=== PATIENT | male | born 1940 | race Caucasian/White ===

== ENCOUNTER 2017-11-18 11:00 | Inpatient (IN) | payer MEDICARE ==
[2017-11-18] MEDS ORDERED: SODIUM CHLORIDE 0.9% 500 ML IV STA (11:39)
[2017-11-18] MEDS ORDERED: SODIUM CHLORIDE 0.9% 1,000 ML IV STA (11:39)
--- NOTE | 2017-11-18 11:45 | ED ---
General Adult HPI - General Chief complaint: Weakness Stated complaint: Flu Symptoms Time Seen by Provider: 11/18/17 11:28 Source: patient, RN notes reviewed Mode of arrival: EMS Limitations: no limitations - History of Present Illness Initial comments: Patient 77-year-old male significant past medical history for renal disease, who presents emergency room today by EMS, the chief complaint of increased weakness with cough congestion over the last 5 days. Family members at bedside stating that they came down with the flu earlier in the week. States his symptoms started 5 days ago with cough congestion. States that they did call the family doctor who placed on azithromycin and has had 4 days of this. Patient admits to generalized weakness. Does admit to chronic low back pain states it is worse with movements as noted injury or trauma. Patient admits to cough with some sputum production. Patient does admit to feeling a little more short of breath. Denies any other complaints or symptoms. Patient denies any recent fever, chills, chest pain, abdominal pain, nausea or vomiting, numbness or tingling, dysuria or hematuria, constipation or diarrhea, headaches or visual changes, or any other complaints. - Related Data Home Medications Medication Instructions Recorded Confirmed Aspirin 81 mg PO HS@219911/18/17 11/18/17 Azithromycin [Zithromax Z-pack] See Taper PO DIRECTED 11/18/17 11/18/17 Ezetimibe [Zetia] 10 mg PO HS@219911/18/17 11/18/17 Labetalol HCl 50 mg PO TID@0600,1400,0 11/18/17 11/18/17 Levothyroxine Sodium [Synthroid] 137 mcg PO DAILY@59911/18/17 11/18/17 Simvastatin [Zocor] 40 mg PO HS@219911/18/17 11/18/17 Spironolactone [Aldactone] 25 mg PO DAILY@00 11/18/17 11/18/17 Valsartan [Diovan] 160 mg PO HS@219911/18/17 11/18/17 predniSONE 1 mg PO DAILY@199911/18/17 11/18/17 predniSONE 5 mg PO DAILY@199911/18/17 11/18/17 Allergies Allergy/AdvReac Type Severity Reaction Status Date / Time clidinium Allergy Unknown Verified 11/18/17 13:50 Review of Systems ROS Statement: Those systems with pertinent positive or pertinent negative responses have been documented in the HPI. ROS Other: All systems not noted in ROS Statement are negative. Past Medical History Past Medical History: Hyperlipidemia, Renal Disease, Thyroid Disorder History of Any Multi-Drug Resistant Organisms: None Reported Past Surgical History: No Surgical Hx Reported Past Psychological History: No Psychological Hx Reported Smoking Status: Never smoker Past Alcohol Use History: None Reported Past Drug Use History: None Reported General Exam - General Exam Comments Initial Comments: General: The patient is awake and alert, in no distress, and does not appear acutely ill. Eye: Pupils are equal, round and reactive to light, extra-ocular movements are intact. No nystagmus. There is normal conjunctiva bilaterally. No signs of icterus. Ears, nose, mouth and throat: There are moist mucous membranes and no oral lesions. Neck: The neck is supple, there is no tenderness or JVD. Cardiovascular: There is a regular rate and rhythm. No rub or gallop is appreciated. Respiratory: Lungs are clear to auscultation, respirations are non-labored, breath sounds are equal. No wheezes, stridor, rales, or rhonchi. Gastrointestinal: Soft, non-distended, non-tender abdomen without masses or organomegaly noted. There is no rebound or guarding present. No CVA tenderness. Musculoskeletal: Normal ROM, no tenderness. Strength 5/5. Sensation intact. Pulses equal bilaterally 2+. Neurological: A&O x 3. CN II-XII intact, There are no obvious motor or sensory deficits. Coordination appears grossly intact. Speech is normal. Skin: Skin is warm and dry and no rashes or lesions are noted. Psychiatric: Cooperative, appropriate mood & affect, normal judgment. Limitations: no limitations Course Vital Signs 11/18/17 11/18/17 11/18/17 11:03 12:21 13:49 Temperature 99.1 F Pulse Rate 85 79 89 Respiratory 18 18 16 Rate Blood Pressure 152/73 125/77 137/67 O2 Sat by Pulse 96 95 97 Oximetry EKG Findings - EKG Comments: EKG Findings:: EKG performed at 1211: Shows sinus rhythm at 79 beats per minute. WV interval 148. QRS 128. QT/QTc is 410/470. Does show evidence for a new left bundle branch when compared to previous EKG on 09/14/2011. Medical Decision Making - Medical Decision Making Patient labs been reviewed. Influenza B-positive. Patient was outside treatment range for Tamiflu. Patient's cardiac enzymes elevated at 1.030. Patient EKG reviewed and does show evidence for a new left bundle branch block compared to previous EKG back in 09/14/2011. Patient denies any chest pain. Does have generalized weakness. Does have cough congestion. His chest x-rays negative for any evidence of pneumonia. Patient will be admitted for serial enzymes and started on heparin here in emergency room. Case discussed with attending physician Dr. Vidal who did discuss the case with admitting physician Dr. Mcfadden movement the patient with consult cardiology. - Lab Data Result diagrams: 11/18/17 12:03 11/18/17 12:03 Lab Results 11/18/17 11/18/17 11/18/17 Range/Units 12:03 12:03 12:03 WBC 7.5 (3.8-10.6) k/uL RBC 3.83 L (4.30-5.90) m/uL Hgb 12.0 L (13.0-17.5) gm/dL Hct 36.7 L (39.0-53.0) % MCV 95.8 (80.0-100.0) fL MCH 31.4 (25.0-35.0) pg MCHC 32.8 (31.0-37.0) g/dL RDW 13.0 (11.5-15.5) % Plt Count 247 (150-450) k/uL Neutrophils % 82 % Lymphocytes % 7 % Monocytes % 9 % Eosinophils % 1 % Basophils % 0 % Neutrophils # 6.1 (1.3-7.7) k/uL Lymphocytes # 0.6 L (1.0-4.8) k/uL Monocytes # 0.7 (0-1.0) k/uL Eosinophils # 0.1 (0-0.7) k/uL Basophils # 0.0 (0-0.2) k/uL PT (9.0-12.0) sec INR (<1.2) APTT (22.0-30.0) sec Sodium 124 L (137-145) mmol/L Potassium 4.7 (3.5-5.1) mmol/L Chloride 91 L (98-107) mmol/L Carbon Dioxide 26 (22-30) mmol/L Anion Gap 7 mmol/L BUN 19 (9-20) mg/dL Creatinine 1.00 (0.66-1.25) mg/dL Est GFR (MDRD) Af Amer >60 (>60 ml/min/1.73 sqM) Est GFR (MDRD) Non-Af >60 (>60 ml/min/1.73 sqM) Glucose 81 (74-99) mg/dL Calcium 8.3 L (8.4-10.2) mg/dL Total Bilirubin 0.4 (0.2-1.3) mg/dL AST 45 (17-59) U/L ALT 29 (21-72) U/L Alkaline Phosphatase 70 (38-126) U/L Total Creatine Kinase 241 H (55-170) U/L CK-MB (CK-2) 5.7 H* (0.0-2.4) ng/mL CK-MB (CK-2) Rel Index 2.4 Troponin I 1.030 H* (0.000-0.034) ng/mL Total Protein 5.5 L (6.3-8.2) g/dL Albumin 2.9 L (3.5-5.0) g/dL Influenza Type A RNA (Not Detectd) Influenza Type B (PCR) (Not Detectd) 11/18/17 11/18/17 Range/Units 12:03 12:20 WBC (3.8-10.6) k/uL RBC (4.30-5.90) m/uL Hgb (13.0-17.5) gm/dL Hct (39.0-53.0) % MCV (80.0-100.0) fL MCH (25.0-35.0) pg MCHC (31.0-37.0) g/dL RDW (11.5-15.5) % Plt Count (150-450) k/uL Neutrophils % % Lymphocytes % % Monocytes % % Eosinophils % % Basophils % % Neutrophils # (1.3-7.7) k/uL Lymphocytes # (1.0-4.8) k/uL Monocytes # (0-1.0) k/uL Eosinophils # (0-0.7) k/uL Basophils # (0-0.2) k/uL PT 9.9 (9.0-12.0) sec INR 1.0 (<1.2) APTT 25.3 (22.0-30.0) sec Sodium (137-145) mmol/L Potassium (3.5-5.1) mmol/L Chloride (98-107) mmol/L Carbon Dioxide (22-30) mmol/L Anion Gap mmol/L BUN (9-20) mg/dL Creatinine (0.66-1.25) mg/dL Est GFR (MDRD) Af Amer (>60 ml/min/1.73 sqM) Est GFR (MDRD) Non-Af (>60 ml/min/1.73 sqM) Glucose (74-99) mg/dL Calcium (8.4-10.2) mg/dL Total Bilirubin (0.2-1.3) mg/dL AST (17-59) U/L ALT (21-72) U/L Alkaline Phosphatase (38-126) U/L Total Creatine Kinase (55-170) U/L CK-MB (CK-2) (0.0-2.4) ng/mL CK-MB (CK-2) Rel Index Troponin I (0.000-0.034) ng/mL Total Protein (6.3-8.2) g/dL Albumin (3.5-5.0) g/dL Influenza Type A RNA Not Detected (Not Detectd) Influenza Type B (PCR) Detected H (Not Detectd) Disposition Clinical Impression: NSTEMI (non-ST elevated myocardial infarction), Influenza B Disposition[facility] Time of Disposition: 13:15
[2017-11-18 12:25] LABS: Basophils % (A) 0 %; Eosinophils # (A) 0.1 k/uL (0-0.7); Eosinophils % (A) 1 %; HCT 36.7 % (39.0-53.0); Lymphocytes # (A) 0.6 k/uL (1.0-4.8); Lymphocytes % (A) 7 %; MCH 31.4 pg (25.0-35.0); MCHC 32.8 g/dL (31.0-37.0); MCV 95.8 fL (80.0-100.0); Mean Platelet Volume 6.7; Monocytes # (A) 0.7 k/uL (0-1.0); Monocytes % (A) 9 %; Neutrophils # (A) 6.1 k/uL (1.3-7.7); Neutrophils % (A) 82 %; Platelet Count 247 k/uL (150-450); RBC 3.83 m/uL (4.30-5.90); WBC 7.5 k/uL (3.8-10.6)
[2017-11-18 12:34] LABS: Partial Thromboplastin Time 25.3 sec (22.0-30.0); Prothrombin Time 9.9 sec (9.0-12.0)
[2017-11-18 12:35] LABS: ALT 29 U/L (21-72); AST 45 U/L (17-59); Albumin 2.9 g/dL (3.5-5.0); Alkaline Phosphatase 70 U/L (38-126); Anion Gap 7 mmol/L; Blood Urea Nitrogen 19 mg/dL (9-20); Calcium 8.3 mg/dL (8.4-10.2); Carbon Dioxide 26 mmol/L (22-30); Chloride 91 mmol/L (98-107); Glucose 81 mg/dL (74-99); Potassium 4.7 mmol/L (3.5-5.1); Sodium 124 mmol/L (137-145); Total Bilirubin 0.4 mg/dL (0.2-1.3); Total Protein 5.5 g/dL (6.3-8.2)
--- NOTE | 2017-11-18 13:08 | XR ---
EXAMINATION TYPE: XR chest 2V DATE OF EXAM: 11/18/2017 HISTORY: cough. REFERENCE: Previous study dated 09/08/2011. 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 The heart is enlarged. Pulmonary vasculature is normal. There is an infiltrate in the right upper lob e. There is airspace disease at the left lung base. I suspect a left effusion. IMPRESSION: 1. CARDIOMEGALY. 2. LEFT BASILAR AIRSPACE DISEASE. 3. RIGHT UPPER LUNG AIRSPACE DISEASE. 4. LEFT EFFUSION.
[2017-11-18 13:11] LABS: Creatine Kinase MB 5.7 ng/mL (0.0-2.4); Troponin I 1.03 ng/mL (0.000-0.034)
[2017-11-18] MEDS ORDERED: HEPARIN SODIUM,PORCINE 5,000 UNIT/ML 1 ML VIAL IV ONE (13:14)
[2017-11-18] MEDS: HEPARIN SOD,PORK IN 0.45% NACL 25,000 UNIT in 0.45% NACL 1 500ML.BAG IV SCH (13:31)
[2017-11-18] MEDS ORDERED: SODIUM CHLORIDE 0.9% 1,000 ML IV ONE (13:33)
[2017-11-18] MEDS ORDERED: NITROGLYCERIN SL TABS 0.4 MG TAB SUBLINGUAL PRN (13:33)
[2017-11-18] MEDS: LABETALOL 100 MG TAB PO SCH ×2 (14:25→22:05)
--- NOTE | 2017-11-18 17:26 | P.HPIM ---
History of Present Illness H&P Date: 11/18/17 Chief Complaint: Shortness of breath Patient is a 77-year-old female with a known history of FSGS currently being managed at [facility] with prednisone, Diovan, altered tone and labetalol, hypothyroidism and hyperlipidemia presents to ER we are EMS with complaints of increased weakness and cough with congestion worsening for the past 5 days. Patient does have clear to whitish sputum. Patient was seen by his PCP on last Sunday. Patient was started on Z-Elvis which the patient has has taken for 4 days. Otherwise patient has been having worsening cough and congestion and mild shortness of breath which made him come to the hospital. Patient does have generalized weakness. Denied any fever or chills. No complaints of chest pain. No nausea vomiting or abdominal pain. No dysuria or hematuria. No headache or dizziness or lightheadedness. No altered mental status. No visual changes. Patient was found have sodium level 124 Troponin 1.030 EKG showed sinus rhythm with PVCs and possible new onset left bundle branch block.. Patient was started on heparin drip. Influenza B positive PCR WBC 7.5 Review of Systems Constitutional: Patient denies any fever or chills . Does have generalized weakness Abdomen: Patient denied nausea vomiting and diarrhea and abdominal pain. Cardiovascular: Patient denies any chest pain or short of breath no palpitations. Respiratory: Cough with clear to whitish sputum and shortness of breath and congestion. Neurologic: Patient denied any numbness or tingling headache. Musculoskeletal: Patient denies any complaints of joint swelling or deformity. Skin: Negative Psychiatric: Negative Endocrine: No heat or cold intolerance. No recent weight gain. Genitourinary: No dysuria or hematuria. All other 14 point ROS negative except the above Past Medical History Past Medical History: Hyperlipidemia, Renal Disease, Thyroid Disorder History of Any Multi-Drug Resistant Organisms: None Reported Past Surgical History: No Surgical Hx Reported Past Psychological History: No Psychological Hx Reported Smoking Status: Never smoker Past Alcohol Use History: None Reported Past Drug Use History: None Reported Medications and Allergies Home Medications Medication Instructions Recorded Confirmed Type Aspirin 81 mg PO HS@0 11/18/17 11/18/17 History Azithromycin [Zithromax Z-pack] See Taper PO DIRECTED 11/18/17 11/18/17 History Ezetimibe [Zetia] 10 mg PO HS@2200 11/18/17 11/18/17 History Labetalol HCl 50 mg PO TID@0600,1400,0 11/18/17 11/18/17 History Levothyroxine Sodium [Synthroid] 137 mcg PO DAILY@59911/18/17 11/18/17 History Simvastatin [Zocor] 40 mg PO HS@219911/18/17 11/18/17 History Spironolactone [Aldactone] 25 mg PO DAILY@59911/18/17 11/18/17 History Valsartan [Diovan] 160 mg PO HS@219911/18/17 11/18/17 History predniSONE 1 mg PO DAILY@199911/18/17 11/18/17 History predniSONE 5 mg PO DAILY@199911/18/17 11/18/17 History Allergies Allergy/AdvReac Type Severity Reaction Status Date / Time clidinium Allergy Unknown Verified 11/18/17 13:50 Physical Exam Vitals: Vital Signs Temp Pulse Resp BP Pulse Ox 11/18/17 15:52 99 F 90 18 129/70 97 11/18/17 14:38 85 18 131/73 97 11/18/17 13:49 89 16 137/67 97 11/18/17 12:21 79 18 125/77 95 11/18/17 11:03 99.1 F 85 18 152/73 96 Intake and Output 11/18/17 11/18/17 11/18/17 06:59 14:59 22:59 Other: Weight 63.503 kg Patient Weight 11/19/17 06:59 Weight 63.503 kg PHYSICAL EXAMINATION: Patient is lying in the bed comfortably, no acute distress, awake alert and oriented.. HEENT: Normocephalic. Neck is supple. Pupils reactive. Nostrils clear. Oral cavity is moist. Ears reveal no drainage. Neck reveals no JVD, carotid bruits, or thyromegaly. CHEST EXAMINATION: Trachea is central. Symmetrical expansion. No wheezing noted in the lower lung demarco. No crackles or rhonchi Patient does have wheezing when he was coughing. CARDIAC: Normal S1, S2 with no gallops. No murmurs ABDOMEN: Soft. Bowel sounds normal. No organomegaly. No abdominal bruits. Extremities: reveal no edema. No clubbing or cyanosis Neurologically awake, alert, oriented x3 with well-coordinated movements. No focal deficits noted Skin: No rash or skin lesions. Psychiatric: Cooperative. Nonsuicidal Musculoskeletal: No joint swelling or deformity. Normal range of motion. Results CBC & Chem 7: 11/18/17 12:03 11/18/17 12:03 Labs: Abnormal Lab Results - Last 24 Hours (Table) 11/18/17 11/18/17 11/18/17 Range/Units 12:03 12:03 12:03 RBC 3.83 L (4.30-5.90) m/uL Hgb 12.0 L (13.0-17.5) gm/dL Hct 36.7 L (39.0-53.0) % Lymphocytes # 0.6 L (1.0-4.8) k/uL Sodium 124 L (137-145) mmol/L Chloride 91 L (98-107) mmol/L Calcium 8.3 L (8.4-10.2) mg/dL Total Creatine Kinase 241 H (55-170) U/L CK-MB (CK-2) 5.7 H* (0.0-2.4) ng/mL Troponin I 1.030 H* (0.000-0.034) ng/mL Total Protein 5.5 L (6.3-8.2) g/dL Albumin 2.9 L (3.5-5.0) g/dL Influenza Type B (PCR) (Not Detectd) 11/18/17 Range/Units 12:20 RBC (4.30-5.90) m/uL Hgb (13.0-17.5) gm/dL Hct (39.0-53.0) % Lymphocytes # (1.0-4.8) k/uL Sodium (137-145) mmol/L Chloride (98-107) mmol/L Calcium (8.4-10.2) mg/dL Total Creatine Kinase (55-170) U/L CK-MB (CK-2) (0.0-2.4) ng/mL Troponin I (0.000-0.034) ng/mL Total Protein (6.3-8.2) g/dL Albumin (3.5-5.0) g/dL Influenza Type B (PCR) Detected H (Not Detectd) Assessment and Plan Assessment: Acute influenza B infection. Symptoms started 4 days ago Elevated troponin possible non-ST elevated MT Hypovolemic hyponatremia sodium level 124 FSGS. Renal function is being closely monitored at [facility] hypothyroidism hyperlipidemia Left basilar and right upper air space disease. Unlikely bacterial pneumonia Plan: Patient was given IV fluid bolus in the ER. Patient has been having symptoms for the past 4 days and completed Z-Elvis. Tamiflu will not be started at this time and also patient having renal issues. Continue with the heparin drip and cardiology evaluation. Monitor serial EKG and troponins. Telemetry monitoring. Encourage oral intake. Will follow closely and further recommendations based on the clinical course. Currently patient denied any chest pain or shortness of breath. Time with Patient: Greater than 30
[2017-11-18 19:54] LABS: Creatine Kinase MB 4.9 ng/mL (0.0-2.4); Troponin I 0.629 ng/mL (0.000-0.034)
[2017-11-18] MEDS: ATORVASTATIN 20 MG TAB PO SCH (20:12)
[2017-11-18] MEDS: predniSONE 1 MG TAB PO SCH (20:13)
[2017-11-18] MEDS: predniSONE 5 MG TAB PO SCH (20:13)
[2017-11-18] MEDS ORDERED: guaiFENesin SYRUP 100MG/5ML 200 MG/10 ML CUP PO PRN (22:01)
[2017-11-18] MEDS: EZETIMIBE 10 MG TAB PO SCH (22:08)
[2017-11-18] MEDS: VALSARTAN 160 MG TAB PO SCH (22:09)
[2017-11-19 01:12] LABS: Creatine Kinase MB 3.9 ng/mL (0.0-2.4); Troponin I 0.44 ng/mL (0.000-0.034)
[2017-11-19] MEDS: LABETALOL 100 MG TAB PO SCH ×3 (05:01→20:16)
[2017-11-19] MEDS: SYNTHROID 137MCG TABLET PO SCH (05:02)
[2017-11-19] MEDS ORDERED: SPIRONOLACTONE 25 MG TAB PO SCH (06:00)
[2017-11-19 06:32] LABS: Basophils % (A) 1 %; Eosinophils % (A) 0 %; HCT 37.8 % (39.0-53.0); HGB 12.3 gm/dL (13.0-17.5); Lymphocytes # (A) 0.5 k/uL (1.0-4.8); Lymphocytes % (A) 7 %; MCH 31.7 pg (25.0-35.0); MCHC 32.5 g/dL (31.0-37.0); MCV 97.4 fL (80.0-100.0); Mean Platelet Volume 6.8; Monocytes # (A) 0.6 k/uL (0-1.0); Monocytes % (A) 8 %; Neutrophils # (A) 5.8 k/uL (1.3-7.7); Neutrophils % (A) 83 %; Platelet Count 248 k/uL (150-450); RBC 3.88 m/uL (4.30-5.90); RDW 13.1 % (11.5-15.5)
[2017-11-19 07:02] LABS: Anion Gap 9 mmol/L; Blood Urea Nitrogen 16 mg/dL (9-20); Calcium 8.4 mg/dL (8.4-10.2); Carbon Dioxide 22 mmol/L (22-30); Chloride 93 mmol/L (98-107); Cholesterol 140 mg/dL (<200); Glucose 85 mg/dL (74-99); HDL Cholesterol 52 mg/dL (40-60); LDL Cholesterol,Calculated 76 mg/dL (0-99); Potassium 4.9 mmol/L (3.5-5.1); Sodium 124 mmol/L (137-145); Triglycerides 59 mg/dL (<150)
[2017-11-19] MEDS ORDERED: ASPIRIN 325 MG TAB PO SCH (09:00)
[2017-11-19] MEDS ORDERED: METOPROLOL TARTRATE 50 MG TAB PO SCH (12:15)
[2017-11-19] MEDS ORDERED: SODIUM CHLORIDE 0.9% 1,000 ML IV SCH (12:15)
--- NOTE | 2017-11-19 16:05 | P.PN ---
Subjective 77-year-old gentleman with known history of focal segmental humerus sclerosis was admitted for severe influenzal illness, cough. Family requested patient that patient to be transferred to in [facility] to [place] where his focal segmental sclerosis is being managed. Patient incidentally is found to have hyponatremia believed secondary to diuretic therapy and sepsis and hypovolemia patient is receiving IV fluids all that phone was discontinued will recheck his sodium tomorrow. Unfortunately patient is getting D5 half-normal saline with heparin, aspirin pharmacy this cannot be changed to D5 normal saline are normal saline and cardiology is recommending to continue for 1 more day of heparin. Patient did have elevated troponins believed secondary to type II non-ST elevation myocardial infarction. Patient did have left bundle branch block which appears to be new. Discussed with family and cardiology. Patient does have moderate aortic stenosis. Patient is feeling much better than compared to yesterday. Constitutional: Denied any fatigue denied any fever. Cardio vascular: denied any chest pain, palpitations Gastrointestinal denied any nausea vomiting Pulmonary: Denied any shortness of breath cough Neurologic denied any new focal deficits Objective - Vital Signs Vital signs: Vital Signs Temp 97.1 F L 11/19/17 15:30 Pulse 92 11/19/17 15:30 Resp 28 H 11/19/17 15:30 BP 143/87 11/19/17 15:30 Pulse Ox 96 11/19/17 15:30 Intake & Output 11/18/17 11/19/17 11/19/17 18:59 06:59 18:59 Intake Total 643.886 Balance 643.886 Weight 63.503 kg 64.5 kg Intake: IV 540 Heparin Sod,Pork in 0.45% 220 NaCl 25,000 unit In 0.45 % NaCl 1 500ml.bag @ 12 UNITS/KG/HR 15.24 mls/hr IV .Q24H [facility] Rx#: [id number] Sodium Chloride 0.9% 1, 320 000 ml @ 20 mls/hr IV . Q24H ONE Rx#:[id number] Intake, IV Titration 103.886 Amount Heparin Sod,Pork in 0.45% 103.886 NaCl 25,000 unit In 0.45 % NaCl 1 500ml.bag @ 12 UNITS/KG/HR 15.24 mls/hr IV .Q24H [facility] Rx#: [id number] Other: Voiding Method Incontinent Incontinent # Voids 5 # Bowel Movements 1 - Exam PHYSICAL EXAMINATION: GENERAL: The patient is alert and oriented x3, is in mild respiratory distress appears to be lethargic HEENT: Pupils are round and equally reacting to light. EOMI. No scleral icterus. No conjunctival pallor. Normocephalic, atraumatic. No pharyngeal erythema. No thyromegaly. CARDIOVASCULAR: S1 and S2 present. No murmurs, rubs, or gallops. PULMONARY: Chest is clear to auscultation, no wheezing or crackles. ABDOMEN: Soft, nontender, nondistended, normoactive bowel sounds. No palpable organomegaly. MUSCULOSKELETAL: No joint swelling or deformity. EXTREMITIES: No cyanosis, clubbing, or pedal edema. NEUROLOGICAL: Gross neurological examination did not reveal any focal deficits. SKIN: No rashes. - Labs CBC & Chem 7: 11/19/17 05:55 11/19/17 05:55 Labs: Abnormal Lab Results - Last 24 Hours (Table) 11/18/17 11/18/17 11/19/17 Range/Units 18:50 18:50 00:15 RBC (4.30-5.90) m/uL Hgb (13.0-17.5) gm/dL Hct (39.0-53.0) % Lymphocytes # (1.0-4.8) k/uL APTT 59.8 H (22.0-30.0) sec Sodium (137-145) mmol/L Chloride (98-107) mmol/L Total Creatine Kinase 244 H 225 H (55-170) U/L CK-MB (CK-2) 4.9 H* 3.9 H* (0.0-2.4) ng/mL Troponin I 0.629 H* 0.440 H* (0.000-0.034) ng/mL 11/19/17 11/19/17 11/19/17 Range/Units 05:55 05:55 05:55 RBC 3.88 L (4.30-5.90) m/uL Hgb 12.3 L (13.0-17.5) gm/dL Hct 37.8 L (39.0-53.0) % Lymphocytes # 0.5 L (1.0-4.8) k/uL APTT 47.5 H (22.0-30.0) sec Sodium 124 L (137-145) mmol/L Chloride 93 L (98-107) mmol/L Total Creatine Kinase (55-170) U/L CK-MB (CK-2) (0.0-2.4) ng/mL Troponin I (0.000-0.034) ng/mL 11/19/17 Range/Units 10:58 RBC (4.30-5.90) m/uL Hgb (13.0-17.5) gm/dL Hct (39.0-53.0) % Lymphocytes # (1.0-4.8) k/uL APTT 48.8 H (22.0-30.0) sec Sodium (137-145) mmol/L Chloride (98-107) mmol/L Total Creatine Kinase (55-170) U/L CK-MB (CK-2) (0.0-2.4) ng/mL Troponin I (0.000-0.034) ng/mL Microbiology - Last 24 Hours (Table) 11/18/17 12:03 Blood Culture - Preliminary Blood No Growth after 24 hours Assessment and Plan Plan: Assessment and Plan Assessment: Systemic inflammatory response syndrome due to Acute influenza B infection. Symptoms started 4 days ago, feeling better compared to yesterday continue with IV fluids Elevated troponin possible non-ST elevated DC type II from influenza infection Hypovolemic hyponatremia sodium level 124, sodium remained at 124 unfortunately already received Spirinolactone today which was discontinued and patient is on IV fluids at this time in the form of normal saline at 75 mL FSGS. Renal function is being closely monitored at [facility] hypothyroidism hyperlipidemia Left basilar and right upper air space disease. Unlikely bacterial pneumonia Discussed with the physician at [facility] with accepted the patient but beds are unavailable at this time.
--- NOTE | 2017-11-19 18:38 | CONS ---
CONSULTATION This is a 77-year-old gentleman patient of Dr. Humberto Ferris came in through the emergency room yesterday with what seems to be influenza B. After he was admitted, troponin levels were performed and this revealed elevation raising the possibility of non STEMI and therefore I am seeing the patient. Apparently, he has a kidney disease and was seen at [facility] and has been advised to be on spironolactone and labetalol. However, his clinical picture suggests that of a influenza with hyponatremia and sodium level is 124. He is feeling weak, coughing up and the family members suggest that he had flu in the week and he was placed on Zithromax for 4 days. He is having generalized weakness, lack of energy and therefore has been admitted to the hospital. He is hyponatremic and also has elevated troponin. Possibility of a troponin rise in the setting of flu is not unlikely but underlying myocardial ischemia also cannot be totally excluded, although patient does not seem to be having any acute ischemic syndrome type picture clinically. PAST MEDICAL HISTORY: Renal disease of unclear etiology advised to be on Aldactone and Diovan and prednisone. He is also has a thyroid disorder and hyperlipidemia. He has a systolic murmur, but there is no clear diagnosis of what valvular disease he has. The patient is not a smoker. Does not use alcohol. MEDICATIONS: At home include Zocor 40 mg daily, Aldactone 25 mg daily, Diovan 160 mg daily, prednisone 6 mg daily. REVIEW OF SYSTEMS: Remarkable for generalized weakness, lack of energy, cough with some sputum production. No hematemesis, melena, genitourinary symptoms, fever, chills or cough with expectoration. EKG reveals sinus mechanism with a left bundle. LABORATORY DATA: Suggests that the troponin is elevated at 0.6 and 0.4. His sodium is 124, potassium is normal. White count is normal. EXAMINATION: Blood pressure is 140/70, pulse rate is about 90 per minute. HEENT unremarkable. Fundus was not examined by me. NECK: Supple. I cannot appreciate JVD. Heart exam reveals S1, S2 with ejection systolic murmur at the base of the heart. Second heart sound is somewhat muffled. There is also a systolic murmur at the apex. Lungs reveal diminished air entry with fine rales over both bases. ABDOMEN: Soft, nontender. Lower extremities reveal diminished pulses, trace edema. Central nervous system revealed generalized weakness. No focal deficits. EKG revealed a sinus mechanism with left bundle. IMPRESSION: 1. Troponin elevation probably related to underlying influenza and related issues. 2. Influenza B confirmed. 3. Hyponatremia. 4. History of renal disease, unclear etiology. 5. Moderate aortic stenosis on clinical evaluation. RECOMMENDATION: I am recommending an echocardiogram and suggesting that we switch him from labetalol to Lopressor in view of myocardial ischemia and also hydrate him cautiously. I will also seek a nephrology evaluation. Apparently hyponatremia issues being addressed by Dr. Araujo. Thank you very much for the consultation. MMLAURAL / IJN: [id number] /
[2017-11-19] MEDS: EZETIMIBE 10 MG TAB PO SCH (20:16)
[2017-11-19] MEDS: VALSARTAN 160 MG TAB PO SCH (20:17)
[2017-11-19] MEDS: predniSONE 1 MG TAB PO SCH (20:17)
[2017-11-19] MEDS: predniSONE 5 MG TAB PO SCH (20:17)
[2017-11-19] MEDS: ATORVASTATIN 20 MG TAB PO SCH ×2 (20:17→20:21)
[2017-11-19] MEDS: HEPARIN SOD,PORK IN 0.45% NACL 25,000 UNIT in 0.45% NACL 1 500ML.BAG IV SCH (23:02)
[2017-11-20] MEDS ORDERED: FUROSEMIDE 20 MG TAB PO STA (00:39)
[2017-11-20] MEDS ORDERED: FUROSEMIDE 10 MG/ML 2 ML VIAL IV ONE ×2 (00:42→11:30)
[2017-11-20] MEDS: SODIUM CHLORIDE 0.9% 1,000 ML IV SCH (01:04)
[2017-11-20 06:24] LABS: ALT 24 U/L (21-72); AST 43 U/L (17-59); Albumin 3.1 g/dL (3.5-5.0); Alkaline Phosphatase 81 U/L (38-126); Anion Gap 13 mmol/L; Blood Urea Nitrogen 20 mg/dL (9-20); Calcium 8.7 mg/dL (8.4-10.2); Carbon Dioxide 20 mmol/L (22-30); Chloride 92 mmol/L (98-107); Glucose 85 mg/dL (74-99); Potassium 4.9 mmol/L (3.5-5.1); Sodium 125 mmol/L (137-145); Total Bilirubin 0.7 mg/dL (0.2-1.3)
--- NOTE | 2017-11-20 08:39 | XR ---
EXAMINATION TYPE: XR chest 1V DATE OF EXAM: 11/20/2017 COMPARISON: Prior chest x-ray 11/18/2017 HISTORY: Congestive heart failure TECHNIQUE: Single frontal view of the chest is obtained. FINDINGS: Patient is rotated. Elevation of the right hemidiaphragm is again noted. No evident pneumo thorax or sizable effusion. Interstitium is increased. Heart size is stable. Patchy basilar density i s noted. IMPRESSION: Findings are similar to prior exam. Suspect underlying interstitial lung disease, basila r atelectasis, cardiomegaly. There may be some improvement in aeration.
[2017-11-20 11:02] LABS: Uric Acid 4.6 mg/dL (3.5-8.5)
--- NOTE | 2017-11-20 11:08 | ECHOF ---
Referral Reason:pain/shortness of breath/post procedure MEASUREMENTS -------- HEIGHT: 175.3 cm WEIGHT: 64.4 kg BP: 149/97 RVIDd: 2.9 cm (< 3.3) IVSd: 1.1 cm (0.6 - 1.1) LVIDd: 4.1 cm (3.9 - 5.3) LVPWd: 1.3 cm (0.6 - 1.1) IVSs: 1.4 cm LVIDs: 2.9 cm LVPWs: 1.5 cm LAESV Index (A-L): 13.88 ml/m Ao Diam: 3.3 cm (2.0 - 3.7) AV Cusp: 0.9 cm (1.5 - 2.6) LA Diam: 3.4 cm (2.7 - 3.8) MV E Brandan: 1.13 m/s MV DecT: 80 ms MV A Brandan: 1.30 m/s MV E/A Ratio: 0.87 AV maxP.63 mmHg AV meanP.49 mmHg RAP: 5.00 mmHg RVSP: 37.68 mmHg FINDINGS -------- Sinus rhythm. This was a technically adequate study. The left ventricular size is normal. There is mild concentric left ventricular hypertrophy. Overa ll left ventricular systolic function is normal with, an EF between 55 - 60 %. The right ventricle is normal in size and function. Normal LA size by volume 22+/-6 ml/m2. The right atrium is normal in size. Aortic valve is trileaflet and is moderately thickened. Trace to mild aortic regurgitation. There is moderate aortic stenosis present. Peak/mean gradient across the Aortic Valve is 45.63mmHg / 29. 49mmHg. The mitral valve leaflets are mildly thickened. Mild mitral annular calcification present. Mild m itral regurgitation is present. No regurgitation noted Right ventricular systolic pressure is normal at < 35 mmHg. There is mild pulmonary hypertension. Trace/mild (physiologic) pulmonic regurgitation. The aortic root size is normal. IVC Not well visulized. The pericardium is normal. There is no pericardial effusion. CONCLUSIONS -------- 1. Sinus rhythm. 2. This was a technically adequate study. 3. The left ventricular size is normal. 4. There is mild concentric left ventricular hypertrophy. 5. Overall left ventricular systolic function is normal with, an EF between 55 - 60 %. 6. Normal LA size by volume 22+/-6 ml/m2. 7. Aortic valve is trileaflet and is moderately thickened. 8. Trace to mild aortic regurgitation. 9. There is moderate aortic stenosis present. 10. Peak/mean gradient across the Aortic Valve is 45.63mmHg / 29.49mmHg. 11. The mitral valve leaflets are mildly thickened. 12. Mild mitral annular calcification present. 13. Mild mitral regurgitation is present. 14. No regurgitation noted 15. Right ventricular systolic pressure is normal at < 35 mmHg. 16. There is mild pulmonary hypertension. 17. Trace/mild (physiologic) pulmonic regurgitation. 18. The aortic root size is normal. 19. IVC Not well visulized. 20. There is no pericardial effusion. DOCUMENT CONTROL ASSISTANT: Adria Juan RDCS
--- NOTE | 2017-11-20 11:20 | P.NPCON ---
History of Present Illness - Reason for Consult hyponatremia - History of Present Illness Reason for consultation: Hyponatremia History of present illness: Patient is a 77-year-old male seen in renal consultation for hyponatremia. Patient's sodium level was 124 on admission and he was started on normal saline at 75 mL an hour. Subsequently his sodium level dropped down to 122 and IV fluids were discontinued. He did receive 1 dose of Lasix 20 IV last night and sodium level this morning is 125. Patient presented to the hospital with generalized weakness along with cough and congestion. He is noted to be positive for influenza B virus. 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 He is currently maintained on prednisone 6 mg daily. He also has a history of aortic aneurysm for which she underwent surgical repair in the past. Patient's currently nothing by mouth as he is having difficult time swallowing. He schedule for a barium swallow evaluation today. Denies any vomiting or diarrhea. Denies chest pain. He does have a nonproductive cough. His most recent temperature was 99 from night. Hemodynamically he's been stable. No edema. He is nonoliguric. Vital signs are stable. General: The patient appeared well nourished and normally developed. HEENT: Head exam is unremarkable. Neck is without jugular venous distension. LUNGS: Lungs are clear to auscultation and percussion. Breath sounds decreased. HEART: Rate and Rhythm are regular. First and second heart sounds normal. No murmurs, rubs or gallops. ABDOMEN: Abdominal exam reveals normal bowel sounds. Non-tender and non- distended. No evidence of peritonitis. EXTREMITITES: No clubbing, cyanosis, or edema. Past Medical History Past Medical History: Hyperlipidemia, Renal Disease, Thyroid Disorder History of Any Multi-Drug Resistant Organisms: None Reported Past Surgical History: No Surgical Hx Reported Additional Past Surgical History / Comment(s): AAA repair Past Anesthesia/Blood Transfusion Reactions: No Reported Reaction Past Psychological History: No Psychological Hx Reported Smoking Status: Never smoker Past Alcohol Use History: None Reported Past Drug Use History: None Reported - Past Family History Mother Family Medical History: Cancer Medications and Allergies Home Medications Medication Instructions Recorded Confirmed Type Aspirin 81 mg PO HS@2200 11/18/17 11/18/17 History Azithromycin [Zithromax Z-pack] See Taper PO DIRECTED 11/18/17 11/18/17 History Ezetimibe [Zetia] 10 mg PO HS@219911/18/17 11/18/17 History Labetalol HCl 50 mg PO TID@0600,1400,219911/18/17 11/18/17 History Levothyroxine Sodium [Synthroid] 137 mcg PO DAILY@59911/18/17 11/18/17 History Simvastatin [Zocor] 40 mg PO HS@219911/18/17 11/18/17 History Spironolactone [Aldactone] 25 mg PO DAILY@59911/18/17 11/18/17 History Valsartan [Diovan] 160 mg PO HS@219911/18/17 11/18/17 History predniSONE 1 mg PO DAILY@199911/18/17 11/18/17 History predniSONE 5 mg PO DAILY@199911/18/17 11/18/17 History Allergies Allergy/AdvReac Type Severity Reaction Status Date / Time clidinium Allergy Unknown Verified 11/18/17 13:50 Physical Exam Vitals: Vital Signs Temp Pulse Resp BP Pulse Ox 11/20/17 08:36 93 L 11/20/17 08:33 99.0 F 100 18 141/60 93 L 11/20/17 03:19 98.4 F 90 18 143/82 92 L 11/20/17 00:00 98.0 F 93 18 160/96 94 L 11/19/17 20:00 99.2 F 91 18 134/81 95 11/19/17 15:30 97.1 F L 92 28 H 143/87 96 11/19/17 12:00 97.1 F L 96 24 149/89 95 Intake and Output 11/19/17 11/20/17 11/20/17 22:59 06:59 14:59 Intake Total 396.114 118.11 0 Balance 396.114 118.11 0 Intake: Intake, IV Titration 396.114 118.11 Amount Heparin Sod,Pork in 0.45% 396.114 118.11 NaCl 25,000 unit In 0.45 % NaCl 1 500ml.bag @ 12 UNITS/KG/HR 15.24 mls/hr IV .Q24H [facility] Rx#: [id number] Oral 0 Other: Voiding Method Incontinent Incontinent # Voids 3 # Bowel Movements 1 Weight 65 kg 65 kg Patient Weight 11/21/17 06:59 Weight 65 kg Results - Lab Results Most recent lab results Calcium 8.7 mg/dL (8.4-10.2) 11/20/17 05:17 11/19/17 05:55 11/20/17 05:17 Assessment and Plan Plan: Assessment: #1. 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 Sodium level up to 125 this morning. #2. Biopsy-proven FSGS being followed at [facility]. Currently maintained on prednisone 6 minute grams daily. #3. Benign hypertension. Controlled. #4. Metabolic acidosis secondary to IV fluids. #5. Influenza. #6. Moderate aortic stenosis. Cardiology following. Plan: Lasix 20 mg IV once now. Repeat sodium level at 6 PM today. Diet to be advanced after swallow evaluation completed. Maintain 1200 mL fluid restriction for now. Okay to resume Diovan and Aldactone if able to take oral pills. Avoid nephrotoxic agents and hypotensive episodes. Repeat electrolytes in the morning. Check urinalysis. Continue prednisone 6 mg daily. Thank you for the consultation. I will continue to follow the patient with you during his hospital stay.
--- NOTE | 2017-11-20 14:34 | FL ---
EXAMINATION TYPE: FL barium swallow w video DATE OF EXAM: 11/20/2017 MODIFIED SWALLOW / DEGLUTITION STUDY CLINICAL HISTORY: Dysphagia. TECHNIQUE: Deglutition study is performed utilizing thin liquid barium, honey and nectar thick liqui d barium and barium thick applesauce. 1 minute and 36 seconds of fluoroscopy time was utilized with 1 95 images saved. COMPARISON: None. FINDINGS: The oral and pharyngeal phases show satisfactory initiation and propagation with all modali ties tested. Normal mastication is seen with solid modalities tested. Laryngeal penetration and aspi ration are seen with all modalities tested including liquid barium, honey, and nectar thick liquid ba rium and barium thick applesauce. Significant pharyngeal residue was appreciated with the nectar thic k liquid barium and barium thick applesauce. IMPRESSION: Laryngeal penetration and aspiration with all modalities tested. Please refer to speech therapist notes for further details if necessary.
[2017-11-20] MEDS: SYNTHROID 137MCG TABLET PO SCH (16:24)
[2017-11-20] MEDS: LABETALOL 100 MG TAB PO SCH ×2 (16:25→16:26)
[2017-11-20] MEDS: ASPIRIN 81 MG PO SCH (16:25)
[2017-11-20] MEDS: FLUCONAZOLE IN NACL,ISO-OSM 100 MG in SALINE 1 50ML.BAG IVPB SCH (16:28)
--- NOTE | 2017-11-20 16:52 | P.PN ---
Subjective 77-year-old gentleman with known history of focal segmental humerus sclerosis was admitted for severe influenzal illness, cough. Family requested patient that patient to be transferred to in [facility] to [place] where his focal segmental sclerosis is being managed. Patient incidentally is found to have hyponatremia believed secondary to diuretic therapy and sepsis and hypovolemia patient is receiving IV fluids all that phone was discontinued will recheck his sodium tomorrow. Unfortunately patient is getting D5 half-normal saline with heparin, aspirin pharmacy this cannot be changed to D5 normal saline are normal saline and cardiology is recommending to continue for 1 more day of heparin. Patient did have elevated troponins believed secondary to type II non-ST elevation myocardial infarction. Patient did have left bundle branch block which appears to be new. Discussed with family and cardiology. Patient does have moderate aortic stenosis. 11/20/2017 Patient's sodium did not improve in spite of IV fluids and patient's urinary sodium is 124 because of that reason nephrology believes patient has syndrome of inappropriate ADH secretion from influenza him up patient was started on fluid restriction actually patient is nothing by mouth except for ice chips and was given a dose of Lasix. aldactone can be resumed. Patient has odynophagia, possible fungal esophagitis and failed swallow. Because of which patient means and by mouth, patient was started on IV flucanazole for fungal esophagitis. Patient is feeling much better than compared to yesterday. Constitutional: Denied any fatigue denied any fever. Cardio vascular: denied any chest pain, palpitations Gastrointestinal denied any nausea vomiting Pulmonary: Denied any shortness of breath cough Neurologic denied any new focal deficits Objective - Vital Signs Vital signs: Vital Signs Temp 99.2 F 11/20/17 12:21 Pulse 80 11/20/17 16:40 Resp 16 11/20/17 16:40 BP 151/86 11/20/17 12:21 Pulse Ox 93 L 11/20/17 08:36 Intake & Output 11/19/17 11/20/17 11/20/17 18:59 06:59 18:59 Intake Total 514.224 0 Balance 514.224 0 Weight 65 kg 65 kg Intake: Intake, IV Titration 514.224 Amount Heparin Sod,Pork in 0.45% 514.224 NaCl 25,000 unit In 0.45 % NaCl 1 500ml.bag @ 12 UNITS/KG/HR 15.24 mls/hr IV .Q24H [facility] Rx#: [id number] Oral 0 Other: Voiding Method Incontinent Incontinent Incontinent # Voids 3 2 # Bowel Movements 1 - Exam PHYSICAL EXAMINATION: GENERAL: The patient is alert and oriented x3, is in mild respiratory distress appears to be lethargic HEENT: Pupils are round and equally reacting to light. EOMI. No scleral icterus. No conjunctival pallor. Normocephalic, atraumatic. No pharyngeal erythema. No thyromegaly. CARDIOVASCULAR: S1 and S2 present. No murmurs, rubs, or gallops. PULMONARY: Chest is clear to auscultation, no wheezing or crackles. ABDOMEN: Soft, nontender, nondistended, normoactive bowel sounds. No palpable organomegaly. MUSCULOSKELETAL: No joint swelling or deformity. EXTREMITIES: No cyanosis, clubbing, or pedal edema. NEUROLOGICAL: Gross neurological examination did not reveal any focal deficits. SKIN: No rashes. - Labs CBC & Chem 7: 11/19/17 05:55 11/20/17 05:17 Labs: Abnormal Lab Results - Last 24 Hours (Table) 11/19/17 11/19/17 11/19/17 Range/Units 17:50 17:50 23:47 APTT (22.0-30.0) sec Sodium 123 L 122 L (137-145) mmol/L Chloride (98-107) mmol/L Carbon Dioxide (22-30) mmol/L Osmolality 257 L (280-301) mosm/kg Total Protein (6.3-8.2) g/dL Albumin (3.5-5.0) g/dL Ur Random Sodium (30-90) mmol/L 11/20/17 11/20/17 11/20/17 Range/Units 02:00 05:17 05:17 APTT 41.4 H (22.0-30.0) sec Sodium 125 L (137-145) mmol/L Chloride 92 L (98-107) mmol/L Carbon Dioxide 20 L (22-30) mmol/L Osmolality (280-301) mosm/kg Total Protein 6.0 L (6.3-8.2) g/dL Albumin 3.1 L (3.5-5.0) g/dL Ur Random Sodium 135 H (30-90) mmol/L Microbiology - Last 24 Hours (Table) 11/18/17 12:03 Blood Culture - Preliminary Blood No Growth after 48 hours Assessment and Plan Plan: Assessment and Plan Assessment: Systemic inflammatory response syndrome due to Acute influenza B infection. Symptoms started 4 days ago, feeling better compared to yesterday continue with IV fluids Elevated troponin possible non-ST elevated [place] type II from influenza infection Euvolemic hyponatremia sodium level 124,, IV fluids was discontinued patient was given Lasix and patient was started on fluid restriction FSGS. Renal function is being closely monitored at [facility] patient is a low-dose steroid for this hypothyroidism hyperlipidemia Left basilar and right upper air space disease. Unlikely bacterial pneumonia Discussed with the physician at [facility] with accepted the patient but beds are unavailable at this time. Failed swallow evaluation: Patient will remain nothing by mouth probably due to fungal esophagitis along with influenza. -Odynophagia: Secondary to fungal esophagitis IV flucanazole as mentioned above.
[2017-11-20 19:36] LABS: Amorphous Sediment,Urine Rare /hpf; Appearance,Urine Clear (Clear); Bilirubin,Urine Negative (Negative); Blood,Urine Small (Negative); Color,Urine Yellow; Glucose,Urine (UA) Negative (Negative); Hyaline Casts,Urine 3 /lpf (0-2); Ketones,Urine 2+ (Negative); Leukocyte Esterase,Urine Negative (Negative); Mucus,Urine Rare /hpf; PH, Urine 5.5 (5.0-8.0); Protein,Urine 2+ (Negative); RBC,Urine 1 /hpf (0-5); Squamous Epithelial Cell,Urine 2 /hpf (0-4); Urobilinogen,Urine <2.0 mg/dL (<2.0); WBC,Urine 1 /hpf (0-5)
[2017-11-20] MEDS ORDERED: ALBUTEROL NEBULIZED 2.5 MG/3 ML INHALATION SCH (20:00)
[2017-11-20] MEDS: ATORVASTATIN 20 MG TAB PO SCH (20:49)
[2017-11-20] MEDS: EZETIMIBE 10 MG TAB PO SCH (20:49)
[2017-11-20] MEDS: methylPREDNISolone SOD SUCCI 40 MG/ML 1 ML VIAL IV SCH (21:09)
[2017-11-20] MEDS: METOPROLOL TARTRATE 5 MG/5 ML VIAL IVP SCH (21:09)
[2017-11-20] MEDS: VALSARTAN 160 MG TAB PO SCH (21:24)
[2017-11-21] MEDS: SODIUM CHLORIDE 0.9% 1,000 ML IV SCH (01:11)
[2017-11-21] MEDS: ACETAMINOPHEN IV (For NPO) 1,000 MG in EMPTY BAG 1 BAG IVPB PRN ×2 (01:31→21:46)
[2017-11-21] MEDS: METOPROLOL TARTRATE 5 MG/5 ML VIAL IVP SCH ×4 (04:13→22:33)
[2017-11-21] MEDS: SYNTHROID 137MCG TABLET PO SCH (04:22)
[2017-11-21 07:05] LABS: Basophils % (A) 0 %; Eosinophils % (A) 0 %; HCT 44.3 % (39.0-53.0); HGB 14.8 gm/dL (13.0-17.5); Lymphocytes # (A) 0.2 k/uL (1.0-4.8); Lymphocytes % (A) 3 %; MCH 31.8 pg (25.0-35.0); MCHC 33.4 g/dL (31.0-37.0); MCV 95.3 fL (80.0-100.0); Mean Platelet Volume 7.4; Monocytes # (A) 0.5 k/uL (0-1.0); Monocytes % (A) 7 %; Neutrophils # (A) 6.1 k/uL (1.3-7.7); Neutrophils % (A) 89 %; Platelet Count 295 k/uL (150-450); RBC 4.65 m/uL (4.30-5.90); RDW 13.1 % (11.5-15.5); WBC 6.9 k/uL (3.8-10.6)
[2017-11-21 07:22] LABS: Anion Gap 16 mmol/L; Blood Urea Nitrogen 32 mg/dL (9-20); Calcium 9.6 mg/dL (8.4-10.2); Carbon Dioxide 20 mmol/L (22-30); Chloride 92 mmol/L (98-107); Glucose 117 mg/dL (74-99); Potassium 5.6 mmol/L (3.5-5.1); Sodium 128 mmol/L (137-145)
[2017-11-21] MEDS: ASPIRIN 81 MG PO SCH (07:58)
[2017-11-21] MEDS: FLUCONAZOLE IN NACL,ISO-OSM 100 MG in SALINE 1 50ML.BAG IVPB SCH (08:03)
[2017-11-21] MEDS: IPRATROPIUM-ALBUTEROL 3 ML NEB INHALATION SCH ×4 (08:09→19:41)
[2017-11-21] MEDS ORDERED: INSULIN REGULAR 100 UNIT/ML VIAL IV ONE (09:24)
[2017-11-21] MEDS ORDERED: DEXTROSE 50%-WATER 50 ML SYRINGE IVP ONE (09:24)
--- NOTE | 2017-11-21 09:49 | P.PN ---
Subjective Progress Note Date: 11/21/17 Patient seen and examined at the bedside on rounds with Dr. Ferris. Patient is very sleepy this morning but easily arousable to verbal stimuli. Patient denies chest pain or pressure. Denies shortness of breath. He remains on 3L NC with oxygen saturations greater than 92%. Patient underwent modified barium swallow yesterday and did not pass. He remains NPO. Spoke with Gerri, speech therapist, and states she can re-evaluate patient in a couple days to see if swallowing has improved. Sodium this morning has improved to 128. He received a dose of IV lasix yesterday per nephrology. K 5.6. [facility]. Objective - Vital Signs Vital signs: Vital Signs Temp 98.2 F 11/21/17 07:56 Pulse 79 11/21/17 08:19 Resp 22 11/21/17 07:56 BP 106/67 11/21/17 07:56 Pulse Ox 94 L 11/21/17 06:14 Intake & Output 11/20/17 11/21/17 11/21/17 18:59 06:59 18:59 Intake Total 0 0 Output Total 200 Balance 0 -200 Weight 65 kg 62 kg Intake: Oral 0 0 Output: Urine 200 Other: Voiding Method Incontinent Incontinent Incontinent # Voids 2 3 # Bowel Movements 1 - Exam GENERAL: This is a 77-year-old male who is sleepy at the time of examination but easily arousable to verbal stimuli. HEENT: Head is atraumatic, normocephalic. Pupils are equal, round, and reactive to light. Sclerae anicteric. Conjunctivae are clear. Mucus membranes of the mouth are moist. Neck is supple. RESPIRATORY: Diminished throughout with scattered rhonchi. No use of accessory muscles. Patient maintaining oxygen saturation greater than 92%. No chest wall tenderness is noted on palpation or with deep breathing. CARDIOVASCULAR: Regular rate and rhythm. S1 and S2 noted. No JVD noted. No S3 or S4 noted. GASTROINTESTINAL: No distention noted. Abdomen soft and round. Normal active bowel sounds auscultated x 4 quadrants. No pain or tenderness noted upon palpation. INTEGUMENTARY: No cyanosis. No jaundice. No rashes noted. No cellulitis noted. EXTREMITIES: 2+ peripheral pulses. No evidence of peripheral edema. No calf tenderness noted. NEUROLOGIC: Cranial nerves II-XII intact. PSYCHIATRIC: Sleepy this morning, but easily arousable to verbal stimuli. - Labs CBC & Chem 7: 11/21/17 05:58 11/21/17 05:58 Labs: Abnormal Lab Results - Last 24 Hours (Table) 11/20/17 11/20/17 11/21/17 Range/Units 19:11 19:18 05:58 Lymphocytes # (1.0-4.8) k/uL Sodium 126 L 128 L (137-145) mmol/L Potassium 5.6 H (3.5-5.1) mmol/L Chloride 92 L (98-107) mmol/L Carbon Dioxide 20 L (22-30) mmol/L BUN 32 H (9-20) mg/dL Glucose 117 H (74-99) mg/dL Phosphorus 5.0 H (2.5-4.5) mg/dL Urine Protein 2+ H (Negative) Urine Ketones 2+ H (Negative) Urine Blood Small H (Negative) Amorphous Sediment Rare H (None) /hpf Hyaline Casts 3 H (0-2) /lpf Urine Mucus Rare H (None) /hpf 11/21/17 Range/Units 05:58 Lymphocytes # 0.2 L (1.0-4.8) k/uL Sodium (137-145) mmol/L Potassium (3.5-5.1) mmol/L Chloride (98-107) mmol/L Carbon Dioxide (22-30) mmol/L BUN (9-20) mg/dL Glucose (74-99) mg/dL Phosphorus (2.5-4.5) mg/dL Urine Protein (Negative) Urine Ketones (Negative) Urine Blood (Negative) Amorphous Sediment (None) /hpf Hyaline Casts (0-2) /lpf Urine Mucus (None) /hpf Microbiology - Last 24 Hours (Table) 11/18/17 12:03 Blood Culture - Preliminary Blood No Growth after 48 hours Assessment and Plan Plan: ASSESSMENT: Systemic inflammatory response syndrome due to Acute influenza B infection Elevated troponin, possible non-ST elevated RI type II from influenza infection Euvolemic hyponatremia, sodium level 124, improved to 128 this morning FSGS. Renal function is being closely monitored at [facility], maintained on daily low dose steroids Hyperkalemia Hypothyroidism Hyperlipidemia Left basilar and right upper air space disease, unlikely bacterial pneumonia Fungal esophagitis, on IV flucanazole Odynophagia, secondary to fungal esophagitis PLAN: Nephrology on consult. Appreciate recommendations and input Awaiting bed at [facility] per family request Begin D5.9 at 50cc/hr secondary to NPO status 10 units regular insulin and dextrose 50ml X 1 dose Repeat potassium this afternoon Monitor sodium levels Begin accuchecks AC/HS secondary to NPO status, IV steroids, and D5.9 infusion. If hyperglycemic, can eliminate dextrose in IV. Spoke with Gerri speech therapist, who states she can re-evaluate patients swallowing in a couple days to see if there is improvement Home meds as appropriate Monitor labs GI prophylaxis: Protonix 40 mg IV Daily DVT prophylaxis: venedynes to bilateral LE Monitor vital signs and address as appropriate Further recommendations pending patient's course Nurse practitioner note has been reviewed by physician. Signing provider agrees with the documented findings, assessment, and plan of care.
[2017-11-21] MEDS ORDERED: SODIUM BICARB 8.4% 50 ML SYR (1 MEQ/ML) IV ONE (10:00)
--- NOTE | 2017-11-21 10:29 | P.PN ---
Subjective Patient is seen in follow-up for hyponatremia. Sodium level is up to 128 this morning. Patient's currently resting in bed. He is currently sleeping and somewhat lethargic. According to the daughter he did not sleep at all yesterday. His potassium is little elevated at 5.6 and creatinine is 1.16. 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 He is noted to be positive for influenza B. He is nothing by mouth as he failed swallow eval yesterday. Vital signs are stable. General: The patient appeared well nourished and normally developed. HEENT: Head exam is unremarkable. Neck is without jugular venous distension. LUNGS: Rhonchi at bases. Breath sounds decreased. HEART: Rate and Rhythm are regular. First and second heart sounds normal. No murmurs, rubs or gallops. ABDOMEN: Abdominal exam reveals normal bowel sounds. Non-tender and non- distended. No evidence of peritonitis. EXTREMITITES: No clubbing, cyanosis, or edema. Objective - Vital Signs Vital signs: Vital Signs Temp 98.2 F 11/21/17 07:56 Pulse 79 11/21/17 08:19 Resp 22 11/21/17 07:56 BP 106/67 11/21/17 07:56 Pulse Ox 94 L 11/21/17 06:14 Intake & Output 11/20/17 11/21/17 11/21/17 18:59 06:59 18:59 Intake Total 0 0 Output Total 200 Balance 0 -200 Weight 65 kg 62 kg Intake: Oral 0 0 Output: Urine 200 Other: Voiding Method Incontinent Incontinent Incontinent # Voids 2 3 # Bowel Movements 1 - Labs CBC & Chem 7: 11/21/17 05:58 11/21/17 05:58 Labs: Abnormal Lab Results - Last 24 Hours (Table) 11/20/17 11/20/17 11/21/17 Range/Units 19:11 19: 05:58 Lymphocytes # (1.0-4.8) k/uL Sodium 126 L 128 L (137-145) mmol/L Potassium 5.6 H (3.5-5.1) mmol/L Chloride 92 L (98-107) mmol/L Carbon Dioxide 20 L (22-30) mmol/L BUN 32 H (9-20) mg/dL Glucose 117 H (74-99) mg/dL Phosphorus 5.0 H (2.5-4.5) mg/dL Urine Protein 2+ H (Negative) Urine Ketones 2+ H (Negative) Urine Blood Small H (Negative) Amorphous Sediment Rare H (None) /hpf Hyaline Casts 3 H (0-2) /lpf Urine Mucus Rare H (None) /hpf 11/21/17 Range/Units 05:58 Lymphocytes # 0.2 L (1.0-4.8) k/uL Sodium (137-145) mmol/L Potassium (3.5-5.1) mmol/L Chloride (98-107) mmol/L Carbon Dioxide (22-30) mmol/L BUN (9-20) mg/dL Glucose (74-99) mg/dL Phosphorus (2.5-4.5) mg/dL Urine Protein (Negative) Urine Ketones (Negative) Urine Blood (Negative) Amorphous Sediment (None) /hpf Hyaline Casts (0-2) /lpf Urine Mucus (None) /hpf Microbiology - Last 24 Hours (Table) 11/18/17 12:03 Blood Culture - Preliminary Blood No Growth after 48 hours Assessment and Plan Plan: Assessment: #1. 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 Sodium level up to 128 this morning. #2. Biopsy-proven FSGS being followed at [facility]. Currently maintained on prednisone 6 mg and diovan daily. #3. Benign hypertension. Controlled. #4. Metabolic acidosis secondary to IV fluids. #5. Influenza B. #6. Moderate aortic stenosis. Cardiology following. Plan: D5 normal saline at 50 cc/hr started this morning as he failed swallow eval. Recheck sodium level at 4 PM today. 10 units of IV regular insulin with amp of D50 now. I will also give him 2 A of sodium bicarbonate IV push now. Recheck potassium level at 4 PM today. Maintain 1200 mL fluid restriction for now. Continue to hold Diovan and Aldactone due to hyperkalemia. Avoid nephrotoxic agents and hypotensive episodes. Hold antihypertensives for systolic blood pressure less than 120. Resume prednisone once able to tolerate oral intake.
[2017-11-21] MEDS: PANTOPRAZOLE 40 MG/10 ML VIAL IVP SCH (10:37)
[2017-11-21] MEDS: DEXTROSE 5%-0.9% NACL 1,000 ML IV SCH (10:37)
[2017-11-21 11:47] LABS: Glucose,Whole Blood 158 mg/dL (75-99)
[2017-11-21 16:43] LABS: Potassium 4.3 mmol/L (3.5-5.1)
[2017-11-21 16:55] LABS: Glucose,Whole Blood 139 mg/dL (75-99)
[2017-11-21] MEDS: EZETIMIBE 10 MG TAB PO SCH (20:22)
[2017-11-21] MEDS: ATORVASTATIN 20 MG TAB PO SCH (20:22)
[2017-11-21] MEDS: methylPREDNISolone SOD SUCCI 40 MG/ML 1 ML VIAL IV SCH (20:24)
[2017-11-21 21:25] LABS: Glucose,Whole Blood 137 mg/dL (75-99)
[2017-11-21] MEDS: LORazepam 2 MG/ML INJ IV PRN (23:00)
[2017-11-22] MEDS: SYNTHROID 137MCG TABLET PO SCH (05:25)
[2017-11-22] MEDS: METOPROLOL TARTRATE 5 MG/5 ML VIAL IVP SCH ×4 (05:25→22:16)
[2017-11-22 06:06] LABS: Glucose,Whole Blood 191 mg/dL (75-99)
[2017-11-22] MEDS: SODIUM CHLORIDE 0.9% 1,000 ML IV SCH ×2 (06:37→22:55)
[2017-11-22] MEDS: DEXTROSE 5%-0.9% NACL 1,000 ML IV SCH (06:38)
[2017-11-22 06:46] LABS: Calcium 8.7 mg/dL (8.4-10.2); Potassium 4.5 mmol/L (3.5-5.1)
[2017-11-22] MEDS: ASPIRIN 81 MG PO SCH (08:10)
[2017-11-22] MEDS: FLUCONAZOLE IN NACL,ISO-OSM 100 MG in SALINE 1 50ML.BAG IVPB SCH (08:16)
[2017-11-22] MEDS: PANTOPRAZOLE 40 MG/10 ML VIAL IVP SCH (08:17)
[2017-11-22] MEDS: IPRATROPIUM-ALBUTEROL 3 ML NEB INHALATION SCH ×4 (08:34→21:04)
--- NOTE | 2017-11-22 09:57 | P.PN ---
Subjective Patient is seen in follow-up for hyponatremia. Sodium level is up to 135 this morning. Patient's currently resting in bed. He is currently sleeping and somewhat lethargic. His potassium is normal but his creatinine is up to 1.4 today. 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 He is noted to be positive for influenza B. He is nothing by mouth as he failed swallow eval. He is receiving Solu-Medrol 20 mg IV once daily for now. Blood pressure has been stable. Vital signs are stable. General: The patient appeared well nourished and normally developed. HEENT: Head exam is unremarkable. Neck is without jugular venous distension. LUNGS: Rhonchi at bases. Breath sounds decreased. HEART: Rate and Rhythm are regular. First and second heart sounds normal. No murmurs, rubs or gallops. ABDOMEN: Abdominal exam reveals normal bowel sounds. Non-tender and non- distended. No evidence of peritonitis. EXTREMITITES: No clubbing, cyanosis, or edema. Objective - Vital Signs Vital signs: Vital Signs Temp 97.2 F L 11/22/17 08:15 Pulse 100 11/22/17 08:47 Resp 18 11/22/17 08:15 BP 110/67 11/22/17 08:15 Pulse Ox 96 11/22/17 08:15 Intake & Output 11/21/17 11/22/17 11/22/17 18:59 06:59 18:59 Intake Total 870 Output Total 1 Balance -1 870 Weight 60.5 kg Intake: Intake, IV Titration 870 Amount ACETAMINOPHEN IV (For NPO 400 ) 1,000 mg In Empty Bag 1 bag @ 400 mls/hr IVPB Q6HR PRN Rx#:[id number] Dextrose 5%-0.9% NaCl 1, 350 000 ml @ 50 mls/hr IV . Q20H [facility] Rx#:[id number] Sodium Chloride 0.9% 1, 120 000 ml @ 20 mls/hr IV . Q24H [facility] Rx#:[id number] Output: Stool 1 Other: Voiding Method Incontinent Incontinent # Voids 1 # Bowel Movements 1 - Labs CBC & Chem 7: 11/21/17 05:58 11/22/17 05:20 Labs: Abnormal Lab Results - Last 24 Hours (Table) 11/21/17 11/21/17 11/21/17 Range/Units 11:38 16:00 16:44 Sodium 133 L (137-145) mmol/L Chloride (98-107) mmol/L BUN (9-20) mg/dL Creatinine (0.66-1.25) mg/dL Glucose (74-99) mg/dL POC Glucose (mg/dL) 158 H 139 H (75-99) mg/dL 11/21/17 11/22/17 11/22/17 Range/Units 21:21 05:20 05:59 Sodium 135 L (137-145) mmol/L Chloride 97 L (98-107) mmol/L BUN 46 H (9-20) mg/dL Creatinine 1.40 H (0.66-1.25) mg/dL Glucose 169 H (74-99) mg/dL POC Glucose (mg/dL) 137 H 191 H (75-99) mg/dL Microbiology - Last 24 Hours (Table) 11/18/17 12:03 Blood Culture - Preliminary Blood No Growth after 72 hours Assessment and Plan Plan: Assessment: #1. 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 Sodium level up to 135 this morning. #2. Biopsy-proven FSGS being followed at [facility]. Currently maintained on prednisone 6 mg and diovan daily. Since he is not able to take oral medications, he is receiving IV Solu-Medrol. #3. Benign hypertension. Controlled. #4. Metabolic acidosis secondary to IV fluids. Resolved. #5. Influenza B. #6. Moderate aortic stenosis. Cardiology following. #7. Acute kidney injury mostly prerenal from influenza and hemodynamic instability. Plan: Continue D5 normal saline at 50 mL an hour. Avoid nephrotoxic agents and hypotensive episodes. Hold antihypertensives for systolic blood pressure less than 120. Resume prednisone once able to tolerate oral intake. Maintain IV Solu-Medrol for now. Repeat electrolytes in the morning.
[2017-11-22 11:40] LABS: Glucose,Whole Blood 143 mg/dL (75-99)
--- NOTE | 2017-11-22 15:31 | XR ---
EXAMINATION TYPE: XR chest 1V portable DATE OF EXAM: 11/22/2017 COMPARISON: Prior chest x-ray 11/20/2017, CT 04/27/2015 HISTORY: NG tube placement TECHNIQUE: Single frontal view of the chest is obtained. FINDINGS: NG tube has been placed in the interval, tip is coursing to the right lower lobe. Contrast is present in the bowel compatible with patient's prior barium study. No significant interval change . Patient is rotated. There are overlying cardiac leads. IMPRESSION: Bronchial intubation, report relayed to Edilia telephonically at the time of exam.
[2017-11-22 16:59] LABS: Glucose,Whole Blood 139 mg/dL (75-99)
[2017-11-22] MEDS ORDERED: ACETAMINOPHEN IV (For NPO) 1,000 MG in EMPTY BAG 1 BAG IVPB ONE (19:50)
[2017-11-22] MEDS: ATORVASTATIN 20 MG TAB PO SCH (20:44)
[2017-11-22] MEDS: EZETIMIBE 10 MG TAB PO SCH (20:45)
[2017-11-22] MEDS: methylPREDNISolone SOD SUCCI 40 MG/ML 1 ML VIAL IV SCH (20:48)
[2017-11-22 21:08] LABS: Glucose,Whole Blood 122 mg/dL (75-99)
[2017-11-22] MEDS: LORazepam 2 MG/ML INJ IV PRN (21:26)
[2017-11-23] MEDS: LORazepam 2 MG/ML INJ IV PRN ×3 (02:42→21:07)
[2017-11-23] MEDS: SYNTHROID 137MCG TABLET PO SCH (03:57)
[2017-11-23] MEDS: DEXTROSE 5%-0.9% NACL 1,000 ML IV SCH (04:28)
[2017-11-23] MEDS: METOPROLOL TARTRATE 5 MG/5 ML VIAL IVP SCH ×4 (04:28→20:20)
[2017-11-23 05:57] LABS: Glucose,Whole Blood 130 mg/dL (75-99)
[2017-11-23 07:00] LABS: Anion Gap 9 mmol/L; Blood Urea Nitrogen 40 mg/dL (9-20); Calcium 8.8 mg/dL (8.4-10.2); Carbon Dioxide 31 mmol/L (22-30); Chloride 104 mmol/L (98-107); Glucose 139 mg/dL (74-99); Potassium 4.3 mmol/L (3.5-5.1); Sodium 144 mmol/L (137-145)
[2017-11-23] MEDS: IPRATROPIUM-ALBUTEROL 3 ML NEB INHALATION SCH ×4 (07:42→19:27)
--- NOTE | 2017-11-23 08:26 | P.PN ---
Subjective Patient is seen in follow-up for hyponatremia. Sodium level is up to 144 this morning. Patient's currently resting in bed. He is currently sleeping and somewhat lethargic. He does respond to verbal commands but it is difficult to understand him at this time. Creatinine is down to 1.17 today. 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 He is noted to be positive for influenza B. He is nothing by mouth as he failed swallow eval. He is receiving Solu-Medrol 20 mg IV once daily for now. Blood pressure has been stable. Vital signs are stable. General: The patient appeared well nourished and normally developed. HEENT: Head exam is unremarkable. Neck is without jugular venous distension. LUNGS: Rhonchi at bases. Breath sounds decreased. HEART: Rate and Rhythm are regular. First and second heart sounds normal. No murmurs, rubs or gallops. ABDOMEN: Abdominal exam reveals normal bowel sounds. Non-tender and non- distended. No evidence of peritonitis. EXTREMITITES: No clubbing, cyanosis, or edema. Objective - Vital Signs Vital signs: Vital Signs Temp 98.2 F 11/23/17 03:56 Pulse 100 11/23/17 07:49 Resp 24 11/23/17 04:00 BP 144/88 11/23/17 03:56 Pulse Ox 92 L 11/23/17 07:43 Intake & Output 11/22/17 11/23/17 11/23/17 18:59 06:59 18:59 Intake Total 450 Output Total 2 Balance 450 -2 Weight 60.5 kg 61 kg Intake: Intake, IV Titration 450 Amount Dextrose 5%-0.9% NaCl 1, 400 000 ml @ 50 mls/hr IV . Q20H [facility] Rx#:[id number] Fluconazole in NaCl,Iso- 50 Osm 100 mg In Saline 1 50ml.bag @ 50 mls/hr IVPB DAILY [facility] Rx#:[id number] Oral 0 Output: Stool 2 Other: Voiding Method Incontinent Incontinent # Voids 1 3 - Labs CBC & Chem 7: 11/21/17 05:58 11/23/17 05:21 Labs: Abnormal Lab Results - Last 24 Hours (Table) 11/22/17 11/22/17 11/22/17 Range/Units 11:38 16:56 21:06 Carbon Dioxide (22-30) mmol/L BUN (9-20) mg/dL Glucose (74-99) mg/dL POC Glucose (mg/dL) 143 H 139 H 122 H (75-99) mg/dL 11/23/17 11/23/17 Range/Units 05:21 05:56 Carbon Dioxide 31 H (22-30) mmol/L BUN 40 H (9-20) mg/dL Glucose 139 H (74-99) mg/dL POC Glucose (mg/dL) 130 H (75-99) mg/dL Microbiology - Last 24 Hours (Table) 11/18/17 12:03 Blood Culture - Preliminary Blood No Growth after 96 hours Assessment and Plan Plan: Assessment: #1. 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 Sodium level up to 144 this morning. #2. Biopsy-proven FSGS being followed at [facility]. Maintained on prednisone 6 mg and diovan daily as outpatient. Since he is not able to take oral medications, he is receiving IV Solu-Medrol. #3. Benign hypertension. Controlled. #4. Metabolic acidosis secondary to IV fluids. Resolved. #5. Influenza B. #6. Moderate aortic stenosis. Cardiology following. #7. Acute kidney injury mostly prerenal from influenza and hemodynamic instability. Improved. Plan: I will change IV fluids to D5 half-normal saline to be run at 60 mL an hour. Avoid nephrotoxic agents and hypotensive episodes. Hold antihypertensives for systolic blood pressure less than 120. Resume prednisone once able to tolerate oral intake. Maintain IV Solu-Medrol for now. Repeat electrolytes in the morning. Surgery consulted for Dobbhoff placement.
[2017-11-23] MEDS: DEXTROSE 5%-0.45% NACL 1,000 ML IV SCH (09:50)
[2017-11-23] MEDS: PANTOPRAZOLE 40 MG/10 ML VIAL IVP SCH (09:50)
[2017-11-23] MEDS: FLUCONAZOLE IN NACL,ISO-OSM 100 MG in SALINE 1 50ML.BAG IVPB SCH (09:54)
[2017-11-23] MEDS: ASPIRIN 300 MG SUPP RECTAL SCH (09:55)
[2017-11-23] MEDS: ASPIRIN 81 MG PO SCH (10:04)
[2017-11-23 12:33] LABS: Glucose,Whole Blood 114 mg/dL (75-99)
--- NOTE | 2017-11-23 13:00 | P.GSCN ---
History of Present Illness Consult date: 11/23/17 Reason for Consult: Placement of a duhoff tube for nutritional support History of present illness: 77-year-old male being seen at the request of the attending for a dobhoff placement to initiate tube feeds . Patient has a history of developing odynophagia secondary to fungal esophagitis. Patient did undergo a modified barium swallow on November 20 in which the patient did not pass remains NP0 Patient has a history of FSGS underwent a kidney biopsy in which the patient is being followed closely by nephrology service at [facility] additionally patient is being treated this admission for an influenza positive B family is requesting patient be transferred [facility] case supervisor is pursuing the transfer patients being followed closely by nephrology this admission. This morning the patient is arousable to verbal stimuli otherwise lethargic. Family at bedside. Aware of the plan of care. Review of Systems Difficult to obtain from the patient Past Medical History Past Medical History: Hyperlipidemia, Renal Disease, Thyroid Disorder History of Any Multi-Drug Resistant Organisms: None Reported Past Surgical History: No Surgical Hx Reported Additional Past Surgical History / Comment(s): AAA repair Past Anesthesia/Blood Transfusion Reactions: No Reported Reaction Past Psychological History: No Psychological Hx Reported Smoking Status: Never smoker Past Alcohol Use History: None Reported Past Drug Use History: None Reported - Past Family History Mother Family Medical History: Cancer Medications and Allergies Home Medications Medication Instructions Recorded Confirmed Type Aspirin 81 mg PO HS@219911/18/17 11/18/17 History Azithromycin [Zithromax Z-pack] See Taper PO DIRECTED 11/18/17 11/18/17 History Ezetimibe [Zetia] 10 mg PO HS@219911/18/17 11/18/17 History Labetalol HCl 50 mg PO TID@0600,1400,219911/18/17 11/18/17 History Levothyroxine Sodium [Synthroid] 137 mcg PO DAILY@59911/18/17 11/18/17 History Simvastatin [Zocor] 40 mg PO HS@219911/18/17 11/18/17 History Spironolactone [Aldactone] 25 mg PO DAILY@0600 11/18/17 11/18/17 History Valsartan [Diovan] 160 mg PO HS@219911/18/17 11/18/17 History predniSONE 1 mg PO DAILY@199911/18/17 11/18/17 History predniSONE 5 mg PO DAILY@199911/18/17 11/18/17 History Allergies Allergy/AdvReac Type Severity Reaction Status Date / Time clidinium Allergy Unknown Verified 11/18/17 13:50 Surgical - Exam Vital Signs Temp Pulse Resp BP Pulse Ox 99.1 F 85 18 152/73 96 11/18/17 11:03 11/18/17 11:03 11/18/17 11:03 11/18/17 11:03 11/18/17 11:03 GENERAL APPEARANCE: 77-year-old male looking older than stated age arousable to verbal stimuli lethargic in no acute distress. VITAL SIGNS: Reviewed HEENT: Head is normocephalic and atraumatic. Pupils are equal and reactive. The nares are patent. Oropharynx is clear without lesions. NECK: Supple without lymphadenopathy. Traches midline. HEART: S1, S2. Regular rate and rhythm. No murmur noted denying chest pain LUNGS: No crackles or wheezes are heard. ABDOMEN: Soft, nontender, nondistended with good bowel sounds. No peritoneal signs. No palpable organomegaly or masses. EXTREMITIES: Normal skin color and turgor. No cyanosis, rash, ulceration, clubbing or edema. Radial pedal pulses are 2/4 bilaterally. Results - Labs 11/21/17 05:58 11/23/17 05:21 Abnormal Lab Results - Last 24 Hours (Table) 11/22/17 11/22/17 11/23/17 Range/Units 16:56 21:06 05:21 Carbon Dioxide 31 H (22-30) mmol/L BUN 40 H (9-20) mg/dL Glucose 139 H (74-99) mg/dL POC Glucose (mg/dL) 139 H 122 H (75-99) mg/dL 11/23/17 11/23/17 Range/Units 05:56 11:57 Carbon Dioxide (22-30) mmol/L BUN (9-20) mg/dL Glucose (74-99) mg/dL POC Glucose (mg/dL) 130 H 114 H (75-99) mg/dL Microbiology - Last 24 Hours (Table) 11/18/17 12:03 Blood Culture - Preliminary Blood No Growth after 96 hours Diabetes panel 11/23/17 Range/Units 05:21 Sodium 144 (137-145) mmol/L Potassium 4.3 (3.5-5.1) mmol/L Chloride 104 (98-107) mmol/L Carbon Dioxide 31 H (22-30) mmol/L BUN 40 H (9-20) mg/dL Creatinine 1.17 (0.66-1.25) mg/dL Glucose 139 H (74-99) mg/dL Calcium 8.8 (8.4-10.2) mg/dL Calcium panel 11/23/17 Range/Units 05:21 Calcium 8.8 (8.4-10.2) mg/dL Pituitary panel 11/23/17 Range/Units 05:21 Sodium 144 (137-145) mmol/L Potassium 4.3 (3.5-5.1) mmol/L Chloride 104 (98-107) mmol/L Carbon Dioxide 31 H (22-30) mmol/L BUN 40 H (9-20) mg/dL Creatinine 1.17 (0.66-1.25) mg/dL Glucose 139 H (74-99) mg/dL Calcium 8.8 (8.4-10.2) mg/dL Adrenal panel 11/23/17 Range/Units 05:21 Sodium 144 (137-145) mmol/L Potassium 4.3 (3.5-5.1) mmol/L Chloride 104 (98-107) mmol/L Carbon Dioxide 31 H (22-30) mmol/L BUN 40 H (9-20) mg/dL Creatinine 1.17 (0.66-1.25) mg/dL Glucose 139 H (74-99) mg/dL Calcium 8.8 (8.4-10.2) mg/dL Assessment and Plan Assessment: Impression History of FSGS This admission positive influenza B Fungal esophagitis Odynophagia, secondary to fungal esophagitis Failed modified barium swallow Plan Dr. CRUZ WILL place dobhoff tube feed to initiate tube feeds for nutritional support Consult dietitian for recommendations nutritional supplements after dobhoff is placed Will follow with you Aspiration precautions Surgical consultation note dictated for dr cruz The above impression and plan of care have been discussed and directed by signing physician. Ioana Skinner nurse practitioner acting as scribe for signing physician.
--- NOTE | 2017-11-23 15:34 | P.PN ---
Progress Note - Text Progress Note Date: 11/23/17 The patient seen this afternoon. Multiple attempts were made to place the Dobbhoff feeding tube. The patient cannot swallow. The tube does not enter the esophagus and is entering his trachea. After 6 attempts. It was decided to stop the procedure. The patient will be given TPN over the weekend. He'll be scheduled for PEG tube on Sunday.
[2017-11-23 17:51] LABS: Glucose,Whole Blood 119 mg/dL (75-99)
[2017-11-23] MEDS: ATORVASTATIN 20 MG TAB PO SCH (20:10)
[2017-11-23] MEDS: EZETIMIBE 10 MG TAB PO SCH (20:16)
[2017-11-23] MEDS: methylPREDNISolone SOD SUCCI 40 MG/ML 1 ML VIAL IV SCH (20:20)
[2017-11-23 21:18] LABS: Glucose,Whole Blood 111 mg/dL (75-99)
[2017-11-24] MEDS: DEXTROSE 5%-0.45% NACL 1,000 ML IV SCH ×2 (04:07→10:31)
[2017-11-24] MEDS: METOPROLOL TARTRATE 5 MG/5 ML VIAL IVP SCH ×4 (04:07→20:27)
[2017-11-24] MEDS: SODIUM CHLORIDE 0.9% 1,000 ML IV SCH (04:07)
[2017-11-24] MEDS: LORazepam 2 MG/ML INJ IV PRN ×2 (04:07→20:27)
[2017-11-24 06:11] LABS: Glucose,Whole Blood 120 mg/dL (75-99)
[2017-11-24] MEDS: SYNTHROID 137MCG TABLET PO SCH (06:14)
[2017-11-24 06:30] LABS: Anion Gap 7 mmol/L; Blood Urea Nitrogen 37 mg/dL (9-20); Calcium 9.1 mg/dL (8.4-10.2); Carbon Dioxide 28 mmol/L (22-30); Chloride 104 mmol/L (98-107); Glucose 139 mg/dL (74-99); Potassium 4.6 mmol/L (3.5-5.1); Sodium 139 mmol/L (137-145)
[2017-11-24] MEDS: IPRATROPIUM-ALBUTEROL 3 ML NEB INHALATION SCH ×5 (08:40→20:16)
[2017-11-24] MEDS: PANTOPRAZOLE 40 MG/10 ML VIAL IVP SCH (08:56)
[2017-11-24] MEDS: FLUCONAZOLE IN NACL,ISO-OSM 100 MG in SALINE 1 50ML.BAG IVPB SCH (08:56)
[2017-11-24] MEDS: ASPIRIN 300 MG SUPP RECTAL SCH (08:56)
--- NOTE | 2017-11-24 10:02 | P.PN ---
Subjective Patient is seen in follow-up for hyponatremia. Sodium level is 139 this morning. Patient's currently resting in bed. He is currently sleeping and somewhat lethargic. He does respond to verbal commands but it is difficult to understand him at this time. Creatinine is down to 0.9 today. 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 He is noted to be positive for influenza B. He is nothing by mouth as he failed swallow eval. He is receiving Solu-Medrol 20 mg IV once daily for now. Blood pressure has been stable. He did have some grape juice yesterday which was fed to him by his daughter. Vital signs are stable. General: The patient appeared well nourished and normally developed. HEENT: Head exam is unremarkable. Neck is without jugular venous distension. LUNGS: Rhonchi at bases. Breath sounds decreased. HEART: Rate and Rhythm are regular. First and second heart sounds normal. No murmurs, rubs or gallops. ABDOMEN: Abdominal exam reveals normal bowel sounds. Non-tender and non- distended. No evidence of peritonitis. EXTREMITITES: No clubbing, cyanosis, or edema. Objective - Vital Signs Vital signs: Vital Signs Temp 97.4 F L 11/24/17 08:56 Pulse 104 H 11/24/17 08:56 Resp 20 11/24/17 08:56 BP 141/90 11/24/17 08:56 Pulse Ox 98 11/24/17 08:56 Intake & Output 11/23/17 11/24/17 11/24/17 18:59 06:59 18:59 Intake Total 240 Output Total 20 Balance 220 Weight 61 kg 63.5 kg Intake: Intake, IV Titration 240 Amount Dextrose 5%-0.45% NaCl 1, 240 000 ml @ 60 mls/hr IV . [id number] [facility] Rx#:[id number] Output: Urine 20 Other: Voiding Method Incontinent Incontinent Incontinent # Voids 1 1 - Labs CBC & Chem 7: 11/21/17 05:58 11/24/17 05:20 Labs: Abnormal Lab Results - Last 24 Hours (Table) 11/23/17 11/23/17 11/23/17 Range/Units 11:57 17:24 21:16 BUN (9-20) mg/dL Glucose (74-99) mg/dL POC Glucose (mg/dL) 114 H 119 H 111 H (75-99) mg/dL 11/24/17 11/24/17 Range/Units 05:20 06:09 BUN 37 H (9-20) mg/dL Glucose 139 H (74-99) mg/dL POC Glucose (mg/dL) 120 H (75-99) mg/dL Microbiology - Last 24 Hours (Table) 11/18/17 12:03 Blood Culture - Preliminary Blood No Growth after 120 hours Assessment and Plan Plan: Assessment: #1. 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 Improved. #2. Biopsy-proven FSGS being followed at [facility]. Maintained on prednisone 6 mg and diovan daily as outpatient. Since he is not able to take oral medications, he is receiving IV Solu-Medrol. #3. Benign hypertension. Controlled. #4. Metabolic acidosis secondary to IV fluids. Resolved. #5. Influenza B. #6. Moderate aortic stenosis. Cardiology following. #7. Acute kidney injury mostly prerenal from influenza and hemodynamic instability. Improved. Plan: Continue D5 half-normal saline to be run at 50 mL an hour. Avoid nephrotoxic agents and hypotensive episodes. Hold antihypertensives for systolic blood pressure less than 120. Resume prednisone once able to tolerate oral intake. Maintain IV Solu-Medrol for now. Repeat electrolytes in the morning.
--- NOTE | 2017-11-24 12:03 | P.PN ---
Subjective Progress Note Date: 11/24/17 Principal diagnosis: Malnutrition Patient apparently was able to tolerate some liquids yesterday. Seems more lethargic again today. Denies pain. Objective - Vital Signs Vital signs: Vital Signs Temp 97.5 F L 11/24/17 11:18 Pulse 115 H 11/24/17 11:18 Resp 22 11/24/17 11:18 BP 155/103 11/24/17 11:18 Pulse Ox 98 11/24/17 11:18 Intake & Output 11/23/17 11/24/17 11/24/17 18:59 06:59 18:59 Intake Total 240 230 Output Total 20 Balance 220 230 Weight 61 kg 63.5 kg Intake: Intake, IV Titration 240 230 Amount Dextrose 5%-0.45% NaCl 1, 50 000 ml @ 50 mls/hr IV . Q20H [facility] Rx#:[id number] Dextrose 5%-0.45% NaCl 1, 240 180 000 ml @ 60 mls/hr IV . [id number] [facility] Rx#:[id number] Oral 0 Output: Urine 20 Other: Voiding Method Incontinent Incontinent Incontinent # Voids 1 1 - Exam Abdomen: Soft, nontender, nondistended - Labs CBC & Chem 7: 11/21/17 05:58 11/24/17 05:20 Labs: Abnormal Lab Results - Last 24 Hours (Table) 11/23/17 11/23/17 11/23/17 Range/Units 11:57 17:24 21:16 BUN (9-20) mg/dL Glucose (74-99) mg/dL POC Glucose (mg/dL) 114 H 119 H 111 H (75-99) mg/dL 11/24/17 11/24/17 Range/Units 05:20 06:09 BUN 37 H (9-20) mg/dL Glucose 139 H (74-99) mg/dL POC Glucose (mg/dL) 120 H (75-99) mg/dL Microbiology - Last 24 Hours (Table) 11/18/17 12:03 Blood Culture - Preliminary Blood No Growth after 120 hours Assessment and Plan (1) Malnutrition Narrative/Plan: Continue with plans for PEG tube on Sunday. Was discussed with the patient's today. Current Visit: Yes Status: Acute Code(s): E46 - UNSPECIFIED PROTEIN-CALORIE MALNUTRITION SNOMED Code(s): 83282856
[2017-11-24] MEDS ORDERED: hydrALAZINE HCL 20 MG/ML 1 ML VIAL IVP STA (12:14)
[2017-11-24 12:28] LABS: Glucose,Whole Blood 106 mg/dL (75-99)
[2017-11-24] MEDS ORDERED: hydrALAZINE HCL 20 MG/ML 1 ML VIAL IVP PRN (15:58)
[2017-11-24] MEDS ORDERED: cloNIDine HCL 0.1 MG TAB PO PRN (15:59)
--- NOTE | 2017-11-24 16:24 | XR ---
EXAMINATION TYPE: XR chest 1V portable DATE OF EXAM: 11/24/2017 CLINICAL HISTORY: Difficulty breathing progress study. TECHNIQUE: Single AP portable upright view of the chest is obtained. COMPARISON: Chest x-ray from 2 days earlier and older studies FINDINGS: There is interval removal of nasogastric tube. There is contrast redemonstrated in bowel l oops below diaphragm. There is chronic parenchymal change with bibasilar opacities more prominent in the right lung base versus prior. Upper lungs are clear without pneumothorax. Cardiac silhouette size is stable and within normal limits. Osseous structures are intact. Impression: Chronic left basilar scarring or atelectasis, developing patchy right basilar atelectasis is suspected.
--- NOTE | 2017-11-24 16:47 | P.CNNES ---
History of Present Illness Consult date: 11/24/17 Requesting physician: Humberto Ferris Reason for Consult: Altered mental status History of Present Illness: Patient is a pleasant 77-year-old male who is being evaluated by the neurology service on 11/24/2017 per the request of Dr. Ferris for altered mental status. 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 Patient had increased weakness, cough and congestion over the past week. Patient became too weak to get out of bed and 911 was called. Patient was transferred to [facility] for further evaluation. Patient was diagnosed with influenza be and is currently being treated for such. Due to patient's increased weakness, he has developed severe dysphagia. He failed his swallow evaluation. Plan is for PEG on Sunday. Patient and deny any episodes of altered mental status. Patient is not confused at this time. No lateralizing weakness or obvious facial asymmetry is noted. No seizure like activity has been reported. Patient is receiving aspirin 300 mg rectally daily. Vital signs are stable at the time of my evaluation, patient is resting comfortably in bed and appears to be in no acute distress. is at the bedside. Review of Systems REVIEW OF SYSTEMS: Otherwise unremarkable and noncontributory. Past Medical History Past Medical History: Hyperlipidemia, Renal Disease, Thyroid Disorder History of Any Multi-Drug Resistant Organisms: None Reported Past Surgical History: No Surgical Hx Reported Additional Past Surgical History / Comment(s): AAA repair Past Anesthesia/Blood Transfusion Reactions: No Reported Reaction Past Psychological History: No Psychological Hx Reported Smoking Status: Never smoker Past Alcohol Use History: None Reported Past Drug Use History: None Reported - Past Family History Mother Family Medical History: Cancer Medications and Allergies Home Medications Medication Instructions Recorded Confirmed Type Aspirin 81 mg PO HS@0 11/18/17 11/18/17 History Azithromycin [Zithromax Z-pack] See Taper PO DIRECTED 11/18/17 11/18/17 History Ezetimibe [Zetia] 10 mg PO HS@219911/18/17 11/18/17 History Labetalol HCl 50 mg PO TID@0600,1400,2200 11/18/17 11/18/17 History Levothyroxine Sodium [Synthroid] 137 mcg PO DAILY@0600 11/18/17 11/18/17 History Simvastatin [Zocor] 40 mg PO HS@219911/18/17 11/18/17 History Spironolactone [Aldactone] 25 mg PO DAILY@0611/18/17 11/18/17 History Valsartan [Diovan] 160 mg PO HS@219911/18/17 11/18/17 History predniSONE 1 mg PO DAILY@199911/18/17 11/18/17 History predniSONE 5 mg PO DAILY@199911/18/17 11/18/17 History Allergies Allergy/AdvReac Type Severity Reaction Status Date / Time clidinium Allergy Unknown Verified 11/18/17 13:50 Physical Examination - Vital Signs Vital Signs: Vital Signs Temp Pulse Pulse Pulse Resp BP Pulse Ox 11/24/17 15:08 97.7 F 123 H 20 140/94 94 L 11/24/17 12:28 98 11/24/17 12:18 98 11/24/17 11:18 97.5 F L 115 H 22 155/103 98 11/24/17 08:56 97.4 F L 104 H 20 141/90 98 11/24/17 08:50 98 11/24/17 08:40 98 18 11/24/17 04:00 97.6 F 102 H 20 144/89 95 11/24/17 00:00 98.0 F 92 20 144/90 94 L 11/23/17 20:00 97.1 F L 92 18 128/74 93 L Intake and Output 11/24/17 11/24/17 11/24/17 06:59 14:59 22:59 Intake Total 240 230 Balance 240 230 Intake: Intake, IV Titration 240 230 Amount Dextrose 5%-0.45% NaCl 1, 50 000 ml @ 50 mls/hr IV . Q20H [facility] Rx#:[id number] Dextrose 5%-0.45% NaCl 1, 240 180 000 ml @ 60 mls/hr IV . [id number] [facility] Rx#:[id number] Oral 0 Other: Voiding Method Incontinent Incontinent Incontinent # Voids 1 Weight 63.5 kg PHYSICAL EXAM: GENERAL APPEARANCE: Patient is a well-developed, male who appears to be in no acute distress. HEENT: Normocephalic, atraumatic, no facial asymmetry is seen. Neck is supple with no masses felt. CARDIOVASCULAR: Regular rate and rhythm. ABDOMEN: Nontender, nondistended. EXTREMITIES: Show no edema or clubbing. NEUROLOGICAL EXAM: Patient is awake, alert, and oriented 3. Speech is dysarthric most likely due to dry mouth. Language is normal. Strength is 4+/5 in all 4 extremities. Sensory exam is normal to light touch in all 4 extremities. No obvious facial asymmetry is seen. No tremors or seizure-like activity noted. Results - Laboratory Findings CBC and BMP: 11/21/17 05:58 11/24/17 05:20 Abnormal Lab Findings: Abnormal Labs 11/18/17 11/18/17 11/18/17 12:03 12:03 12:03 RBC 3.83 L Hgb 12.0 L Hct 36.7 L Lymphocytes # 0.6 L APTT Sodium 124 L Potassium Chloride 91 L Carbon Dioxide BUN Creatinine Glucose POC Glucose (mg/dL) Osmolality Calcium 8.3 L Phosphorus Total Creatine Kinase 241 H CK-MB (CK-2) 5.7 H* Troponin I 1.030 H* Total Protein 5.5 L Albumin 2.9 L Urine Protein Urine Ketones Urine Blood Amorphous Sediment Hyaline Casts Urine Mucus Ur Random Sodium Influenza Type B (PCR) 11/18/17 11/18/17 11/18/17 12:20 18:50 18:50 RBC Hgb Hct Lymphocytes # APTT 59.8 H Sodium Potassium Chloride Carbon Dioxide BUN Creatinine Glucose POC Glucose (mg/dL) Osmolality Calcium Phosphorus Total Creatine Kinase 244 H CK-MB (CK-2) 4.9 H* Troponin I 0.629 H* Total Protein Albumin Urine Protein Urine Ketones Urine Blood Amorphous Sediment Hyaline Casts Urine Mucus Ur Random Sodium Influenza Type B (PCR) Detected H 11/19/17 11/19/17 11/19/17 00:15 05:55 05:55 RBC 3.88 L Hgb 12.3 L Hct 37.8 L Lymphocytes # 0.5 L APTT Sodium 124 L Potassium Chloride 93 L Carbon Dioxide BUN Creatinine Glucose POC Glucose (mg/dL) Osmolality Calcium Phosphorus Total Creatine Kinase 225 H CK-MB (CK-2) 3.9 H* Troponin I 0.440 H* Total Protein Albumin Urine Protein Urine Ketones Urine Blood Amorphous Sediment Hyaline Casts Urine Mucus Ur Random Sodium Influenza Type B (PCR) 11/19/17 11/19/17 11/19/17 05:55 10:58 17:50 RBC Hgb Hct Lymphocytes # APTT 47.5 H 48.8 H Sodium 123 L Potassium Chloride Carbon Dioxide BUN Creatinine Glucose POC Glucose (mg/dL) Osmolality Calcium Phosphorus Total Creatine Kinase CK-MB (CK-2) Troponin I Total Protein Albumin Urine Protein Urine Ketones Urine Blood Amorphous Sediment Hyaline Casts Urine Mucus Ur Random Sodium Influenza Type B (PCR) 11/19/17 11/19/17 11/20/17 17:50 23:47 02:00 RBC Hgb Hct Lymphocytes # APTT Sodium 122 L Potassium Chloride Carbon Dioxide BUN Creatinine Glucose POC Glucose (mg/dL) Osmolality 257 L Calcium Phosphorus Total Creatine Kinase CK-MB (CK-2) Troponin I Total Protein Albumin Urine Protein Urine Ketones Urine Blood Amorphous Sediment Hyaline Casts Urine Mucus Ur Random Sodium 135 H Influenza Type B (PCR) 11/20/17 11/20/17 11/20/17 05:17 05:17 19:11 RBC Hgb Hct Lymphocytes # APTT 41.4 H Sodium 125 L 126 L Potassium Chloride 92 L Carbon Dioxide 20 L BUN Creatinine Glucose POC Glucose (mg/dL) Osmolality Calcium Phosphorus Total Creatine Kinase CK-MB (CK-2) Troponin I Total Protein 6.0 L Albumin 3.1 L Urine Protein Urine Ketones Urine Blood Amorphous Sediment Hyaline Casts Urine Mucus Ur Random Sodium Influenza Type B (PCR) 11/20/17 11/21/17 11/21/17 19:18 05:58 05:58 RBC Hgb Hct Lymphocytes # 0.2 L APTT Sodium 128 L Potassium 5.6 H Chloride 92 L Carbon Dioxide 20 L BUN 32 H Creatinine Glucose 117 H POC Glucose (mg/dL) Osmolality Calcium Phosphorus 5.0 H Total Creatine Kinase CK-MB (CK-2) Troponin I Total Protein Albumin Urine Protein 2+ H Urine Ketones 2+ H Urine Blood Small H Amorphous Sediment Rare H Hyaline Casts 3 H Urine Mucus Rare H Ur Random Sodium Influenza Type B (PCR) 11/21/17 11/21/17 11/21/17 11:38 16:00 16:44 RBC Hgb Hct Lymphocytes # APTT Sodium 133 L Potassium Chloride Carbon Dioxide BUN Creatinine Glucose POC Glucose (mg/dL) 158 H 139 H Osmolality Calcium Phosphorus Total Creatine Kinase CK-MB (CK-2) Troponin I Total Protein Albumin Urine Protein Urine Ketones Urine Blood Amorphous Sediment Hyaline Casts Urine Mucus Ur Random Sodium Influenza Type B (PCR) 11/21/17 11/22/17 11/22/17 21:21 05:20 05:59 RBC Hgb Hct Lymphocytes # APTT Sodium 135 L Potassium Chloride 97 L Carbon Dioxide BUN 46 H Creatinine 1.40 H Glucose 169 H POC Glucose (mg/dL) 137 H 191 H Osmolality Calcium Phosphorus Total Creatine Kinase CK-MB (CK-2) Troponin I Total Protein Albumin Urine Protein Urine Ketones Urine Blood Amorphous Sediment Hyaline Casts Urine Mucus Ur Random Sodium Influenza Type B (PCR) 11/22/17 11/22/17 11/22/17 11:38 16:56 21:06 RBC Hgb Hct Lymphocytes # APTT Sodium Potassium Chloride Carbon Dioxide BUN Creatinine Glucose POC Glucose (mg/dL) 143 H 139 H 122 H Osmolality Calcium Phosphorus Total Creatine Kinase CK-MB (CK-2) Troponin I Total Protein Albumin Urine Protein Urine Ketones Urine Blood Amorphous Sediment Hyaline Casts Urine Mucus Ur Random Sodium Influenza Type B (PCR) 11/23/17 11/23/17 11/23/17 05:21 05:56 11:57 RBC Hgb Hct Lymphocytes # APTT Sodium Potassium Chloride Carbon Dioxide 31 H BUN 40 H Creatinine Glucose 139 H POC Glucose (mg/dL) 130 H 114 H Osmolality Calcium Phosphorus Total Creatine Kinase CK-MB (CK-2) Troponin I Total Protein Albumin Urine Protein Urine Ketones Urine Blood Amorphous Sediment Hyaline Casts Urine Mucus Ur Random Sodium Influenza Type B (PCR) 11/23/17 11/23/17 11/24/17 17:24 21:16 05:20 RBC Hgb Hct Lymphocytes # APTT Sodium Potassium Chloride Carbon Dioxide BUN 37 H Creatinine Glucose 139 H POC Glucose (mg/dL) 119 H 111 H Osmolality Calcium Phosphorus Total Creatine Kinase CK-MB (CK-2) Troponin I Total Protein Albumin Urine Protein Urine Ketones Urine Blood Amorphous Sediment Hyaline Casts Urine Mucus Ur Random Sodium Influenza Type B (PCR) 11/24/17 11/24/17 06:09 12:05 RBC Hgb Hct Lymphocytes # APTT Sodium Potassium Chloride Carbon Dioxide BUN Creatinine Glucose POC Glucose (mg/dL) 120 H 106 H Osmolality Calcium Phosphorus Total Creatine Kinase CK-MB (CK-2) Troponin I Total Protein Albumin Urine Protein Urine Ketones Urine Blood Amorphous Sediment Hyaline Casts Urine Mucus Ur Random Sodium Influenza Type B (PCR) Assessment and Plan Plan: Impression: 1. Altered mental status, resolved 2. Influenza B 3. Dysphagia 4. Non-ST elevated PA 5. History of FSGS Recommendation: Patient and deny episode of altered mental status. Patient is appropriate and conversant although somewhat slow due to increased lethargy. As mentioned above, no seizure-like activity is described, no lateralizing weakness or facial asymmetry. If patient should have recurring episode of altered mental status, I would likely get a stat CT of the head. Continue rectal aspirin. I would continue current medical management. Continue neurological checks. No further neurological workup is warranted at this time. I will continue to follow with you on an as-needed basis. Feel free to call with any questions or concerns. I performed an examination of the patient and discussed the management with the SACK FILLER. I have reviewed the SACK FILLER notes and agree with the findings and plan of care.
[2017-11-24 17:03] LABS: Basophils % (A) 0 %; Eosinophils # (A) 0.1 k/uL (0-0.7); Eosinophils % (A) 1 %; HCT 42.5 % (39.0-53.0); HGB 13.3 gm/dL (13.0-17.5); Lymphocytes # (A) 0.5 k/uL (1.0-4.8); Lymphocytes % (A) 4 %; MCH 31.7 pg (25.0-35.0); MCHC 31.4 g/dL (31.0-37.0); Macrocytosis Slight; Mean Platelet Volume 6.8; Monocytes # (A) 0.8 k/uL (0-1.0); Monocytes % (A) 6 %; Neutrophils # (A) 11.2 k/uL (1.3-7.7); Neutrophils % (A) 88 %; Platelet Count 315 k/uL (150-450); RDW 13.1 % (11.5-15.5); WBC 12.7 k/uL (3.8-10.6)
[2017-11-24 17:13] LABS: MCV 101.2 fL (80.0-100.0)
[2017-11-24 17:17] LABS: Glucose,Whole Blood 107 mg/dL (75-99)
--- NOTE | 2017-11-24 17:36 | CT ---
EXAMINATION TYPE: CT brain wo con DATE OF EXAM: 11/24/2017 HISTORY: Stroke like symptoms-cannot swallow CT DLP: 960.10 mGycm. Automated Exposure Control for Dose Reduction was Utilized. TECHNIQUE: CT scan of the head is performed without contrast. COMPARISON: CT brain September 08, 2011 FINDINGS: There is no acute intracranial hemorrhage or midline shift identified. There is diffuse v entricular and sulcal prominence consistent with diffuse age-related cerebral atrophy. There is low- attenuation in the periventricular white matter consistent with chronic small vessel ischemic change. There are persistent mucous retention cysts or polyps in bilateral ethmoid and posterior left spheno id sinus. IMPRESSION: No acute intracranial hemorrhage or midline shift. There is moderate diffuse age-relate d cerebral atrophy and moderate to severe chronic small vessel ischemic change identified. Progressi on in both findings from 2010 CT is noted.
[2017-11-24] MEDS: EZETIMIBE 10 MG TAB PO SCH (20:13)
[2017-11-24] MEDS: ATORVASTATIN 20 MG TAB PO SCH (20:13)
[2017-11-24] MEDS: methylPREDNISolone SOD SUCCI 40 MG/ML 1 ML VIAL IV SCH (20:27)
[2017-11-24 20:55] LABS: Glucose,Whole Blood 107 mg/dL (75-99)
--- NOTE | 2017-11-24 22:22 | PN ---
PROGRESS NOTE DATE OF SERVICE: 11/25/2017 I am covering for Dr. Ferris This 77-year-old gentleman who presented with multiple medical problems was admitted with shortness of breath. The patient has a history of is being followed by [facility]. The patient also had acute influenza B on presentation. SARS suspected. Patient also had elevated troponin with possible acute non ST- segment elevation type 2. The patient also had euvolemic hyponatremia and multiple other medical problems. Patient being closely monitored at this time. The patient also failed a swallow at this time and planned on Sunday by surgery. PAST MEDICAL HISTORY: Reviewed. REVIEW OF SYSTEMS: Could not be taken the patient is slightly confused. CURRENT MEDICATIONS: 1. DuoNeb q.i.d. and p.r.n. 2. Aspirin 300 mg daily. 3. Lipitor 10 mg q.h.s. 4. Catapres 0.1 q.4h p.r.n. 5. Zetia 10 mg q.h.s. 7. Apresoline. 8. Trandate. 9. Synthroid. 10.Ativan. 11.Solu-Medrol 20 IV b.i.d. 12.Lopressor. 13.Nitrostat. 14.Protonix. PHYSICAL EXAM: Pulse is 123, irregular. Blood pressure is 140/94, respiration 20, temperature 97.7, pulse ox 94% on 4 L. HEENT: Conjunctivae normal. Neck is no jugular venous distention. No carotid bruit. No lymph node enlargement. Cardiovascular system: S1, S2 muffled. Respiration: Breath sounds diminished in the bases. A few scattered rhonchi and crackles. Expiratory wheezing also present. ABDOMEN: Soft, nontender. No mass palpable. Legs no edema and no swelling. Central nervous system: Higher functions as mentioned earlier. Moves all four extremities. No focal deficits. Lymphatics: No lymph nodes palpable in the neck, axillae or groin. Skin no ulcer, rash or bleeding. LABS: WBC 12.2, hemoglobin 13.3. ASSESSMENT: 1. Acute influenza B on presentation with severe acute respiratory syndrome. 2. Elevated troponin, possible acute non ST elevation myocardial infarction type 2. 3. Euvolemic hyponatremia with sodium 124. 4. Change in mental status, metabolic encephalopathy, acute on chronic. 5. Dysphagia with evidence of aspiration. 7. Hypothyroidism. 8. Hyperlipidemia. 9. Left basilar and right upper lobe pneumonia possibly gram-negative. 10.Failed swallow evaluation. 11.Increased WBC. 12.Increased MCV. 13.NO CODE, NO CPR, NO VENT. RECOMMENDATIONS AND DISCUSSION: In this 77-year-old gentleman who presented with multiple complex medical issues , we will monitor the patient closely, continue the current management and symptomatic treatment. Currently patient is on IV steroids and as well as bronchodilators. I would recommend to continue the current medications, management and symptomatic treatment. Otherwise at this time I would closely follow with Nephrology as well. The [facility] has apparently a sanctioned the transfer but no beds are available. However, aspiration precautions and elevate the head of the bed 45 degrees all the time and possibly PEG tube placement on Sunday. The patient no code, no CPR, no VENT. Discussed with the family at length and understands and agrees. Further recommendations to follow. FAIZA / SAUNDRAN: [id number] / MTDD
[2017-11-25] MEDS: METOPROLOL TARTRATE 5 MG/5 ML VIAL IVP SCH ×4 (03:37→20:41)
[2017-11-25 06:02] LABS: Glucose,Whole Blood 141 mg/dL (75-99)
[2017-11-25] MEDS: SODIUM CHLORIDE 0.9% 1,000 ML IV SCH (06:07)
[2017-11-25] MEDS: SYNTHROID 137MCG TABLET PO SCH (06:08)
[2017-11-25 06:28] LABS: INR 1.1 (<1.2); Prothrombin Time 10.5 sec (9.0-12.0)
[2017-11-25 06:33] LABS: Anion Gap 8 mmol/L; Blood Urea Nitrogen 34 mg/dL (9-20); Carbon Dioxide 28 mmol/L (22-30); Chloride 103 mmol/L (98-107); Glucose 141 mg/dL (74-99); Potassium 4.7 mmol/L (3.5-5.1); Sodium 139 mmol/L (137-145)
[2017-11-25 06:35] LABS: Partial Thromboplastin Time 22.2 sec (22.0-30.0)
[2017-11-25] MEDS: IPRATROPIUM-ALBUTEROL 3 ML NEB INHALATION SCH ×4 (06:49→20:19)
[2017-11-25] MEDS: DEXTROSE 5%-0.45% NACL 1,000 ML IV SCH (07:42)
[2017-11-25] MEDS: PANTOPRAZOLE 40 MG/10 ML VIAL IVP SCH (08:02)
[2017-11-25] MEDS: LEVOTHYROXINE IVP 100 MCG/5 ML VIAL IV SCH (08:02)
[2017-11-25] MEDS: FLUCONAZOLE IN NACL,ISO-OSM 100 MG in SALINE 1 50ML.BAG IVPB SCH (08:06)
[2017-11-25] MEDS: ASPIRIN 300 MG SUPP RECTAL SCH (08:21)
--- NOTE | 2017-11-25 08:30 | P.PN ---
Progress Note - Text Progress Note Date: 11/25/17 Patient remains somewhat confused. Still not tolerating any diet at this point. No obvious discomfort. Labs from this morning were reviewed. Coags are normal. Abdomen: Soft, nondistended, nontender Reevaluate tomorrow morning but anticipate PEG placement by Dr. Underwood tomorrow.
--- NOTE | 2017-11-25 09:21 | P.PN ---
Subjective Patient is seen in follow-up for hyponatremia. Sodium level is 139 this morning. Patient's currently resting in bed. He is currently sleeping and somewhat lethargic. He does respond to verbal commands but it is difficult to understand him at this time. Creatinine is stable. 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 He is noted to be positive for influenza B. He is nothing by mouth as he failed swallow eval. He is receiving Solu-Medrol 20 mg IV once daily for now. Blood pressure has been stable. present at bedside. Vital signs are stable. General: The patient appeared well nourished and normally developed. HEENT: Head exam is unremarkable. Neck is without jugular venous distension. LUNGS: Rhonchi at bases. Breath sounds decreased. HEART: Rate and Rhythm are regular. First and second heart sounds normal. No murmurs, rubs or gallops. ABDOMEN: Abdominal exam reveals normal bowel sounds. Non-tender and non- distended. No evidence of peritonitis. EXTREMITITES: No clubbing, cyanosis, or edema. Objective - Vital Signs Vital signs: Vital Signs Temp 98.1 F 11/25/17 07:49 Pulse 120 H 11/25/17 07:49 Resp 20 11/25/17 07:49 BP 140/93 11/25/17 07:49 Pulse Ox 94 L 11/25/17 07:49 Intake & Output 11/24/17 11/25/17 11/25/17 18:59 06:59 18:59 Intake Total 580 Balance 580 Weight 64 kg Intake: Intake, IV Titration 580 Amount Dextrose 5%-0.45% NaCl 1, 400 000 ml @ 50 mls/hr IV . Q20H [facility] Rx#:[id number] Dextrose 5%-0.45% NaCl 1, 180 000 ml @ 60 mls/hr IV . [id number] [facility] Rx#:[id number] Oral 0 Other: Voiding Method Incontinent Incontinent Incontinent # Voids 3 1 - Labs CBC & Chem 7: 11/24/17 16:49 11/25/17 05:59 Labs: Abnormal Lab Results - Last 24 Hours (Table) 11/24/17 11/24/17 11/24/17 Range/Units 12:05 16:45 16:49 WBC 12.7 H (3.8-10.6) k/uL RBC 4.20 L (4.30-5.90) m/uL MCV 101.2 H D (80.0-100.0) fL Neutrophils # 11.2 H (1.3-7.7) k/uL Lymphocytes # 0.5 L (1.0-4.8) k/uL BUN (9-20) mg/dL Glucose (74-99) mg/dL POC Glucose (mg/dL) 106 H 107 H (75-99) mg/dL 11/24/17 11/25/17 11/25/17 Range/Units 20:51 05:59 06:01 WBC (3.8-10.6) k/uL RBC (4.30-5.90) m/uL MCV (80.0-100.0) fL Neutrophils # (1.3-7.7) k/uL Lymphocytes # (1.0-4.8) k/uL BUN 34 H (9-20) mg/dL Glucose 141 H (74-99) mg/dL POC Glucose (mg/dL) 107 H 141 H (75-99) mg/dL Microbiology - Last 24 Hours (Table) 11/18/17 12:03 Blood Culture - Final Blood No Growth after 144 hours Assessment and Plan Plan: Assessment: #1. 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 Improved. #2. Biopsy-proven FSGS being followed at [facility]. Maintained on prednisone 6 mg and diovan daily as outpatient. Since he is not able to take oral medications, he is receiving IV Solu-Medrol. #3. Benign hypertension. Controlled. #4. Metabolic acidosis secondary to IV fluids. Resolved. #5. Influenza B. #6. Moderate aortic stenosis. Cardiology following. #7. Acute kidney injury mostly prerenal from influenza and hemodynamic instability. Improved. Plan: Continue D5 half-normal saline to be run at 50 mL an hour. Avoid nephrotoxic agents and hypotensive episodes. Hold antihypertensives for systolic blood pressure less than 120. Resume prednisone once able to tolerate oral intake. Maintain IV Solu-Medrol for now. Repeat electrolytes in the morning. Scheduled for PEG tube placement tomorrow.
[2017-11-25 11:41] LABS: Glucose,Whole Blood 117 mg/dL (75-99)
[2017-11-25 16:28] LABS: Glucose,Whole Blood 111 mg/dL (75-99)
--- NOTE | 2017-11-25 19:24 | PN ---
PROGRESS NOTE DATE OF SERVICE: 11/25/2017 I am covering for Dr. Ferris. This 77-year-old gentleman who presented with multiple medical problems had acute influenza B on presentation. The patient also had a SARS. Patient also had elevated troponin. Patient also had dysphagia. PEG tube has been planned to be inserted tomorrow. No chest pain. No palpitations. PHYSICAL EXAM: Alert and oriented x2. Pulse 115, blood pressure 123/80, respiratory 20, temperature 97.2, pulse ox 94% on 4 L. HEENT: Conjunctivae normal. NECK: No jugular venous distention. CARDIOVASCULAR: S1, S2. RESPIRATORY: Breath sounds diminished in the bases. A few scattered rhonchi. No crackles. ABDOMEN: Soft, nontender. LEGS: No edema. NERVOUS SYSTEM: Diffusely weak. LABS: WBC 12.7. Otherwise, INR 1.1, glucose 111. ASSESSMENT: 1. Acute influenza B on presentation with SARS. 2. Elevated troponin, possible acute non ST-segment elevation myocardial infarction type 2. 3. Euvolemic hyponatremia with sodium 124. 4. Change in mental status, metabolic encephalopathy acute on chronic. 5. Dysphagia with evidence of aspiration for PEG tube placement. 6. Hypothyroidism. 7. Hyperlipidemia. 8. Left basilar right upper lobe pneumonia possibly gram-negative. 9. Failed swallow evaluation. 10.Increased WBC. 11.Recent cerebrovascular accident. 12.NO CODE, NO CPR, NO VENT. RECOMMENDATIONS AND DISCUSSION: This 77-year-old gentleman who presented with multiple complex medical issues, we will monitor the patient closely. Continue the current management and symptomatic treatment. Will continue with antifungals. Continue with steroids. Otherwise some PEG tube placement tomorrow. The patient apparently was accepted at [facility] Nephrology unit. We will continue to monitor. Dr. Ferris will follow. Discussed with the patient. Further recommendations to follow. MMODL / IJN: [id number] / MTDD
[2017-11-25] MEDS: methylPREDNISolone SOD SUCCI 40 MG/ML 1 ML VIAL IV SCH (20:37)
[2017-11-25 21:19] LABS: Glucose,Whole Blood 105 mg/dL (75-99)
[2017-11-25] MEDS: LORazepam 2 MG/ML INJ IV PRN (22:18)
[2017-11-26 06:01] LABS: Glucose,Whole Blood 124 mg/dL (75-99)
[2017-11-26] MEDS: DEXTROSE 5%-0.45% NACL 1,000 ML IV SCH (06:45)
[2017-11-26] MEDS: ATORVASTATIN 20 MG TAB PO SCH (06:45)
[2017-11-26] MEDS: EZETIMIBE 10 MG TAB PO SCH (06:45)
[2017-11-26] MEDS: SODIUM CHLORIDE 0.9% 1,000 ML IV SCH (06:45)
[2017-11-26] MEDS: SYNTHROID 137MCG TABLET PO SCH (06:46)
[2017-11-26] MEDS: METOPROLOL TARTRATE 5 MG/5 ML VIAL IVP SCH ×4 (06:46→20:57)
[2017-11-26 06:47] LABS: Anion Gap 7 mmol/L; Blood Urea Nitrogen 35 mg/dL (9-20); Carbon Dioxide 28 mmol/L (22-30); Chloride 103 mmol/L (98-107); Glucose 130 mg/dL (74-99); Potassium 4.8 mmol/L (3.5-5.1); Sodium 138 mmol/L (137-145)
[2017-11-26 06:50] LABS: Basophils % (A) 0 %; Eosinophils % (A) 0 %; HCT 44.7 % (39.0-53.0); HGB 13.7 gm/dL (13.0-17.5); Hypochromasia Slight; Lymphocytes # (A) 0.2 k/uL (1.0-4.8); Lymphocytes % (A) 2 %; MCH 31.7 pg (25.0-35.0); MCHC 30.7 g/dL (31.0-37.0); MCV 103.4 fL (80.0-100.0); Macrocytosis Slight; Mean Platelet Volume 6.6; Monocytes # (A) 0.4 k/uL (0-1.0); Monocytes % (A) 4 %; Neutrophils # (A) 9.2 k/uL (1.3-7.7); Neutrophils % (A) 93 %; Platelet Count 321 k/uL (150-450); RBC 4.33 m/uL (4.30-5.90); WBC 9.8 k/uL (3.8-10.6)
[2017-11-26] MEDS: LEVOTHYROXINE IVP 100 MCG/5 ML VIAL IV SCH (07:40)
[2017-11-26] MEDS: FLUCONAZOLE IN NACL,ISO-OSM 100 MG in SALINE 1 50ML.BAG IVPB SCH (07:40)
[2017-11-26] MEDS: PANTOPRAZOLE 40 MG/10 ML VIAL IVP SCH (07:40)
[2017-11-26] MEDS: IPRATROPIUM-ALBUTEROL 3 ML NEB INHALATION SCH ×4 (07:48→20:32)
[2017-11-26] MEDS: ASPIRIN 300 MG SUPP RECTAL SCH (07:53)
--- NOTE | 2017-11-26 10:11 | P.PN ---
Subjective Patient is seen in follow-up for hyponatremia. Sodium level is 138 this morning. Patient's currently resting in bed. He is currently sleeping and somewhat lethargic. He does respond to verbal commands but it is difficult to understand him at this time. Creatinine is stable. 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 He is noted to be positive for influenza B. He is nothing by mouth as he failed swallow eval. He is receiving Solu-Medrol 20 mg IV once daily for now. Blood pressure has been stable. Family present at bedside. Scheduled for PEG tube placement today. Vital signs are stable. General: The patient appeared well nourished and normally developed. HEENT: Head exam is unremarkable. Neck is without jugular venous distension. LUNGS: Rhonchi at bases. Breath sounds decreased. HEART: Rate and Rhythm are regular. First and second heart sounds normal. No murmurs, rubs or gallops. ABDOMEN: Abdominal exam reveals normal bowel sounds. Non-tender and non- distended. No evidence of peritonitis. EXTREMITITES: No clubbing, cyanosis, or edema. Objective - Vital Signs Vital signs: Vital Signs Temp 96.8 F L 11/26/17 07:40 Pulse 118 H 11/26/17 07:50 Resp 20 11/26/17 07:40 BP 151/87 11/26/17 07:40 Pulse Ox 94 L 11/26/17 07:40 Intake & Output 11/25/17 11/26/17 11/26/17 18:59 06:59 18:59 Intake Total 200 0 Output Total 1 Balance 200 -1 0 Weight 63.5 kg Intake: Intake, IV Titration 200 Amount Dextrose 5%-0.45% NaCl 1, 200 000 ml @ 50 mls/hr IV . Q20H [facility] Rx#:[id number] Oral 0 0 Output: Urine 1 Other: Voiding Method Incontinent Incontinent Incontinent # Voids 1 - Labs CBC & Chem 7: 11/26/17 06:15 11/26/17 06:15 Labs: Abnormal Lab Results - Last 24 Hours (Table) 11/25/17 11/25/17 11/25/17 Range/Units 11:37 16:24 21:18 MCV (80.0-100.0) fL MCHC (31.0-37.0) g/dL Neutrophils # (1.3-7.7) k/uL Lymphocytes # (1.0-4.8) k/uL BUN (9-20) mg/dL Glucose (74-99) mg/dL POC Glucose (mg/dL) 117 H 111 H 105 H (75-99) mg/dL 11/26/17 11/26/17 11/26/17 Range/Units 05:59 06:15 06:15 MCV 103.4 H (80.0-100.0) fL MCHC 30.7 L (31.0-37.0) g/dL Neutrophils # 9.2 H (1.3-7.7) k/uL Lymphocytes # 0.2 L (1.0-4.8) k/uL BUN 35 H (9-20) mg/dL Glucose 130 H (74-99) mg/dL POC Glucose (mg/dL) 124 H (75-99) mg/dL Assessment and Plan Plan: Assessment: #1. 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 Improved. #2. Biopsy-proven FSGS being followed at [facility]. Maintained on prednisone 6 mg and diovan daily as outpatient. Since he is not able to take oral medications, he is receiving IV Solu-Medrol. #3. Benign hypertension. Controlled. He does have as needed clonidine and hydralazine ordered. #4. Metabolic acidosis secondary to IV fluids. Resolved. #5. Influenza B. #6. Moderate aortic stenosis. Cardiology following. #7. Acute kidney injury mostly prerenal from influenza and hemodynamic instability. Improved. Plan: Continue D5 half-normal saline to be run at 50 mL an hour. Avoid nephrotoxic agents and hypotensive episodes. Hold antihypertensives for systolic blood pressure less than 120. Resume prednisone once able to tolerate oral intake. Maintain IV Solu-Medrol for now. Repeat electrolytes in the morning. Scheduled for PEG tube placement today.
[2017-11-26 12:01] LABS: Glucose,Whole Blood 90 mg/dL (75-99)
[2017-11-26] MEDS ORDERED: LIDOCAINE 1% INJ 10MG/ML (20 ML MDV) ONE (12:46)
[2017-11-26] MEDS ORDERED: PROPOFOL 10 MG/ML 20 ML VIAL IV ONE (12:46)
[2017-11-26] MEDS ORDERED: IV FLUID CONTINUATION 1,000 ML IV ONE ×2 (12:53)
--- NOTE | 2017-11-26 13:13 | P.OP ---
Date of Procedure: 11/26/17 Preoperative Diagnosis: Malnutrition Postoperative Diagnosis: Malnutrition Procedure(s) Performed: PEG tube placement Anesthesia: MAC Surgeon: Anthony Underwood Estimated Blood Loss (ml): 3 Pathology: none sent Condition: stable Disposition: PACU Description of Procedure: The patient's placed on the endoscopy table lateral position. He received IV sedation. The gastroscope placed oropharynx past esophagus and into the stomach. Scope then placed through the pylorus. A suitable light reflux was then seen in the anterior abdominal wall once the scope was brought back and stomach. The skin was anesthetized 1% local Xylocaine. A skin incision in the skin was made 11 blade and then using a needle the stomach was entered directly under visualization. The wire was then placed through the needle and the wire was snared brought the oropharynx. A PEG tube was placed over top the wire and brought down into the stomach. The PEG tube was secured at 3 cm celia. The one- piece bolster was placed. Patient top she will was sent back to recovery in stable condition.
[2017-11-26 16:58] LABS: Glucose,Whole Blood 89 mg/dL (75-99)
[2017-11-26] MEDS: methylPREDNISolone SOD SUCCI 40 MG/ML 1 ML VIAL IV SCH ×2 (20:54→20:58)
[2017-11-26] MEDS: LORazepam 2 MG/ML INJ IV PRN (20:58)
[2017-11-26 21:29] LABS: Glucose,Whole Blood 99 mg/dL (75-99)
--- NOTE | 2017-11-27 01:03 | PN ---
PROGRESS NOTE DATE OF SERVICE: 11/26/2017 The patient was seen with family at bedside. Case was discussed regarding the need for nutrition. The patient has a functional gut and it has been decided that a PEG tube insertion would be to his best benefit. The patient's family is agreeable to this procedure to be done today. He looks more alert today than previously seen. PHYSICAL EXAMINATION: He is more awake, more alert. VITAL SIGNS: Stable. HEENT: Head is normocephalic, atraumatic. HEART: Regular rate and rhythm. LUNGS: Diminished breath sounds with scattered rhonchi. ABDOMEN: Soft, nontender. LEGS: Without edema, but profound weakness. IMPRESSIONS: 1. Acute influenza B. 2. Severe acute respiratory syndrome (SARS). 3. Hyponatremia. 4. Metabolic encephalopathy. 5. Dysphagia with severe protein-calorie malnutrition. 6. Hypothyroidism. 7. Chronic kidney disease with chronic renal failure. PLAN: Patient is to go for PEG tube insertion today. We will continue to monitor patient. Overall guarded prognosis. Consider transfer once stabilized to the nephrology unit at the [facility]. MMODL / IJN: [id number] /
[2017-11-27 05:58] LABS: Glucose,Whole Blood 127 mg/dL (75-99)
[2017-11-27 06:29] LABS: Basophils % (A) 0 %; Eosinophils % (A) 0 %; HGB 13.6 gm/dL (13.0-17.5); Hypochromasia Slight; Lymphocytes # (A) 0.3 k/uL (1.0-4.8); Lymphocytes % (A) 2 %; MCH 30.9 pg (25.0-35.0); MCHC 30.8 g/dL (31.0-37.0); MCV 100.2 fL (80.0-100.0); Monocytes # (A) 0.4 k/uL (0-1.0); Monocytes % (A) 3 %; Neutrophils % (A) 94 %; Platelet Count 306 k/uL (150-450); RBC 4.39 m/uL (4.30-5.90); RDW 13.2 % (11.5-15.5); WBC 12.7 k/uL (3.8-10.6)
[2017-11-27 06:40] LABS: Anion Gap 6 mmol/L; Blood Urea Nitrogen 37 mg/dL (9-20); Calcium 8.7 mg/dL (8.4-10.2); Carbon Dioxide 26 mmol/L (22-30); Chloride 103 mmol/L (98-107); Glucose 142 mg/dL (74-99); Sodium 135 mmol/L (137-145)
[2017-11-27] MEDS: EZETIMIBE 10 MG TAB PO SCH ×2 (06:48→20:00)
[2017-11-27] MEDS: SODIUM CHLORIDE 0.9% 1,000 ML IV SCH (06:48)
[2017-11-27] MEDS: METOPROLOL TARTRATE 5 MG/5 ML VIAL IVP SCH ×4 (06:48→19:54)
[2017-11-27] MEDS: DEXTROSE 5%-0.45% NACL 1,000 ML IV SCH (06:48)
[2017-11-27] MEDS: ATORVASTATIN 20 MG TAB PO SCH ×2 (06:48→19:56)
[2017-11-27] MEDS: SYNTHROID 137MCG TABLET PO SCH (06:49)
[2017-11-27] MEDS: IPRATROPIUM-ALBUTEROL 3 ML NEB INHALATION SCH ×4 (07:39→20:31)
[2017-11-27] MEDS: LEVOTHYROXINE IVP 100 MCG/5 ML VIAL IV SCH (07:56)
[2017-11-27] MEDS: PANTOPRAZOLE 40 MG/10 ML VIAL IVP SCH (08:00)
[2017-11-27] MEDS: ASPIRIN 300 MG SUPP RECTAL SCH (08:00)
[2017-11-27] MEDS: FLUCONAZOLE IN NACL,ISO-OSM 100 MG in SALINE 1 50ML.BAG IVPB SCH (08:00)
--- NOTE | 2017-11-27 09:08 | P.PN ---
Subjective Patient is seen in follow-up for hyponatremia. Sodium level is 135 this morning. Patient's currently resting in bed. He is currently sleeping and somewhat lethargic. He does respond to verbal commands but it is difficult to understand him at this time. Creatinine is stable. 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 He is noted to be positive for influenza B. He is nothing by mouth as he failed swallow eval. He is receiving Solu-Medrol 20 mg IV once daily for now. Blood pressure has been stable. Family present at bedside. He had a PEG tube placed yesterday. Vital signs are stable. General: The patient appeared well nourished and normally developed. HEENT: Head exam is unremarkable. Neck is without jugular venous distension. LUNGS: Rhonchi at bases. Breath sounds decreased. HEART: Rate and Rhythm are regular. First and second heart sounds normal. No murmurs, rubs or gallops. ABDOMEN: Abdominal exam reveals normal bowel sounds. Non-tender and non- distended. No evidence of peritonitis. EXTREMITITES: No clubbing, cyanosis, or edema. Objective - Vital Signs Vital signs: Vital Signs Temp 97.2 F L 11/27/17 03:58 Pulse 112 H 11/27/17 07:47 Resp 20 11/27/17 03:58 BP 136/80 11/27/17 03:58 Pulse Ox 92 L 11/27/17 03:58 Intake & Output 11/26/17 11/27/17 11/27/17 18:59 06:59 18:59 Intake Total 700 0 Output Total 3 Balance 700 -3 0 Weight 63.5 kg 62 kg Intake: IV 300 Intake, IV Titration 400 Amount Dextrose 5%-0.45% NaCl 1, 400 000 ml @ 50 mls/hr IV . Q20H [facility] Rx#:[id number] Oral 0 0 Output: Stool 3 Other: Voiding Method Incontinent Incontinent # Voids 1 - Labs CBC & Chem 7: 11/27/17 06:03 11/27/17 06:03 Labs: Abnormal Lab Results - Last 24 Hours (Table) 11/27/17 11/27/17 11/27/17 Range/Units 05:56 06:03 06:03 WBC 12.7 H (3.8-10.6) k/uL MCV 100.2 H (80.0-100.0) fL MCHC 30.8 L (31.0-37.0) g/dL Neutrophils # 12.0 H (1.3-7.7) k/uL Lymphocytes # 0.3 L (1.0-4.8) k/uL Sodium 135 L (137-145) mmol/L BUN 37 H (9-20) mg/dL Glucose 142 H (74-99) mg/dL POC Glucose (mg/dL) 127 H (75-99) mg/dL Assessment and Plan Plan: Assessment: #1. 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 Improved. #2. Biopsy-proven FSGS being followed at [facility]. Maintained on prednisone 6 mg and diovan daily as outpatient. Since he is not able to take oral medications, he is receiving IV Solu-Medrol. #3. Benign hypertension. Controlled. He does have as needed clonidine and hydralazine ordered. #4. Metabolic acidosis secondary to IV fluids. Resolved. #5. Influenza B. #6. Moderate aortic stenosis. Cardiology following. #7. Acute kidney injury mostly prerenal from influenza and hemodynamic instability. Improved. Plan: Discontinue half normal saline. Start normal saline at 50 mL an hour. PEG tube feeding to be initiated this afternoon. Avoid nephrotoxic agents and hypotensive episodes. Hold antihypertensives for systolic blood pressure less than 120. Resume prednisone once able to tolerate oral intake. Maintain IV Solu-Medrol for now. Repeat electrolytes in the morning.
[2017-11-27] MEDS ORDERED: SODIUM CHLORIDE 0.9% 1,000 ML IV SCH (09:15)
--- NOTE | 2017-11-27 11:06 | P.PN ---
Subjective Progress Note Date: 11/27/17 77-year-old male seen and examined at bedside patient is postop day 1 PEG tube placement for nutritional support at bedside. Patient opens eyes to verbal stimuli remains lethargic Objective - Vital Signs Vital signs: Vital Signs Temp 96.0 F L 11/27/17 08:00 Pulse 107 H 11/27/17 08:00 Resp 18 11/27/17 08:00 BP 128/80 11/27/17 08:00 Pulse Ox 92 L 11/27/17 08:00 Intake & Output 11/26/17 11/27/17 11/27/17 18:59 06:59 18:59 Intake Total 700 0 Output Total 3 Balance 700 -3 0 Weight 63.5 kg 62 kg 62 kg Intake: IV 300 Intake, IV Titration 400 Amount Dextrose 5%-0.45% NaCl 1, 400 000 ml @ 50 mls/hr IV . Q20H [facility] Rx#:[id number] Oral 0 0 Output: Stool 3 Other: Voiding Method Incontinent Incontinent Incontinent # Voids 1 2 - Exam Exam Abdomen PEG tube in place no redness noted around the site . Flat nontender not distended bowel tones present - Labs CBC & Chem 7: 11/27/17 06:03 11/27/17 06:03 Labs: Abnormal Lab Results - Last 24 Hours (Table) 11/27/17 11/27/17 11/27/17 Range/Units 05:56 06:03 06:03 WBC 12.7 H (3.8-10.6) k/uL MCV 100.2 H (80.0-100.0) fL MCHC 30.8 L (31.0-37.0) g/dL Neutrophils # 12.0 H (1.3-7.7) k/uL Lymphocytes # 0.3 L (1.0-4.8) k/uL Sodium 135 L (137-145) mmol/L BUN 37 H (9-20) mg/dL Glucose 142 H (74-99) mg/dL POC Glucose (mg/dL) 127 H (75-99) mg/dL Assessment and Plan Assessment: Impression History of FSGS This admission positive influenza B Fungal esophagitis Odynophagia, secondary to fungal esophagitis Failed modified barium swallow Status post PEG tube insertion 26 of November Plan Initiate tube feeds through the PEG tube Consult dietitian for recommendations nutritional supplements Will follow with you Aspiration precautions Progress note dictated for dr cruz The above impression and plan of care have been discussed and directed by signing physician. Ioana Skinner nurse practitioner acting as scribe for signing physician.
[2017-11-27 11:30] LABS: Glucose,Whole Blood 106 mg/dL (75-99)
[2017-11-27] MEDS: DEXTROSE 5%-0.9% NACL 1,000 ML IV SCH (15:34)
[2017-11-27 16:46] LABS: Glucose,Whole Blood 98 mg/dL (75-99)
[2017-11-27] MEDS ORDERED: methylPREDNISolone SOD SUCCI 40 MG/ML 1 ML VIAL IV STA (20:18)
[2017-11-27 20:47] LABS: Glucose,Whole Blood 107 mg/dL (75-99)
[2017-11-28] MEDS: METOPROLOL TARTRATE 5 MG/5 ML VIAL IVP SCH ×2 (02:15→08:23)
[2017-11-28] MEDS: DEXTROSE 5%-0.9% NACL 1,000 ML IV SCH (05:30)
[2017-11-28] MEDS: SYNTHROID 137MCG TABLET PO SCH (05:32)
[2017-11-28 05:51] LABS: Glucose,Whole Blood 138 mg/dL (75-99)
[2017-11-28 06:02] LABS: Basophils % (A) 0 %; Eosinophils % (A) 0 %; HCT 41.4 % (39.0-53.0); Lymphocytes # (A) 0.2 k/uL (1.0-4.8); Lymphocytes % (A) 1 %; MCH 31.5 pg (25.0-35.0); MCHC 31.5 g/dL (31.0-37.0); MCV 100.2 fL (80.0-100.0); Mean Platelet Volume 7.1; Monocytes # (A) 0.3 k/uL (0-1.0); Monocytes % (A) 2 %; Neutrophils # (A) 11.9 k/uL (1.3-7.7); Neutrophils % (A) 96 %; Platelet Count 309 k/uL (150-450); RBC 4.13 m/uL (4.30-5.90); RDW 13.4 % (11.5-15.5); WBC 12.4 k/uL (3.8-10.6)
[2017-11-28 06:09] LABS: Anion Gap 8 mmol/L; Blood Urea Nitrogen 38 mg/dL (9-20); Calcium 8.5 mg/dL (8.4-10.2); Carbon Dioxide 26 mmol/L (22-30); Chloride 103 mmol/L (98-107); Glucose 147 mg/dL (74-99); Potassium 4.7 mmol/L (3.5-5.1); Sodium 137 mmol/L (137-145)
[2017-11-28] MEDS: FLUCONAZOLE IN NACL,ISO-OSM 100 MG in SALINE 1 50ML.BAG IVPB SCH (08:15)
[2017-11-28] MEDS: PANTOPRAZOLE 40 MG/10 ML VIAL IVP SCH (08:15)
--- NOTE | 2017-11-28 08:59 | P.PN ---
Subjective Patient is seen in follow-up for hyponatremia. Sodium level is 137 this morning. Patient's currently resting in bed. He is currently resting in bed but is more awake and alert today. He does respond to verbal commands but it is difficult to understand him at this time. Creatinine is stable. 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 He is noted to be positive for influenza B. PEG tube feedings have started. Vital signs are stable. General: The patient appeared well nourished and normally developed. HEENT: Head exam is unremarkable. Neck is without jugular venous distension. LUNGS: Rhonchi at bases. Breath sounds decreased. HEART: Rate and Rhythm are regular. First and second heart sounds normal. No murmurs, rubs or gallops. ABDOMEN: Abdominal exam reveals normal bowel sounds. Non-tender and non- distended. No evidence of peritonitis. EXTREMITITES: No clubbing, cyanosis, or edema. Objective - Vital Signs Vital signs: Vital Signs Temp 96.7 F L 11/28/17 08:00 Pulse 92 11/28/17 08:00 Resp 18 11/28/17 08:00 BP 144/79 11/28/17 08:00 Pulse Ox 96 11/28/17 08:00 Intake & Output 11/27/17 11/28/17 11/28/17 18:59 06:59 18:59 Intake Total 0 180 80 Balance 0 180 80 Weight 62 kg 64.5 kg Intake: Oral 0 Tube Feeding 180 80 Other: Voiding Method Incontinent Incontinent Incontinent # Voids 2 - Labs CBC & Chem 7: 11/28/17 05:39 11/28/17 05:39 Labs: Abnormal Lab Results - Last 24 Hours (Table) 11/27/17 11/27/17 11/28/17 Range/Units 11:28 20:46 05:39 WBC 12.4 H (3.8-10.6) k/uL RBC 4.13 L (4.30-5.90) m/uL MCV 100.2 H (80.0-100.0) fL Neutrophils # 11.9 H (1.3-7.7) k/uL Lymphocytes # 0.2 L (1.0-4.8) k/uL BUN (9-20) mg/dL Glucose (74-99) mg/dL POC Glucose (mg/dL) 106 H 107 H (75-99) mg/dL 11/28/17 11/28/17 Range/Units 05:39 05:49 WBC (3.8-10.6) k/uL RBC (4.30-5.90) m/uL MCV (80.0-100.0) fL Neutrophils # (1.3-7.7) k/uL Lymphocytes # (1.0-4.8) k/uL BUN 38 H (9-20) mg/dL Glucose 147 H (74-99) mg/dL POC Glucose (mg/dL) 138 H (75-99) mg/dL Assessment and Plan Plan: Assessment: #1. 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 Improved. #2. Biopsy-proven FSGS being followed at [facility]. Maintained on prednisone 6 mg and diovan daily as outpatient. Since he is not able to take oral medications, he is receiving IV Solu-Medrol. #3. Benign hypertension. Controlled. He does have as needed clonidine and hydralazine ordered. #4. Metabolic acidosis secondary to IV fluids. Resolved. #5. Influenza B. #6. Moderate aortic stenosis. Cardiology following. #7. Acute kidney injury mostly prerenal from influenza and hemodynamic instability. Improved. Plan: Continue with half-normal saline to be run at 50 mL an hour. Maintain tube feeds. Avoid nephrotoxic agents and hypotensive episodes. Hold antihypertensives for systolic blood pressure less than 120. Discontinue IV steroids and start prednisone 10 mg daily - will taper to 6 mg daily over the next few days. Resume Diovan. Repeat electrolytes in the morning.
[2017-11-28] MEDS: IPRATROPIUM-ALBUTEROL 3 ML NEB INHALATION SCH ×4 (09:15→19:42)
[2017-11-28] MEDS ORDERED: VALSARTAN 80 MG TAB PO SCH (09:15)
[2017-11-28] MEDS ORDERED: predniSONE 10 MG TAB PO SCH (09:15)
[2017-11-28] MEDS: ASPIRIN 300 MG SUPP RECTAL SCH (10:38)
[2017-11-28] MEDS: SODIUM CHLORIDE 0.45% 1,000 ML IV SCH (11:09)
[2017-11-28] MEDS: LEVOTHYROXINE IVP 100 MCG/5 ML VIAL IV SCH (11:22)
[2017-11-28 11:34] LABS: Glucose,Whole Blood 106 mg/dL (75-99)
--- NOTE | 2017-11-28 11:43 | P.PN ---
Subjective Progress Note Date: 11/28/17 11/21/2017 Patient seen and examined at the bedside on rounds with Dr. Ferris. Patient is very sleepy this morning but easily arousable to verbal stimuli. Patient denies chest pain or pressure. Denies shortness of breath. He remains on 3L NC with oxygen saturations greater than 92%. Patient underwent modified barium swallow yesterday and did not pass. He remains NPO. Spoke with Gerri, speech therapist, and states she can re-evaluate patient in a couple days to see if swallowing has improved. Sodium this morning has improved to 128. He received a dose of IV lasix yesterday per nephrology. K 5.6. Patient is awaiting bed at [facility] per family request. 11/22/2017-11/27/[address] Ferris and covering providers 11/28/2017 Patient evaluated at the bedside on rounds with Dr. Ferris. Patient is awake and alert. Patient underwent PEG tube insertion on 11/26/[address] Underwood. Tube feedings are infusing. Currently infusing at 30cc/hr. Goal is 45cc/hr. Instructions per dietitian to advance slowly secondary to high risk for refeeding syndrome. Patient is tolerating well. Patient remains on 3L NC with oxygen saturations greater than 92%. Remains in isolation for influenza. Family is refusing ECF placement and insists on taking the patient home at the time of discharge. Family states they will care for him at home. Objective - Vital Signs Vital signs: Vital Signs Temp 96.7 F L 11/28/17 08:00 Pulse 100 11/28/17 09:15 Resp 18 11/28/17 08:00 BP 144/79 11/28/17 08:00 Pulse Ox 96 11/28/17 08:00 Intake & Output 11/27/17 11/28/17 11/28/17 18:59 06:59 18:59 Intake Total 0 180 80 Balance 0 180 80 Weight 62 kg 64.5 kg Intake: Oral 0 Tube Feeding 180 80 Other: Voiding Method Incontinent Incontinent Incontinent # Voids 2 - Exam GENERAL: This is a 77-year-old male who awake at the time of examination. Appears in no acute distress. HEENT: Head is atraumatic, normocephalic. Pupils are equal, round, and reactive to light. Sclerae anicteric. Conjunctivae are clear. Mucus membranes of the mouth are dry. Poor oral care. Neck is supple. RESPIRATORY: Diminished throughout with scattered rhonchi. No use of accessory muscles. Patient maintaining oxygen saturation greater than 92%. No chest wall tenderness is noted on palpation or with deep breathing. CARDIOVASCULAR: Regular rate and rhythm. S1 and S2 noted. No JVD noted. No S3 or S4 noted. GASTROINTESTINAL: PEG tube noted to abdomen with enternal feeding infusing. No distention noted. Abdomen soft and round. Normal active bowel sounds auscultated x 4 quadrants. No pain or tenderness noted upon palpation. INTEGUMENTARY: No cyanosis. No jaundice. No rashes noted. No cellulitis noted. EXTREMITIES: 2+ peripheral pulses. No evidence of peripheral edema. No calf tenderness noted. NEUROLOGIC: Cranial nerves II-XII intact. PSYCHIATRIC: Awake at the time of examination. Flat affect. - Labs CBC & Chem 7: 11/28/17 05:39 11/28/17 05:39 Labs: Abnormal Lab Results - Last 24 Hours (Table) 11/27/17 11/27/17 11/28/17 Range/Units 11:28 20:46 05:39 WBC 12.4 H (3.8-10.6) k/uL RBC 4.13 L (4.30-5.90) m/uL MCV 100.2 H (80.0-100.0) fL Neutrophils # 11.9 H (1.3-7.7) k/uL Lymphocytes # 0.2 L (1.0-4.8) k/uL BUN (9-20) mg/dL Glucose (74-99) mg/dL POC Glucose (mg/dL) 106 H 107 H (75-99) mg/dL 11/28/17 11/28/17 Range/Units 05:39 05:49 WBC (3.8-10.6) k/uL RBC (4.30-5.90) m/uL MCV (80.0-100.0) fL Neutrophils # (1.3-7.7) k/uL Lymphocytes # (1.0-4.8) k/uL BUN 38 H (9-20) mg/dL Glucose 147 H (74-99) mg/dL POC Glucose (mg/dL) 138 H (75-99) mg/dL Assessment and Plan Plan: ASSESSMENT: Systemic inflammatory response syndrome due to Acute influenza B infection Elevated troponin, possible non-ST elevated HI type II from influenza infection Euvolemic hyponatremia, 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 Renal function is being closely monitored at [facility], maintained on daily low dose steroids Acute kidney injury, mostly prerenal from influenza and hemodynamic instability , improved Hyperkalemia, improved Hypothyroidism Hyperlipidemia Left basilar and right upper air space disease, unlikely bacterial pneumonia Fungal esophagitis Dysphagia with severe protein calorie malnutrition, s/p PEG insertion PLAN: Will change medications to oral now that PEG has been inserted Slowly advance tube feedings as tolerated Nephrology on consult. Appreciate recommendations and input Brycevan restarted per nephrology IV steroids changed to oral. taper to 6mg daily per nephrology Home meds as appropriate Monitor labs GI prophylaxis: Protonix 40 mg PO Daily DVT prophylaxis: venedynes to bilateral LE Monitor vital signs and address as appropriate Further recommendations pending patient's course Family refusing ECF placement. States they will care for him at home. Anticipate discharge within the next 48 hours if patient remains stable and is tolerating tube feedings Case management working on obtaining equipment for patient for home at the time of DC Nurse practitioner note has been reviewed by physician. Signing provider agrees with the documented findings, assessment, and plan of care.
--- NOTE | 2017-11-28 12:34 | P.PN ---
Subjective Progress Note Date: 11/28/17 77-year-old seen and evaluated at bedside postop 26 of November PEG tube placement for nutritional supplements to be initiated. Tube feeds Currently are in progress. Tolerating tube feeds patient is more awake and alert this morning resting in bed family member at bedside Objective - Vital Signs Vital signs: Vital Signs Temp 96.7 F L 11/28/17 08:00 Pulse 100 11/28/17 09:15 Resp 18 11/28/17 08:00 BP 144/79 11/28/17 08:00 Pulse Ox 96 11/28/17 08:00 Intake & Output 11/27/17 11/28/17 11/28/17 18:59 06:59 18:59 Intake Total 0 180 80 Balance 0 180 80 Weight 62 kg 64.5 kg 64.5 kg Intake: Oral 0 Tube Feeding 180 80 Other: Voiding Method Incontinent Incontinent Incontinent # Voids 2 - Exam Exam Abdomen nondistended nontender dressing around the PEG tube site dry receiving tube feeds through the PEG tube bowel tones present incontinent urine no reports of nausea vomiting no stooling - Labs CBC & Chem 7: 11/28/17 05:39 11/28/17 05:39 Labs: Abnormal Lab Results - Last 24 Hours (Table) 11/27/17 11/28/17 11/28/17 Range/Units 20:46 05:39 05:39 WBC 12.4 H (3.8-10.6) k/uL RBC 4.13 L (4.30-5.90) m/uL MCV 100.2 H (80.0-100.0) fL Neutrophils # 11.9 H (1.3-7.7) k/uL Lymphocytes # 0.2 L (1.0-4.8) k/uL BUN 38 H (9-20) mg/dL Glucose 147 H (74-99) mg/dL POC Glucose (mg/dL) 107 H (75-99) mg/dL 11/28/17 11/28/17 Range/Units 05:49 11:32 WBC (3.8-10.6) k/uL RBC (4.30-5.90) m/uL MCV (80.0-100.0) fL Neutrophils # (1.3-7.7) k/uL Lymphocytes # (1.0-4.8) k/uL BUN (9-20) mg/dL Glucose (74-99) mg/dL POC Glucose (mg/dL) 138 H 106 H (75-99) mg/dL Assessment and Plan Assessment: Impression History of FSGS This admission positive influenza B Fungal esophagitis Odynophagia, secondary to fungal esophagitis Failed modified barium swallow Status post PEG tube insertion 26 of November Plan Initiate tube feeds through the PEG tube Consult dietitian for recommendations nutritional supplements Aspiration precautions We'll sign off re-eval as needed Progress note dictated for dr cruz The above impression and plan of care have been discussed and directed by signing physician. Ioana Skinner nurse practitioner acting as scribe for signing physician.
--- NOTE | 2017-11-28 12:55 | CDI ---
Last Revision, August 2017 Documentation Clarification Form Date: 11/28/2017 12:32:00 PM From: Hansa Crowder RN Admit Date: 11/18/2017 1:36:00 PM Patient Name: Mason Weaver Visit Number: [id number] ATTENTION: The Clinical Documentation Specialists (CDI) and [facility] Coding Staff appreciate your assistance in clarifying documentation. Please respond to the clarification below the line at the bottom and electronically sign. The CDI & [facility] Coding staff will review the response and follow-up if needed. Please note: Queries are made part of the Legal Health Record. If you have any questions, please contact the author of this message via ITS. Dr. Humberto Ferris, "Chronic kidney disease with chronic renal failure "was documented in the progress note dated 11/27. History/Risk Factors: Hyperlipidemia, renal disease , thyroid disorder, FSGS Patients on admission BUN/CR/GFR: 19/1.00/>60 Clinical Indicators: Curent BUN/Cr/GFR : 38/0.97/>60 Treatment: Consults: Dr. Glover IVF : bolus x 1 Monitor Labs In order to capture the severity of condition, please clarify if the condition signifies: Acute renal failure, Please specify etiology (if known): Acute kidney injury Acute on chronic renal failure CKD Stage 1 GFR >90 CKD Stage 2 GFR 60-89 Chronic renal failure/Chronic Kidney disease (CKD) please stage if known CKD Stage 1 GFR >90 CKD Stage 2 GFR 60-89 Other, please specify Unable to determine Please continue to document in your progress notes and discharge summary in order to capture severity of illness and risk of mortality. Include clinical findings that support your diagnosis. MTDD
[2017-11-28] MEDS: NYSTATIN 100,000 UNIT/ML SUSP 500,000 UNIT/5 ML CUP PO SCH ×3 (13:33→22:16)
[2017-11-28 16:43] LABS: Glucose,Whole Blood 104 mg/dL (75-99)
[2017-11-28] MEDS: EZETIMIBE 10 MG TAB PO SCH (19:58)
[2017-11-28] MEDS: VALSARTAN 80 MG TAB PO SCH (19:58)
[2017-11-28] MEDS: predniSONE 10 MG TAB PO SCH (19:59)
[2017-11-28] MEDS: ASPIRIN 81 MG PEG/G-TUBE SCH (20:00)
[2017-11-28 21:08] LABS: Glucose,Whole Blood 105 mg/dL (75-99)
[2017-11-29] MEDS: SODIUM CHLORIDE 0.45% 1,000 ML IV SCH (06:07)
[2017-11-29] MEDS: LEVOTHYROXINE 137 MCG TAB PO SCH (06:08)
[2017-11-29 06:09] LABS: Basophils % (A) 0 %; Eosinophils % (A) 0 %; HGB 13.1 gm/dL (13.0-17.5); Lymphocytes # (A) 0.4 k/uL (1.0-4.8); Lymphocytes % (A) 3 %; MCH 31.4 pg (25.0-35.0); MCHC 31.3 g/dL (31.0-37.0); MCV 100.3 fL (80.0-100.0); Mean Platelet Volume 7.2; Monocytes # (A) 0.4 k/uL (0-1.0); Monocytes % (A) 3 %; Neutrophils # (A) 12.2 k/uL (1.3-7.7); Neutrophils % (A) 93 %; Platelet Count 328 k/uL (150-450); RBC 4.19 m/uL (4.30-5.90); RDW 13.4 % (11.5-15.5); WBC 13.1 k/uL (3.8-10.6)
[2017-11-29] MEDS: PANTOPRAZOLE 40 MG TABLET PO SCH (06:09)
[2017-11-29 06:22] LABS: Anion Gap 6 mmol/L; Blood Urea Nitrogen 33 mg/dL (9-20); Calcium 9.1 mg/dL (8.4-10.2); Carbon Dioxide 26 mmol/L (22-30); Chloride 100 mmol/L (98-107); Glucose 109 mg/dL (74-99); Potassium 4.4 mmol/L (3.5-5.1); Sodium 132 mmol/L (137-145)
[2017-11-29 06:29] LABS: Glucose,Whole Blood 103 mg/dL (75-99)
[2017-11-29] MEDS: IPRATROPIUM-ALBUTEROL 3 ML NEB INHALATION SCH ×4 (07:07→20:26)
[2017-11-29] MEDS: FLUCONAZOLE 150 MG TAB PO SCH (08:30)
[2017-11-29] MEDS: NYSTATIN 100,000 UNIT/ML SUSP 500,000 UNIT/5 ML CUP PO SCH ×4 (08:30→21:28)
--- NOTE | 2017-11-29 08:54 | P.PN ---
Subjective Patient is seen in follow-up for hyponatremia. Sodium level is 132 this morning. Patient's currently resting in bed and is more awake and alert today. He does respond to verbal commands but it is difficult to understand him at this time. Creatinine is stable. 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 He is noted to be positive for influenza B. He is maintained on PEG tube feeds. Family present at beside. Vital signs are stable. General: The patient appeared well nourished and normally developed. HEENT: Head exam is unremarkable. Neck is without jugular venous distension. LUNGS: Rhonchi at bases. Breath sounds decreased. HEART: Rate and Rhythm are regular. First and second heart sounds normal. No murmurs, rubs or gallops. ABDOMEN: Abdominal exam reveals normal bowel sounds. Non-tender and non- distended. No evidence of peritonitis. EXTREMITITES: No clubbing, cyanosis, or edema. Objective - Vital Signs Vital signs: Vital Signs Temp 98.7 F 11/29/17 07:59 Pulse 111 H 11/29/17 07:59 Resp 24 11/29/17 07:59 BP 141/78 11/29/17 07:59 Pulse Ox 96 11/29/17 03:35 Intake & Output 11/28/17 11/29/17 11/29/17 18:59 06:59 18:59 Intake Total 280 300 100 Output Total 200 Balance 280 100 100 Weight 64.5 kg 65 kg Intake: Tube Feeding 280 300 100 Output: Urine 200 Other: Voiding Method Incontinent Incontinent Incontinent # Voids 2 2 - Labs CBC & Chem 7: 11/29/17 05:31 11/29/17 05:31 Labs: Abnormal Lab Results - Last 24 Hours (Table) 11/28/17 11/28/17 11/28/17 Range/Units 11:32 16:36 21:06 WBC (3.8-10.6) k/uL RBC (4.30-5.90) m/uL MCV (80.0-100.0) fL Neutrophils # (1.3-7.7) k/uL Lymphocytes # (1.0-4.8) k/uL Sodium (137-145) mmol/L BUN (9-20) mg/dL Glucose (74-99) mg/dL POC Glucose (mg/dL) 106 H 104 H 105 H (75-99) mg/dL 11/29/17 11/29/17 11/29/17 Range/Units 05:31 05:31 06:00 WBC 13.1 H (3.8-10.6) k/uL RBC 4.19 L (4.30-5.90) m/uL MCV 100.3 H (80.0-100.0) fL Neutrophils # 12.2 H (1.3-7.7) k/uL Lymphocytes # 0.4 L (1.0-4.8) k/uL Sodium 132 L (137-145) mmol/L BUN 33 H (9-20) mg/dL Glucose 109 H (74-99) mg/dL POC Glucose (mg/dL) 103 H (75-99) mg/dL Assessment and Plan Plan: Assessment: #1. 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 Sodium 132 today. #2. Biopsy-proven FSGS being followed at [facility]. Maintained on prednisone 6 mg and diovan daily as outpatient. Since he is not able to take oral medications, he is receiving IV Solu-Medrol. #3. Benign hypertension. Controlled. He does have as needed clonidine and hydralazine ordered. #4. Metabolic acidosis secondary to IV fluids. Resolved. #5. Influenza B. #6. Moderate aortic stenosis. Cardiology following. #7. Acute kidney injury mostly prerenal from influenza and hemodynamic instability. Improved. Plan: Heplock IVFs. Maintain tube feeds. Avoid nephrotoxic agents and hypotensive episodes. Hold antihypertensives for systolic blood pressure less than 120. Off IV steroids; continue prednisone 10 mg daily - will taper to 6 mg daily tomorrow. Continue Diovan if BP can tolerate. Repeat electrolytes in the morning.
[2017-11-29] MEDS ORDERED: ASPIRIN 81 MG PEG/G-TUBE SCH (09:00)
--- NOTE | 2017-11-29 10:39 | P.PN ---
Subjective Progress Note Date: 11/29/17 11/21/2017 Patient seen and examined at the bedside on rounds with Dr. Ferris. Patient is very sleepy this morning but easily arousable to verbal stimuli. Patient denies chest pain or pressure. Denies shortness of breath. He remains on 3L NC with oxygen saturations greater than 92%. Patient underwent modified barium swallow yesterday and did not pass. He remains NPO. Spoke with Gerri, speech therapist, and states she can re-evaluate patient in a couple days to see if swallowing has improved. Sodium this morning has improved to 128. He received a dose of IV lasix yesterday per nephrology. K 5.6. [facility]. 11/22/2017-11/27/[address] Ferris and covering providers 11/28/2017 Patient evaluated at the bedside on rounds with Dr. Ferris. Patient is awake and alert. Patient underwent PEG tube insertion on 11/26/[address] Underwood. Tube feedings are infusing. Currently infusing at 30cc/hr. Goal is 45cc/hr. Instructions per dietitian to advance slowly secondary to high risk for refeeding syndrome. Patient is tolerating well. Patient remains on 3L NC with oxygen saturations greater than 92%. Remains in isolation for influenza. Family is refusing ECF placement and insists on taking the patient home at the time of discharge. Family states they will care for him at home. 11/29/2017 Patient evaluated at the bedside on rounds with Dr. Ferris. No family present. Patient is awake and alert. Following commands. Tube feeding is infusing at goal rate. Patient tolerating well. Remains hemodynamically stable. WBC 13.1. Na 132. Case management is working on discharge planning including hospital bed , home o2, and tube feeding supplies. Objective - Vital Signs Vital signs: Vital Signs Temp 98.7 F 11/29/17 07:59 Pulse 111 H 11/29/17 07:59 Resp 24 11/29/17 07:59 BP 141/78 11/29/17 07:59 Pulse Ox 96 11/29/17 03:35 Intake & Output 11/28/17 11/29/17 11/29/17 18:59 06:59 18:59 Intake Total 280 300 100 Output Total 200 Balance 280 100 100 Weight 64.5 kg 65 kg Intake: Tube Feeding 280 300 100 Output: Urine 200 Other: Voiding Method Incontinent Incontinent Incontinent # Voids 2 2 - Exam GENERAL: This is a 77-year-old male who awake at the time of examination. Appears in no acute distress. HEENT: Head is atraumatic, normocephalic. Pupils are equal, round, and reactive to light. Sclerae anicteric. Conjunctivae are clear. Mucus membranes of the mouth are dry. Poor oral care. Neck is supple. RESPIRATORY: Diminished throughout. No use of accessory muscles. Patient maintaining oxygen saturation greater than 92%. No chest wall tenderness is noted on palpation or with deep breathing. CARDIOVASCULAR: Regular rate and rhythm. S1 and S2 noted. No JVD noted. No S3 or S4 noted. GASTROINTESTINAL: PEG tube noted to abdomen with enternal feeding infusing. No distention noted. Abdomen soft and round. Normal active bowel sounds auscultated x 4 quadrants. No pain or tenderness noted upon palpation. INTEGUMENTARY: No cyanosis. No jaundice. No rashes noted. No cellulitis noted. EXTREMITIES: 2+ peripheral pulses. No evidence of peripheral edema. No calf tenderness noted. NEUROLOGIC: Cranial nerves II-XII intact. PSYCHIATRIC: Awake at the time of examination. Flat affect. - Labs CBC & Chem 7: 11/29/17 05:31 11/29/17 05:31 Labs: Abnormal Lab Results - Last 24 Hours (Table) 11/28/17 11/28/17 11/28/17 Range/Units 11:32 16:36 21:06 WBC (3.8-10.6) k/uL RBC (4.30-5.90) m/uL MCV (80.0-100.0) fL Neutrophils # (1.3-7.7) k/uL Lymphocytes # (1.0-4.8) k/uL Sodium (137-145) mmol/L BUN (9-20) mg/dL Glucose (74-99) mg/dL POC Glucose (mg/dL) 106 H 104 H 105 H (75-99) mg/dL 11/29/17 11/29/17 11/29/17 Range/Units 05:31 05:31 06:00 WBC 13.1 H (3.8-10.6) k/uL RBC 4.19 L (4.30-5.90) m/uL MCV 100.3 H (80.0-100.0) fL Neutrophils # 12.2 H (1.3-7.7) k/uL Lymphocytes # 0.4 L (1.0-4.8) k/uL Sodium 132 L (137-145) mmol/L BUN 33 H (9-20) mg/dL Glucose 109 H (74-99) mg/dL POC Glucose (mg/dL) 103 H (75-99) mg/dL Assessment and Plan Plan: ASSESSMENT: Systemic inflammatory response syndrome due to Acute influenza B infection Elevated troponin, possible non-ST elevated DE type II from influenza infection Euvolemic hyponatremia, 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 Renal function is being closely monitored at [facility], maintained on daily low dose steroids Acute kidney injury, mostly prerenal from influenza and hemodynamic instability , improved Hyperkalemia, improved Hypothyroidism Hyperlipidemia Left basilar and right upper air space disease, unlikely bacterial pneumonia Fungal esophagitis Dysphagia with severe protein calorie malnutrition, s/p PEG insertion PLAN: Continue tube feedings Continue diflucan through PEG and nystatin orally Nephrology on consult. Appreciate recommendations and input Diovan restarted per nephrology IV steroids changed to oral. taper to 6mg daily per nephrology Home meds as appropriate Monitor labs GI prophylaxis: Protonix 40 mg PO Daily DVT prophylaxis: venedynes to bilateral LE Monitor vital signs and address as appropriate Further recommendations pending patient's course Family refusing ECF placement. States they will care for him at home. Case management working on obtaining equipment for patient for home at the time of DC Anticipate discharge home tomorrow per Dr. Ferris Notified by case picker that family is upset regarding possible discharge home tomorrow. Will speak with Dr. Ferris regarding this. Nurse practitioner note has been reviewed by physician. Signing provider agrees with the documented findings, assessment, and plan of care.
[2017-11-29 11:25] LABS: Glucose,Whole Blood 90 mg/dL (75-99)
[2017-11-29 16:36] LABS: Glucose,Whole Blood 107 mg/dL (75-99)
--- NOTE | 2017-11-29 16:40 | P.CONS ---
History of Present Illness - Chief Complaint Medical debility - History of Present Illness I had the op to see patient for inpatient rehab consultation with regard to medical debility. He was admitted to [facility] November 18 with shortness of breath, influenza B and possible non-STEMI. In by Dr. Mcfadden for admission. Seen by Dr. Glover for hyponatremia who notes SIADH. Seen by Dr. Dr. Underwood who placed up off tube for nutritional support. Chest x-ray demonstrates chronic left basilar atelectasis and new right basilar atelectasis. Head CT with moderate age-related and chronic changes. PT reports two-person total assistance for bed mobility and standing. Attempted step over step. OT reports total assistance for upper and lower dressing and bathing, defect to person for lower dressing. Not able to toilet. Maximal assistance for transfers. Speech therapy prescribed. Previous functional history as elicited from patient and corroborated by daughter: 77-year-old right-handed white male who is lives in one floor home with . does cooking, laundry, driving. Patient may have done some sporadic driving up until about 3 or 4 weeks ago. Was doing standing shower and gait without device. Does not smoke or drink and never did. Family history mother with hypertension and cancer. Review of Systems Review of systems: ENT: Denies sneezes or discharge. Eyes: Denies discharge or photophobia. Cardiac: Denies chest pain or palpitation. Pulmonary: Mild to moderate shortness of breath. Gastrointestinal: Denies nausea, emesis, constipation, diarrhea. Genitourinary: Denies discharge or frequency. Musculoskeletal: Chronic low back pain. Neurologic: Generalized weakness. Endocrine: Denies shakes or sweats. Oncology: Denies cancers. Dermatologic: Denies rash, itching, pruritus. ALLERGY/immunology: Denies sneezes, rashes. Past Medical History Past Medical History: Hyperlipidemia, Renal Disease, Thyroid Disorder History of Any Multi-Drug Resistant Organisms: None Reported Past Surgical History: No Surgical Hx Reported Additional Past Surgical History / Comment(s): AAA repair Past Anesthesia/Blood Transfusion Reactions: No Reported Reaction Past Psychological History: No Psychological Hx Reported Smoking Status: Never smoker Past Alcohol Use History: None Reported Past Drug Use History: None Reported - Past Family History Mother Family Medical History: Cancer Medications and Allergies Home Medications Medication Instructions Recorded Confirmed Type Aspirin 81 mg PO HS@2200 18/18 02/18/18 History Azithromycin [Zithromax Z-pack] See Taper PO DIRECTED 11/18/17 11/18/17 History Ezetimibe [Zetia] 10 mg PO HS@219911/18/17 11/18/17 History Labetalol HCl 50 mg PO TID@0600,1400,0 11/18/17 11/18/17 History Levothyroxine Sodium [Synthroid] 137 mcg PO DAILY@59911/18/17 11/18/17 History Simvastatin [Zocor] 40 mg PO HS@219911/18/17 11/18/17 History Spironolactone [Aldactone] 25 mg PO DAILY@59911/18/17 11/18/17 History Valsartan [Diovan] 160 mg PO HS@219911/18/17 11/18/17 History predniSONE 1 mg PO DAILY@199911/18/17 11/18/17 History predniSONE 5 mg PO DAILY@199911/18/17 11/18/17 History Allergies Allergy/AdvReac Type Severity Reaction Status Date / Time clidinium Allergy Unknown Verified 11/18/17 13:50 atorvastatin [From Lipitor] AdvReac Itching Verified 11/27/17 22:25 Physical Exam Vitals: Vital Signs Temp Pulse Pulse Resp BP Pulse Ox 11/29/17 15:33 98.6 F 119 H 24 123/72 96 11/29/17 15:23 120 H 11/29/17 15:12 116 H 11/29/17 11:10 98.6 F 112 H 24 112/69 96 11/29/17 11:00 100 11/29/17 10:47 96 11/29/17 07:59 98.7 F 111 H 24 141/78 11/29/17 07:18 104 H 11/29/17 07:08 104 H 11/29/17 03:35 109 H 18 112/72 96 11/29/17 00:00 112 H 18 118/73 94 L 11/28/17 20:00 114 H 18 119/67 94 L 11/28/17 16:51 100 11/28/17 16:38 100 Intake and Output 11/29/17 11/29/17 11/29/17 06:59 14:59 22:59 Intake Total 200 100 Output Total 1 1 Balance 200 99 -1 Intake: Tube Feeding 200 100 Output: Stool 1 1 Other: Voiding Method Incontinent Incontinent Incontinent # Voids 2 Weight 65 kg Skin: Atrophic, intact. General: Medium build and fatigued appearance. Head: Normocephalic, atraumatic. Eyes: Symmetric. Pupils equal round. Ears: Symmetric. Hearing within normal limits. Mouth: Clear. Neck: Supple. Carotid without bruit. Cardiac: Regular rate and rhythm. Lungs: Clear anteriorly and posteriorly. Abdomen: Soft active nontender. Extremities: Normal tone. Back: Marked increase in thoracic kyphosis. Neurological: Mental status: Alert, cooperative, pleasant. Cranial nerves: Symmetric facial tone and trapezius. Motor: An elevate arms and legs off of bed. Sensation: Intact throughout. DTRs: Absent throughout. Mobility: Obviously requires physical assistance for bed and a bed mobility or sitting. Results CBC & Chem 7: 11/29/17 05:31 11/29/17 05:31 Labs: Abnormal Lab Results - Last 24 Hours (Table) 11/28/17 11/28/17 11/29/17 Range/Units 16:36 21:06 05:31 WBC 13.1 H (3.8-10.6) k/uL RBC 4.19 L (4.30-5.90) m/uL MCV 100.3 H (80.0-100.0) fL Neutrophils # 12.2 H (1.3-7.7) k/uL Lymphocytes # 0.4 L (1.0-4.8) k/uL Sodium (137-145) mmol/L BUN (9-20) mg/dL Glucose (74-99) mg/dL POC Glucose (mg/dL) 104 H 105 H (75-99) mg/dL 11/29/17 11/29/17 Range/Units 05:31 06:00 WBC (3.8-10.6) k/uL RBC (4.30-5.90) m/uL MCV (80.0-100.0) fL Neutrophils # (1.3-7.7) k/uL Lymphocytes # (1.0-4.8) k/uL Sodium 132 L (137-145) mmol/L BUN 33 H (9-20) mg/dL Glucose 109 H (74-99) mg/dL POC Glucose (mg/dL) 103 H (75-99) mg/dL Chest x-ray: report reviewed (Chronic left basal or attic cases and new right basilar atelectasis.) CT Scan - head: report reviewed (Moderate age-related and chronic changes.) Assessment and Plan (1) Influenza B Current Visit: Yes Status: Acute Code(s): J10.1 - FLU DUE TO OTH IDENT INFLUENZA VIRUS W OTH RESP MANIFEST SNOMED Code(s): 86297610 Plan: Impression: 1. Influenza B. 2. Malnutrition. 3. Non-STEMI. 4. Chronic kidney disease. 5. Dyslipidemia. Comments and plan: At this time PT and OT are ongoing. Definite safety concerns noted. Noted rehab unit currently full and do not anticipate available bed until next week. We will follow closely with yourself for possible need and benefit of inpatient rehab. Have discussed above with patient and daughter.
[2017-11-29 21:02] LABS: Glucose,Whole Blood 92 mg/dL (75-99)
[2017-11-29] MEDS: VALSARTAN 80 MG TAB PO SCH (21:25)
[2017-11-29] MEDS: predniSONE 10 MG TAB PO SCH (21:28)
[2017-11-29] MEDS: ASPIRIN 81 MG PEG/G-TUBE SCH (21:28)
[2017-11-29] MEDS: EZETIMIBE 10 MG TAB PO SCH (21:28)
[2017-11-30 05:59] LABS: Glucose,Whole Blood 107 mg/dL (75-99)
[2017-11-30] MEDS: LEVOTHYROXINE 137 MCG TAB PO SCH (06:09)
[2017-11-30] MEDS: PANTOPRAZOLE 40 MG TABLET PO SCH (06:09)
[2017-11-30 06:11] LABS: Basophils % (A) 0 %; Eosinophils % (A) 0 %; HGB 13.6 gm/dL (13.0-17.5); Lymphocytes # (A) 0.4 k/uL (1.0-4.8); Lymphocytes % (A) 3 %; MCH 31.4 pg (25.0-35.0); MCHC 31.6 g/dL (31.0-37.0); MCV 99.2 fL (80.0-100.0); Mean Platelet Volume 6.8; Monocytes # (A) 0.5 k/uL (0-1.0); Monocytes % (A) 4 %; Neutrophils # (A) 11.8 k/uL (1.3-7.7); Neutrophils % (A) 93 %; Platelet Count 350 k/uL (150-450); RBC 4.33 m/uL (4.30-5.90); RDW 13.6 % (11.5-15.5); WBC 12.7 k/uL (3.8-10.6)
[2017-11-30 06:57] LABS: Anion Gap 8 mmol/L; Blood Urea Nitrogen 34 mg/dL (9-20); Calcium 9.6 mg/dL (8.4-10.2); Carbon Dioxide 28 mmol/L (22-30); Chloride 100 mmol/L (98-107); Glucose 118 mg/dL (74-99); Potassium 4.9 mmol/L (3.5-5.1); Sodium 136 mmol/L (137-145)
--- NOTE | 2017-11-30 08:24 | P.PN ---
Subjective Patient is seen in follow-up for hyponatremia. Sodium level is 136 this morning. Patient's currently resting in bed and is more awake and alert today. He does respond to verbal commands. Creatinine is stable. Patient does have history of FSGS for which he is maintained on Diovan and prednisone. He is noted to be positive for influenza B. He is maintained on PEG tube feeds. Family present at beside. Vital signs are stable. General: The patient appeared well nourished and normally developed. HEENT: Head exam is unremarkable. Neck is without jugular venous distension. LUNGS: Rhonchi at bases. Breath sounds decreased. HEART: Rate and Rhythm are regular. First and second heart sounds normal. No murmurs, rubs or gallops. ABDOMEN: Abdominal exam reveals normal bowel sounds. Non-tender and non- distended. No evidence of peritonitis. EXTREMITITES: No clubbing, cyanosis, or edema. Objective - Vital Signs Vital signs: Vital Signs Temp 97.7 F 11/30/17 07:37 Pulse 106 H 11/30/17 07:37 Resp 24 11/30/17 07:37 BP 117/74 11/30/17 07:37 Pulse Ox 92 L 11/30/17 07:37 Intake & Output 11/29/17 11/30/17 11/30/17 18:59 06:59 18:59 Intake Total 100 300 Output Total 2 200 Balance 98 100 Weight 62 kg Intake: Oral 0 Tube Feeding 100 300 Output: Urine 200 Stool 2 Other: Voiding Method Incontinent Incontinent Incontinent # Voids 1 - Labs CBC & Chem 7: 11/30/17 05:53 11/30/17 05:53 Labs: Abnormal Lab Results - Last 24 Hours (Table) 11/29/17 11/30/17 11/30/17 Range/Units 16:34 05:53 05:53 WBC 12.7 H (3.8-10.6) k/uL Neutrophils # 11.8 H (1.3-7.7) k/uL Lymphocytes # 0.4 L (1.0-4.8) k/uL Sodium 136 L (137-145) mmol/L BUN 34 H (9-20) mg/dL Glucose 118 H (74-99) mg/dL POC Glucose (mg/dL) 107 H (75-99) mg/dL 03/02/18 Range/Units 05:55 WBC (3.8-10.6) k/uL Neutrophils # (1.3-7.7) k/uL Lymphocytes # (1.0-4.8) k/uL Sodium (137-145) mmol/L BUN (9-20) mg/dL Glucose (74-99) mg/dL POC Glucose (mg/dL) 107 H (75-99) mg/dL Assessment and Plan Plan: Assessment: #1. 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 Sodium 136 today. #2. Biopsy-proven FSGS being followed at [facility]. Maintained on prednisone 6 mg and diovan daily as outpatient. #3. Benign hypertension. Controlled. He does have as needed clonidine and hydralazine ordered. #4. Metabolic acidosis secondary to IV fluids. Resolved. #5. Influenza B. #6. Moderate aortic stenosis. Cardiology following. #7. Acute kidney injury mostly prerenal from influenza and hemodynamic instability. Improved. Plan: Maintain tube feeds. Avoid nephrotoxic agents and hypotensive episodes. Hold antihypertensives for systolic blood pressure less than 120. Off IV steroids; I will decrease the oral prednisone to 6 mg today which is his outpatient dose. Continue Diovan if BP can tolerate. Repeat electrolytes in the morning.
[2017-11-30] MEDS: FLUCONAZOLE 150 MG TAB PO SCH (08:55)
[2017-11-30] MEDS: NYSTATIN 100,000 UNIT/ML SUSP 500,000 UNIT/5 ML CUP PO SCH ×4 (08:55→20:46)
[2017-11-30] MEDS: METOPROLOL TARTRATE 12.5 MG TAB PO SCH ×2 (08:57→20:46)
--- NOTE | 2017-11-30 09:00 | P.PN ---
Subjective Progress Note Date: 11/30/17 11/21/2017 Patient seen and examined at the bedside on rounds with Dr. Ferris. Patient is very sleepy this morning but easily arousable to verbal stimuli. Patient denies chest pain or pressure. Denies shortness of breath. He remains on 3L NC with oxygen saturations greater than 92%. Patient underwent modified barium swallow yesterday and did not pass. He remains NPO. Spoke with Gerri, speech therapist, and states she can re-evaluate patient in a couple days to see if swallowing has improved. Sodium this morning has improved to 128. He received a dose of IV lasix yesterday per nephrology. K 5.6. [facility]. 11/22/2017-11/27/[address] Ferris and covering providers 11/28/2017 Patient evaluated at the bedside on rounds with Dr. Ferris. Patient is awake and alert. Patient underwent PEG tube insertion on 11/26/[address] Underwood. Tube feedings are infusing. Currently infusing at 30cc/hr. Goal is 45cc/hr. Instructions per dietitian to advance slowly secondary to high risk for refeeding syndrome. Patient is tolerating well. Patient remains on 3L NC with oxygen saturations greater than 92%. Remains in isolation for influenza. Family is refusing ECF placement and insists on taking the patient home at the time of discharge. Family states they will care for him at home. 11/29/2017 Patient evaluated at the bedside on rounds with Dr. Ferris. No family present. Patient is awake and alert. Following commands. Tube feeding is infusing at goal rate. Patient tolerating well. Remains hemodynamically stable. WBC 13.1. Na 132. Case management is working on discharge planning including hospital bed , home o2, and tube feeding supplies. 11/30/2017 Patient evaluated at the bedside on rounds with Dr. Ferris. Daughter is at the bedside. Patient is awake and alert. Tube feeding is infusing at goal. Patient remains hemodynamically stable. WBC 12.7. Na 136. Patient remains tachycardic in the 110s. Dr. Ferris spoke with daughter regarding discharge plans. Dr. Ferris emphasized the need for subacute rehab. Daughter is agreeable at this time. Dr. Terrazas was consulted yesterday per family request for possible inpatient rehab at [facility]. Per Dr. Terrazas, there will not be a bed available until sometime next week and Dr. Ferris is anticipating discharge on Sunday and patient may not be appropriate for inpatient rehab at this time. Daughter states that she will look into [facility] [place] and [facility] today for possible placement options. Daughter is agreeable to discharge on Sunday. Objective - Vital Signs Vital signs: Vital Signs Temp 97.7 F 11/30/17 07:37 Pulse 106 H 11/30/17 07:37 Resp 24 11/30/17 07:37 BP 117/74 11/30/17 07:37 Pulse Ox 92 L 11/30/17 07:37 Intake & Output 11/29/17 11/30/17 11/30/17 18:59 06:59 18:59 Intake Total 100 300 Output Total 2 200 Balance 98 100 Weight 62 kg Intake: Oral 0 Tube Feeding 100 300 Output: Urine 200 Stool 2 Other: Voiding Method Incontinent Incontinent Incontinent # Voids 1 - Exam GENERAL: This is a 77-year-old male who awake at the time of examination. Appears in no acute distress. HEENT: Head is atraumatic, normocephalic. Pupils are equal, round, and reactive to light. Sclerae anicteric. Conjunctivae are clear. Mucus membranes of the mouth are dry. Poor oral care. Neck is supple. RESPIRATORY: Diminished throughout. No use of accessory muscles. Patient maintaining oxygen saturation greater than 92%. No chest wall tenderness is noted on palpation or with deep breathing. CARDIOVASCULAR: Regular rate and rhythm. S1 and S2 noted. No JVD noted. No S3 or S4 noted. GASTROINTESTINAL: PEG tube noted to abdomen with enternal feeding infusing. No distention noted. Abdomen soft and round. Normal active bowel sounds auscultated x 4 quadrants. No pain or tenderness noted upon palpation. INTEGUMENTARY: No cyanosis. No jaundice. No rashes noted. No cellulitis noted. EXTREMITIES: 2+ peripheral pulses. No evidence of peripheral edema. No calf tenderness noted. NEUROLOGIC: Cranial nerves II-XII intact. PSYCHIATRIC: Awake at the time of examination. Flat affect. - Labs CBC & Chem 7: 11/30/17 05:53 11/30/17 05:53 Labs: Abnormal Lab Results - Last 24 Hours (Table) 11/29/17 11/30/17 11/30/17 Range/Units 16:34 05:53 05:53 WBC 12.7 H (3.8-10.6) k/uL Neutrophils # 11.8 H (1.3-7.7) k/uL Lymphocytes # 0.4 L (1.0-4.8) k/uL Sodium 136 L (137-145) mmol/L BUN 34 H (9-20) mg/dL Glucose 118 H (74-99) mg/dL POC Glucose (mg/dL) 107 H (75-99) mg/dL 11/30/17 Range/Units 05:55 WBC (3.8-10.6) k/uL Neutrophils # (1.3-7.7) k/uL Lymphocytes # (1.0-4.8) k/uL Sodium (137-145) mmol/L BUN (9-20) mg/dL Glucose (74-99) mg/dL POC Glucose (mg/dL) 107 H (75-99) mg/dL Assessment and Plan Plan: ASSESSMENT: Systemic inflammatory response syndrome due to Acute influenza B infection, resolved Elevated troponin, possible non-ST elevated CT type II from influenza infection Euvolemic hyponatremia, 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 Renal function is being closely monitored at [facility], maintained on daily low dose steroids Acute kidney injury, mostly prerenal from influenza and hemodynamic instability , resolved Hyperkalemia, improved Hypothyroidism Hyperlipidemia Left basilar and right upper air space disease, unlikely bacterial pneumonia Fungal esophagitis Dysphagia with severe protein calorie malnutrition, s/p PEG insertion PLAN: Awaiting been on general medical floor Continue tube feedings Continue diflucan through PEG and nystatin orally Nephrology on consult. Appreciate recommendations and input Oral steroids decreased to 6mg daily per nephrology Resume beta radha for tachycardia. Will initiate metoprolol rather than labetalol as recommended by cardiology Home meds as appropriate Monitor labs GI prophylaxis: Protonix 40 mg PO Daily DVT prophylaxis: venedynes to bilateral LE Monitor vital signs and address as appropriate Further recommendations pending patient's course Dr. Ferris spoke with daughter at the bedside this morning and discharge plan is for discharge to ECF on Sunday if patient remains stable Daughter states she is going to look at [facility] and [facility] the [place] today as inpatient rehab at [facility] is unlikely Nurse practitioner note has been reviewed by physician. Signing provider agrees with the documented findings, assessment, and plan of care.
[2017-11-30 11:58] LABS: Glucose,Whole Blood 92 mg/dL (75-99)
[2017-11-30] MEDS: IPRATROPIUM-ALBUTEROL 3 ML NEB INHALATION SCH (12:15)
[2017-11-30] MEDS: IPRATROPIUM-ALBUTEROL 3 ML NEB INHALATION PRN ×2 (12:15→20:36)
[2017-11-30 17:30] LABS: Glucose,Whole Blood 110 mg/dL (75-99)
[2017-11-30] MEDS: predniSONE 1 MG TAB PO SCH (20:43)
[2017-11-30] MEDS: EZETIMIBE 10 MG TAB PO SCH (20:45)
[2017-11-30] MEDS: VALSARTAN 80 MG TAB PO SCH (20:45)
[2017-11-30] MEDS: ASPIRIN 81 MG PEG/G-TUBE SCH (20:46)
[2017-11-30 21:18] LABS: Glucose,Whole Blood 127 mg/dL (75-99)
[2017-12-01] MEDS: LEVOTHYROXINE 137 MCG TAB PO SCH (06:31)
[2017-12-01 07:17] LABS: Glucose,Whole Blood 99 mg/dL (75-99)
[2017-12-01 07:36] LABS: Anion Gap 5 mmol/L; Blood Urea Nitrogen 41 mg/dL (9-20); Calcium 9.3 mg/dL (8.4-10.2); Carbon Dioxide 31 mmol/L (22-30); Chloride 100 mmol/L (98-107); Glucose 108 mg/dL (74-99); Potassium 4.5 mmol/L (3.5-5.1); Sodium 136 mmol/L (137-145)
[2017-12-01] MEDS: IPRATROPIUM-ALBUTEROL 3 ML NEB INHALATION PRN ×2 (07:39→15:31)
[2017-12-01] MEDS: METOPROLOL TARTRATE 12.5 MG TAB PO SCH ×2 (08:32→20:45)
[2017-12-01] MEDS: FLUCONAZOLE 150 MG TAB PO SCH (08:32)
[2017-12-01] MEDS: PANTOPRAZOLE 40 MG TABLET PO SCH (08:32)
[2017-12-01] MEDS: NYSTATIN 100,000 UNIT/ML SUSP 500,000 UNIT/5 ML CUP PO SCH ×4 (08:32→20:46)
[2017-12-01 12:41] LABS: Glucose,Whole Blood 129 mg/dL (75-99)
[2017-12-01 17:39] LABS: Glucose,Whole Blood 114 mg/dL (75-99)
[2017-12-01] MEDS: predniSONE 1 MG TAB PO SCH (20:42)
[2017-12-01 20:44] LABS: Glucose,Whole Blood 112 mg/dL (75-99)
[2017-12-01] MEDS: VALSARTAN 80 MG TAB PO SCH (20:44)
[2017-12-01] MEDS: ASPIRIN 81 MG PEG/G-TUBE SCH (20:45)
[2017-12-01] MEDS: EZETIMIBE 10 MG TAB PO SCH (20:45)
[2017-12-02] MEDS: LEVOTHYROXINE 137 MCG TAB PO SCH (06:57)
[2017-12-02 07:43] LABS: Glucose,Whole Blood 125 mg/dL (75-99)
[2017-12-02] MEDS: METOPROLOL TARTRATE 12.5 MG TAB PO SCH ×2 (09:05→22:33)
[2017-12-02] MEDS: FLUCONAZOLE 150 MG TAB PO SCH (09:05)
[2017-12-02] MEDS: NYSTATIN 100,000 UNIT/ML SUSP 500,000 UNIT/5 ML CUP PO SCH ×4 (09:05→22:33)
[2017-12-02] MEDS: PANTOPRAZOLE 40 MG TABLET PO SCH (09:08)
[2017-12-02] MEDS: IPRATROPIUM-ALBUTEROL 3 ML NEB INHALATION PRN ×2 (09:32→16:46)
[2017-12-02 12:01] LABS: Glucose,Whole Blood 110 mg/dL (75-99)
--- NOTE | 2017-12-02 17:46 | P.PN ---
Subjective Progress Note Date: 12/01/17 Principal diagnosis: Acute influenza infection Patient is a 77-year-old female with a known history of FSGS currently being managed at [facility] with prednisone, Diovan, altered tone and labetalol, hypothyroidism and hyperlipidemia presents to ER we are EMS with complaints of increased weakness and cough with congestion worsening for the past 5 days. Patient does have clear to whitish sputum. Patient was seen by his PCP on last Sunday. Patient was started on Z-Elvis which the patient has has taken for 4 days. Otherwise patient has been having worsening cough and congestion and mild shortness of breath which made him come to the hospital. Patient does have generalized weakness. Denied any fever or chills. No complaints of chest pain. No nausea vomiting or abdominal pain. No dysuria or hematuria. No headache or dizziness or lightheadedness. No altered mental status. No visual changes. Patient was found have sodium level 124 Troponin 1.030 EKG showed sinus rhythm with PVCs and possible new onset left bundle branch block.. Patient was started on heparin drip. Influenza B positive PCR WBC 7.5 Patient's hospital course has been complicated with generalized weakness and dysphagia and worsening renal function. Currently patient is status post PEG tube placement and is tolerating tube feeding. Renal function improved otherwise. Patient does have generalized weakness. PT OT has seen the patient and is planning for rehab transfer possibly on Sunday. 11/30/2017 Patient evaluated at the bedside on rounds with Dr. Ferris. Daughter is at the bedside. Patient is awake and alert. Tube feeding is infusing at goal. Patient remains hemodynamically stable. WBC 12.7. Na 136. Patient remains tachycardic in the 110s. Dr. Ferris spoke with daughter regarding discharge plans. Dr. Ferris emphasized the need for subacute rehab. Daughter is agreeable at this time. Dr. Terrazas was consulted yesterday per family request for possible inpatient rehab at [facility]. Per Dr. Terrazas, there will not be a bed available until sometime next week and Dr. Ferris is anticipating discharge on Sunday and patient may not be appropriate for inpatient rehab at this time. Daughter states that she will look into [facility] the [place] and [facility] today for possible placement options. Daughter is agreeable to discharge on Sunday. 12/01/2017 Patient is a more awake and alert. Tolerating tube feeding. Sodium level 136 today. Patient's daughter is at bedside. Otherwise patient feels generalized weakness. Able to take deep breath. No fever no chills. Anticipating discharge on Sunday to subacute rehab. Otherwise no acute overnight issues. Active Medications Albuterol/Ipratropium (Duoneb 0.5 Mg-3 Mg/3 Ml Soln) 3 ml INHALATION RT-QID PRN PRN Reason: Shortness Of Breath Last Admin: 12/02/17 16:46 Dose: 3 ml Aspirin (Aspirin) 81 mg PEG/G-TUBE 2100 [facility] Last Admin: 12/01/17 20:45 Dose: 81 mg Clonidine (Catapres) 0.1 mg PO Q4H PRN PRN Reason: Hypertension Ezetimibe (Zetia) 10 mg PO HS@2200 [facility] Last Admin: 12/01/17 20:45 Dose: 10 mg Fluconazole (Diflucan) 150 mg PO DAILY [facility] Last Admin: 12/02/17 09:05 Dose: 150 mg Guaifenesin (Robitussin) 200 mg PO Q6H PRN PRN Reason: Cough Last Admin: 11/18/17 22:19 Dose: 200 mg Hydralazine HCl (Apresoline) 10 mg IVP Q4HR PRN PRN Reason: Blood Pressure - High Levothyroxine Sodium (Synthroid) 137 mcg PO DAILY@0630 [facility] Last Admin: 12/02/17 06:57 Dose: 137 mcg Metoprolol Tartrate (Lopressor) 12.5 mg PO BID [facility] Last Admin: 12/02/17 09:05 Dose: 12.5 mg Nitroglycerin (Nitrostat) 0.4 mg SUBLINGUAL Q5M PRN PRN Reason: Chest Pain Nystatin (Mycostatin Oral Susp) 500,000 unit PO QID [facility] Last Admin: 12/02/17 16:20 Dose: 500,000 unit Pantoprazole Sodium (Protonix) 40 mg PO AC-BRKFST [facility] Last Admin: 12/02/17 09:08 Dose: 40 mg Prednisone () 6 mg PO HS [facility] Last Admin: 12/01/17 20:42 Dose: 6 mg Valsartan (Diovan) 80 mg PO HS [facility] Last Admin: 12/01/17 20:44 Dose: Not Given All other review of systems negative except the above. Current medications reviewed Objective - Vital Signs Vital signs: Vital Signs Temp 98.0 F 12/01/17 06:53 Pulse 101 H 12/01/17 07:53 Resp 20 12/01/17 06:53 BP 103/69 12/01/17 06:53 Pulse Ox 97 12/01/17 06:53 Intake & Output 11/30/17 12/01/17 12/01/17 18:59 06:59 18:59 Intake Total 200 200 100 Output Total 1 Balance 199 200 100 Weight 62 kg 62 kg Intake: Oral 0 Tube Feeding 200 200 100 Output: Stool 1 Other: Voiding Method Incontinent Incontinent Incontinent # Voids 2 # Bowel Movements 0 - Exam GENERAL: This is a 77-year-old male who awake at the time of examination. Appears in no acute distress. HEENT: Head is atraumatic, normocephalic. Pupils are equal, round, and reactive to light. Sclerae anicteric. Conjunctivae are clear. Mucus membranes of the mouth are dry. Poor oral care. Neck is supple. RESPIRATORY: Diminished throughout. No use of accessory muscles. Patient maintaining oxygen saturation greater than 92%. No chest wall tenderness is noted on palpation or with deep breathing. CARDIOVASCULAR: Regular rate and rhythm. S1 and S2 noted. No JVD noted. No S3 or S4 noted. GASTROINTESTINAL: PEG tube noted to abdomen with enternal feeding infusing. No distention noted. Abdomen soft and round. Normal active bowel sounds auscultated x 4 quadrants. No pain or tenderness noted upon palpation. INTEGUMENTARY: No cyanosis. No jaundice. No rashes noted. No cellulitis noted. EXTREMITIES: 2+ peripheral pulses. No evidence of peripheral edema. No calf tenderness noted. NEUROLOGIC: Cranial nerves II-XII intact. PSYCHIATRIC: Awake at the time of examination. Appropriate mood. - Labs CBC & Chem 7: 11/30/17 05:53 12/01/17 07:07 Labs: Abnormal Lab Results - Last 24 Hours (Table) 11/30/17 11/30/17 12/01/17 Range/Units 17:28 21:17 07:07 Sodium 136 L (137-145) mmol/L Carbon Dioxide 31 H (22-30) mmol/L BUN 41 H (9-20) mg/dL Glucose 108 H (74-99) mg/dL POC Glucose (mg/dL) 110 H 127 H (75-99) mg/dL 12/01/17 Range/Units 12:34 Sodium (137-145) mmol/L Carbon Dioxide (22-30) mmol/L BUN (9-20) mg/dL Glucose (74-99) mg/dL POC Glucose (mg/dL) 129 H (75-99) mg/dL Assessment and Plan Assessment: SIRS due to influenza B infection. Resolved now Acute influenza B infection. Symptoms started 4 days prior to admission Generalized weakness and dysphagia. Status post PEG tube placement. Severe protein calorie malnutrition Elevated troponin. Likely demand mismatch. 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 Renal function is being closely monitored at [facility] hypothyroidism hyperlipidemia Left basilar and right upper air space disease. Unlikely bacterial pneumonia Plan: Patient will be continued on tube feeding via PEG tube. Renal function is improving. Continue with Diflucan through PEG tube and nystatin orally area did nephrology is following. Continue with oral steroids, decreased to 6 mg daily per nephrology. Patient will be continued on beta blockers in the form of metoprolol. GI and DVT prophylaxis. Discussed with patient's daughter at bedside in detail. Anticipate discharged to rehab on Sunday. Time with Patient: Greater than 30
[2017-12-02 17:47] LABS: Glucose,Whole Blood 110 mg/dL (75-99)
--- NOTE | 2017-12-02 17:48 | P.PN ---
Subjective Progress Note Date: 12/02/17 Principal diagnosis: Acute influenza infection Patient is a 77-year-old female with a known history of FSGS currently being managed at [facility] with prednisone, Diovan, altered tone and labetalol, hypothyroidism and hyperlipidemia presents to ER we are EMS with complaints of increased weakness and cough with congestion worsening for the past 5 days. Patient does have clear to whitish sputum. Patient was seen by his PCP on last Sunday. Patient was started on Z-Elvis which the patient has has taken for 4 days. Otherwise patient has been having worsening cough and congestion and mild shortness of breath which made him come to the hospital. Patient does have generalized weakness. Denied any fever or chills. No complaints of chest pain. No nausea vomiting or abdominal pain. No dysuria or hematuria. No headache or dizziness or lightheadedness. No altered mental status. No visual changes. Patient was found have sodium level 124 Troponin 1.030 EKG showed sinus rhythm with PVCs and possible new onset left bundle branch block.. Patient was started on heparin drip. Influenza B positive PCR WBC 7.5 Patient's hospital course has been complicated with generalized weakness and dysphagia and worsening renal function. Currently patient is status post PEG tube placement and is tolerating tube feeding. Renal function improved otherwise. Patient does have generalized weakness. PT OT has seen the patient and is planning for rehab transfer possibly on Sunday. 11/30/2017 Patient evaluated at the bedside on rounds with Dr. Ferris. Daughter is at the bedside. Patient is awake and alert. Tube feeding is infusing at goal. Patient remains hemodynamically stable. WBC 12.7. Na 136. Patient remains tachycardic in the 110s. Dr. Ferris spoke with daughter regarding discharge plans. Dr. Ferris emphasized the need for subacute rehab. Daughter is agreeable at this time. Dr. Terrazas was consulted yesterday per family request for possible inpatient rehab at [facility]. Per Dr. Terrazas, there will not be a bed available until sometime next week and Dr. Ferris is anticipating discharge on Sunday and patient may not be appropriate for inpatient rehab at this time. Daughter states that she will look into [facility] on the [place] and [facility] today for possible placement options. Daughter is agreeable to discharge on Sunday. 12/01/2017 Patient is a more awake and alert. Tolerating tube feeding. Sodium level 136 today. Patient's daughter is at bedside. Otherwise patient feels generalized weakness. Able to take deep breath. No fever no chills. Anticipating discharge on Sunday to subacute rehab. Otherwise no acute overnight issues. 12/02/2017 Patient says that he feels better than yesterday. [place] like his strength is getting back. Otherwise no nausea no vomiting. No chest pain. No shortness of breath. Currently on oxygen via nausea cannula. No fever no chills. No acute overnight issues. To be followed by PTOT on Sunday and possible discharge to rehab. Patient's daughter and is at bedside. Discussed with family in detail. Active Medications Albuterol/Ipratropium (Duoneb 0.5 Mg-3 Mg/3 Ml Soln) 3 ml INHALATION RT-QID PRN PRN Reason: Shortness Of Breath Last Admin: 12/02/17 16:46 Dose: 3 ml Aspirin (Aspirin) 81 mg PEG/G-TUBE 2100 [facility] Last Admin: 12/01/17 20:45 Dose: 81 mg Clonidine (Catapres) 0.1 mg PO Q4H PRN PRN Reason: Hypertension Ezetimibe (Zetia) 10 mg PO HS@2200 [facility] Last Admin: 12/01/17 20:45 Dose: 10 mg Fluconazole (Diflucan) 150 mg PO DAILY [facility] Last Admin: 12/02/17 09:05 Dose: 150 mg Guaifenesin (Robitussin) 200 mg PO Q6H PRN PRN Reason: Cough Last Admin: 11/18/17 22:19 Dose: 200 mg Hydralazine HCl (Apresoline) 10 mg IVP Q4HR PRN PRN Reason: Blood Pressure - High Levothyroxine Sodium (Synthroid) 137 mcg PO DAILY@0630 [facility] Last Admin: 12/02/17 06:57 Dose: 137 mcg Metoprolol Tartrate (Lopressor) 12.5 mg PO BID [facility] Last Admin: 12/02/17 09:05 Dose: 12.5 mg Nitroglycerin (Nitrostat) 0.4 mg SUBLINGUAL Q5M PRN PRN Reason: Chest Pain Nystatin (Mycostatin Oral Susp) 500,000 unit PO QID [facility] Last Admin: 12/02/17 16:20 Dose: 500,000 unit Pantoprazole Sodium (Protonix) 40 mg PO AC-BRKFST [facility] Last Admin: 12/02/17 09:08 Dose: 40 mg Prednisone () 6 mg PO [facility] Last Admin: 12/01/17 20:42 Dose: 6 mg Valsartan (Diovan) 80 mg PO [facility] Last Admin: 12/01/17 20:44 Dose: Not Given All other review of systems negative except the above. Current medications reviewed Objective - Vital Signs Vital signs: Vital Signs Temp 97.4 F L 12/02/17 15:00 Pulse 103 H 12/02/17 16:58 Resp 20 12/02/17 15:26 BP 105/57 12/02/17 15:00 Pulse Ox 97 12/02/17 15:00 Intake & Output 12/01/17 12/02/17 12/02/17 18:59 06:59 18:59 Intake Total 200 300 Output Total 600 Balance 200 -300 Weight 59 kg Intake: Tube Feeding 200 300 Output: Urine 600 Other: Voiding Method Incontinent Incontinent Incontinent # Voids 1 1 3 - Exam GENERAL: This is a 77-year-old male who awake at the time of examination. Appears in no acute distress. HEENT: Head is atraumatic, normocephalic. Pupils are equal, round, and reactive to light. Sclerae anicteric. Conjunctivae are clear. Mucus membranes of the mouth are dry. Poor oral care. Neck is supple. RESPIRATORY: Diminished throughout. No use of accessory muscles. Patient maintaining oxygen saturation greater than 92%. No chest wall tenderness is noted on palpation or with deep breathing. CARDIOVASCULAR: Regular rate and rhythm. S1 and S2 noted. No JVD noted. No S3 or S4 noted. GASTROINTESTINAL: PEG tube noted to abdomen with enternal feeding infusing. No distention noted. Abdomen soft and round. Normal active bowel sounds auscultated x 4 quadrants. No pain or tenderness noted upon palpation. INTEGUMENTARY: No cyanosis. No jaundice. No rashes noted. No cellulitis noted. EXTREMITIES: 2+ peripheral pulses. No evidence of peripheral edema. No calf tenderness noted. NEUROLOGIC: Cranial nerves II-XII intact. PSYCHIATRIC: Awake at the time of examination. Appropriate mood. - Labs CBC & Chem 7: 11/30/17 05:53 12/01/17 07:07 Labs: Abnormal Lab Results - Last 24 Hours (Table) 12/01/17 12/02/17 12/02/17 Range/Units 20:42 07:36 11:58 POC Glucose (mg/dL) 112 H 125 H 110 H (75-99) mg/dL Assessment and Plan Assessment: SIRS due to influenza B infection. Resolved now Acute influenza B infection. Symptoms started 4 days prior to admission Generalized weakness and dysphagia. Status post PEG tube placement. Severe protein calorie malnutrition Elevated troponin. Likely demand mismatch. 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 Renal function is being closely monitored at [facility] hypothyroidism hyperlipidemia Left basilar and right upper air space disease. Unlikely bacterial pneumonia Plan: Patient will be continued on tube feeding via PEG tube. Renal function is improving. Continue with Diflucan through PEG tube and nystatin orally area did nephrology is following. Continue with oral steroids, decreased to 6 mg daily per nephrology. Patient will be continued on beta blockers in the form of metoprolol. GI and DVT prophylaxis. Discussed with patient's daughter at bedside in detail. Anticipate discharged to rehab on Sunday. Time with Patient: Greater than 30
[2017-12-02 21:19] LABS: Glucose,Whole Blood 115 mg/dL (75-99)
[2017-12-02] MEDS: VALSARTAN 80 MG TAB PO SCH (22:33)
[2017-12-02] MEDS: EZETIMIBE 10 MG TAB PO SCH (22:33)
[2017-12-02] MEDS: ASPIRIN 81 MG PEG/G-TUBE SCH (22:33)
[2017-12-02] MEDS: predniSONE 1 MG TAB PO SCH (22:33)
[2017-12-02] MEDS: ACETAMINOPHEN IV (For NPO) 1,000 MG in EMPTY BAG 1 BAG IVPB PRN (23:22)
[2017-12-03] MEDS ORDERED: ALPRAZolam 0.25 MG TAB PO PRN (03:00)
[2017-12-03] MEDS: LEVOTHYROXINE 137 MCG TAB PO SCH (06:06)
[2017-12-03] MEDS: ACETAMINOPHEN IV (For NPO) 1,000 MG in EMPTY BAG 1 BAG IVPB PRN (06:06)
[2017-12-03 06:31] VITALS: BP 154/57; PULSE 93; RESP 36; TEMP 97.8
[2017-12-03 07:55] LABS: Glucose,Whole Blood 113 mg/dL (75-99)
[2017-12-03 08:55] VITALS: BMI 19.0
[2017-12-03 08:57] LABS: Basophils % (A) 0 %; Eosinophils % (A) 0 %; HCT 40.8 % (39.0-53.0); HGB 12.1 gm/dL (13.0-17.5); Hypochromasia Slight; Lymphocytes # (A) 0.4 k/uL (1.0-4.8); Lymphocytes % (A) 3 %; MCH 30.8 pg (25.0-35.0); MCHC 29.8 g/dL (31.0-37.0); MCV 103.5 fL (80.0-100.0); Macrocytosis Slight; Mean Platelet Volume 7.4; Monocytes # (A) 0.7 k/uL (0-1.0); Monocytes % (A) 6 %; Neutrophils # (A) 10.2 k/uL (1.3-7.7); Neutrophils % (A) 90 %; Platelet Count 354 k/uL (150-450); RBC 3.94 m/uL (4.30-5.90); RDW 13.7 % (11.5-15.5); WBC 11.3 k/uL (3.8-10.6)
[2017-12-03 09:06] LABS: Anion Gap 6 mmol/L; Blood Urea Nitrogen 59 mg/dL (9-20); Carbon Dioxide 33 mmol/L (22-30); Chloride 103 mmol/L (98-107); Glucose 119 mg/dL (74-99); Potassium 4.5 mmol/L (3.5-5.1); Sodium 142 mmol/L (137-145)
[2017-12-03] MEDS: FLUCONAZOLE 150 MG TAB PO SCH (09:09)
[2017-12-03] MEDS: PANTOPRAZOLE 40 MG TABLET PO SCH (09:10)
[2017-12-03] MEDS: NYSTATIN 100,000 UNIT/ML SUSP 500,000 UNIT/5 ML CUP PO SCH ×2 (09:10→13:03)
[2017-12-03] MEDS: METOPROLOL TARTRATE 12.5 MG TAB PO SCH (09:10)
[2017-12-03 12:36] LABS: Glucose,Whole Blood 93 mg/dL (75-99)
--- NOTE | 2017-12-03 13:38 | P.DS ---
Providers Date of admission: 11/18/17 13:36 Expected date of discharge: 12/03/17 Attending physician: Humberto Ferris Consults: 11/18/17 13:33 Consult Physician Stat Consulting Provider: [facility] Consult Reason/Comments: NSTEMI Do you want consulting provider notified?: Yes 11/19/17 12:09 Consult Physician Urgent Consulting Provider: Ja Glover Consult Reason/Comments: low sodium Do you want consulting provider notified?: Yes 11/23/17 07:41 Consult Physician Stat Consulting Provider: Anthony Underwood Consult Reason/Comments: dobhoff placement Do you want consulting provider notified?: Yes 11/23/17 14:06 Consult Physician Routine Consulting Provider: Elías Corona Consult Reason/Comments: AMS Do you want consulting provider notified?: Yes 11/29/17 11:27 Consult Physician Routine Consulting Provider: Jacob Terrazas Consult Reason/Comments: possible inpatient rehab, family request Do you want consulting provider notified?: Yes Primary care physician: Humberto Ferris [facility] Course: 77-year-old male presented to the emergency room on 11/18/2017 via EMS with a chief complaint of increased weakness, congestion, and cough for the past 5 days. The patient was found to be positive for influenza B. The patient 's troponins were elevated on admission and he was found to be hypovolemic and hyponatremic with a sodium of 124. His hyponatremia was believed to be secondary to diuretics and was discontinued during hospitalization. The patient has a history of FSGS and follows up with nephrology at the [facility] every 6 months. The patient received IV hydration during hospitalization. He was not started on Tamiflu as his symptoms had started 5 days prior to coming to the hospital. He was started on a heparin drip and cardiology was consulted. His heparin drip has since been discontinued per cardiology. The patient was having difficulty swallowing. He underwent a modified barium swallow which he did not pass. He remained nothing by mouth. His dysphagia continued and patient underwent PEG tube placement by Dr. Underwood. The patient had a fungal esophagitis which contributed to his dysphagia. He was placed on Diflucan and nystatin swish and swallow. Patient has been tolerating tube feedings at goal. Physical therapy and occupational therapy were consulted to work with patient during hospitalization for severe weakness. The patient's and daughter were initially adamant about taking the patient home with home care. However, they have decided the patient would do best at rehab for a few weeks. Patients family requested consultation with Dr. Terrazas for possible inpatient rehabilitation. Patient's insurance did not approve inpatient rehabilitation but did approve subacute rehab. Patient's family is agreeable to [facility]. Patient was deemed stable for discharge to subacute rehab per Dr. Ferris. The patient remains hemodynamically stable. Patient's sodium is stable at 142 at the time of discharge. Potassium 4.5. BUN 59. Creatinine 1.19. DISCHARGE DIAGNOSIS: Systemic inflammatory response syndrome due to Acute influenza B infection, resolved Elevated troponin, possible non-ST elevated [place] type II from influenza infection Euvolemic hyponatremia, secondary to SIADH secondary to respiratory infection and diuretic therapy, improved FSGS. Renal function is being closely monitored at [facility], maintained on daily low dose steroids Acute kidney injury, mostly prerenal from influenza and hemodynamic instability , resolved Hyperkalemia, improved Hypothyroidism Hyperlipidemia Left basilar and right upper air space disease, unlikely bacterial pneumonia Fungal esophagitis, improving at the time of discharge Dysphagia with severe protein calorie malnutrition, s/p PEG insertion Nurse practitioner note has been reviewed by physician. Signing provider agrees with the documented findings, assessment, and plan of care. Patient Condition at Discharge: Stable Plan - Discharge Summary New Discharge Prescriptions: New ALPRAZolam [Xanax] 0.25 mg PO BID PRN tab PRN Reason: Anxiety Aspirin 81 mg PEG/G-TUBE 2100 chew Fluconazole [Diflucan] 150 mg PO DAILY #0 tab guaiFENesin SYRUP 100MG/5ML [Robitussin] 200 mg PO Q6H PRN cup PRN Reason: Cough Ipratropium-Albuterol Nebulize [Duoneb 0.5 mg-3 mg/3 ml Soln] 3 ml INHALATION RT-QID PRN ampul.neb PRN Reason: Shortness Of Breath Metoprolol Tartrate [Lopressor] 12.5 mg PO BID tab Nitroglycerin Sl Tabs [Nitrostat] 0.4 mg SUBLINGUAL Q5M PRN tab PRN Reason: Chest Pain Nystatin 100,000 Unit/ml Susp [Mycostatin Oral Susp] 500,000 unit PO QID cup Pantoprazole [Protonix] 40 mg PO AC-BRKFST tablet predniSONE 6 mg PO HS tab Valsartan [Diovan] 80 mg PO HS tab Continue Ezetimibe [Zetia] 10 mg PO HS@2200 Levothyroxine Sodium [Synthroid] 137 mcg PO DAILY@0600 Simvastatin [Zocor] 40 mg PO HS@2200 Discontinued Azithromycin [Zithromax Z-pack] See Taper PO DIRECTED Labetalol HCl 50 mg PO TID@0600,1400,2200 Spironolactone [Aldactone] 25 mg PO DAILY@0600 Valsartan [Diovan] 160 mg PO HS@2200 No Action Aspirin 81 mg PO HS@220 predniSONE 1 mg PO DAILY@1999 predniSONE 5 mg PO DAILY@1999 Discharge Medication List Aspirin 81 mg PO HS@219911/18/17 [History] Ezetimibe [Zetia] 10 mg PO HS@219911/18/17 [History] Levothyroxine Sodium [Synthroid] 137 mcg PO DAILY@0600 11/18/17 [History] Simvastatin [Zocor] 40 mg PO HS@219911/18/17 [History] predniSONE 1 mg PO DAILY@199911/18/17 [History] predniSONE 5 mg PO DAILY@199911/18/17 [History] ALPRAZolam [Xanax] 0.25 mg PO BID PRN tab 12/03/17 [Rx] Aspirin 81 mg PEG/G-TUBE 2100 chew 12/03/17 [Rx] Fluconazole [Diflucan] 150 mg PO DAILY #0 tab 12/03/17 [Rx] Ipratropium-Albuterol Nebulize [Duoneb 0.5 mg-3 mg/3 ml Soln] 3 ml INHALATION RT -QID PRN ampul.neb 12/03/17 [Rx] Metoprolol Tartrate [Lopressor] 12.5 mg PO BID tab 12/03/17 [Rx] Nitroglycerin Sl Tabs [Nitrostat] 0.4 mg SUBLINGUAL Q5M PRN tab 12/03/17 [Rx] Nystatin 100,000 Unit/ml Susp [Mycostatin Oral Susp] 500,000 unit PO QID cup [Rx] Pantoprazole [Protonix] 40 mg PO AC-BRKFST tablet. 12/03/17 [Rx] Valsartan [Diovan] 80 mg PO HS tab 12/03/17 [Rx] guaiFENesin SYRUP 100MG/5ML [Robitussin] 200 mg PO Q6H PRN cup 12/03/17 [Rx] predniSONE 6 mg PO HS tab 12/03/17 [Rx] Follow up Appointment(s)/Referral(s): [facility], [REFERRING] - [facility], [NON-STAFF] - Humberto Ferris DO [Primary Care Provider] - 1 Week (1 week after DC from ECF) Activity/Diet/Wound Care/Special Instructions: Tube feeding at 45cc/hr. 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 Patient may keep regularly scheduled appointment. Discharge Disposition: TRANSFER TO SNF/ECF
== END 2017-12-03 15:55 | DRG 193 ==
LOC: EC 11:00 → 6SEL 13:36 → 4MS4W 11-30 15:18 → 6SEL 11-30 15:57 → 4MS4W 11-30 16:16
PROVIDERS: ADMIT Family Medicine; ATTEND Family Medicine
PROC: 0DH63UZ Insertion of Feeding Device into Stomach, Percutaneous Approach (ICD-10-PCS; principal; 2017-11-26 07:30)
DX: J10.08 Influenza due to other identified influenza virus with other specified pneumonia (principal); E43 Unspecified severe protein-calorie malnutrition; I21.A1 Myocardial infarction type 2; G93.41 Metabolic encephalopathy; N17.9 Acute kidney failure, unspecified; E22.2 Syndrome of inappropriate secretion of antidiuretic hormone; E87.2 Acidosis; B37.81 Candidal esophagitis; J98.11 Atelectasis; R13.10 Dysphagia, unspecified; E86.1 Hypovolemia; J12.81 Pneumonia due to SARS-associated coronavirus; J10.1 Influenza due to other identified influenza virus with other respiratory manifestations; E87.5 Hyperkalemia; I44.7 Left bundle-branch block, unspecified; I35.0 Nonrheumatic aortic (valve) stenosis; E03.9 Hypothyroidism, unspecified; J10.81 Influenza due to other identified influenza virus with encephalopathy; E78.5 Hyperlipidemia, unspecified; G89.29 Other chronic pain; I12.9 Hypertensive chronic kidney disease with stage 1 through stage 4 chronic kidney disease, or unspecified chronic kidney disease; T50.995A Adverse effect of other drugs, medicaments and biological substances, initial encounter; T50.2X5A Adverse effect of carbonic-anhydrase inhibitors, benzothiadiazides and other diuretics, initial encounter; M54.5 Low back pain; R32 Unspecified urinary incontinence; Z68.1 Body mass index [BMI] 19.9 or less, adult; Z79.52 Long term (current) use of systemic steroids; Z79.82 Long term (current) use of aspirin; Z79.899 Other long term (current) drug therapy; Z86.79 Personal history of other diseases of the circulatory system; Z86.73 Personal history of transient ischemic attack (TIA), and cerebral infarction without residual deficits; Z88.8 Allergy status to other drugs, medicaments and biological substances; Z66 Do not resuscitate; Z82.49 Family history of ischemic heart disease and other diseases of the circulatory system; Y92.239 Unspecified place in hospital as the place of occurrence of the external cause
CPT/HCPCS: 36415; 43246; 70450; 71045; 71046; 74230; 80048; 80053; 80061; 81001; 82533; 82550; 82553; 83735; 83930; 83935; 84100; 84132; 84295; 84300; 84443; 84484; 84550; 85025; 85610; 85730; 87040; 87502; 93005; 93306; 94640; 94760; 96361; 96365; 96366; 96376; 99285

== ENCOUNTER 2017-12-10 16:42 | Inpatient (IN) | payer MEDICARE ==
[2017-12-10] MEDS ORDERED: SODIUM CHLORIDE 0.9% 1,000 ML IV STA ×2 (16:53)
--- NOTE | 2017-12-10 17:00 | ED ---
Altered Mental Status HPI - General Stated Complaint: LETHARGY Time Seen by Provider: 12/10/17 16:42 - History of Present Illness Initial Comments: This is a 77-year-old male was brought in from [facility] for evaluation for lethargy and altered mental status. Patient apparently is been there for a week rehabbing from a bout of the flu which debilitated him. He currently was someone that exercise a lot worked out with weights and ran after chris the flu became very debilitated. He is noted be lethargic this morning and then around noon they noted some decreased level of consciousness. Patient himself denies any complaints at this time he was noted have crackles at the bases bilaterally to his lung demarco also some lesions in his mouth no reported fever. Blood pressure was reported to be found to be 98/56 per EMS was 99/67 and repeat at 109/67. No complaints of any trauma no nausea vomiting or diarrhea. The concern was for aspiration versus dehydration. MD Complaint: altered mental status, decreased responsiveness - Related Data Home Medications Medication Instructions Recorded Confirmed Ezetimibe [Zetia] 10 mg PEG/G-TUBE HS@209911/18/17 12/10/17 Levothyroxine Sodium [Synthroid] 137 mcg PEG/G-TUBE DAILY@0600 11/18/17 12/10/17 Simvastatin [Zocor] 40 mg PEG/G-TUBE HS@209911/18/17 12/10/17 Aspirin 81 mg PEG/G-TUBE HS@209912/10/17 12/10/17 Bisacodyl [Dulcolax] 10 mg RECTAL DAILY PRN 12/10/17 12/10/17 Fluconazole [Diflucan] 150 mg PEG/G-TUBE DAILY@0800 12/10/17 12/10/17 Lactose-Reduced Food [Ensure Plus] 355.5 ml PEG/G-TUBE DAILY@1200 12/10/1712/10 Lactose-Reduced Food [Ensure Plus] 474 ml PEG/G-TUBE BID@0600,1800 12/10/1709/17 Magnesium Hydroxide [Milk of 7,200 mg PEG/G-TUBE DAILY PRN 12/10/17 12/10/17 Magnesia Concentrate] Metoprolol Tartrate [Lopressor] 12.5 mg PEG/G-TUBE BID@0800,1700 12/10/17 Na Phos,M-B/Na Phos,Di-Ba [Fleet 133 ml RECTAL ONCE PRN 12/10/17 12/10/17 Adult] Nitroglycerin Sl Tabs [Nitrostat] 0.4 mg PEG/G-TUBE Q5M PRN 12/10/17 12/10/17 Nystatin 100,000 Unit/ml Susp 500,000 unit PO QID@08,12,17,21 12/10/17 12/10/17 [Mycostatin Oral Susp] Pantoprazole [Protonix] 40 mg PEG/G-TUBE DAILY@0600 12/10/17 12/10/17 Saliva Stimulant Agents Comb.3 1 spray MUCOUS MEM BID@0800,1700 12/10/17 [Biotene Moisturizing Mouth] Valsartan [Diovan] 80 mg PEG/G-TUBE HS@2100 12/10/17 12/10/17 guaiFENesin SYRUP 100MG/5ML 200 mg PEG/G-TUBE Q6H PRN 12/10/17 12/10/17 [Robitussin] predniSONE 6 mg PEG/G-TUBE HS@2100 12/10/17 12/10/17 Previous Rx's Medication Instructions Recorded Ipratropium-Albuterol Nebulize 3 ml INHALATION RT-QID PRN 12/03/17 [Duoneb 0.5 mg-3 mg/3 ml Soln] ampul.neb Allergies Allergy/AdvReac Type Severity Reaction Status Date / Time clidinium Allergy Unknown Verified 12/10/17 17:16 clonidine Allergy Unknown Verified 12/03/17 10:39 atorvastatin [From Lipitor] AdvReac Itching Verified 11/27/17 22:25 Review of Systems ROS Statement: Those systems with pertinent positive or pertinent negative responses have been documented in the HPI. ROS Other: All systems not noted in ROS Statement are negative. Limitations: ROS unobtainable due to patients medical condition Past Medical History Past Medical History: Hyperlipidemia, Renal Disease, Thyroid Disorder History of Any Multi-Drug Resistant Organisms: None Reported Past Surgical History: No Surgical Hx Reported Additional Past Surgical History / Comment(s): AAA repair Past Anesthesia/Blood Transfusion Reactions: No Reported Reaction Past Psychological History: No Psychological Hx Reported Smoking Status: Never smoker Past Alcohol Use History: None Reported Past Drug Use History: None Reported - Past Family History Mother Family Medical History: Cancer General Exam - General Exam Comments Initial Comments: This is a well-developed well-nourished awake but lethargic male he is slow with speech Limitations: altered mental status, physical limitation General appearance: alert, lethargic Head exam: Present: atraumatic, normocephalic, normal inspection Eye exam: Present: normal appearance, PERRL, EOMI. Absent: scleral icterus, conjunctival injection, periorbital swelling ENT exam: Present: mucous membranes dry, other (Dry oral mucosa with lesions noted to the roof of his mouth) Neck exam: Present: normal inspection. Absent: tenderness, meningismus, lymphadenopathy Respiratory exam: Present: rales, decreased breath sounds Cardiovascular Exam: Present: regular rate GI/Abdominal exam: Present: soft, normal bowel sounds, other (PEG tube is in place). Absent: distended, tenderness, guarding, rebound, rigid, bruit, pulsatile mass Rectal exam: Present: deferred Extremities exam: Present: normal inspection, full ROM, normal capillary refill. Absent: tenderness, pedal edema, joint swelling, calf tenderness Back exam: Present: normal inspection Neurological exam: Present: alert, altered, CN II-XII intact, motor sensory deficit Psychiatric exam: Present: flat affect Skin exam: Present: warm, dry, intact, normal color. Absent: rash Course Vital Signs 12/10/17 12/10/17 12/10/17 16:58 17:38 18:31 Temperature 98.1 F Pulse Rate 99 95 89 Respiratory 16 16 16 Rate Blood Pressure 114/68 128/70 120/70 O2 Sat by Pulse 96 96 96 Oximetry 12/10/17 12/10/17 12/10/17 19:23 20:11 21:17 Temperature Pulse Rate 93 97 98 Respiratory 18 16 16 Rate Blood Pressure 126/75 117/72 126/69 O2 Sat by Pulse 99 98 98 Oximetry Medical Decision Making - Medical Decision Making I did discuss findings with the patient family as well as with Dr. Ferris patient will be admitted he does have evidence of pancreatitis hypothyroidism mildly elevated troponin which patient is had before. GI and nephrology will be consulted - Lab Data Result diagrams: 12/10/17 16:56 12/10/17 17:34 Lab Results 12/10/17 12/10/17 12/10/17 Range/Units 16:56 16:56 17:34 WBC 7.9 (3.8-10.6) k/uL RBC 3.46 L (4.30-5.90) m/uL Hgb 11.0 L (13.0-17.5) gm/dL Hct 33.5 L (39.0-53.0) % MCV 96.8 (80.0-100.0) fL MCH 31.8 (25.0-35.0) pg MCHC 32.9 (31.0-37.0) g/dL RDW 13.9 (11.5-15.5) % Plt Count 313 (150-450) k/uL Neutrophils % 73 % Lymphocytes % 15 % Monocytes % 7 % Eosinophils % 3 % Basophils % 1 % Neutrophils # 5.7 (1.3-7.7) k/uL Lymphocytes # 1.2 (1.0-4.8) k/uL Monocytes # 0.6 (0-1.0) k/uL Eosinophils # 0.2 (0-0.7) k/uL Basophils # 0.0 (0-0.2) k/uL Sodium 132 L (137-145) mmol/L Potassium 4.8 (3.5-5.1) mmol/L Chloride 97 L (98-107) mmol/L Carbon Dioxide 32 H (22-30) mmol/L Anion Gap 3 mmol/L BUN 31 H (9-20) mg/dL Creatinine 0.89 (0.66-1.25) mg/dL Est GFR (CKD-EPI)AfAm >90 (>60 ml/min/1.73 sqM) Est GFR (CKD-EPI)NonAf 83 (>60 ml/min/1.73 sqM) Glucose 83 (74-99) mg/dL Plasma Lactic Acid Gaston 1.0 (0.7-2.0) mmol/L Calcium 8.1 L (8.4-10.2) mg/dL Magnesium 2.0 (1.6-2.3) mg/dL Total Bilirubin 0.4 (0.2-1.3) mg/dL AST 57 (17-59) U/L ALT 73 H (21-72) U/L Alkaline Phosphatase 63 (38-126) U/L Ammonia <9 (<30) umol/L Total Creatine Kinase (55-170) U/L CK-MB (CK-2) (0.0-2.4) ng/mL CK-MB (CK-2) Rel Index Troponin I (0.000-0.034) ng/mL Total Protein 5.3 L (6.3-8.2) g/dL Albumin 2.5 L (3.5-5.0) g/dL Amylase 207 H (30-110) U/L Lipase 1008 H (23-300) U/L TSH 14.300 H (0.465-4.680) mIU/L Urine Color Urine Appearance (Clear) Urine pH (5.0-8.0) Ur Specific Ophiem (1.001-1.035) Urine Protein (Negative) Urine Glucose (UA) (Negative) Urine Ketones (Negative) Urine Blood (Negative) Urine Nitrite (Negative) Urine Bilirubin (Negative) Urine Urobilinogen (<2.0) mg/dL Ur Leukocyte Esterase (Negative) 12/10/17 12/10/17 Range/Units 17:34 17:58 WBC (3.8-10.6) k/uL RBC (4.30-5.90) m/uL Hgb (13.0-17.5) gm/dL Hct (39.0-53.0) % MCV (80.0-100.0) fL MCH (25.0-35.0) pg MCHC (31.0-37.0) g/dL RDW (11.5-15.5) % Plt Count (150-450) k/uL Neutrophils % % Lymphocytes % % Monocytes % % Eosinophils % % Basophils % % Neutrophils # (1.3-7.7) k/uL Lymphocytes # (1.0-4.8) k/uL Monocytes # (0-1.0) k/uL Eosinophils # (0-0.7) k/uL Basophils # (0-0.2) k/uL Sodium (137-145) mmol/L Potassium (3.5-5.1) mmol/L Chloride (98-107) mmol/L Carbon Dioxide (22-30) mmol/L Anion Gap mmol/L BUN (9-20) mg/dL Creatinine (0.66-1.25) mg/dL Est GFR (CKD-EPI)AfAm (>60 ml/min/1.73 sqM) Est GFR (CKD-EPI)NonAf (>60 ml/min/1.73 sqM) Glucose (74-99) mg/dL Plasma Lactic Acid Gaston (0.7-2.0) mmol/L Calcium (8.4-10.2) mg/dL Magnesium (1.6-2.3) mg/dL Total Bilirubin (0.2-1.3) mg/dL AST (17-59) U/L ALT (21-72) U/L Alkaline Phosphatase (38-126) U/L Ammonia (<30) umol/L Total Creatine Kinase 41 L (55-170) U/L CK-MB (CK-2) 3.0 H* (0.0-2.4) ng/mL CK-MB (CK-2) Rel Index 7.3 Troponin I 0.051 H* (0.000-0.034) ng/mL Total Protein (6.3-8.2) g/dL Albumin (3.5-5.0) g/dL Amylase (30-110) U/L Lipase (23-300) U/L TSH (0.465-4.680) mIU/L Urine Color Yellow Urine Appearance Clear (Clear) Urine pH 6.5 (5.0-8.0) Ur Specific Ophiem 1.011 (1.001-1.035) Urine Protein Trace H (Negative) Urine Glucose (UA) Negative (Negative) Urine Ketones Negative (Negative) Urine Blood Negative (Negative) Urine Nitrite Negative (Negative) Urine Bilirubin Negative (Negative) Urine Urobilinogen <2.0 (<2.0) mg/dL Ur Leukocyte Esterase Negative (Negative) - EKG Data -: EKG Interpreted by [facility] shows normal: sinus rhythm (Sinus rhythm with occasional PVCs rate was 99. Interval 136 QRS duration 120 QT/QTC 374/479 left exodeviation LVH old inferior changes) - Radiology Data Radiology results: report reviewed (Urine reveals no acute findings.), image reviewed Disposition Clinical Impression: Acute pancreatitis, Hypothyroidism, Chronic renal insufficiency, Elevated troponin, Failure to thrive Disposition: [facility] Condition: Stable Referrals: Humberto Ferris DO [Primary Care Provider] - 1-2 days
[2017-12-10 17:19] LABS: Basophils % (A) 1 %; Eosinophils # (A) 0.2 k/uL (0-0.7); Eosinophils % (A) 3 %; HCT 33.5 % (39.0-53.0); Lymphocytes # (A) 1.2 k/uL (1.0-4.8); Lymphocytes % (A) 15 %; MCH 31.8 pg (25.0-35.0); MCHC 32.9 g/dL (31.0-37.0); MCV 96.8 fL (80.0-100.0); Mean Platelet Volume 8.5; Monocytes # (A) 0.6 k/uL (0-1.0); Monocytes % (A) 7 %; Neutrophils # (A) 5.7 k/uL (1.3-7.7); Neutrophils % (A) 73 %; Platelet Count 313 k/uL (150-450); RBC 3.46 m/uL (4.30-5.90); RDW 13.9 % (11.5-15.5); WBC 7.9 k/uL (3.8-10.6)
[2017-12-10 17:29] LABS: Ammonia <9 umol/L (<30)
--- NOTE | 2017-12-10 17:34 | XR ---
EXAMINATION TYPE: XR chest 2V DATE OF EXAM: 12/10/2017 COMPARISON: 11/24/2017 HISTORY: Cough TECHNIQUE: Frontal and lateral views of the chest are obtained. FINDINGS: There is poor inspiration and some elevation of the right diaphragm. There is coarse densi ty in the left lower lobe. There is no gross heart failure. There are chest leads. There is interposi tion of the hepatic flexure of the colon. IMPRESSION: There is some chronic infiltrate in the left lower lobe without much change compared to last exam. Poor inspiration. Pulmonary fibrotic changes. No heart failure.
[2017-12-10 18:04] LABS: Appearance,Urine Clear (Clear); Bilirubin,Urine Negative (Negative); Blood,Urine Negative (Negative); Color,Urine Yellow; Glucose,Urine (UA) Negative (Negative); Ketones,Urine Negative (Negative); Leukocyte Esterase,Urine Negative (Negative); Nitrite,Urine Negative (Negative); PH, Urine 6.5 (5.0-8.0); Protein,Urine Trace (Negative); Specific Gravity,Urine 1.011 (1.001-1.035); Urobilinogen,Urine <2.0 mg/dL (<2.0)
[2017-12-10 18:04] LABS: Albumin 2.5 g/dL (3.5-5.0); Amylase 207 U/L (30-110); Anion Gap 3 mmol/L; Calcium 8.1 mg/dL (8.4-10.2); Carbon Dioxide 32 mmol/L (22-30); Chloride 97 mmol/L (98-107); Glucose 83 mg/dL (74-99); Lipase 1008 U/L (23-300); Sodium 132 mmol/L (137-145); Total Bilirubin 0.4 mg/dL (0.2-1.3); Total Protein 5.3 g/dL (6.3-8.2)
[2017-12-10 18:19] LABS: ALT 73 U/L (21-72); AST 57 U/L (17-59); Alkaline Phosphatase 63 U/L (38-126); Blood Urea Nitrogen 31 mg/dL (9-20); Potassium 4.8 mmol/L (3.5-5.1)
[2017-12-10 18:21] LABS: Troponin I 0.051 ng/mL (0.000-0.034)
[2017-12-10] MEDS ORDERED: NALOXONE 0.4 MG/ML 1 ML VIAL IV PRN (21:58)
[2017-12-10] MEDS ORDERED: IPRATROPIUM-ALBUTEROL 3 ML NEB INHALATION PRN (22:04)
[2017-12-10] MEDS ORDERED: NITROGLYCERIN SL TABS 0.4 MG TAB SUBLINGUAL PRN (22:04)
[2017-12-10] MEDS ORDERED: BISACODYL 10 MG SUPP RECTAL PRN (22:04)
[2017-12-10] MEDS ORDERED: NA PHOS,M-B/NA PHOS,DI-BA 133 ML ENEMA RECTAL PRN (22:04)
[2017-12-10] MEDS ORDERED: MAGNESIUM HYDROXIDE 2,400 MG/10 ML CUP PEG/G-TUBE PRN (22:04)
[2017-12-10] MEDS ORDERED: guaiFENesin SYRUP 100MG/5ML 200 MG/10 ML CUP PEG/G-TUBE PRN (22:04)
[2017-12-10] MEDS: SODIUM CHLORIDE 0.9% 1,000 ML IV SCH (22:27)
[2017-12-11 01:22] LABS: Glucose,Whole Blood 77 mg/dL (75-99)
[2017-12-11] MEDS: SODIUM CHLORIDE 0.9% 1,000 ML IV SCH ×5 (02:05→21:45)
[2017-12-11 04:19] LABS: Glucose,Whole Blood 91 mg/dL (75-99)
[2017-12-11] MEDS ORDERED: [UNRECOGNIZED DRUG - OTHER] PEG/G-TUBE SCH (06:00)
[2017-12-11] MEDS ORDERED: LEVOTHYROXINE 137 MCG TAB PEG/G-TUBE SCH (06:00)
[2017-12-11] MEDS ORDERED: NUTRITIONAL SUPPLEMENT PEG/G-TUBE SCH ×2 (06:00→12:00)
[2017-12-11] MEDS ORDERED: PANTOPRAZOLE 40 MG TABLET PO SCH (06:00)
[2017-12-11 06:57] LABS: Basophils % (A) 1 %; Eosinophils # (A) 0.2 k/uL (0-0.7); Eosinophils % (A) 4 %; HCT 33.7 % (39.0-53.0); HGB 10.4 gm/dL (13.0-17.5); Hypochromasia Slight; Lymphocytes # (A) 1.1 k/uL (1.0-4.8); Lymphocytes % (A) 17 %; MCH 30.9 pg (25.0-35.0); MCHC 30.8 g/dL (31.0-37.0); MCV 100.4 fL (80.0-100.0); Macrocytosis Slight; Mean Platelet Volume 7.9; Monocytes # (A) 0.4 k/uL (0-1.0); Monocytes % (A) 6 %; Neutrophils # (A) 4.8 k/uL (1.3-7.7); Neutrophils % (A) 71 %; Platelet Count 279 k/uL (150-450); RBC 3.35 m/uL (4.30-5.90); RDW 14.3 % (11.5-15.5); WBC 6.7 k/uL (3.8-10.6)
[2017-12-11 07:08] LABS: ALT 62 U/L (21-72); AST 42 U/L (17-59); Albumin 2.2 g/dL (3.5-5.0); Alkaline Phosphatase 75 U/L (38-126); Anion Gap 4 mmol/L; Blood Urea Nitrogen 24 mg/dL (9-20); Calcium 7.7 mg/dL (8.4-10.2); Carbon Dioxide 31 mmol/L (22-30); Chloride 102 mmol/L (98-107); Glucose 71 mg/dL (74-99); Potassium 5.1 mmol/L (3.5-5.1); Sodium 137 mmol/L (137-145); Total Bilirubin 0.3 mg/dL (0.2-1.3); Total Protein 4.8 g/dL (6.3-8.2)
[2017-12-11] MEDS: PANTOPRAZOLE 40 MG/10 ML VIAL IVP SCH (09:00)
[2017-12-11 09:21] LABS: Amylase 171 U/L (30-110); Lipase 731 U/L (23-300)
--- NOTE | 2017-12-11 09:58 | P.HPIM ---
History of Present Illness H&P Date: 12/11/17 Chief Complaint: altered mental status, lethargy 77-year-old male who was transferred to the emergency room from [facility] rehab secondary to altered mental status and lethargy. the patient denied any shortness of breath or coughing. Denies chest pain or pressure. Denies nausea or vomiting. Denies abdominal pain. Denies change in bowel habits. The patient was recently hospitalized from 11/18/2017 until 12/03/2017 for positive influenza B. The patient developed oral thrush in addition to poor oral care and was having difficulty swallowing. He underwent swallow evaluation which he did not pass. The patient had a PEG tube inserted during hospitalization and was started on tube feedings which he was tolerating at the time of discharge. the patient's troponins were elevated at that time. He was evaluated and it was thought to be a type II RI from influenza infection.The patient became very weak and debilitated and was transferred to [facility] for subacute rehab. 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 he is maintained on daily low-dose steroids. Chest x-ray: Chronic infiltrates in the left lower lobe without much change compared to last exam. Poor inspiration. Pulmonary fibrotic changes. No heart failure. EKG: Sinus mechanism with PVCs. Rate 99. Laboratory data: WBC 7.9. Hemoglobin 11.0. Platelet count 313. Sodium 132. Potassium 4.8. BUN 31. Creatinine 0.89. GFR 83. Glucose 83. Troponin: 0.051, which is trending down from previous admission. AST 57. ALT 73. Alkaline phosphatase 63. Amylase 207. Lipase 1008 TSH 14.3 Urinalysis reveals: Trace proteinuria but otherwise unremarkable The patient was admitted to the hospital under the care of Dr. Ferris. Consultations were placed to nephrology and general surgery. Review of Systems GENERAL: Positive for generalized weakness and fatigue. Patient denies fever. Denies chills. EYES: Denies blurred vision. Denies vision changes. Denies eye pain. EARS, NOSE, MOUTH, & THROAT: Denies headache. Denies sore throat. Denies ear pain. RESPIRATORY: Denies cough. Denies shortness of breath. Denies sputum production. Denies hemoptysis. CARDIOVASCULAR: Denies chest pain or pressure. Denies palpitations. Denies arrhythmias. GASTROINTESTINAL: Denies abdominal pain. Denies diarrhea. Denies constipation. Denies nausea. Denies vomiting. Denies heartburn. Denies blood in the stool. GENITOURINARY: Denies urinary frequency. Denies burning. Denies dysuria. Denies cloudy urine. Denies blood in the urine. MUSCULOSKELETAL: Denies myalgias. Denies joint swelling. Denies decreased range of motion beyond patients baseline. INTEGUMENTARY: Denies pruitis. Denies rash. PSYCHIATRIC: Denies suicidal or homicial ideations. ENDOCRINE: Denies weight change. Denies polydipsia. Denies polyuria. HEMATOLOGIC: Denies bleeding disorders. Past Medical History Past Medical History: Hyperlipidemia, Renal Disease, Thyroid Disorder History of Any Multi-Drug Resistant Organisms: None Reported Past Surgical History: No Surgical Hx Reported, Tonsillectomy Additional Past Surgical History / Comment(s): Abdominal Aortic Aneursym Repair - fall Dr. Vazquez Past Anesthesia/Blood Transfusion Reactions: No Reported Reaction Past Psychological History: No Psychological Hx Reported Smoking Status: Never smoker Past Alcohol Use History: None Reported Past Drug Use History: None Reported - Past Family History Mother Family Medical History: Cancer Medications and Allergies Home Medications Medication Instructions Recorded Confirmed Type Ezetimibe [Zetia] 10 mg PEG/G-TUBE HS@209911/18/17 12/10/17 History Levothyroxine Sodium [Synthroid] 137 mcg PEG/G-TUBE DAILY@0600 11/18/17 History Simvastatin [Zocor] 40 mg PEG/G-TUBE HS@209911/18/17 12/10/17 History Ipratropium-Albuterol Nebulize 3 ml INHALATION RT-QID PRN 12/03/17 12/10/17 Rx [Duoneb 0.5 mg-3 mg/3 ml Soln] ampul.neb Aspirin 81 mg PEG/G-TUBE HS@209912/10/17 12/10/17 History Bisacodyl [Dulcolax] 10 mg RECTAL DAILY PRN 12/10/17 12/10/17 History Fluconazole [Diflucan] 150 mg PEG/G-TUBE DAILY@0800 12/10/17 12/10/17 History Lactose-Reduced Food [Ensure Plus] 355.5 ml PEG/G-TUBE DAILY@1200 12/10/1712/10 History Lactose-Reduced Food [Ensure Plus] 474 ml PEG/G-TUBE BID@0600,1800 12/10/1709/17 History Magnesium Hydroxide [Milk of 7,200 mg PEG/G-TUBE DAILY PRN 12/10/17 12/10/17 History Magnesia Concentrate] Metoprolol Tartrate [Lopressor] 12.5 mg PEG/G-TUBE BID@0800,1700 12/10/17 History Na Phos,M-B/Na Phos,Di-Ba [Fleet 133 ml RECTAL ONCE PRN 12/10/17 12/10/17 History Adult] Nitroglycerin Sl Tabs [Nitrostat] 0.4 mg PEG/G-TUBE Q5M PRN 12/10/17 12/10/17 History Nystatin 100,000 Unit/ml Susp 500,000 unit PO QID@08,12,17,12/10/17 12/10/17 History [Mycostatin Oral Susp] Pantoprazole [Protonix] 40 mg PEG/G-TUBE DAILY@0600 12/10/17 12/10/17 History Saliva Stimulant Agents Comb.3 1 spray MUCOUS MEM BID@0800,1700 12/10/17 History [Biotene Moisturizing Mouth] Valsartan [Diovan] 80 mg PEG/G-TUBE HS@2100 12/10/17 12/10/17 History guaiFENesin SYRUP 100MG/5ML 200 mg PEG/G-TUBE Q6H PRN 12/10/17 12/10/17 History [Robitussin] predniSONE 6 mg PEG/G-TUBE HS@2100 12/10/17 12/10/17 History Allergies Allergy/AdvReac Type Severity Reaction Status Date / Time clidinium Allergy Unknown Verified 12/10/17 17:16 clonidine Allergy Unknown Verified 12/03/17 10:39 atorvastatin [From Lipitor] AdvReac Itching Verified 11/27/17 22:25 Physical Exam Vitals: Vital Signs Temp Pulse Pulse Resp BP BP Pulse Ox 12/11/17 04:00 96.2 F L 95 24 134/84 100 12/11/17 00:30 97.2 F L 89 16 123/79 98 12/10/17 22:19 98 18 109/73 100 12/10/17 21:17 98 16 126/69 98 12/10/17 20:11 97 16 117/72 98 12/10/17 19:23 93 18 126/75 99 12/10/17 18:31 89 16 120/70 96 12/10/17 17:38 95 16 128/70 96 12/10/17 16:58 98.1 F 99 16 114/68 96 Intake and Output 12/10/17 12/11/17 12/11/17 22:59 06:59 14:59 Other: Weight 57.606 kg 65 kg GENERAL: This is a 77-year-old male in no apparent distress at the time of examination. Pleasant and cooperative. HEENT: Poor oral care noted. Head is atraumatic, normocephalic. Pupils are equal , round, and reactive to light. Sclerae anicteric. Conjunctivae are clear. Mucus membranes of the mouth are moist. Neck is supple. RESPIRATORY: Clear to ausculation. No wheezes, rales, or rhonchi. No use of accessory muscles. Patient maintaining oxygen saturation greater than 92%. No chest wall tenderness is noted on palpation or with deep breathing. CARDIOVASCULAR: Regular rate and rhythm. S1 and S2 noted. No JVD noted. No S3 or S4 noted. GASTROINTESTINAL: PEG tube noted. No distention noted. Abdomen soft and round. Bowel sounds auscultated x 4 quadrants. No pain or tenderness noted upon palpation. INTEGUMENTARY: No cyanosis. No jaundice. No rashes noted. No cellulitis noted. EXTREMITIES: 1+ peripheral pulses. No evidence of peripheral edema. No calf tenderness noted. NEUROLOGIC: Speech slow and slightly garbled. Cranial nerves II-XII intact. PSYCHIATRIC: Awake, alert, and oriented X 3. Appropriate affect. Intact judgement and insight. Results CBC & Chem 7: 12/11/17 05:40 12/11/17 05:40 Labs: Abnormal Lab Results - Last 24 Hours (Table) 12/10/17 12/10/17 12/10/17 Range/Units 16:56 17:34 17:34 RBC 3.46 L (4.30-5.90) m/uL Hgb 11.0 L (13.0-17.5) gm/dL Hct 33.5 L (39.0-53.0) % MCV (80.0-100.0) fL MCHC (31.0-37.0) g/dL Sodium 132 L (137-145) mmol/L Chloride 97 L (98-107) mmol/L Carbon Dioxide 32 H (22-30) mmol/L BUN 31 H (9-20) mg/dL Glucose (74-99) mg/dL Calcium 8.1 L (8.4-10.2) mg/dL ALT 73 H (21-72) U/L Total Creatine Kinase 41 L (55-170) U/L CK-MB (CK-2) 3.0 H* (0.0-2.4) ng/mL Troponin I 0.051 H* (0.000-0.034) ng/mL Total Protein 5.3 L (6.3-8.2) g/dL Albumin 2.5 L (3.5-5.0) g/dL Amylase 207 H (30-110) U/L Lipase 1008 H (23-300) U/L TSH 14.300 H (0.465-4.680) mIU/L Urine Protein (Negative) 12/10/17 12/11/17 12/11/17 Range/Units 17:58 05:40 05:40 RBC 3.35 L (4.30-5.90) m/uL Hgb 10.4 L (13.0-17.5) gm/dL Hct 33.7 L (39.0-53.0) % MCV 100.4 H (80.0-100.0) fL MCHC 30.8 L (31.0-37.0) g/dL Sodium (137-145) mmol/L Chloride (98-107) mmol/L Carbon Dioxide 31 H (22-30) mmol/L BUN 24 H (9-20) mg/dL Glucose 71 L (74-99) mg/dL Calcium 7.7 L (8.4-10.2) mg/dL ALT (21-72) U/L Total Creatine Kinase (55-170) U/L CK-MB (CK-2) (0.0-2.4) ng/mL Troponin I (0.000-0.034) ng/mL Total Protein 4.8 L (6.3-8.2) g/dL Albumin 2.2 L (3.5-5.0) g/dL Amylase (30-110) U/L Lipase (23-300) U/L TSH (0.465-4.680) mIU/L Urine Protein Trace H (Negative) 12/11/17 Range/Units 05:40 RBC (4.30-5.90) m/uL Hgb (13.0-17.5) gm/dL Hct (39.0-53.0) % MCV (80.0-100.0) fL MCHC (31.0-37.0) g/dL Sodium (137-145) mmol/L Chloride (98-107) mmol/L Carbon Dioxide (22-30) mmol/L BUN (9-20) mg/dL Glucose (74-99) mg/dL Calcium (8.4-10.2) mg/dL ALT (21-72) U/L Total Creatine Kinase (55-170) U/L CK-MB (CK-2) (0.0-2.4) ng/mL Troponin I (0.000-0.034) ng/mL Total Protein (6.3-8.2) g/dL Albumin (3.5-5.0) g/dL Amylase 171 H (30-110) U/L Lipase 731 H (23-300) U/L TSH (0.465-4.680) mIU/L Urine Protein (Negative) Assessment and Plan Plan: ASSESSMENT: Acute pancreatitis, non-alcohol related, present on admission, amylase 207/ lipase 1008 Recent hospitalization secondary to acute influenza B Dysphasia with severe protein calorie malnutrition, status post PEG tube insertion Elevated troponins, trending downward from previous admission, secondary to oxygen supply and demand mismatch/type II RI from influenza B infection Elevated TSH with history of hypothyroidism FSGS, patient follows up every 6 months at [facility], and is maintained on daily low-dose steroids Hyperlipidemia Mild hyponatremia, resolved PLAN: Patient may transfer to general medical floor Nephrology on consult. Await further recommendations and input General surgery, Dr. Underwood, on consult. Await further recommendations and input Defer cardiology consult for elevated troponin as it is trending down from previous admission Increase synthroid to 150mcg daily NPO. Patient may have meds down PEG tube. Continue IVF at 125cc/hr Home meds as appropriate Monitor labs. Repeat in a.m. GI prophylaxis: Protonix 40 mg IV Daily DVT prophylaxis: Venodyne's to bilateral lower extremities Monitor vital signs and address as appropriate Discharge planning: Patient to return home when stable Further recommendations pending patient's course Nurse practitioner note has been reviewed by physician. Signing provider agrees with the documented findings, assessment, and plan of care.
--- NOTE | 2017-12-11 11:55 | P.GSCN ---
History of Present Illness Consult date: 12/11/17 Reason for Consult: Abdominal pain History of present illness: 77-year-old male being seen at the request of the attending for surgical eval for abdominal pain elevated lipase and amylase. Patient was transferred from the [facility] facility [facility] after patient was noted by care providers to have decrease in mental status increase lethargic. According to the at the bedside patient over the last several days had had poor oral intake generalized weakness. To her knowledge the patient had not had any nausea or vomiting. Patient is a poor historian health history obtained from interviewing patient nursing staff prior computerized records. Patient was recently hospitalized and discharged December 03 to the rehab center. At that time Dr. cruz did see patient on consultation for placement of a PEG tube placed November 26 due to poor caloric intake resulting in protein calorie malnutrition according to the patient had been receiving his tube feeds at the [facility] facility in the emergency room the lipase was 1008 amylase 207 AST and ALT mildly elevated. TSH elevated 14 .3 repeat lipase this morning 731 with an amylase of 171. Patient does report experiencing right upper quadrant pain with light palpitation to the abdominal wall. No redness noted around the PEG tube site no reports of nausea vomiting. Nursing reports patient has experienced urinary retention was straight cathed at 6 AM this morning with 300 obtained IV fluid for hydration. 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 Vazquez Past Anesthesia/Blood Transfusion Reactions: No Reported Reaction Past Psychological History: No Psychological Hx Reported Smoking Status: Never smoker Past Alcohol Use History: None Reported Past Drug Use History: None Reported - Past Family History Mother Family Medical History: Cancer Medications and Allergies Home Medications Medication Instructions Recorded Confirmed Type Ezetimibe [Zetia] 10 mg PEG/G-TUBE HS@2100 11/18/17 12/10/17 History Levothyroxine Sodium [Synthroid] 137 mcg PEG/G-TUBE DAILY@0600 11/18/17 History Simvastatin [Zocor] 40 mg PEG/G-TUBE HS@209911/18/17 12/10/17 History Ipratropium-Albuterol Nebulize 3 ml INHALATION RT-QID PRN 12/03/17 12/10/17 Rx [Duoneb 0.5 mg-3 mg/3 ml Soln] ampul.neb Aspirin 81 mg PEG/G-TUBE HS@209912/10/17 12/10/17 History Bisacodyl [Dulcolax] 10 mg RECTAL DAILY PRN 12/10/17 12/10/17 History Fluconazole [Diflucan] 150 mg PEG/G-TUBE DAILY@0800 12/10/17 12/10/17 History Lactose-Reduced Food [Ensure Plus] 355.5 ml PEG/G-TUBE DAILY@1200 12/10/1712/10 History Lactose-Reduced Food [Ensure Plus] 474 ml PEG/G-TUBE BID@0600,1800 12/10/1709/17 History Magnesium Hydroxide [Milk of 7,200 mg PEG/G-TUBE DAILY PRN 12/10/17 12/10/17 History Magnesia Concentrate] Metoprolol Tartrate [Lopressor] 12.5 mg PEG/G-TUBE BID@0800,1700 12/10/17 History Na Phos,M-B/Na Phos,Di-Ba [Fleet 133 ml RECTAL ONCE PRN 12/10/17 12/10/17 History Adult] Nitroglycerin Sl Tabs [Nitrostat] 0.4 mg PEG/G-TUBE Q5M PRN 12/10/17 12/10/17 History Nystatin 100,000 Unit/ml Susp 500,000 unit PO QID@08,12,17,21 12/10/17 12/10/17 History [Mycostatin Oral Susp] Pantoprazole [Protonix] 40 mg PEG/G-TUBE DAILY@0600 12/10/17 12/10/17 History Saliva Stimulant Agents Comb.3 1 spray MUCOUS MEM BID@0800,1700 12/10/17 History [Biotene Moisturizing Mouth] Valsartan [Diovan] 80 mg PEG/G-TUBE HS@209912/10/17 12/10/17 History guaiFENesin SYRUP 100MG/5ML 200 mg PEG/G-TUBE Q6H PRN 12/10/17 12/10/17 History [Robitussin] predniSONE 6 mg PEG/G-TUBE HS@2100 12/10/17 12/10/17 History Allergies Allergy/AdvReac Type Severity Reaction Status Date / Time clidinium Allergy Unknown Verified 12/10/17 17:16 clonidine Allergy Unknown Verified 12/03/17 10:39 atorvastatin [From Lipitor] AdvReac Itching Verified 11/27/17 22:25 Surgical - Exam Vital Signs Temp Pulse Resp BP Pulse Ox 98.1 F 99 16 114/68 96 12/10/17 16:58 12/10/17 16:58 12/10/17 16:58 12/10/17 16:58 12/10/17 16:58 GENERAL APPEARANCE: Frail 77-year-old male thin looking older than stated age resting in bed alert, oriented, to self and place in no acute distress. VITAL SIGNS: Reviewed HEENT: Head is normocephalic and atraumatic. Pupils are equal and reactive. The nares are patent. Oropharynx is clear without lesions. NECK: Supple without lymphadenopathy. Traches midline. HEART: S1, S2. Regular rate and rhythm.tele showing sinus rhythm denying chest pain no murmur LUNGS: No crackles or wheezes are heard. Adequate air movement bilaterally no wheezing noted no shortness of breath room air sats 97% ABDOMEN: Soft, slight tenderness with palpitation right upper quadrant nondistended with good bowel sounds. No peritoneal signs. No palpable organomegaly or masses. No stool no nausea no vomiting EXTREMITIES: No calf tenderness Venodyne's on bilateral lower extremities no edema noted. Radial pedal pulses are 2/4 bilaterally. . Results - Labs 12/11/17 05:40 12/11/17 05:40 Abnormal Lab Results - Last 24 Hours (Table) 12/10/17 12/10/17 12/10/17 Range/Units 16:56 17:34 17:34 RBC 3.46 L (4.30-5.90) m/uL Hgb 11.0 L (13.0-17.5) gm/dL Hct 33.5 L (39.0-53.0) % MCV (80.0-100.0) fL MCHC (31.0-37.0) g/dL Sodium 132 L (137-145) mmol/L Chloride 97 L (98-107) mmol/L Carbon Dioxide 32 H (22-30) mmol/L BUN 31 H (9-20) mg/dL Glucose (74-99) mg/dL Calcium 8.1 L (8.4-10.2) mg/dL ALT 73 H (21-72) U/L Total Creatine Kinase 41 L (55-170) U/L CK-MB (CK-2) 3.0 H* (0.0-2.4) ng/mL Troponin I 0.051 H* (0.000-0.034) ng/mL Total Protein 5.3 L (6.3-8.2) g/dL Albumin 2.5 L (3.5-5.0) g/dL Amylase 207 H (30-110) U/L Lipase 1008 H (23-300) U/L TSH 14.300 H (0.465-4.680) mIU/L Urine Protein (Negative) 12/10/17 12/11/17 12/11/17 Range/Units 17:58 05:40 05:40 RBC 3.35 L (4.30-5.90) m/uL Hgb 10.4 L (13.0-17.5) gm/dL Hct 33.7 L (39.0-53.0) % MCV 100.4 H (80.0-100.0) fL MCHC 30.8 L (31.0-37.0) g/dL Sodium (137-145) mmol/L Chloride (98-107) mmol/L Carbon Dioxide 31 H (22-30) mmol/L BUN 24 H (9-20) mg/dL Glucose 71 L (74-99) mg/dL Calcium 7.7 L (8.4-10.2) mg/dL ALT (21-72) U/L Total Creatine Kinase (55-170) U/L CK-MB (CK-2) (0.0-2.4) ng/mL Troponin I (0.000-0.034) ng/mL Total Protein 4.8 L (6.3-8.2) g/dL Albumin 2.2 L (3.5-5.0) g/dL Amylase (30-110) U/L Lipase (23-300) U/L TSH (0.465-4.680) mIU/L Urine Protein Trace H (Negative) 12/11/17 Range/Units 05:40 RBC (4.30-5.90) m/uL Hgb (13.0-17.5) gm/dL Hct (39.0-53.0) % MCV (80.0-100.0) fL MCHC (31.0-37.0) g/dL Sodium (137-145) mmol/L Chloride (98-107) mmol/L Carbon Dioxide (22-30) mmol/L BUN (9-20) mg/dL Glucose (74-99) mg/dL Calcium (8.4-10.2) mg/dL ALT (21-72) U/L Total Creatine Kinase (55-170) U/L CK-MB (CK-2) (0.0-2.4) ng/mL Troponin I (0.000-0.034) ng/mL Total Protein (6.3-8.2) g/dL Albumin (3.5-5.0) g/dL Amylase 171 H (30-110) U/L Lipase 731 H (23-300) U/L TSH (0.465-4.680) mIU/L Urine Protein (Negative) Diabetes panel 12/10/17 12/11/17 Range/Units 17:34 05:40 Sodium 132 L 137 (137-145) mmol/L Potassium 4.8 5.1 (3.5-5.1) mmol/L Chloride 97 L 102 (98-107) mmol/L Carbon Dioxide 32 H 31 H (22-30) mmol/L BUN 31 H 24 H (9-20) mg/dL Creatinine 0.89 0.90 (0.66-1.25) mg/dL Glucose 83 71 L (74-99) mg/dL Calcium 8.1 L 7.7 L (8.4-10.2) mg/dL AST 57 42 (17-59) U/L ALT 73 H 62 (21-72) U/L Alkaline Phosphatase 63 75 (38-126) U/L Total Protein 5.3 L 4.8 L (6.3-8.2) g/dL Albumin 2.5 L 2.2 L (3.5-5.0) g/dL Thyroid panel 12/10/17 Range/Units 17:34 TSH 14.300 H (0.465-4.680) mIU/L Calcium panel 12/10/17 12/11/17 Range/Units 17:34 05:40 Calcium 8.1 L 7.7 L (8.4-10.2) mg/dL Albumin 2.5 L 2.2 L (3.5-5.0) g/dL Pituitary panel 12/10/17 12/11/17 Range/Units 17:34 05:40 Sodium 132 L 137 (137-145) mmol/L Potassium 4.8 5.1 (3.5-5.1) mmol/L Chloride 97 L 102 (98-107) mmol/L Carbon Dioxide 32 H 31 H (22-30) mmol/L BUN 31 H 24 H (9-20) mg/dL Creatinine 0.89 0.90 (0.66-1.25) mg/dL Glucose 83 71 L (74-99) mg/dL Calcium 8.1 L 7.7 L (8.4-10.2) mg/dL TSH 14.300 H (0.465-4.680) mIU/L Adrenal panel 12/10/17 12/11/17 Range/Units 17:34 05:40 Sodium 132 L 137 (137-145) mmol/L Potassium 4.8 5.1 (3.5-5.1) mmol/L Chloride 97 L 102 (98-107) mmol/L Carbon Dioxide 32 H 31 H (22-30) mmol/L BUN 31 H 24 H (9-20) mg/dL Creatinine 0.89 0.90 (0.66-1.25) mg/dL Glucose 83 71 L (74-99) mg/dL Calcium 8.1 L 7.7 L (8.4-10.2) mg/dL Total Bilirubin 0.4 0.3 (0.2-1.3) mg/dL AST 57 42 (17-59) U/L ALT 73 H 62 (21-72) U/L Alkaline Phosphatase 63 75 (38-126) U/L Total Protein 5.3 L 4.8 L (6.3-8.2) g/dL Albumin 2.5 L 2.2 L (3.5-5.0) g/dL Assessment and Plan Assessment: Impression Dysphagia with severe protein calorie malnutrition status post PEG tube insertion in November 2017 Elevated TSH with a history of hypothyroidism A recent hospitalization November 2017 acute influenza B Present on admission acute pancreatitis elevated lipase and amylase History of nonalcohol Debilitated chronic Present on admission abdominal pain right upper quadrant Hyperlipidemia Plan Would hold on restarting tube feeds for now Continue IV fluid as ordered Ultrasound gallbladder follow up on results Hepatitis panel follow up on results DVT and GI prophylaxis Further surgical recommendations pending studies Will follow with you No evidence of an acute surgical abdomen at this time Repeat lipase and amylase in the more Surgical consultation note dictated for Dr. cruz The above impression and plan of care have been discussed and directed by signing physician. Ioana Skinner nurse practitioner acting as scribe for signing physician.
[2017-12-11] MEDS ORDERED: [UNRECOGNIZED DRUG - OTHER] PEG/G-TUBE SCH (12:00)
[2017-12-11 12:05] LABS: Cholesterol 148 mg/dL (<200); HDL Cholesterol 31 mg/dL (40-60); LDL Cholesterol,Calculated 86 mg/dL (0-99); Triglycerides 154 mg/dL (<150)
[2017-12-11] MEDS: NYSTATIN 100,000 UNIT/ML SUSP 500,000 UNIT/5 ML CUP PO SCH ×4 (12:33→21:44)
[2017-12-11] MEDS: METOPROLOL TARTRATE 12.5 MG TAB PEG/G-TUBE SCH ×2 (12:34→15:57)
[2017-12-11] MEDS: FLUCONAZOLE 150 MG TAB PEG/G-TUBE SCH (12:35)
[2017-12-11] MEDS: DRY MOUTH SPRAY 44.3 SPRAY/44.3 ML SPRAY MUCOUS MEM SCH ×2 (12:38→15:56)
--- NOTE | 2017-12-11 15:32 | US ---
EXAMINATION TYPE: US gallbladder DATE OF EXAM: 12/11/2017 COMPARISON: NONE CLINICAL HISTORY: Elevated lipase. Patient has PEG tube with midline epigastric dressing surround PEG tube; patient stated had constipation EXAM MEASUREMENTS: Right Kidney: 8.2 x 4.7 c 6.6 cm Pancreas: not visualized due to overlying bowel gas Liver: very limitedly seen due to overlying bowel gas Gallbladder: not visualized due to overlying bowel gas CBD: not visualized due to overlying bowel gas Right Kidney: No hydronephrosis or masses seen IMPRESSION: 1. Nondiagnostic assessment due to overlying bowel gas and PEG tube placement.
[2017-12-11 17:49] LABS: Hepatitis A Antibody IgM Non-Reactive (Non-Reactive); Hepatitis B Core IgM Non-Reactive (Non-Reactive)
--- NOTE | 2017-12-11 20:55 | CONS ---
CONSULTATION REASON FOR CONSULT: History of renal failure and chronic kidney disease, being followed at [facility]. The patient has biopsy-proven focal segmental glomerulosclerosis. He is a maintained on prednisone, however, it is a very low dose at 6 mg down the feeding tube. The patient's serum creatinine is at 0.8 and 0.9 mg/dL. His electrolytes are within normal range with sodium currently at 1:32 am to 137 mEq/L. The patient was admitted to the hospital on this admission secondary to altered mentation and lethargy. There is no significant change in his urine output. He is tolerating his tube feedings. PAST MEDICAL HISTORY: Biopsy-proven FSGS, maintained on very low dose of prednisone at 6 mg daily, hyperlipidemia, hypothyroidism, abdominal aortic aneurysm. SOCIAL HISTORY: Negative for smoking. PAST SURGICAL HISTORY: PEG tube placement, abdominal aortic aneurysm repair. MEDICATIONS: Prior to admission included Zetia, Synthroid, Zocor, aspirin, Dulcolax, Diflucan, Ensure, Lopressor, Protonix, Diovan and prednisone. ALLERGIES: INCLUDE CLONIDINE, ATORVASTATIN, . REVIEW OF SYSTEMS: As per HPI. Other systems negative. EXAMINATION: Patient is comfortable, awake. He is not in any acute distress. He is oriented x3. Blood pressure is 149/99, heart rate 102 per minute. Patient is afebrile. Examination of the heart S1, S2. Examination of the lungs, bilateral breath sounds are heard. Abdomen is soft, nontender. PEG tube is noted. Examination of the lower extremities shows no evidence of edema. INSURANCE VERIFICATION REPRESENTATIVE exam is grossly intact. LABS: Sodium 137, potassium 5.1, chloride 102, BUN 24, serum creatinine 0.9, hemoglobin 10.4 g/dL. Albumin is 2.2. TSH was significantly elevated at 14, lipase was 1008. ASSESSMENT: 1. 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 GFR is fairly well preserved at 82-83 mL/minute. Continue current dose of prednisone. 2. History of hyponatremia, which was mainly hypovolemic, now resolved. 3. Altered mentation, rule out underlying infection. 4. Acute pancreatitis. Maintained on IV fluids. Ultrasound did not reveal any evidence of gross obstruction in the biliary system. However, the common bile duct was not easily visualized secondary to bowel gas. PLAN: Continue IV fluids. Repeat labs in a.m. Continue with the Diovan as well. Blood pressure is not low. Thank you for this consultation. We will continue to follow the patient with you during his hospitalization. MMLAURAL / IJN: [id number] /
[2017-12-11] MEDS: predniSONE 1 MG TAB PEG/G-TUBE SCH (21:43)
[2017-12-11] MEDS: EZETIMIBE 10 MG TAB PEG/G-TUBE SCH (21:44)
[2017-12-11] MEDS: VALSARTAN 80 MG TAB PEG/G-TUBE SCH (21:44)
[2017-12-11] MEDS: ZOCOR 40 MG PEG/G-TUBE SCH (21:44)
[2017-12-11] MEDS: ASPIRIN 81 MG PEG/G-TUBE SCH (21:45)
[2017-12-12 01:51] LABS: Glucose,Whole Blood 73 mg/dL (75-99)
[2017-12-12] MEDS ORDERED: LEVOTHYROXINE 75 MCG TAB PEG/G-TUBE SCH (06:00)
[2017-12-12 06:26] LABS: Glucose,Whole Blood 65 mg/dL (75-99)
[2017-12-12] MEDS ORDERED: SYNTHROID 137 MCG PEG/G-TUBE SCH (06:30)
[2017-12-12] MEDS: SODIUM CHLORIDE 0.9% 1,000 ML IV SCH ×3 (06:31→21:47)
[2017-12-12] MEDS: SYNTHROID 137 MCG PO SCH (06:31)
[2017-12-12 06:49] LABS: Glucose,Whole Blood 79 mg/dL (75-99)
[2017-12-12] MEDS: DRY MOUTH SPRAY 44.3 SPRAY/44.3 ML SPRAY MUCOUS MEM SCH ×2 (08:05→17:11)
[2017-12-12] MEDS: METOPROLOL TARTRATE 12.5 MG TAB PEG/G-TUBE SCH ×2 (08:06→17:11)
[2017-12-12] MEDS: FLUCONAZOLE 150 MG TAB PEG/G-TUBE SCH (08:06)
[2017-12-12] MEDS: NYSTATIN 100,000 UNIT/ML SUSP 500,000 UNIT/5 ML CUP PO SCH ×4 (08:07→21:47)
[2017-12-12] MEDS: PANTOPRAZOLE 40 MG/10 ML VIAL IVP SCH (08:07)
[2017-12-12 09:44] LABS: Amylase 144 U/L (30-110); Lipase 577 U/L (23-300)
[2017-12-12 10:15] LABS: ALT 56 U/L (21-72); AST 40 U/L (17-59); Albumin 2.5 g/dL (3.5-5.0); Alkaline Phosphatase 85 U/L (38-126); Anion Gap 5 mmol/L; Blood Urea Nitrogen 16 mg/dL (9-20); Calcium 8.2 mg/dL (8.4-10.2); Carbon Dioxide 29 mmol/L (22-30); Chloride 101 mmol/L (98-107); Glucose 74 mg/dL (74-99); Potassium 4.5 mmol/L (3.5-5.1); Sodium 135 mmol/L (137-145); Total Bilirubin 0.5 mg/dL (0.2-1.3); Total Protein 5.3 g/dL (6.3-8.2)
--- NOTE | 2017-12-12 11:26 | P.PN ---
Subjective Progress Note Date: 12/12/17 77-year-old male seen and examined. Increasingly more awake and alert this morning when questioning patient patient is denying any abdominal pain. The lipase this morning is down to 577. Amylase 144. AST and ALT are not elevated. Total bili 0.[address] no redness at site no nausea no vomiting. The patient's states patient is ALLERGIC to contrast did discuss with the family the plan of care is to do a CAT scan abdomen and pelvis this morning with no contrast patient has a history of chronic kidney disease being followed at the [facility] Objective - Vital Signs Vital signs: Vital Signs Temp 97.7 F 12/12/17 07:00 Pulse 104 H 12/12/17 08:00 Resp 18 12/12/17 08:00 BP 134/78 12/12/17 07:00 Pulse Ox 97 12/12/17 07:00 Intake & Output 12/11/17 12/12/17 12/12/17 18:59 06:59 18:59 Intake Total 875 1300 Output Total 1 Balance 874 1300 Weight 65 kg Intake: Intake, IV Titration 875 1300 Amount Sodium Chloride 0.9% 1, 875 1300 000 ml @ 125 mls/hr IV . Q8H [facility] Rx#:[id number] Output: Urine 1 Other: # Voids 3 3 # Bowel Movements 2 - Exam Exam Abdomen PEG tube in place no redness at the site soft not distended no facial grimacing with palpitation to the abdominal wall incontinent of urine no stool nontender bowel tones present - Labs CBC & Chem 7: 12/11/17 05:40 12/12/17 08:23 Labs: Abnormal Lab Results - Last 24 Hours (Table) 12/11/17 12/12/17 12/12/17 Range/Units 05:40 01:45 06:25 Sodium (137-145) mmol/L POC Glucose (mg/dL) 73 L 65 L (75-99) mg/dL Calcium (8.4-10.2) mg/dL Total Protein (6.3-8.2) g/dL Albumin (3.5-5.0) g/dL Triglycerides 154 H (<150) mg/dL HDL Cholesterol 31 L (40-60) mg/dL Amylase (30-110) U/L Lipase (23-300) U/L 12/12/17 12/12/17 Range/Units 08:23 08:23 Sodium 135 L (137-145) mmol/L POC Glucose (mg/dL) (75-99) mg/dL Calcium 8.2 L (8.4-10.2) mg/dL Total Protein 5.3 L (6.3-8.2) g/dL Albumin 2.5 L (3.5-5.0) g/dL Triglycerides (<150) mg/dL HDL Cholesterol (40-60) mg/dL Amylase 144 H (30-110) U/L Lipase 577 H (23-300) U/L Microbiology - Last 24 Hours (Table) 12/10/17 16:56 Blood Culture - Preliminary Blood No Growth after 24 hours Assessment and Plan Assessment: Impression Dysphagia with severe protein calorie malnutrition status post PEG tube insertion in November 2017 Elevated TSH with a history of hypothyroidism A recent hospitalization November 2017 acute influenza B Present on admission acute pancreatitis elevated lipase and amylase History of nonalcohol Debilitated chronic Present on admission abdominal pain right upper quadrant Hyperlipidemia Hepatitis panel nonreactive Plan CAT scan abdomen pelvis with no contrast now follow up on results Would hold on restarting tube feeds for now Continue IV fluid as ordered DVT and GI prophylaxis Further surgical recommendations pending studies Will follow with you No evidence of an acute surgical abdomen at this time Repeat lipase and amylase in the am Surgical consultation note dictated for Dr. cruz The above impression and plan of care have been discussed and directed by signing physician. Ioana Skinner nurse practitioner acting as scribe for signing physician.
--- NOTE | 2017-12-12 12:55 | CT ---
EXAMINATION TYPE: CT abdomen pelvis wo con DATE OF EXAM: 12/12/2017 COMPARISON: 04/27/2015 INDICATION: RUQ pain DLP: 723 mGycm, Automated exposure control for dose reduction was used. CONTRAST: No oral or intravenous TECHNIQUE: Axial images were obtained from above the diaphragm to the pubic rami in the axial plane a t 5 mm thick sections. Reconstructed images are reviewed on the computer in the coronal plane. FINDINGS: Limited CT sections are obtained the lung bases. Pulmonary fibrosis present within the lung bases. S mall left pleural effusion is present. Coronary artery calcifications present.. CT ABDOMEN: PEG tube is present. The balloon is not directly adjacent to the wall of the abdomen. Liver: Normal Spleen: Normal Pancreas: Tail of the pancreas appears somewhat full. The density is isodense throughout the pancreas . Discrete mass is not identified. This appears stable from 04/19/2015. Adrenal glands: The adrenal glands are normal. Gallbladder: Normal Kidneys: No masses are evident. No hydronephrosis is present. There is a 4.1 cm AP dimension simple cyst measuring 0 Hounsfield units in the inferior pole left kidney. No renal stones are identified. Aorta: There is an infrarenal abdominal aortic aneurysm with a stent. The aneurysm measures 6.4 cm. T his has enlarged from the previous exam with an AP dimension of 4.4 cm. The distal left common iliac artery near the bifurcation is dilated at 1.5 cm. Bilateral common femoral artery aneurysms are prese nt measuring 2.1 cm on each side. Inferior vena cava: Normal. CT PELVIS: Loops of bowel within the abdomen and pelvis are normal. Studies without oral contrast limiting t he evaluation. There is a large fecal bolus at the rectum. Correlate for fecal impaction. Appendix: Normal as visualized. Urinary bladder: Distended. Genitourinary structures: Prostate is prominent. Osseous structures: No suspicious lytic or sclerotic lesions. Compression deformity of L1 is present. There is loss of disc height in0 suggestion of minimal retrolisthesis of L5-L3. IMPRESSIONS: 1. Enlarging abdominal aortic aneurysm with a stent. AP dimension is 6.4 cm, up from 4.4 cm in 2015. Consider endovascular leak. 2. Bibasilar pulmonary fibrosis. 3. PEG tube present. The balloon is not directly adjacent to the anterior abdominal wall. 4. There is some aneurysmal dilatation of the distal left common iliac artery and within the bilatera l common femoral arteries distally.
--- NOTE | 2017-12-12 18:32 | XR ---
EXAMINATION TYPE: XR chest 1V portable DATE OF EXAM: 12/12/2017 COMPARISON: 12/10/2017 HISTORY: Heart failure. Short of breath TECHNIQUE: Single frontal view of the chest is obtained. FINDINGS: There is elevated right diaphragm. There is coarsening of interstitial pulmonary markings. Pulmonary vascularity is difficult to evaluate because of the lung disease. Thoracic aorta is athero matous. IMPRESSION: Pulmonary fibrosis. 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 Interposition of the hepatic flexure of the colon is noted. Mild heart failure is possible. No significant change compared to last exam.
--- NOTE | 2017-12-12 18:35 | PN ---
PROGRESS NOTE I am covering for Dr. Ferris. HISTORY OF PRESENT ILLNESS: This 77-year-old gentleman admitted with confusion also had features of pancreatitis. The patient is being closely monitored at this time. The patient also had recent influenza B and the patient currently . After admission, the patient was found to have acute pancreatitis. Please also note that the patient had chronic renal disease secondary to FSGS followed by [facility]. The patient is being closely monitored. PAST MEDICAL HISTORY: Reviewed. REVIEW OF SYSTEMS: ENT: Diminished hearing, diminished vision. CARDIOVASCULAR: No angina. RESPIRATORY: As mentioned earlier. GI: As mentioned earlier. : As mentioned earlier. NERVOUS: No numbness. Mild diffuse weakness. CURRENT MEDICATIONS: Reviewed, include: 1. DuoNeb q.i.d. and p.r.n. 2. Aspirin 81 mg daily. 3. Dulcolax. 4. Zetia 10 mg per PEG. 5. Diflucan 150 mg per PEG. 6. Lopressor 12.5 mg per PEG b.i.d. 7. Narcan 0.2 q.2h p.r.n. 8. Zocor 40 mg q.h.s. 9. Nystatin. 10.Protonix. 11.Prednisone 6 mg per PEG daily. 12.Darvon and. PHYSICAL EXAMINATION: Alert and oriented x2. Pulse 101, blood pressure 133/85, respirations 18, temperature 97.8, pulse ox 97% on room air. HEENT: Conjunctivae normal. Oral mucosa moist. NECK: No jugular venous distention. No carotid bruits. No lymph node enlargement. CARDIOVASCULAR: S1, S2 muffled. RESPIRATORY: Breath sounds diminished in the bases. A few scattered rhonchi. No crackles. ABDOMEN: Soft, nontender. Mild diffuse discomfort present. PEG tube inserted. LEGS: No edema. No swelling. NERVOUS SYSTEM: Higher functions as mentioned earlier. Moves all 4 limbs. No focal motor or sensory deficits. LYMPHATIC: No lymphadenopathy in neck or axillae. SKIN: No ulcer, rash or bleeding. LABS: At this time show WBC 6.8, hemoglobin is 10.4. ASSESSMENT: 1. Acute pancreatitis. 2. Change in mental status, acute metabolic encephalopathy. 3. Recent influenza B. 4. Gait dysfunction. 5. Increased AST, ALT. 6. Anemia, normocytic anemia of chronic disease. 7. Hyperlipidemia. 8. Hypothyroidism. 9. Tonsillectomy. 10.History of abdominal aortic aneurysm repair. 11.FULL CODE. RECOMMENDATIONS AND DISCUSSION: In this 77-year-old gentleman who presented with multiple complex medical issues , we will monitor the patient closely. Continue the current medical management, continue symptomatic treatment, continue with pain medications. Otherwise, continue with the aspiration precautions. Otherwise continue the rest of the medications. Guarded prognosis because of multiple complex medical issues. Further recommendations to follow. follow. MMFABIEN / IJN: [id number] / INGRID
[2017-12-12] MEDS: ZOCOR 40 MG PEG/G-TUBE SCH (21:47)
[2017-12-12] MEDS: predniSONE 1 MG TAB PEG/G-TUBE SCH (21:47)
[2017-12-12] MEDS: VALSARTAN 80 MG TAB PEG/G-TUBE SCH (21:48)
[2017-12-12] MEDS: ASPIRIN 81 MG PEG/G-TUBE SCH (21:48)
[2017-12-12] MEDS: EZETIMIBE 10 MG TAB PEG/G-TUBE SCH (21:48)
[2017-12-13] MEDS: SYNTHROID 137 MCG PO SCH (06:13)
[2017-12-13 07:50] LABS: Basophils % (A) 0 %; Eosinophils # (A) 0.1 k/uL (0-0.7); Eosinophils % (A) 1 %; HCT 36.5 % (39.0-53.0); HGB 11.6 gm/dL (13.0-17.5); Hypochromasia Slight; Lymphocytes # (A) 0.7 k/uL (1.0-4.8); Lymphocytes % (A) 11 %; MCH 31.8 pg (25.0-35.0); MCHC 31.9 g/dL (31.0-37.0); MCV 99.5 fL (80.0-100.0); Macrocytosis Slight; Mean Platelet Volume 7.6; Monocytes # (A) 0.4 k/uL (0-1.0); Monocytes % (A) 6 %; Neutrophils % (A) 80 %; Platelet Count 372 k/uL (150-450); RBC 3.67 m/uL (4.30-5.90); RDW 14.5 % (11.5-15.5); WBC 6.3 k/uL (3.8-10.6)
[2017-12-13 08:23] LABS: ALT 47 U/L (21-72); AST 39 U/L (17-59); Albumin 2.6 g/dL (3.5-5.0); Alkaline Phosphatase 88 U/L (38-126); Amylase 137 U/L (30-110); Anion Gap 7 mmol/L; Blood Urea Nitrogen 15 mg/dL (9-20); Calcium 8.3 mg/dL (8.4-10.2); Carbon Dioxide 26 mmol/L (22-30); Chloride 103 mmol/L (98-107); Glucose 73 mg/dL (74-99); Lipase 481 U/L (23-300); Potassium 4.5 mmol/L (3.5-5.1); Sodium 136 mmol/L (137-145); Total Bilirubin 0.5 mg/dL (0.2-1.3); Total Protein 5.4 g/dL (6.3-8.2)
[2017-12-13] MEDS: SODIUM CHLORIDE 0.9% 1,000 ML IV SCH ×3 (09:43→10:54)
[2017-12-13] MEDS: NYSTATIN 100,000 UNIT/ML SUSP 500,000 UNIT/5 ML CUP PO SCH ×4 (09:44→21:19)
[2017-12-13] MEDS: PANTOPRAZOLE 40 MG/10 ML VIAL IVP SCH (09:44)
[2017-12-13] MEDS: METOPROLOL TARTRATE 12.5 MG TAB PEG/G-TUBE SCH ×2 (09:44→18:04)
[2017-12-13] MEDS: FLUCONAZOLE 150 MG TAB PEG/G-TUBE SCH (09:46)
[2017-12-13] MEDS: DRY MOUTH SPRAY 44.3 SPRAY/44.3 ML SPRAY MUCOUS MEM SCH ×2 (09:48→18:05)
--- NOTE | 2017-12-13 14:42 | P.PN ---
Subjective Progress Note Date: 12/13/17 77-year-old male seen and examined. Patient is arousable to verbal stimuli opens eyes. at bedside. No new events. The lipase is 41 this morning amylase 137. AST and ALT not elevated. Denying abdominal pain when questioning. No redness noted around the PEG tube site tube feeds are to be initiated as afternoon to the PEG tube at the bedside indicates the patient has been followed by vascular Dr. Vazquez for a known aortic aneurysm. The computed tomography scan the abdomen pelvis report enlarging abdominal aortic aneurysm with a stent. Objective - Vital Signs Vital signs: Vital Signs Temp 97.7 F 12/13/17 07:00 Pulse 112 H 12/13/17 07:00 Resp 20 12/13/17 07:00 BP 141/89 12/13/17 07:00 Pulse Ox 96 12/13/17 07:11 Intake & Output 12/12/17 12/13/17 12/13/17 18:59 06:59 18:59 Intake Total 875 675 Output Total 1 Balance 875 674 Weight 65 kg 65 kg Intake: Intake, IV Titration 875 650 Amount Sodium Chloride 0.9% 1, 875 650 000 ml @ 125 mls/hr IV . Q8H [facility] Rx#:[id number] Tube Feeding 25 Output: Urine 1 Other: # Voids 4 - Exam Physical exam Abdomen soft no facial grimacing with palpitation to the abdominal wall PEG tube in place no redness at the site bowel tones present no reports of nausea vomiting - Labs CBC & Chem 7: 12/13/17 07:14 12/13/17 07:14 Labs: Abnormal Lab Results - Last 24 Hours (Table) 12/13/17 12/13/17 Range/Units 07:14 07:14 RBC 3.67 L (4.30-5.90) m/uL Hgb 11.6 L (13.0-17.5) gm/dL Hct 36.5 L (39.0-53.0) % Lymphocytes # 0.7 L (1.0-4.8) k/uL Sodium 136 L (137-145) mmol/L Glucose 73 L (74-99) mg/dL Calcium 8.3 L (8.4-10.2) mg/dL Total Protein 5.4 L (6.3-8.2) g/dL Albumin 2.6 L (3.5-5.0) g/dL Amylase 137 H (30-110) U/L Lipase 481 H (23-300) U/L Microbiology - Last 24 Hours (Table) 12/10/17 16:56 Blood Culture - Preliminary Blood No Growth after 48 hours Assessment and Plan Assessment: Impression Dysphagia with severe protein calorie malnutrition status post PEG tube insertion in November 2017 Elevated TSH with a history of hypothyroidism A recent hospitalization November 2017 acute influenza B Present on admission acute pancreatitis elevated lipase and amylase History of nonalcohol Debilitated chronic Present on admission abdominal pain right upper quadrant Hyperlipidemia Hepatitis panel nonreactive Enlarging abdominal aortic aneurysm with stent per CAT scan abdomen pelvis A known abdominal aortic aneurysm followed by vascular every 6 months Plan Start tube feeds now Continue IV fluid as ordered DVT and GI prophylaxis Further surgical recommendations pending studies Will follow with you No evidence of an acute surgical abdomen at this time Repeat lipase and amylase in the am Surgical consultation note dictated for Dr. cruz The above impression and plan of care have been discussed and directed by signing physician. Ioana Skinner nurse practitioner acting as scribe for signing physician.
[2017-12-13 14:55] LABS: Appearance,Urine Clear (Clear); Bilirubin,Urine Negative (Negative); Blood,Urine Negative (Negative); Color,Urine Yellow; Glucose,Urine (UA) Negative (Negative); Hyaline Casts,Urine 1 /lpf (0-2); Ketones,Urine 1+ (Negative); Leukocyte Esterase,Urine Negative (Negative); Mucus,Urine Rare /hpf; Nitrite,Urine Negative (Negative); PH, Urine 5.5 (5.0-8.0); Protein,Urine 1+ (Negative); Specific Gravity,Urine 1.013 (1.001-1.035); Urobilinogen,Urine <2.0 mg/dL (<2.0); WBC,Urine <1 /hpf (0-5)
--- NOTE | 2017-12-13 16:45 | PN ---
PROGRESS NOTE Patient is seen for followup for chronic kidney disease. He has underlying FSGS and is maintained on small dose of prednisone. UA shows trace proteinuria. Patient's renal function is well preserved with GFR at 88 to 85 mL/minute and creatinine at 0.7 to 0.8 mg/dL. PHYSICAL EXAMINATION: Today blood pressure is 128/85, heart rate 94 per minute. Patient is afebrile. EXAMINATION OF THE HEART: S1, S2. EXAMINATION OF LUNGS: Bilateral breath sounds are heard. ABDOMEN: Soft, non-tender. Examination of lower extremities shows no evidence of edema. SAMPLER RADIOACTIVE WASTE exam is grossly intact. Patient is moving all 4 extremities. Labs show sodium 136, potassium 4.5, chloride 103, BUN 15. Hemoglobin 11.6 g/dL. ASSESSMENT: 1. 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 2. Acute pancreatitis, slowly improving. 3. Intravascular volume depletion, currently improved. Chest x-ray from yesterday did show evidence of possibly mild CHF. IV fluids will be decreased to 50 mL/hour and we will discuss with Surgery regarding restarting tube feedings. PLAN: Decrease IV fluids to 50 mL/hour and consider starting tube feedings if okay with Surgery. Check random urine protein:creatinine ratio, which is being followed to monitor the proteinuria. Continue with the prednisone. MMODL / IJN: [id number] /
--- NOTE | 2017-12-13 19:03 | PN ---
PROGRESS NOTE DATE OF SERVICE: 12/13/2017 I am covering for Dr. Ferris. This 77-year-old gentleman admitted with acute pancreatitis also had change in mental status. Patient also had recent influenza B. Complaining of tiredness and weakness. Patient also had abdomen and pelvis CT scan yesterday which showed features of enlarging abdominal aortic aneurysm with a stent placed. The dimension was 6.4 cm from 4.4 cm in 2015. Endovascular leak was considered at this time. However, the patient had a regular checkup with Dr. Vazquez about 6 months ago, according to the patient, with an ultrasound. The details are not available at this time. Past medical history reviewed. Review of systems could not be taken. The patient is slightly drowsy. CURRENT MEDICATIONS: Current medications are reviewed and include: 1. DuoNeb q.i.d. and p.r.n. 2. Aspirin 81 mg p.o. daily. 3. Dulcolax 10 mg daily p.r.n. 4. Zetia 10 mg at bedtime. 5. Diflucan 150 mg. 6. Lopressor 12.5 mg b.i.d. 7. Narcan. 8. Zocor 40 mg. 9. Synthroid 137 mcg p.o. daily. 10.Nystatin daily. 11.Protonix 40 mg daily. 12.Prednisone 6 mg. 13.Fleets Enema. 14.Diovan. PHYSICAL EXAMINATION: Patient is alert and oriented x1. Pulse 94, blood pressure 128/85, respiration 18, temperature 97.3, pulse ox 97% on 2 L. HEENT: Conjunctivae normal. Oral mucosa moist. NECK: No jugular venous distention. No lymph node enlargement. CARDIOVASCULAR SYSTEM: S1, S2 muffled. No S3, no S4. RESPIRATORY SYSTEM: Breath sounds diminished at the bases. A few scattered rhonchi, expiratory wheezing and crackles. ABDOMEN: Soft. non tender. no mass palpable. no guarding or rigidity. Bowel sounds present. PEG tube in situ. LEGS: Minimal edema. NERVOUS SYSTEM: Diffusely weak. LAB/INVESTIGATIONS AT THIS TIME: WBC 6.3, hemoglobin 11.6. On admission it was 11. The sodium was 136, creatinine 0.82. UA shows 1+ protein. The amylase and lipase are still elevated at 137 and 481 but showing improved trends. ASSESSMENT: 1. Acute pancreatitis. 2. Change in mental status and acute metabolic encephalopathy. 3. Abdominal aortic aneurysm with a stent from 4.4 cm in 2015 to 6.4 cm. 4. Recent influenza B. 5. Gait dysfunction. 6. Status post PEG tube placement. 7. Increased AST and ALT. 8. Anemia; normocytic anemia of chronic disease. 9. Hyperlipidemia. 10.Hypothyroidism. 11.Tonsillectomy. 12.History of abdominal aneurysm and stenting. 13.FULL CODE. RECOMMENDATIONS AND DISCUSSION: In this 77-year-old gentleman who presented with multiple complex medical issues , we will monitor the patient closely, continue the current medications, continue with symptomatic treatment. Otherwise I would recommend continuing with enteral feeds and repeat labs. Creatinine is stable at this time. Otherwise, also talked with the [facility] for further evaluation and possible transfer; however , they do not have beds. Will await Dr. Vazquez's evaluation. The prognosis is guarded because of the multiple complex medical issues and discussed with the family at length. Further recommendations to follow. MMLAURAL / IJN: [id number] / INGRID
[2017-12-13] MEDS: VALSARTAN 80 MG TAB PEG/G-TUBE SCH (21:19)
[2017-12-13] MEDS: EZETIMIBE 10 MG TAB PEG/G-TUBE SCH (21:19)
[2017-12-13] MEDS: ZOCOR 40 MG PEG/G-TUBE SCH (21:19)
[2017-12-13] MEDS: predniSONE 1 MG TAB PEG/G-TUBE SCH (21:19)
[2017-12-13] MEDS: ASPIRIN 81 MG PEG/G-TUBE SCH (21:19)
[2017-12-14] MEDS: SODIUM CHLORIDE 0.9% 1,000 ML IV SCH (06:08)
[2017-12-14] MEDS: SYNTHROID 137 MCG PO SCH (06:13)
[2017-12-14 08:14] LABS: Basophils % (A) 0 %; Eosinophils # (A) 0.1 k/uL (0-0.7); Eosinophils % (A) 1 %; HCT 33.4 % (39.0-53.0); HGB 10.6 gm/dL (13.0-17.5); Hypochromasia Slight; Lymphocytes # (A) 0.5 k/uL (1.0-4.8); Lymphocytes % (A) 7 %; MCH 31.6 pg (25.0-35.0); MCHC 31.8 g/dL (31.0-37.0); MCV 99.2 fL (80.0-100.0); Macrocytosis Slight; Mean Platelet Volume 7.6; Monocytes # (A) 0.5 k/uL (0-1.0); Monocytes % (A) 6 %; Neutrophils # (A) 6.1 k/uL (1.3-7.7); Neutrophils % (A) 85 %; Platelet Count 372 k/uL (150-450); RBC 3.37 m/uL (4.30-5.90); RDW 14.5 % (11.5-15.5); WBC 7.2 k/uL (3.8-10.6)
[2017-12-14 08:42] LABS: ALT 41 U/L (21-72); AST 35 U/L (17-59); Albumin 2.5 g/dL (3.5-5.0); Alkaline Phosphatase 84 U/L (38-126); Amylase 106 U/L (30-110); Anion Gap 6 mmol/L; Blood Urea Nitrogen 16 mg/dL (9-20); Calcium 8.1 mg/dL (8.4-10.2); Carbon Dioxide 29 mmol/L (22-30); Chloride 101 mmol/L (98-107); Glucose 104 mg/dL (74-99); Lipase 452 U/L (23-300); Potassium 4.2 mmol/L (3.5-5.1); Sodium 136 mmol/L (137-145); Total Bilirubin 0.4 mg/dL (0.2-1.3); Total Protein 5.1 g/dL (6.3-8.2)
[2017-12-14] MEDS: NYSTATIN 100,000 UNIT/ML SUSP 500,000 UNIT/5 ML CUP PO SCH ×4 (09:23→21:38)
[2017-12-14] MEDS: PANTOPRAZOLE 40 MG/10 ML VIAL IVP SCH (09:23)
[2017-12-14] MEDS: DRY MOUTH SPRAY 44.3 SPRAY/44.3 ML SPRAY MUCOUS MEM SCH ×2 (09:23→17:54)
[2017-12-14] MEDS: METOPROLOL TARTRATE 12.5 MG TAB PEG/G-TUBE SCH ×2 (09:23→17:48)
[2017-12-14] MEDS: FLUCONAZOLE 150 MG TAB PEG/G-TUBE SCH (09:24)
--- NOTE | 2017-12-14 09:35 | P.CONS ---
Past Medical History Past Medical History: Hyperlipidemia, Renal Disease, Thyroid Disorder History of Any Multi-Drug Resistant Organisms: None Reported Past Surgical History: No Surgical Hx Reported, Tonsillectomy Additional Past Surgical History / Comment(s): Abdominal Aortic Aneursym Repair - Fall Dr. Vazquez Past Anesthesia/Blood Transfusion Reactions: No Reported Reaction Past Psychological History: No Psychological Hx Reported Smoking Status: Never smoker Past Alcohol Use History: None Reported Past Drug Use History: None Reported - Past Family History Mother Family Medical History: Cancer Medications and Allergies Home Medications Medication Instructions Recorded Confirmed Type Ezetimibe [Zetia] 10 mg PEG/G-TUBE HS@209911/18/17 12/10/17 History Levothyroxine Sodium [Synthroid] 137 mcg PEG/G-TUBE DAILY@0600 11/18/17 History Simvastatin [Zocor] 40 mg PEG/G-TUBE HS@209911/18/17 12/10/17 History Ipratropium-Albuterol Nebulize 3 ml INHALATION RT-QID PRN 12/03/17 12/10/17 Rx [Duoneb 0.5 mg-3 mg/3 ml Soln] ampul.neb Aspirin 81 mg PEG/G-TUBE HS@209912/10/17 12/10/17 History Bisacodyl [Dulcolax] 10 mg RECTAL DAILY PRN 12/10/17 12/10/17 History Fluconazole [Diflucan] 150 mg PEG/G-TUBE DAILY@0800 12/10/17 12/10/17 History Lactose-Reduced Food [Ensure Plus] 355.5 ml PEG/G-TUBE DAILY@1200 12/10/1712/10 History Lactose-Reduced Food [Ensure Plus] 474 ml PEG/G-TUBE BID@0600,1800 12/10/1709/17 History Magnesium Hydroxide [Milk of 7,200 mg PEG/G-TUBE DAILY PRN 12/10/17 12/10/17 History Magnesia Concentrate] Metoprolol Tartrate [Lopressor] 12.5 mg PEG/G-TUBE BID@0800,1700 12/10/17 History Na Phos,M-B/Na Phos,Di-Ba [Fleet 133 ml RECTAL ONCE PRN 12/10/17 12/10/17 History Adult] Nitroglycerin Sl Tabs [Nitrostat] 0.4 mg PEG/G-TUBE Q5M PRN 12/10/17 12/10/17 History Nystatin 100,000 Unit/ml Susp 500,000 unit PO QID@08,12,17,21 12/10/17 12/10/17 History [Mycostatin Oral Susp] Pantoprazole [Protonix] 40 mg PEG/G-TUBE DAILY@0600 12/10/17 12/10/17 History Saliva Stimulant Agents Comb.3 1 spray MUCOUS MEM BID@0800,1700 12/10/17 History [Biotene Moisturizing Mouth] Valsartan [Diovan] 80 mg PEG/G-TUBE HS@2100 12/10/17 12/10/17 History guaiFENesin SYRUP 100MG/5ML 200 mg PEG/G-TUBE Q6H PRN 12/10/17 12/10/17 History [Robitussin] predniSONE 6 mg PEG/G-TUBE HS@2100 12/10/17 12/10/17 History Allergies Allergy/AdvReac Type Severity Reaction Status Date / Time clidinium Allergy Unknown Verified 12/10/17 17:16 clonidine Allergy Unknown Verified 12/03/17 10:39 atorvastatin [From Lipitor] AdvReac Itching Verified 11/27/17 22:25 Physical Exam Vitals: Vital Signs Temp Pulse Resp BP Pulse Ox 12/14/17 07:00 97.3 F L 101 H 18 131/87 100 12/14/17 00:10 105 H 16 12/13/17 23:00 97.3 F L 105 H 16 120/80 98 12/13/17 14:49 97.3 F L 94 18 128/85 97 Intake and Output 12/13/17 12/14/17 12/14/17 22:59 06:59 14:59 Intake Total 50 Balance 50 Intake: Tube Feeding 50 Other: Voiding Method Incontinent Results CBC & Chem 7: 12/14/17 06:54 12/14/17 06:54 Labs: Abnormal Lab Results - Last 24 Hours (Table) 12/13/17 12/14/17 12/14/17 Range/Units 14:21 06:54 06:54 RBC 3.37 L (4.30-5.90) m/uL Hgb 10.6 L (13.0-17.5) gm/dL Hct 33.4 L (39.0-53.0) % Lymphocytes # 0.5 L (1.0-4.8) k/uL Sodium 136 L (137-145) mmol/L Glucose 104 H (74-99) mg/dL Calcium 8.1 L (8.4-10.2) mg/dL Total Protein 5.1 L (6.3-8.2) g/dL Albumin 2.5 L (3.5-5.0) g/dL Lipase 452 H (23-300) U/L Urine Protein 1+ H (Negative) Urine Ketones 1+ H (Negative) Urine Mucus Rare H (None) /hpf Microbiology - Last 24 Hours (Table) 12/10/17 16:56 Blood Culture - Preliminary Blood No Growth after 72 hours
--- NOTE | 2017-12-14 10:33 | P.CONS ---
History of Present Illness - Reason for Consult Consult date: 12/14/17 Pancreatitis Requesting physician: Misty Mcfadden - History of Present Illness 77-year-old male admitted with mental status changes, chronic kidney disease FSGS biopsy proven, followed by division supervisor [facility] every 6 months, elevated amylase lipase, known AAA, recent influenza B status post recent PEG tube placement for dysphagia, multiple medical morbidities. Consultation requested for pancreatitis. History obtained from medical records nursing position staff as patient is not able to provide details. CT of the abdomen reported enlarging abdominal aortic aneurysm with stent placement. Vascular consultation is placed. Additionally CT reported normal spleen and liver. An critic tail appeared full discrete masses not identified. PEG tube appears functioning without evidence of erythema drainage or bleeding. On known if patient has a history of pancreatitis. No documentation of EtOH abuse. Admission lipase 1008 presently 452. Amylase 207 presently 106. LFTs within normal limits. Triglycerides 154. Calcium 7.7-8.3. BUN 16. Creatinine 0.8. Ultrasound of the abdomen non- diagnostic due to overlying bowel gas and PEG tube placement. Review of Systems Obtained from medical records Constitutional: Denies fever, chills, sweats, weight gain, or loss. HEENT: Negative for migraines, blurred vision or loss, earaches, drainage, tinnitus, oral mucosal lesions, dysphagia, or odynophagia. Cardiac: AAA. Hyperlipidemia. Negative for chest pain, arrhythmias, or palpitation. Respiratory: Negative for shortness of breath, hemoptysis, cough, or sputum production. Gastrointestinal: See HPI for pertinent findings. Genitourinary: Negative for hematuria, urgency, frequency, polyuria, dysuria, or penile discharge. Musculoskeletal: Negative for muscle aches, swelling, arthritis, and arthralgias. Neurologic: Negative for stroke or TIA. Endocrine: Negative for thyroid problems. Nephrology: Chronic disease FSGS biopsy-proven Skin: Negative for rash or itching. Psychiatric: Negative history for depression and anxiety ROS unobtainable: due to mental status Past Medical History Past Medical History: Hyperlipidemia, Renal Disease, Thyroid Disorder History of Any Multi-Drug Resistant Organisms: None Reported Past Surgical History: No Surgical Hx Reported, Tonsillectomy Additional Past Surgical History / Comment(s): Abdominal Aortic Aneursym Repair - fall Dr. Vazquez Past Anesthesia/Blood Transfusion Reactions: No Reported Reaction Past Psychological History: No Psychological Hx Reported Smoking Status: Never smoker Past Alcohol Use History: None Reported Past Drug Use History: None Reported - Past Family History Mother Family Medical History: Cancer Medications and Allergies Home Medications Medication Instructions Recorded Confirmed Type Ezetimibe [Zetia] 10 mg PEG/G-TUBE HS@209911/18/17 12/10/17 History Levothyroxine Sodium [Synthroid] 137 mcg PEG/G-TUBE DAILY@0600 11/18/17 History Simvastatin [Zocor] 40 mg PEG/G-TUBE HS@209911/18/17 12/10/17 History Ipratropium-Albuterol Nebulize 3 ml INHALATION RT-QID PRN 12/03/17 12/10/17 Rx [Duoneb 0.5 mg-3 mg/3 ml Soln] ampul.neb Aspirin 81 mg PEG/G-TUBE HS@209912/10/17 12/10/17 History Bisacodyl [Dulcolax] 10 mg RECTAL DAILY PRN 12/10/17 12/10/17 History Fluconazole [Diflucan] 150 mg PEG/G-TUBE DAILY@0800 12/10/17 12/10/17 History Lactose-Reduced Food [Ensure Plus] 355.5 ml PEG/G-TUBE DAILY@1200 12/10/1712/10 History Lactose-Reduced Food [Ensure Plus] 474 ml PEG/G-TUBE BID@0600,1800 12/10/1709/17 History Magnesium Hydroxide [Milk of 7,200 mg PEG/G-TUBE DAILY PRN 12/10/17 12/10/17 History Magnesia Concentrate] Metoprolol Tartrate [Lopressor] 12.5 mg PEG/G-TUBE BID@0800,1700 12/10/17 History Na Phos,M-B/Na Phos,Di-Ba [Fleet 133 ml RECTAL ONCE PRN 12/10/17 12/10/17 History Adult] Nitroglycerin Sl Tabs [Nitrostat] 0.4 mg PEG/G-TUBE Q5M PRN 12/10/17 12/10/17 History Nystatin 100,000 Unit/ml Susp 500,000 unit PO QID@08,12,17,21 12/10/17 12/10/17 History [Mycostatin Oral Susp] Pantoprazole [Protonix] 40 mg PEG/G-TUBE DAILY@0600 12/10/17 12/10/17 History Saliva Stimulant Agents Comb.3 1 spray MUCOUS MEM BID@0800,1700 12/10/17 History [Biotene Moisturizing Mouth] Valsartan [Diovan] 80 mg PEG/G-TUBE HS@2100 12/10/17 12/10/17 History guaiFENesin SYRUP 100MG/5ML 200 mg PEG/G-TUBE Q6H PRN 12/10/17 12/10/17 History [Robitussin] predniSONE 6 mg PEG/G-TUBE HS@2100 12/10/17 12/10/17 History Allergies Allergy/AdvReac Type Severity Reaction Status Date / Time clidinium Allergy Unknown Verified 12/10/17 17:16 clonidine Allergy Unknown Verified 12/03/17 10:39 atorvastatin [From Lipitor] AdvReac Itching Verified 11/27/17 22:25 Physical Exam Vitals: Vital Signs Temp Pulse Resp BP Pulse Ox 12/14/17 07:00 97.3 F L 101 H 18 131/87 100 12/14/17 00:10 105 H 16 12/13/17 23:00 97.3 F L 105 H 16 120/80 98 12/13/17 14:49 97.3 F L 94 18 128/85 97 Intake and Output 12/13/17 12/14/17 12/14/17 22:59 06:59 14:59 Intake Total 50 Balance 50 Intake: Tube Feeding 50 Other: Voiding Method Incontinent General appearance: The patient is awake, oriented to self, in no acute distress. HET: Head is normocephalic and atraumatic. Pupils are equal and reactive. Oropharynx is clear without lesions. Neck: Supple without lymphadenopathy. Trachea midline. Heart: S1 S2. Regular rate and rhythm. Lungs: No crackles or wheezes are heard. Abdomen: Soft, PEG tube with feeds infusing no erythema or drainage, mild abdominal pain with palpation across the midabdomen, nondistended with bowel sounds. No peritoneal signs. No palpable organomegaly or masses. Extremities: Normal skin color and turgor. No cyanosis, rash, ulceration, clubbing, or edema. Radial and pedal pulses are 2/4 bilaterally. Neurological: No focal deficits. Strength and sensation are grossly intact. Results CBC & Chem 7: 12/14/17 06:54 12/14/17 06:54 Labs: Abnormal Lab Results - Last 24 Hours (Table) 12/13/17 12/13/17 12/13/17 Range/Units 07:14 07:14 14:21 RBC 3.67 L (4.30-5.90) m/uL Hgb 11.6 L (13.0-17.5) gm/dL Hct 36.5 L (39.0-53.0) % Lymphocytes # 0.7 L (1.0-4.8) k/uL Sodium 136 L (137-145) mmol/L Glucose 73 L (74-99) mg/dL Calcium 8.3 L (8.4-10.2) mg/dL Total Protein 5.4 L (6.3-8.2) g/dL Albumin 2.6 L (3.5-5.0) g/dL Amylase 137 H (30-110) U/L Lipase 481 H (23-300) U/L Urine Protein 1+ H (Negative) Urine Ketones 1+ H (Negative) Urine Mucus Rare H (None) /hpf Microbiology - Last 24 Hours (Table) 12/10/17 16:56 Blood Culture - Preliminary Blood No Growth after [address] scan - abdomen: report reviewed (Dr. Herrera) US - abdomen: report reviewed (Dr. Herrera) Assessment and Plan Assessment: Impression: 1. Acute elevation of lipase amylase possible pancreatitis etiology unclear with improvement in pancreatic biochemical profile. Possibility of AAA progression causing elevation of these enzymes is not entirely excluded. No history of alcoholism. No radiographic confirmation of cholelithiasis. 2. Chronic any disease secondary to focal segmental glomerulosclerosis biopsy- proven maintained on low-dose steroids followed by [facility] every 6 months. 3. Enlarging AAA with stent vascular consultation requested. 4. Dysphagia status post PEG tube placement. Recommendations: 1. Considering pancreatic biochemical profile is improving LFTs are within normal limits continue to observe. Will obtain JOHN and IgG subclass 1-4 evaluation for autoimmune pancreatitis though felt to be less likely the cause. Await vascular consultation secondary to enlarging AAA. We'll follow with you. Thank you for this kind referral and the opportunity to participate in the care of your patient. This consultation was discussed with Dr. Herrera. The impression and plan of care have been directed as dictated.
[2017-12-14] MEDS ORDERED: RX INFO: IV CONTRAST WAS GIVEN 1 EACH MISC MISCELLANE PRN (10:45)
--- NOTE | 2017-12-14 10:45 | P.GSCN ---
History of Present Illness Consult date: 12/14/17 Reason for Consult: Aortic aneurysm History of present illness: This 77-year-old gentleman, about a month ago, developed influenza B. He had numerous complications and was extremely weakened. Due to and oral thrush, secondary to antibiotics, he ended up with a PEG tube. He was rehospitalized with dehydration. A noncontrasted CAT scan shows his previous aneurysm to have grown to 6 cm. Previous measurements were around 4. He had had a previous aneurysm resection with aortobiiliac bypass about 11 years ago. He denies abdominal pain. He is still extremely weak from his recent events. Review of Systems All systems: negative - Constitutional Constitutional Comment(s): Patient is extremely weak from his recent events. Reports fatigue, Reports weakness, Reports weight loss, Denies fever - EENT Eyes: denies blurred vision Ears, nose, mouth and throat: Reports dysphagia - Cardiovascular Reports decreased exercise tolerance, Reports leg edema, Denies chest pain, Denies claudication, Denies orthopnea, Denies paroxysmal nocturnal dyspnea, Denies shortness of breath - Respiratory Denies congestion, Denies cough, Denies hemoptysis - Gastrointestinal Reports as per HPI, Denies coffee ground emesis, Denies hematemesis, Denies melena - Genitourinary Denies dysuria, Denies hematuria - Integumentary Denies rash, Denies unusual bruising - Neurological Denies convulsions, Denies headaches, Denies paralysis, Denies syncope, Denies transient paralysis, Denies tremors - Hematologic/Lymphatic Denies easy bleeding, Denies easy bruising, Denies lymphedema - Allergic/Immunologic Denies allergic rhinitis, Denies angioedema, Denies urticaria Past Medical History Past Medical History: Hyperlipidemia, Renal Disease, Thyroid Disorder History of Any Multi-Drug Resistant Organisms: None Reported Past Surgical History: No Surgical Hx Reported, Tonsillectomy Additional Past Surgical History / Comment(s): Abdominal Aortic Aneursym Repair - fall Dr. Vazquez Past Anesthesia/Blood Transfusion Reactions: No Reported Reaction Past Psychological History: No Psychological Hx Reported Smoking Status: Never smoker Past Alcohol Use History: None Reported Past Drug Use History: None Reported - Past Family History Mother Family Medical History: Cancer Medications and Allergies Home Medications Medication Instructions Recorded Confirmed Type Ezetimibe [Zetia] 10 mg PEG/G-TUBE HS@2100 11/18/17 03/12/18 History Levothyroxine Sodium [Synthroid] 137 mcg PEG/G-TUBE DAILY@0611/18/17 History Simvastatin [Zocor] 40 mg PEG/G-TUBE HS@209911/18/17 12/10/17 History Ipratropium-Albuterol Nebulize 3 ml INHALATION RT-QID PRN 12/03/17 12/10/17 Rx [Duoneb 0.5 mg-3 mg/3 ml Soln] ampul.neb Aspirin 81 mg PEG/G-TUBE HS@209912/10/17 12/10/17 History Bisacodyl [Dulcolax] 10 mg RECTAL DAILY PRN 12/10/17 12/10/17 History Fluconazole [Diflucan] 150 mg PEG/G-TUBE DAILY@0800 12/10/17 12/10/17 History Lactose-Reduced Food [Ensure Plus] 355.5 ml PEG/G-TUBE DAILY@1200 12/10/1712/10 History Lactose-Reduced Food [Ensure Plus] 474 ml PEG/G-TUBE BID@0600,1800 12/10/1709/17 History Magnesium Hydroxide [Milk of 7,200 mg PEG/G-TUBE DAILY PRN 12/10/17 12/10/17 History Magnesia Concentrate] Metoprolol Tartrate [Lopressor] 12.5 mg PEG/G-TUBE BID@0800,1700 12/10/17 History Na Phos,M-B/Na Phos,Di-Ba [Fleet 133 ml RECTAL ONCE PRN 12/10/17 12/10/17 History Adult] Nitroglycerin Sl Tabs [Nitrostat] 0.4 mg PEG/G-TUBE Q5M PRN 12/10/17 12/10/17 History Nystatin 100,000 Unit/ml Susp 500,000 unit PO QID@08,12,17,12/10/17 12/10/17 History [Mycostatin Oral Susp] Pantoprazole [Protonix] 40 mg PEG/G-TUBE DAILY@0600 12/10/17 12/10/17 History Saliva Stimulant Agents Comb.3 1 spray MUCOUS MEM BID@0800,1700 12/10/17 History [Biotene Moisturizing Mouth] Valsartan [Diovan] 80 mg PEG/G-TUBE HS@2100 12/10/17 12/10/17 History guaiFENesin SYRUP 100MG/5ML 200 mg PEG/G-TUBE Q6H PRN 12/10/17 12/10/17 History [Robitussin] predniSONE 6 mg PEG/G-TUBE HS@2100 12/10/17 12/10/17 History Allergies Allergy/AdvReac Type Severity Reaction Status Date / Time clidinium Allergy Unknown Verified 12/10/17 17:16 clonidine Allergy Unknown Verified 12/03/17 10:39 atorvastatin [From Lipitor] AdvReac Itching Verified 11/27/17 22:25 Surgical - Exam Osteopathic Statement: *. No significant issues noted on an osteopathic structural exam other than those noted in the History and Physical/Consult. Vital Signs Temp Pulse Resp BP Pulse Ox 98.1 F 99 16 114/68 96 12/10/17 16:58 12/10/17 16:58 12/10/17 16:58 12/10/17 16:58 12/10/17 16:58 - General Very frail looking and very weak. well developed, well nourished, no distress - Eyes normal ocular movement, no icteric - ENT no hearing loss, no congestion - Neck no masses, trachea midline - Respiratory normal expansion, normal respiratory effort, clear to auscultation - Cardiovascular Rhythm: regular - Abdomen Abdomen: soft, non tender, no guarding, no rigid, no rebound - Integumentary no rash, no abnormal pigmentation - Neurologic no disoriented, no combative - Musculoskeletal Patient is very weak and ambulate only with assistance - Psychiatric oriented to time, oriented to person, oriented to place, speech is normal, memory intact Results - Labs 12/14/17 06:54 12/14/17 06:54 Abnormal Lab Results - Last 24 Hours (Table) 12/13/17 12/14/17 12/14/17 Range/Units 14:21 06:54 06:54 RBC 3.37 L (4.30-5.90) m/uL Hgb 10.6 L (13.0-17.5) gm/dL Hct 33.4 L (39.0-53.0) % Lymphocytes # 0.5 L (1.0-4.8) k/uL Sodium 136 L (137-145) mmol/L Glucose 104 H (74-99) mg/dL Calcium 8.1 L (8.4-10.2) mg/dL Total Protein 5.1 L (6.3-8.2) g/dL Albumin 2.5 L (3.5-5.0) g/dL Lipase 452 H (23-300) U/L Urine Protein 1+ H (Negative) Urine Ketones 1+ H (Negative) Urine Mucus Rare H (None) /hpf Microbiology - Last 24 Hours (Table) 12/10/17 16:56 Blood Culture - Preliminary Blood No Growth after 72 hours Diabetes panel 12/14/17 Range/Units 06:54 Sodium 136 L (137-145) mmol/L Potassium 4.2 (3.5-5.1) mmol/L Chloride 101 (98-107) mmol/L Carbon Dioxide 29 (22-30) mmol/L BUN 16 (9-20) mg/dL Creatinine 0.87 (0.66-1.25) mg/dL Glucose 104 H (74-99) mg/dL Calcium 8.1 L (8.4-10.2) mg/dL AST 35 (17-59) U/L ALT 41 (21-72) U/L Alkaline Phosphatase 84 (38-126) U/L Total Protein 5.1 L (6.3-8.2) g/dL Albumin 2.5 L (3.5-5.0) g/dL Calcium panel 12/14/17 Range/Units 06:54 Calcium 8.1 L (8.4-10.2) mg/dL Albumin 2.5 L (3.5-5.0) g/dL Pituitary panel 12/14/17 Range/Units 06:54 Sodium 136 L (137-145) mmol/L Potassium 4.2 (3.5-5.1) mmol/L Chloride 101 (98-107) mmol/L Carbon Dioxide 29 (22-30) mmol/L BUN 16 (9-20) mg/dL Creatinine 0.87 (0.66-1.25) mg/dL Glucose 104 H (74-99) mg/dL Calcium 8.1 L (8.4-10.2) mg/dL Adrenal panel 12/14/17 Range/Units 06:54 Sodium 136 L (137-145) mmol/L Potassium 4.2 (3.5-5.1) mmol/L Chloride 101 (98-107) mmol/L Carbon Dioxide 29 (22-30) mmol/L BUN 16 (9-20) mg/dL Creatinine 0.87 (0.66-1.25) mg/dL Glucose 104 H (74-99) mg/dL Calcium 8.1 L (8.4-10.2) mg/dL Total Bilirubin 0.4 (0.2-1.3) mg/dL AST 35 (17-59) U/L ALT 41 (21-72) U/L Alkaline Phosphatase 84 (38-126) U/L Total Protein 5.1 L (6.3-8.2) g/dL Albumin 2.5 L (3.5-5.0) g/dL Assessment and Plan (1) Pseudoaneurysm of aorta Current Visit: Yes Status: Acute Code(s): I71.9 - AORTIC ANEURYSM OF UNSPECIFIED SITE, WITHOUT RUPTURE SNOMED Code(s): 10492202 Plan: The patient appears to have a pseudoaneurysm involving the neck of the aortobiiliac bypass graft. Complicating factors include his malnutrition and his generalized weakness especially. I discussed the case with Dr. Aaron. We discussed options with the patient and his daughter. We cannot with certainty determine whether this is a very fresh or a chronic pseudoaneurysm. We discussed the relative options of early repair versus allowing him to recuperate bit and getting a repair sometime in the future. At this point we will get a CT angios of the aorta, since his renal function appears to have improved. We will probably try to obtain a repair with a sleeve endograft at the earliest opportunity. The patient and his family are considering options.
--- NOTE | 2017-12-14 14:32 | CDI ---
Last Revision, August 2017 Documentation Clarification Form Date: 12/14/2017 From: Josefina Noguera Admit Date: 12/10/2017 10:06:00 PM Patient Name: Mason Weaver Visit Number: [id number] Discharge Date: ATTENTION: The Clinical Documentation Specialists (CDI) and [facility] Coding Staff appreciate your assistance in clarifying documentation. Please respond to the clarification below the line at the bottom and electronically sign. The CDI & [facility] Coding staff will review the response and follow-up if needed. Please note: Queries are made part of the Legal Health Record. If you have any questions, please contact the author of this message via ITS. Dr. Deepa Rios: 77 yo male, admitted with acute pancreatitis. Per the nephrology consult: "History of renal failure and chronic kidney disease , being followed at [facility]. The patient has biopsy-proven focal segmental glomerulosclerosis. He is a maintained on prednisone, however, it is a very low dose at 6 mg down the feeding tube." History/Risk Factors: AAA status post bypass, Recent Influenza B, Hyperlipidemia. Has PEG tube. Clinical Indicators: Current BUN/CR/GFR: 16 / 0.87 / 83 Patients Baseline: Creatinine 1.34 Treatment: IV fl 75, IV fluid bolus x1, IV Narcan, IV fl 50, Albuterol INH, Nitro sl. In order to capture the severity of condition, please clarify if the condition signifies: CKD Stage 1 (GFR > 90) CKD Stage 2 (GFR 60-89) CKD Stage 3 (GFR 30-59) CKD Stage 4 (GFR 15-29) CKD Stage 5 (GFR <15) ESRD Other, please specify Unable to determine Please continue to document in your progress notes and discharge summary in order to capture severity of illness and risk of mortality. Include clinical findings that support your diagnosis. MTDD
--- NOTE | 2017-12-14 15:10 | CT ---
EXAMINATION TYPE: CT angio abdomen pelvis DATE OF EXAM: 12/14/2017 COMPARISON: NONE HISTORY: Pseudoaneurysm of the abdominal aorta CT DLP: 1048.6 mGycm Automated exposure control for dose reduction was used. CONTRAST: Performed with IV Contrast, patient injected with 100 mL of Omnipaque 350. Standard CTA of the abdome n and pelvis was performed. 3-D reformats the vasculature were performed at a separate workstation. FINDINGS: Lung bases: Subpleural reticulation and honeycombing relates underlying interstitial fibrosis. Right basilar opacity is wedge-shaped and enhances greater than the paraspinal musculature favored to repre sent atelectasis containing air bronchograms. Other areas of scattered bibasilar subsegmental atelect asis are seen with a trace left pleural effusion. The visualized portion of the thoracic aorta is of normal caliber. Heart is not enlarged. Vasculature: The abdominal aorta demonstrates an infrarenal abdominal aortic aneurysm containing an e ndograft. There is no evidence of endoleak. The stebbins lumen distal to the aortoiliac bifurcation nubia sures 6.4 cm in anterior posterior dimension, stable from the prior of 12/12/2017. this also measures up to 7.9 cm in transverse dimension on series 7 image 55. Annual caudal dimension is 7.0 cm on seri es 18 image 28. The left common iliac artery after it exits the aneurysm measures 1.8 cm and is ectat ic and the right common iliac artery is within normal limits measuring 9 mm. There is moderate calcif ic atheromatous plaquing of the abdominal aorta and its branches. Femoral aneurysm as are also seen w ith the left measuring 2.5 cm on the right measuring 2.0 cm. Liver: The liver is displaced posteriorly secondary to interposition of the colon. The hepatic flexur e contains multiple diverticula. No surrounding inflammatory fat stranding. Gallbladder is unremarkab le. Liver enhances homogeneously. Spleen: The spleen is small in size but unremarkable. Pancreas: Pancreas is unremarkable enhancement without ductal dilatation. Adrenal glands: No nodularity or thickening. Kidneys: There is redemonstration of a 4.1 cm left lower pole exophytic renal cyst and an upper pole 1 cm renal cyst. Otherwise the kidneys enhance symmetrically and excrete symmetrically without hydron ephrosis. Bowel: The distal colon is dilated up to 7.1 cm secondary to a large rectal fecal ball. No proximal o bstruction is seen. Urinary bladder: Unremarkable. Osseous structures: There is an unchanged wedge compression deformity of L1 and severe multilevel deg enerative disc disease of the visualized thoracic lumbar spine with mild retrolisthesis of L2 on L3 a nd superior endplate height loss of L4. There is a slight dextro scoliotic curvature of the lumbar sp ine. IMPRESSION: 1. INFRARENAL ABDOMINAL AORTIC ANEURYSM WITH INTRALUMINAL AORTOILIAC ENDOGRAFT AND NO CURRENT EVIDENC E OF ENDOLEAK. INFRARENAL ABDOMINAL AORTIC ANEURYSM MEASURES 8.4 X 7.9 X 7.0 CM. 2. 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 3. FINDINGS COMPATIBLE WITH PULMONARY FIBROSIS AND BIBASILAR ATELECTASIS WITH TRACE LEFT PLEURAL EFFU REESE. 4. DISTAL COLONIC DILATATION SECONDARY TO 7.1 CM RECTAL FECAL BALL IN RECTAL IMPACTION. NO PROXIMAL O BSTRUCTION.
--- NOTE | 2017-12-14 19:28 | PN ---
PROGRESS NOTE DATE OF SERVICE: 12/14/2017 I am covering for Dr. Ferris. This 77-year-old gentleman admitted with abdominal pain, acute pancreatitis, also had change in mental status. CT scan showed features of apparent enlarging abdominal aortic aneurysm and Dr. Vazquez has seen the patient and reviewed the case extensively. Repeat CAT scan with IV contrast has been ordered which showed no active endovascular leak. However, evaluation by Vascular Surgery and consideration for possible mesh placement was recommended Dr. Vazquez. The patient is closely monitored at this time. PAST MEDICAL HISTORY: Reviewed. REVIEW OF SYSTEMS: CARDIOVASCULAR: No angina. RESPIRATORY: As mentioned. GI: As mentioned earlier. : No dysuria. NERVOUS SYSTEM: No numbness or weakness. CURRENT MEDICATIONS: Reviewed and include: 1. DuoNeb q.i.d. and p.r.n. 2. Aspirin 81 mg per PEG. 3. Dulcolax 10 mg daily. 4. Zetia 10 mg. 5. Diflucan 150 mg daily. 6. Lopressor 12.5 mg b.i.d. 7. Narcan. 8. Zocor 40 mg. 9. Synthroid. 10.Mycostatin. 11.Protonix. 12.Prednisone. 13.Diovan. PHYSICAL EXAM: Patient is alert, oriented x3. Pulse 104, blood pressure 120/78, respirations 18 , temperature 97.2, pulse ox 98% on room air. HEENT: Conjunctivae normal. Oral mucosa moist. NECK: No jugular venous distention. No carotid bruit. No lymph node enlargement. CARDIOVASCULAR: S1, S2. RESPIRATORY: Breath sounds diminished in the bases. A few scattered rhonchi and crackles. ABDOMEN: Soft, PEG tube in situ. LEGS: No edema, no cyanosis. NERVOUS SYSTEM: Diffusely weak. LABS: WBC 7.2, hemoglobin 10.6. Other labs are noted. ASSESSMENT: 1. Acute pancreatitis, abdominal pain, present on admission. 2. Abdominal aortic aneurysm with stent from 4.4 cm in 2015 to 6.4 cm, endovascular leak unlikely. 3. Change in mental status with acute metabolic encephalopathy, multifactorial. 4. Recent influenza B. 5. Gait dysfunction. 6. Status post PEG tube placement. 7. Increased AST and ALT. 8. Anemia, normocytic anemia of chronic disease. 9. Hyperlipidemia. 10.Hypothyroidism. 11.History of tonsillectomy. 12.History of abdominal aortic aneurysm and stenting. 13.FULL CODE. RECOMMENDATIONS AND DISCUSSION: I recommend to continue current management and symptomatic treatment at this time. Closely follow with Dr. Vazquez. Continue the rest of medications. PEG tube feeds, repeat labs. Prognosis guarded because of multiple complex medical issues. Urine has only 1+ proteinuria. Further recommendations to follow. MMODL / IJN: [id number] / MTDD
--- NOTE | 2017-12-14 19:34 | PN ---
PROGRESS NOTE Patient is seen for followup for FSGS. Currently well controlled. Maintained on low- dose prednisone. Patient's creatinine has been 0.8 mg/dL. However, he was noted to have an enlarging aortic aneurysm which is now at 6 cm when previously it had been around 4 cm. The patient has had aneurysm resections and aortobiiliac bypass previously. A CT angiogram was performed this morning. EXAMINATION: Patient is currently comfortable, awake. He is not in any acute distress. Blood pressure is 123/78, heart rate 104 per minute. He is afebrile. Examination of the heart: S1, S2. Examination lungs: Bilateral breath sounds are heard. Abdomen is soft, nontender. Examination lower extremities shows no evidence of edema. SUBEDITOR exam is grossly intact. Patient moving all 4 extremities. LAB: Show sodium 136, potassium 4.2, serum creatinine 0.87, hemoglobin 10.6 g/dL. ASSESSMENT: 1. Chronic kidney disease, focal segmental glomerulosclerosis, NKF stage I currently maintained on low-dose prednisone, being followed at [facility]. 2. Intravascular volume depletion, maintained on IV fluids at 50 mL an hour. 3. Acute pancreatitis, currently improving. Patient has restarted the tube feedings. 4. Hypertension, maintained on Diovan which we can continue. PLAN: Repeat labs in a.m. Continue fluids at 50 mL an hour. Continue with the angiotensin receptor blockers for now. Monitor for volume overload. MMODL / IJN: [id number] /
[2017-12-14] MEDS: predniSONE 1 MG TAB PEG/G-TUBE SCH (21:38)
[2017-12-14] MEDS: ASPIRIN 81 MG PEG/G-TUBE SCH (21:38)
[2017-12-14] MEDS: EZETIMIBE 10 MG TAB PEG/G-TUBE SCH (21:38)
[2017-12-14] MEDS: VALSARTAN 80 MG TAB PEG/G-TUBE SCH (21:38)
[2017-12-14] MEDS: ZOCOR 40 MG PEG/G-TUBE SCH (21:38)
[2017-12-15] MEDS: SODIUM CHLORIDE 0.9% 1,000 ML IV SCH (04:19)
[2017-12-15] MEDS: SYNTHROID 137 MCG PO SCH (06:27)
[2017-12-15 07:40] LABS: Basophils % (A) 0 %; Eosinophils # (A) 0.1 k/uL (0-0.7); Eosinophils % (A) 1 %; HCT 31.8 % (39.0-53.0); HGB 10.3 gm/dL (13.0-17.5); Lymphocytes # (A) 0.6 k/uL (1.0-4.8); Lymphocytes % (A) 8 %; MCH 31.6 pg (25.0-35.0); MCHC 32.4 g/dL (31.0-37.0); MCV 97.5 fL (80.0-100.0); Mean Platelet Volume 7.2; Monocytes # (A) 0.6 k/uL (0-1.0); Monocytes % (A) 7 %; Neutrophils # (A) 6.6 k/uL (1.3-7.7); Neutrophils % (A) 82 %; Platelet Count 382 k/uL (150-450); RBC 3.26 m/uL (4.30-5.90); RDW 15.1 % (11.5-15.5); WBC 8.1 k/uL (3.8-10.6)
[2017-12-15 08:12] LABS: ALT 38 U/L (21-72); AST 33 U/L (17-59); Albumin 2.3 g/dL (3.5-5.0); Alkaline Phosphatase 76 U/L (38-126); Amylase 115 U/L (30-110); Anion Gap 6 mmol/L; Blood Urea Nitrogen 19 mg/dL (9-20); Carbon Dioxide 28 mmol/L (22-30); Chloride 102 mmol/L (98-107); Glucose 112 mg/dL (74-99); Lipase 595 U/L (23-300); Sodium 136 mmol/L (137-145); Total Bilirubin 0.2 mg/dL (0.2-1.3); Total Protein 4.9 g/dL (6.3-8.2)
[2017-12-15] MEDS: FLUCONAZOLE 150 MG TAB PEG/G-TUBE SCH (09:45)
[2017-12-15] MEDS: PANTOPRAZOLE 40 MG/10 ML VIAL IVP SCH (09:46)
[2017-12-15] MEDS: DRY MOUTH SPRAY 44.3 SPRAY/44.3 ML SPRAY MUCOUS MEM SCH ×2 (09:46→17:41)
[2017-12-15] MEDS: METOPROLOL TARTRATE 12.5 MG TAB PEG/G-TUBE SCH ×2 (09:46→17:41)
[2017-12-15] MEDS: NYSTATIN 100,000 UNIT/ML SUSP 500,000 UNIT/5 ML CUP PO SCH ×4 (09:46→22:55)
[2017-12-15 11:03] LABS: Prothrombin Time 10.2 sec (9.0-12.0)
[2017-12-15 11:04] LABS: Partial Thromboplastin Time 24.5 sec (22.0-30.0)
--- NOTE | 2017-12-15 12:46 | XR ---
EXAMINATION TYPE: XR chest 1V portable DATE OF EXAM: 12/15/2017 HISTORY: r/o aspiration. REFERENCE: Previous study dated 12/12/2017. FINDINGS: There is colonic interposition in place on the right. There is chronic apparent elevation r ight hemidiaphragm. There is vascular congestion and interstitial change. I suspect a left effusion. There is increased opacity behind the left heart. IMPRESSION: 1. FINDINGS CONSISTENT WITH CONGESTIVE HEART FAILURE. 2. LEFT BASILAR AIRSPACE DISEASE. 3. I SUSPECT A SMALL, LEFT EFFUSION.
--- NOTE | 2017-12-15 17:14 | PN ---
PROGRESS NOTE DATE OF SERVICE: 12/15/2017. This 77-year-old gentleman admitted with acute pancreatitis, also had abdominal aortic aneurysm. Vascular surgery evaluation is in progress at this time. The patient also had change in mental status. Patient also with influenza B, but currently sensorium is improving at this time. Patient is being closely monitored. The most recent chest x- ray done today showed some CHF, small left pleural effusion also suspected. The patient's creatinine is normal at this time. A 2D echo with Doppler which was done last month showed ejection fraction about 50%-60% and multiple valvular abnormalities. The patient is being closely monitored. PAST MEDICAL HISTORY: Reviewed. REVIEW OF SYSTEMS: CARDIOVASCULAR: As mentioned earlier. RESPIRATORY: As mentioned earlier. GI: As mentioned earlier. : No dysuria. NERVOUS: No numbness or weakness. CURRENT MEDICATIONS: Reviewed, include: 1. DuoNeb q.i.d. and p.r.n. 2. Aspirin 81 mg daily. 3. Dulcolax 10 mg daily. 4. Zetia 10 mg per PEG. 5. Diflucan. 6. Lopressor. 7. Narcan. 8. Zocor. 9. Mycostatin. 10.Protonix. 11.Multivitamin. 12.Diovan. PHYSICAL EXAM: Patient is alert, oriented x2. Pulse is 89, blood pressure 119/80, respirations 18, temperature 97.4, pulse ox 98% on room air. HEENT: Conjunctivae normal. Oral mucosa moist. NECK: No jugular venous distention. No carotid bruits. No lymph node enlargement. CARDIOVASCULAR: S1, S2 muffled. RESPIRATORY: Breath sounds diminished in the bases. A few scattered rhonchi and no crackles. ABDOMEN: Soft, status post PEG tube. No mass palpable. LEGS: No edema. No swelling. NERVOUS SYSTEM: Diffusely weak. LABS: WBC 8, hemoglobin 10.3. Sodium 136. Amylase is 715, lipase is 595. ASSESSMENT: 1. Acute pancreatitis, abdominal pain, present on admission. 2. Abdominal aortic aneurysm with a stent with 4.4 cm in 2014 to 6.4 cm, active endovascular leak unlikely per Vascular. 3. Congestive heart failure, possible acute on chronic diastolic dysfunction, ejection fraction 55%-60%. 4. Change in mental status, acute metabolic encephalopathy, multifactorial. 5. Recent influenza B. 6. Gait dysfunction. 7. Status post PEG tube placement. 8. Increased AST, ALT. 9. Anemia, normocytic anemia of chronic disease. 10.Hyperlipidemia. 11.Hypothyroidism. 12.History of tonsillectomy. 13.History of abdominal aortic aneurysm and stenting. 14.FULL CODE. RECOMMENDATIONS AND DISCUSSION: I recommend to continue current medical management and symptomatic treatment, continue to monitor . Chest x-ray reviewed. I would recommend a small dose of Lasix and continue the daily weights and strict intake, output charting, also. Otherwise, guarded prognosis with multiple complex medical issues. Further recommendations to follow. Discussed with the family at length. See orders for further details. MMODL / IJN: [id number] / INGRID
[2017-12-15] MEDS: FUROSEMIDE 10 MG/ML 2 ML VIAL IV SCH (17:42)
[2017-12-15] MEDS: VALSARTAN 80 MG TAB PEG/G-TUBE SCH (22:09)
[2017-12-15] MEDS: ZOCOR 40 MG PEG/G-TUBE SCH (22:09)
[2017-12-15] MEDS: EZETIMIBE 10 MG TAB PEG/G-TUBE SCH (22:09)
[2017-12-15] MEDS: ASPIRIN 81 MG PEG/G-TUBE SCH (22:09)
[2017-12-15] MEDS: predniSONE 1 MG TAB PEG/G-TUBE SCH (22:09)
[2017-12-16] MEDS ORDERED: QUEtiapine 25 MG TAB PO STA (01:13)
[2017-12-16] MEDS: SYNTHROID 137 MCG PO SCH (06:10)
[2017-12-16 08:11] LABS: Basophils % (A) 0 %; Eosinophils # (A) 0.2 k/uL (0-0.7); Eosinophils % (A) 2 %; HCT 31.7 % (39.0-53.0); HGB 9.9 gm/dL (13.0-17.5); Hypochromasia Slight; Lymphocytes # (A) 0.6 k/uL (1.0-4.8); Lymphocytes % (A) 9 %; MCH 30.7 pg (25.0-35.0); MCHC 31.1 g/dL (31.0-37.0); MCV 98.8 fL (80.0-100.0); Macrocytosis Slight; Mean Platelet Volume 7.4; Monocytes # (A) 0.4 k/uL (0-1.0); Monocytes % (A) 6 %; Neutrophils # (A) 5.6 k/uL (1.3-7.7); Neutrophils % (A) 82 %; Platelet Count 364 k/uL (150-450); RBC 3.21 m/uL (4.30-5.90); RDW 15.1 % (11.5-15.5); WBC 6.8 k/uL (3.8-10.6)
[2017-12-16 08:30] LABS: ALT 35 U/L (21-72); AST 30 U/L (17-59); Albumin 2.4 g/dL (3.5-5.0); Alkaline Phosphatase 75 U/L (38-126); Amylase 108 U/L (30-110); Anion Gap 3 mmol/L; Blood Urea Nitrogen 17 mg/dL (9-20); Calcium 8.3 mg/dL (8.4-10.2); Carbon Dioxide 31 mmol/L (22-30); Chloride 101 mmol/L (98-107); Glucose 122 mg/dL (74-99); Lipase 538 U/L (23-300); Potassium 3.7 mmol/L (3.5-5.1); Sodium 135 mmol/L (137-145); Total Bilirubin 0.2 mg/dL (0.2-1.3)
--- NOTE | 2017-12-16 09:38 | XR ---
EXAMINATION TYPE: XR chest 1V portable DATE OF EXAM: 12/16/2017 HISTORY: chf. REFERENCE: Previous study dated 12/15/2017. FINDINGS: There is colonic interposition in place on the right. There is left basilar airspace disease, unchanged from previous. I suspect a small left effusion. The heart does not appear enlarged. There is interstitial change. Pulmonary vasculature is normal. IMPRESSION: PERSISTENT INTERSTITIAL CHANGE MAY REPRESENT PULMONARY EDEMA OR INTERSTITIAL LUNG DISEASE . 2. CONTINUING LEFT BASILAR AIRSPACE DISEASE. 3. SMALL LEFT EFFUSION.
[2017-12-16] MEDS: FLUCONAZOLE 150 MG TAB PEG/G-TUBE SCH (10:42)
[2017-12-16] MEDS: NYSTATIN 100,000 UNIT/ML SUSP 500,000 UNIT/5 ML CUP PO SCH ×4 (10:42→20:15)
[2017-12-16] MEDS: METOPROLOL TARTRATE 12.5 MG TAB PEG/G-TUBE SCH ×2 (10:42→17:20)
[2017-12-16] MEDS: PANTOPRAZOLE 40 MG/10 ML VIAL IVP SCH (10:42)
[2017-12-16] MEDS: DRY MOUTH SPRAY 44.3 SPRAY/44.3 ML SPRAY MUCOUS MEM SCH ×2 (10:43→17:21)
[2017-12-16] MEDS: FUROSEMIDE 10 MG/ML 2 ML VIAL IV SCH (10:55)
[2017-12-16] MEDS: QUEtiapine 25 MG TAB PO SCH (20:14)
[2017-12-16] MEDS: predniSONE 1 MG TAB PEG/G-TUBE SCH (20:14)
[2017-12-16] MEDS: EZETIMIBE 10 MG TAB PEG/G-TUBE SCH (20:14)
[2017-12-16] MEDS: ASPIRIN 81 MG PEG/G-TUBE SCH (20:15)
[2017-12-16] MEDS: ZOCOR 40 MG PEG/G-TUBE SCH (20:25)
[2017-12-16] MEDS: VALSARTAN 80 MG TAB PEG/G-TUBE SCH (20:25)
--- NOTE | 2017-12-16 21:18 | PN ---
PROGRESS NOTE DATE OF SERVICE: 12/16/2017. I am covering for Dr. Ferris. HISTORY OF PRESENT ILLNESS: This 77-year-old gentleman who was admitted with pancreatitis, also had abdominal aortic aneurysm stent with possible endovascular leak also. There is no active leak per vascular surgery. Their evaluation is ongoing. The pancreatic enzymes are slightly elevated. Sensorium is improved significantly. No chest pain. No palpitations. No shortness of breath. Hemoglobin stable. PHYSICAL EXAM: Alert, oriented x2. Pulse 89, blood pressure 120/72, respirations 16, temperature 98.4, pulse ox 98% room air. HEENT: Conjunctivae normal. NECK: Supple. CARDIOVASCULAR: S1 and S2 muffled. LUNGS: Breath sounds diminished at the bases. A few scattered rhonchi. No crackles. ABDOMEN: Soft, nontender. No mass palpable. PEG tube in situ. Tube feeds ongoing. EXTREMITIES: No edema, no cyanosis. NERVOUS SYSTEM: Diffusely weak. LAB STUDIES: WBC 6.8, hemoglobin 9.9, sodium 135, lipase is 538. ASSESSMENT: 1. Acute pancreatitis with abdominal pain, present on admission. 2. Abdominal aortic aneurysm with stent with 4.4 cm in 2015 and 6.4 cm but overactive. Endovascular leak unlikely per vascular. 3. Congestive heart failure with possible acute on chronic diastolic dysfunction, ejection fraction 50% to 60%. 4. Change in mental, status acute metabolic encephalopathy multifactorial. 5. Recent influenza B. 6. Gait dysfunction. 7. Status post PEG tube placement. 8. Increased AST and ALT. 9. Anemia normocytic, anemia of chronic disease. 10.Hyperlipidemia. 11.Hypothyroidism. 12.History of tonsillectomy. 13.History of abdominal aortic aneurysm with stent. 14.FULL CODE. RECOMMENDATIONS: Continue current medications and symptomatic treatment. Otherwise at this time we will monitor the patient closely. Closely follow with vascular surgery. Continue the rest of medications. Discussed with family and Dr. Ferris will follow. MMODL / IJN: [id number] /
--- NOTE | 2017-12-16 22:16 | P.PN ---
Subjective Progress Note Date: 12/15/17 Principal diagnosis: Acute pancreatitis The patient appears to be more alert and and less distress according to his family. He is not having any abdominal symptoms or vomiting. Objective - Vital Signs Vital signs: Vital Signs Temp 97.4 F L 12/15/17 14:46 Pulse 89 12/15/17 14:46 Resp 18 12/15/17 14:46 BP 119/80 12/15/17 14:46 Pulse Ox 93 L 12/15/17 14:46 Intake & Output 12/14/17 12/15/17 12/15/17 18:59 06:59 18:59 Intake Total 120 700 Output Total 1 Balance 119 700 Weight 62.5 kg 63 kg Intake: Intake, IV Titration 250 Amount Sodium Chloride 0.9% 1, 250 000 ml @ 50 mls/hr IV . Q20H [facility] Rx#:[id number] Tube Feeding 120 450 Output: Urine 1 Other: Voiding Method Diaper Urinal Urinal Incontinent Diaper Diaper Incontinent Incontinent # Voids 1 1 1 # Bowel Movements 2 - Exam General: Appears stated age, very pleasant in no acute distress Head and neck: Normocephalic and atraumatic, conjunctivae pink and sclerae not icteric, mucous membranes moist and pink. No masses in the neck or tracheal shifts Lungs: Scattered and respiratory rhonchi, no dullness to percussion Heart: Regular, no abnormal sounds, murmurs, gallops or friction rubs Abdomen: Soft, no masses or organomegalies. No tenderness or guarding. Bowel sounds present. PEG tube site not infected Extremities: No clubbing, cyanosis or edema Neurologic: Alert and oriented. Cranial nerves grossly intact. No gross sensory or motor abnormalities - Labs CBC & Chem 7: 12/16/17 07:20 12/16/17 07:20 Labs: Abnormal Lab Results - Last 24 Hours (Table) 12/15/17 12/15/17 Range/Units 06:30 06:30 RBC 3.26 L (4.30-5.90) m/uL Hgb 10.3 L (13.0-17.5) gm/dL Hct 31.8 L (39.0-53.0) % Lymphocytes # 0.6 L (1.0-4.8) k/uL Sodium 136 L (137-145) mmol/L Glucose 112 H (74-99) mg/dL Calcium 8.0 L (8.4-10.2) mg/dL Total Protein 4.9 L (6.3-8.2) g/dL Albumin 2.3 L (3.5-5.0) g/dL Amylase 115 H (30-110) U/L Lipase 595 H (23-300) U/L Microbiology - Last 24 Hours (Table) 12/10/17 16:56 Blood Culture - Preliminary Blood No Growth after 96 hours Assessment and Plan Assessment: Acute pancreatitis with no obvious etiology with gradual improvement in his amylase. CT of the abdomen not showing any discrete masses. Plan: Agree with your current management. Will monitor closely his overall mental status, clinical condition and his pancreas enzymes. Further plans based on his course.
[2017-12-17] MEDS: SYNTHROID 137 MCG PO SCH (06:07)
[2017-12-17] MEDS: DRY MOUTH SPRAY 44.3 SPRAY/44.3 ML SPRAY MUCOUS MEM SCH ×2 (08:16→17:55)
[2017-12-17] MEDS: FLUCONAZOLE 150 MG TAB PEG/G-TUBE SCH (08:16)
[2017-12-17] MEDS: METOPROLOL TARTRATE 12.5 MG TAB PEG/G-TUBE SCH ×2 (08:17→18:03)
[2017-12-17] MEDS: NYSTATIN 100,000 UNIT/ML SUSP 500,000 UNIT/5 ML CUP PO SCH ×4 (08:17→21:15)
[2017-12-17] MEDS: PANTOPRAZOLE 40 MG/10 ML VIAL IVP SCH (08:17)
[2017-12-17 08:29] LABS: Basophils % (A) 0 %; Eosinophils # (A) 0.2 k/uL (0-0.7); Eosinophils % (A) 2 %; HCT 34.2 % (39.0-53.0); HGB 11.1 gm/dL (13.0-17.5); Lymphocytes # (A) 0.8 k/uL (1.0-4.8); Lymphocytes % (A) 10 %; MCH 31.7 pg (25.0-35.0); MCHC 32.3 g/dL (31.0-37.0); MCV 98.2 fL (80.0-100.0); Macrocytosis Slight; Mean Platelet Volume 7.1; Monocytes # (A) 0.5 k/uL (0-1.0); Monocytes % (A) 7 %; Neutrophils # (A) 6.2 k/uL (1.3-7.7); Neutrophils % (A) 80 %; Platelet Count 403 k/uL (150-450); RBC 3.49 m/uL (4.30-5.90); RDW 15.3 % (11.5-15.5); WBC 7.8 k/uL (3.8-10.6)
[2017-12-17 09:01] LABS: ALT 34 U/L (21-72); AST 32 U/L (17-59); Albumin 2.6 g/dL (3.5-5.0); Alkaline Phosphatase 80 U/L (38-126); Amylase 121 U/L (30-110); Anion Gap 6 mmol/L; Blood Urea Nitrogen 26 mg/dL (9-20); Calcium 8.5 mg/dL (8.4-10.2); Carbon Dioxide 32 mmol/L (22-30); Chloride 99 mmol/L (98-107); Glucose 102 mg/dL (74-99); Lipase 530 U/L (23-300); Sodium 137 mmol/L (137-145); Total Bilirubin 0.1 mg/dL (0.2-1.3); Total Protein 5.3 g/dL (6.3-8.2)
--- NOTE | 2017-12-17 12:41 | P.PN ---
Subjective Progress Note Date: 12/17/17 Patient seen and examined at the bedside on rounds with Dr. Ferris. Patient has awake and alert. Patient was evaluated by vascular surgery for increasing aortic aneurysm. Patient's is at the bedside who states that Dr. Vazquez told her another vascular surgeon was going to come tomorrow to evaluate the patient. Patient states he does not want any type of surgery performed. Patients states although it is ultimately the patient's decision they would like to hear all available options. Pancreatic enzymes remain elevated. Amylase 121. Lipase 530. No further interventions planned per GI documentation. Patient is tolerating tube feeding. Denies nausea or vomiting. Patient was reevaluated by speech therapy today and was able to take a small amount of applesauce per . Discharge planning includes [facility]. Possible discharge to [facility] tomorrow if no further intervention is planned. Objective - Vital Signs Vital signs: Vital Signs Temp 98.2 F 12/17/17 07:00 Pulse 112 H 12/17/17 07:00 Resp 18 12/17/17 07:00 BP 125/84 12/17/17 07:00 Pulse Ox 93 L 12/17/17 07:00 Intake & Output 12/16/17 12/17/17 12/17/17 18:59 06:59 18:59 Intake Total 765 570 440 Balance 765 570 440 Weight 61 kg Intake: Tube Feeding 765 570 440 Other: Voiding Method Urinal Diaper Diaper Incontinent Incontinent # Voids 1 # Bowel Movements 1 - Exam GENERAL: This is a 77-year-old male in no apparent distress at the time of examination. Pleasant and cooperative. HEENT: Poor oral care noted. Head is atraumatic, normocephalic. Pupils are equal , round, and reactive to light. Sclerae anicteric. Conjunctivae are clear. Mucus membranes of the mouth are dry. Neck is supple. RESPIRATORY: Clear to ausculation. No wheezes, rales, or rhonchi. No use of accessory muscles. Patient maintaining oxygen saturation greater than 92%. No chest wall tenderness is noted on palpation or with deep breathing. CARDIOVASCULAR: Regular rate and rhythm. S1 and S2 noted. No JVD noted. No S3 or S4 noted. GASTROINTESTINAL: PEG tube noted. No distention noted. Abdomen soft and round. Bowel sounds auscultated x 4 quadrants. No pain or tenderness noted upon palpation. INTEGUMENTARY: No cyanosis. No jaundice. No rashes noted. No cellulitis noted. EXTREMITIES: 1+ peripheral pulses. No evidence of peripheral edema. No calf tenderness noted. NEUROLOGIC: Speech slow. Cranial nerves II-XII intact. PSYCHIATRIC: Awake, alert, and oriented X 2-3. Appropriate affect. Intact judgement and insight. - Labs CBC & Chem 7: 12/17/17 07:03 12/17/17 07:03 Labs: Abnormal Lab Results - Last 24 Hours (Table) 12/17/17 12/17/17 Range/Units 07:03 07:03 RBC 3.49 L (4.30-5.90) m/uL Hgb 11.1 L (13.0-17.5) gm/dL Hct 34.2 L (39.0-53.0) % Lymphocytes # 0.8 L (1.0-4.8) k/uL Carbon Dioxide 32 H (22-30) mmol/L BUN 26 H (9-20) mg/dL Glucose 102 H (74-99) mg/dL Total Bilirubin 0.1 L (0.2-1.3) mg/dL Total Protein 5.3 L (6.3-8.2) g/dL Albumin 2.6 L (3.5-5.0) g/dL Amylase 121 H (30-110) U/L Lipase 530 H (23-300) U/L Microbiology - Last 24 Hours (Table) 12/10/17 16:56 Blood Culture - Final Blood No Growth after 144 hours Assessment and Plan Plan: ASSESSMENT: Acute pancreatitis, non-alcohol related, present on admission, amylase 207/ lipase 1008, improving Abdominal aortic aneurysm with stent at 4.4cm 2014, now showing 6.4 cm, endovascular leak, likely per vascular Recent hospitalization secondary to acute influenza B Dysphasia with severe protein calorie malnutrition, status post PEG tube insertion Chronic diastolic congestive heart failure, ejection fraction 50-60% Acute metabolic encephalopathy, multifactorial, resolved Elevated troponins, trending downward from previous admission, secondary to oxygen supply and demand mismatch/type II CT from influenza B infection FSGS, patient follows up every 6 months at [facility], and is maintained on daily low-dose steroids Hyperlipidemia Mild hyponatremia, resolved Gait dysfunction Hypothyroidism Anemia of chronic disease PLAN: Per , patient is to be evaluated by a different vascular surgeon tomorrow. Await further recommendations GI on consult. Appreciate recommendations and input Monitor amylase and lipase. Repeat in a.m. Home meds as appropriate Monitor labs. Repeat in a.m. GI prophylaxis: Protonix 40 mg IV Daily DVT prophylaxis: Venodyne's to bilateral lower extremities Monitor vital signs and address as appropriate Further recommendations pending patient's course Possible discharge to [facility] tomorrow if no further interventions are planned per consulting providers Nurse practitioner note has been reviewed by physician. Signing provider agrees with the documented findings, assessment, and plan of care.
[2017-12-17 14:17] VITALS: BMI 21.0
[2017-12-17 16:02] LABS: T4, Free (Free Thyroxine) 0.97 ng/dL (0.78-2.19)
[2017-12-17] MEDS: QUEtiapine 25 MG TAB PO SCH (21:12)
[2017-12-17] MEDS: ASPIRIN 81 MG PEG/G-TUBE SCH (21:16)
[2017-12-17] MEDS: predniSONE 1 MG TAB PEG/G-TUBE SCH (21:16)
[2017-12-17] MEDS: ZOCOR 40 MG PEG/G-TUBE SCH (21:16)
[2017-12-17] MEDS: EZETIMIBE 10 MG TAB PEG/G-TUBE SCH (21:16)
[2017-12-17] MEDS: VALSARTAN 80 MG TAB PEG/G-TUBE SCH (22:31)
--- NOTE | 2017-12-17 23:07 | PN ---
PROGRESS NOTE Patient is seen for followup for CKD secondary to FSGS, maintained on small dose of steroids with preserved GFR and trace proteinuria noted on UA. Currently patient is comfortable. He is maintained on tube feedings. He is off of IV fluids. On examination, patient is awake. Blood pressure was 125/84, heart rate 112 per minute. He is afebrile. EXAMINATION OF THE HEART: S1, S2. EXAMINATION OF LUNGS: Decreased breath sounds at bases. ABDOMEN: Soft, non-tender. Examination of lower extremities shows no significant edema. STUDIO MANAGER exam is grossly intact. Labs show sodium 137, potassium 4.0, BUN 26, serum creatinine 0.9, hemoglobin 11.1 g/dL. ASSESSMENT: 1. 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 2. Status post IV contrast for CT angiogram on 12/14, currently stable. 3. Intravascular volume depletion on initial admission, currently status post IV fluids. 4. Acute pancreatitis, improved from admission. PLAN: No changes from nephrology standpoint. Continue with the prednisone. MMODL / IJN: [id number] /
[2017-12-18] MEDS: SYNTHROID 137 MCG PO SCH (05:55)
[2017-12-18 07:33] LABS: Basophils % (A) 0 %; Eosinophils # (A) 0.1 k/uL (0-0.7); Eosinophils % (A) 1 %; HCT 32.5 % (39.0-53.0); HGB 10.5 gm/dL (13.0-17.5); Lymphocytes # (A) 0.6 k/uL (1.0-4.8); Lymphocytes % (A) 8 %; MCH 31.8 pg (25.0-35.0); MCHC 32.4 g/dL (31.0-37.0); MCV 98.3 fL (80.0-100.0); Macrocytosis Slight; Mean Platelet Volume 7.1; Monocytes # (A) 0.5 k/uL (0-1.0); Monocytes % (A) 6 %; Neutrophils # (A) 6.4 k/uL (1.3-7.7); Neutrophils % (A) 83 %; Platelet Count 385 k/uL (150-450); RBC 3.31 m/uL (4.30-5.90); RDW 15.3 % (11.5-15.5); WBC 7.8 k/uL (3.8-10.6)
[2017-12-18 07:58] LABS: ALT 38 U/L (21-72); AST 38 U/L (17-59); Albumin 2.4 g/dL (3.5-5.0); Alkaline Phosphatase 73 U/L (38-126); Amylase 117 U/L (30-110); Anion Gap 6 mmol/L; Blood Urea Nitrogen 28 mg/dL (9-20); Calcium 8.4 mg/dL (8.4-10.2); Carbon Dioxide 35 mmol/L (22-30); Chloride 97 mmol/L (98-107); Glucose 97 mg/dL (74-99); Lipase 579 U/L (23-300); Potassium 4.5 mmol/L (3.5-5.1); Sodium 138 mmol/L (137-145); Total Bilirubin 0.1 mg/dL (0.2-1.3); Total Protein 5.1 g/dL (6.3-8.2)
--- NOTE | 2017-12-18 09:23 | CDI ---
Last Revision, August 2017 Documentation Clarification Form Date: 12/14/2017 Resubmitted 12/18/2017 From: Josefina Noguera Admit Date: 12/10/2017 10:06:00 PM Patient Name: Mason Weaver Visit Number: [id number] Discharge Date: ATTENTION: The Clinical Documentation Specialists (CDI) and [facility] Coding Staff appreciate your assistance in clarifying documentation. Please respond to the clarification below the line at the bottom and electronically sign. The CDI & [facility] Coding staff will review the response and follow-up if needed. Please note: Queries are made part of the Legal Health Record. If you have any questions, please contact the author of this message via ITS. Dr. Deepa Rios: 77 yo male, admitted with acute pancreatitis. Per the nephrology consult: "History of renal failure and chronic kidney disease , being followed at [facility]. The patient has biopsy-proven focal segmental glomerulosclerosis. He is a maintained on prednisone, however, it is a very low dose at 6 mg down the feeding tube." History/Risk Factors: AAA status post bypass, Recent Influenza B, Hyperlipidemia. Has PEG tube. Clinical Indicators: Current BUN/CR/GFR: 16 / 0.87 / 83 Patients Baseline: Creatinine 1.34 Treatment: IV fl 75, IV fluid bolus x1, IV Narcan, IV fl 50, Albuterol INH, Nitro sl. In order to capture the severity of condition, please clarify if the condition signifies: CKD Stage 1 (GFR > 90) CKD Stage 2 (GFR 60-89) CKD Stage 3 (GFR 30-59) CKD Stage 4 (GFR 15-29) CKD Stage 5 (GFR <15) ESRD Other, please specify Unable to determine Please continue to document in your progress notes and discharge summary in order to capture severity of illness and risk of mortality. Include clinical findings that support your diagnosis. ckd stage 1. MTDD
[2017-12-18] MEDS: FLUCONAZOLE 150 MG TAB PEG/G-TUBE SCH (09:37)
[2017-12-18] MEDS: DRY MOUTH SPRAY 44.3 SPRAY/44.3 ML SPRAY MUCOUS MEM SCH ×2 (09:37→18:04)
[2017-12-18] MEDS: NYSTATIN 100,000 UNIT/ML SUSP 500,000 UNIT/5 ML CUP PO SCH ×4 (09:38→21:52)
[2017-12-18] MEDS: METOPROLOL TARTRATE 12.5 MG TAB PEG/G-TUBE SCH ×2 (09:38→18:03)
[2017-12-18] MEDS: PANTOPRAZOLE 40 MG/10 ML VIAL IVP SCH (09:38)
[2017-12-18] MEDS ORDERED: SODIUM FERRIC GLUCONAT-SUCROSE 125 MG in SODIUM CHLORIDE 0.9% 100 ML IVPB ONE (10:00)
--- NOTE | 2017-12-18 12:07 | P.PN ---
Subjective Progress Note Date: 12/18/17 12/17/2017 Patient seen and examined at the bedside on rounds with Dr. Ferris. Patient has awake and alert. Patient was evaluated by vascular surgery for increasing aortic aneurysm. Patient's is at the bedside who states that Dr. Vazquez told her another vascular surgeon was going to come tomorrow to evaluate the patient. Patient states he does not want any type of surgery performed. Patients states although it is ultimately the patient's decision they would like to hear all available options. Pancreatic enzymes remain elevated. Amylase 121. Lipase 530. No further interventions planned per GI documentation. Patient is tolerating tube feeding. Denies nausea or vomiting. Patient was reevaluated by speech therapy today and was able to take a small amount of applesauce per . Discharge planning includes [place]. Possible discharge to [facility] tomorrow if no further intervention is planned. 12/18/2017 Patient seen and examined at the bedside. Daughter at bedside. She states they are awaiting evaluation from vascular surgeon today. She states that Dr. Vazquez spoke to the family about a possible percutaneous sleeve procedure. Patient is unsure at this time if he wants to proceed with any procedure. Per patients daughter, patient can only take name brand Synthroid, and not the generic. Patients TSH was elevated at 24.100. Daughter given paper script for Synthroid 150mcg daily. She is going to fill script and then bring medication patient to hospital for patient as our pharmacy does not carry name brand Synthroid. Objective - Vital Signs Vital signs: Vital Signs Temp 98.2 F 12/18/17 07:00 Pulse 99 12/18/17 07:00 Resp 18 12/18/17 07:00 BP 118/78 12/18/17 07:00 Pulse Ox 95 12/18/17 07:00 Intake & Output 12/17/17 12/18/17 12/18/17 18:59 06:59 18:59 Intake Total 660 660 Balance 660 660 Weight 61 kg 61 kg Intake: Tube Feeding 660 660 Other: Voiding Method Diaper Diaper Incontinent Incontinent # Voids 1 1 - Exam GENERAL: This is a 77-year-old male in no apparent distress at the time of examination. Pleasant and cooperative. HEENT: Poor oral care noted. Head is atraumatic, normocephalic. Pupils are equal , round, and reactive to light. Sclerae anicteric. Conjunctivae are clear. Mucus membranes of the mouth are dry. Neck is supple. RESPIRATORY: Clear to ausculation. No wheezes, rales, or rhonchi. No use of accessory muscles. Patient maintaining oxygen saturation greater than 92%. No chest wall tenderness is noted on palpation or with deep breathing. CARDIOVASCULAR: Regular rate and rhythm. S1 and S2 noted. No JVD noted. No S3 or S4 noted. GASTROINTESTINAL: PEG tube noted. No distention noted. Abdomen soft and round. Bowel sounds auscultated x 4 quadrants. No pain or tenderness noted upon palpation. INTEGUMENTARY: No cyanosis. No jaundice. No rashes noted. No cellulitis noted. EXTREMITIES: 1+ peripheral pulses. No evidence of peripheral edema. No calf tenderness noted. NEUROLOGIC: Speech slow. Cranial nerves II-XII intact. PSYCHIATRIC: Awake, alert, and oriented X 2-3. Appropriate affect. Intact judgement and insight. - Labs CBC & Chem 7: 12/18/17 06:52 12/18/17 06:52 Labs: Abnormal Lab Results - Last 24 Hours (Table) 12/17/17 12/17/17 12/18/17 Range/Units 07:03 09:09 06:52 RBC 3.31 L (4.30-5.90) m/uL Hgb 10.5 L (13.0-17.5) gm/dL Hct 32.5 L (39.0-53.0) % Lymphocytes # 0.6 L (1.0-4.8) k/uL Chloride (98-107) mmol/L Carbon Dioxide (22-30) mmol/L BUN (9-20) mg/dL Total Bilirubin (0.2-1.3) mg/dL Total Protein (6.3-8.2) g/dL Albumin (3.5-5.0) g/dL Amylase (30-110) U/L Lipase (23-300) U/L TSH 24.100 H (0.465-4.680) mIU/L U Random Total Protein 55 H (<12) mg/dL 12/18/17 Range/Units 06:52 RBC (4.30-5.90) m/uL Hgb (13.0-17.5) gm/dL Hct (39.0-53.0) % Lymphocytes # (1.0-4.8) k/uL Chloride 97 L (98-107) mmol/L Carbon Dioxide 35 H (22-30) mmol/L BUN 28 H (9-20) mg/dL Total Bilirubin 0.1 L (0.2-1.3) mg/dL Total Protein 5.1 L (6.3-8.2) g/dL Albumin 2.4 L (3.5-5.0) g/dL Amylase 117 H (30-110) U/L Lipase 579 H (23-300) U/L TSH (0.465-4.680) mIU/L U Random Total Protein (<12) mg/dL Assessment and Plan Plan: ASSESSMENT: Acute pancreatitis, non-alcohol related, present on admission, amylase 207/ lipase 1008, improving Abdominal aortic aneurysm with stent at 4.4cm 2014, now showing 6.4 cm, endovascular leak unlikely per vascular Recent hospitalization secondary to acute influenza B Dysphasia with severe protein calorie malnutrition, status post PEG tube insertion Chronic diastolic congestive heart failure, ejection fraction 50-60% Acute metabolic encephalopathy, multifactorial, resolved Elevated troponins, trending downward from previous admission, secondary to oxygen supply and demand mismatch/type II MS from influenza B infection FSGS, patient follows up every 6 months at [facility], and is maintained on daily low-dose steroids Hyperlipidemia Mild hyponatremia, resolved Gait dysfunction Hypothyroidism with elevated TSH Anemia of chronic disease PLAN: Per daughter, patient is awaiting evaluation by a different vascular surgeon. Await further recommendations If no immediate intervention is going to be performed by vascular, patient may be discharged tomorrow to [facility]. Daughter is agreeable. Increase patients dose of Synthroid to 150mcg daily Per patients daughter, patient can only take name brand Synthroid, and not the generic. Daughter given paper script for Synthroid 150mcg daily. She is going to fill script and then bring medication back to hospital for patient as our pharmacy does not carry name brand Synthroid Repeat TSH in 4 weeks IV iron x [address] Barrington REYNA on consult. Appreciate recommendations and input Monitor amylase and lipase. Home meds as appropriate Monitor labs. Repeat in a.m. GI prophylaxis: Protonix 40 mg IV Daily DVT prophylaxis: Venodyne's to bilateral lower extremities Monitor vital signs and address as appropriate Further recommendations pending patient's course Discharge to [place] tomorrow if no further interventions are planned per consulting providers Nurse practitioner note has been reviewed by physician. Signing provider agrees with the documented findings, assessment, and plan of care.
[2017-12-18] MEDS: QUEtiapine 25 MG TAB PO SCH (21:05)
[2017-12-18] MEDS: predniSONE 1 MG TAB PEG/G-TUBE SCH (21:05)
[2017-12-18] MEDS: VALSARTAN 80 MG TAB PEG/G-TUBE SCH (21:06)
[2017-12-18] MEDS: ZOCOR 40 MG PEG/G-TUBE SCH (21:06)
[2017-12-18] MEDS: EZETIMIBE 10 MG TAB PEG/G-TUBE SCH (21:06)
[2017-12-18] MEDS: ASPIRIN 81 MG PEG/G-TUBE SCH (21:06)
[2017-12-19] MEDS: SYNTHROID 150 MCG PO SCH (05:42)
--- NOTE | 2017-12-19 06:28 | P.GSCN ---
History of Present Illness Consult date: 12/18/17 Reason for Consult: Aortic Pseudoaneurysm Requesting physician: Finesse Vazquez History of present illness: 77 yo male with history of aortic bi-iliac artery bypass for abdominal aortic aneurysm 7 years ago who is currently being treated in the hospital for oral thrush and influenza was found to have a pseudoaneurysm involving the proximal aspect of his previous bypass. Patient states having routine follow-up yearly for his aneurysm with his last ultrasound performed in August. He had a CT of his abdomen which demonstrated an enlarged proximal to the graft aneurysm measuring 6.4 cm which was stable from a previous CT scan a week earlier. To date the patient has no complaints of back pain, abdominal pain, lower extremity pain, numbness, or tingling. He does state he is fatigued but has been improving every day. Per his family he has not ambulated in the hospital and can barely stand up with assistance. Review of Systems - Constitutional Reports fatigue, Reports lethargy, Reports poor appetite - EENT Ears, nose, mouth and throat: Reports dysphagia, Reports sore throat Past Medical History Past Medical History: Hyperlipidemia, Renal Disease, Thyroid Disorder History of Any Multi-Drug Resistant Organisms: None Reported Past Surgical History: No Surgical Hx Reported, Tonsillectomy Additional Past Surgical History / Comment(s): Abdominal Aortic Aneursym Repair - fall Dr. Vazquez Past Anesthesia/Blood Transfusion Reactions: No Reported Reaction Past Psychological History: No Psychological Hx Reported Smoking Status: Never smoker Past Alcohol Use History: None Reported Past Drug Use History: None Reported - Past Family History Mother Family Medical History: Cancer Medications and Allergies Home Medications Medication Instructions Recorded Confirmed Type Ezetimibe [Zetia] 10 mg PEG/G-TUBE HS@209911/18/17 12/10/17 History Simvastatin [Zocor] 40 mg PEG/G-TUBE HS@209911/18/17 12/10/17 History Ipratropium-Albuterol Nebulize 3 ml INHALATION RT-QID PRN 12/03/17 12/10/17 Rx [Duoneb 0.5 mg-3 mg/3 ml Soln] ampul.neb Aspirin 81 mg PEG/G-TUBE HS@209912/10/17 12/10/17 History Bisacodyl [Dulcolax] 10 mg RECTAL DAILY PRN 12/10/17 12/10/17 History Lactose-Reduced Food [Ensure Plus] 355.5 ml PEG/G-TUBE DAILY@1200 12/10/1712/10 History Lactose-Reduced Food [Ensure Plus] 474 ml PEG/G-TUBE BID@0600,1800 12/10/1709/17 History Magnesium Hydroxide [Milk of 7,200 mg PEG/G-TUBE DAILY PRN 12/10/17 12/10/17 History Magnesia Concentrate] Metoprolol Tartrate [Lopressor] 12.5 mg PEG/G-TUBE BID@0800,1700 12/10/17 History Na Phos,M-B/Na Phos,Di-Ba [Fleet 133 ml RECTAL ONCE PRN 12/10/17 12/10/17 History Adult] Nitroglycerin Sl Tabs [Nitrostat] 0.4 mg PEG/G-TUBE Q5M PRN 12/10/17 12/10/17 History Nystatin 100,000 Unit/ml Susp 500,000 unit PO QID@,,,12/10/17 12/10/17 History [Mycostatin Oral Susp] Pantoprazole [Protonix] 40 mg PEG/G-TUBE DAILY@0600 12/10/17 12/10/17 History Saliva Stimulant Agents Comb.3 1 spray MUCOUS MEM BID@0800,1700 12/10/17 History [Biotene Moisturizing Mouth] Valsartan [Diovan] 80 mg PEG/G-TUBE HS@2100 12/10/17 12/10/17 History guaiFENesin SYRUP 100MG/5ML 200 mg PEG/G-TUBE Q6H PRN 12/10/17 12/10/17 History [Robitussin] predniSONE 6 mg PEG/G-TUBE HS@2100 12/10/17 12/10/17 History QUEtiapine [SEROquel] 25 mg PO HS tab 12/17/17 Rx Levothyroxine Sodium [Synthroid] 150 mcg PO DAILY #30 tablet 12/18/17 Rx Allergies Allergy/AdvReac Type Severity Reaction Status Date / Time clidinium Allergy Unknown Verified 12/10/17 17:16 clonidine Allergy Unknown Verified 12/03/17 10:39 atorvastatin [From Lipitor] AdvReac Itching Verified 11/27/17 22:25 Surgical - Exam Vital Signs Temp Pulse Resp BP Pulse Ox 98.1 F 99 16 114/68 96 12/10/17 16:58 12/10/17 16:58 12/10/17 16:58 12/10/17 16:58 12/10/17 16:58 - General Weak appearing, lying in bed. Patient has difficulty moving. well developed - Eyes PERRL, normal ocular movement - Neck trachea midline - Respiratory normal expansion - Cardiovascular Rhythm: regular - Abdomen Abdomen: soft, non tender, no guarding, no rebound, no distended - Integumentary no rash - Neurologic normal coordination, normal sensation, other (weakness) Results - Labs 12/18/17 06:52 12/18/17 06:52 Abnormal Lab Results - Last 24 Hours (Table) 12/17/17 12/18/17 12/18/17 Range/Units 09:09 06:52 06:52 RBC 3.31 L (4.30-5.90) m/uL Hgb 10.5 L (13.0-17.5) gm/dL Hct 32.5 L (39.0-53.0) % Lymphocytes # 0.6 L (1.0-4.8) k/uL Chloride 97 L (98-107) mmol/L Carbon Dioxide 35 H (22-30) mmol/L BUN 28 H (9-20) mg/dL Total Bilirubin 0.1 L (0.2-1.3) mg/dL Total Protein 5.1 L (6.3-8.2) g/dL Albumin 2.4 L (3.5-5.0) g/dL Amylase 117 H (30-110) U/L Lipase 579 H (23-300) U/L U Random Total Protein 55 H (<12) mg/dL Diabetes panel 12/18/17 Range/Units 06:52 Sodium 138 (137-145) mmol/L Potassium 4.5 (3.5-5.1) mmol/L Chloride 97 L (98-107) mmol/L Carbon Dioxide 35 H (22-30) mmol/L BUN 28 H (9-20) mg/dL Creatinine 0.87 (0.66-1.25) mg/dL Glucose 97 (74-99) mg/dL Calcium 8.4 (8.4-10.2) mg/dL AST 38 (17-59) U/L ALT 38 (21-72) U/L Alkaline Phosphatase 73 (38-126) U/L Total Protein 5.1 L (6.3-8.2) g/dL Albumin 2.4 L (3.5-5.0) g/dL Calcium panel 12/18/17 Range/Units 06:52 Calcium 8.4 (8.4-10.2) mg/dL Albumin 2.4 L (3.5-5.0) g/dL Pituitary panel 12/18/17 Range/Units 06:52 Sodium 138 (137-145) mmol/L Potassium 4.5 (3.5-5.1) mmol/L Chloride 97 L (98-107) mmol/L Carbon Dioxide 35 H (22-30) mmol/L BUN 28 H (9-20) mg/dL Creatinine 0.87 (0.66-1.25) mg/dL Glucose 97 (74-99) mg/dL Calcium 8.4 (8.4-10.2) mg/dL Adrenal panel 12/18/17 Range/Units 06:52 Sodium 138 (137-145) mmol/L Potassium 4.5 (3.5-5.1) mmol/L Chloride 97 L (98-107) mmol/L Carbon Dioxide 35 H (22-30) mmol/L BUN 28 H (9-20) mg/dL Creatinine 0.87 (0.66-1.25) mg/dL Glucose 97 (74-99) mg/dL Calcium 8.4 (8.4-10.2) mg/dL Total Bilirubin 0.1 L (0.2-1.3) mg/dL AST 38 (17-59) U/L ALT 38 (21-72) U/L Alkaline Phosphatase 73 (38-126) U/L Total Protein 5.1 L (6.3-8.2) g/dL Albumin 2.4 L (3.5-5.0) g/dL - Imaging CT scan - abdomen: report reviewed, image reviewed (Aortic aneurysm proximal to graft.) Assessment and Plan Assessment: Large pseudoaneurysm abdominal aorta Fatigue secondary with recent influenza Debility Acute pancreatitis Dysphagia with protein calorie malnutrition Plan: Long discussion was had with the patient and family who were at bedside. Due to his debility and weakness currently we discussed putting off the surgical repair till next week to allow him to get stronger. It is unknown how long the pseudoaneurysm has been present and has been stable on recent CT scans. We did discuss the potential for rupture and risk of not performing the surgery sooner as well as the risk of surgery while he is still recovering from this illness. We discussed the options of endovascular repair which they are agreeable to and we will tentatively schedule his surgery for next Sunday. Time with Patient: Greater than 30
[2017-12-19] MEDS: DRY MOUTH SPRAY 44.3 SPRAY/44.3 ML SPRAY MUCOUS MEM SCH ×2 (08:08→16:18)
[2017-12-19] MEDS: NYSTATIN 100,000 UNIT/ML SUSP 500,000 UNIT/5 ML CUP PO SCH ×4 (08:09→19:48)
[2017-12-19] MEDS: FLUCONAZOLE 150 MG TAB PEG/G-TUBE SCH (08:09)
[2017-12-19] MEDS: METOPROLOL TARTRATE 12.5 MG TAB PEG/G-TUBE SCH ×2 (08:09→16:19)
[2017-12-19] MEDS: PANTOPRAZOLE 40 MG/10 ML VIAL IVP SCH (08:10)
--- NOTE | 2017-12-19 13:19 | FL ---
EXAMINATION TYPE: FL barium swallow w video DATE OF EXAM: 12/19/2017 MODIFIED SWALLOW / DEGLUTITION STUDY CLINICAL HISTORY: Dysphagia. History of recent severe oral thrush. TECHNIQUE: Deglutition study is attempted utilizing thin liquid barium, honey and nectar thick liqui d barium, and barium thick applesauce. COMPARISON: None. FINDINGS: Patient was unable to swallow multiple modalities making evaluation suboptimal today. Patie nt only had single episode of swallowed nectar thick liquid barium. This single episode show penetrat ion and aspiration without initiating cough reflex. Moderate pharyngeal residue was appreciated. Ther e is poor epiglottis inversion. Note is made of C3-C4 disc space narrowing and grade 1 anterolisthesi s of C4 on C5. Correlate for history of remote trauma or fracture. IMPRESSION: Suboptimal study, aspiration noted on single swallow of nectar thick liquid barium. Please refer to speech therapist notes for further details if necessary.
--- NOTE | 2017-12-19 14:01 | P.DS ---
Providers Date of admission: 12/10/17 22:06 Expected date of discharge: 12/19/17 Attending physician: Humberto Ferris Consults: 12/10/17 22:01 Consult Physician Routine Consulting Provider: Deepa Rios Consult Reason/Comments: Renal insufficiency Do you want consulting provider notified?: Yes 12/11/17 08:16 Consult Physician Routine Consulting Provider: Anthony Underwood Consult Reason/Comments: pancreatitis, per Dr. Ferris Do you want consulting provider notified?: Yes 12/13/17 11:14 Consult Physician Routine Consulting Provider: Deshawn Cedeno Consult Reason/Comments: enlargin abd aortic aneurysm Do you want consulting provider notified?: Already Contacted 12/13/17 11:31 Consult Physician Routine Consulting Provider: Finesse Vazquez Consult Reason/Comments: enlarging abd aortic aneurysm Do you want consulting provider notified?: Already Contacted Primary care physician: Humberto Ferris [facility] Course: 77-year-old male who [facility] secondary to altered mental status and lethargy. the patient denied any shortness of breath or coughing. Denies chest pain or pressure. Denies nausea or vomiting. Denies abdominal pain. Denies change in bowel habits. The patient was recently hospitalized from 11/18/2017 until 12/03/2017 for positive influenza B. The patient developed oral thrush in addition to poor oral care and was having difficulty swallowing. He underwent swallow evaluation which he did not pass. The patient had a PEG tube inserted during hospitalization and was started on tube feedings which he was tolerating at the time of discharge. the patient's troponins were elevated at that time. He was evaluated and it was thought to be a type II RI from influenza infection.The patient became very weak and debilitated and was transferred to [facility] for subacute rehab. The patient has a history of FSGS and follows up with a communication lecturer at [facility] every 6 months. he is maintained on daily low-dose steroids. Chest x-ray: Chronic infiltrates in the left lower lobe without much change compared to last exam. Poor inspiration. Pulmonary fibrotic changes. No heart failure. EKG: Sinus mechanism with PVCs. Rate 99. Laboratory data: WBC 7.9. Hemoglobin 11.0. Platelet count 313. Sodium 132. Potassium 4.8. BUN 31. Creatinine 0.89. GFR 83. Glucose 83. Troponin: 0.051, which is trending down from previous admission. AST 57. ALT 73. Alkaline phosphatase 63. Amylase 207. Lipase 1008 TSH 14.3 Urinalysis reveals: Trace proteinuria but otherwise unremarkable The patient was evaluated by general surgery and GI during hospitalization. Hepatitis panel was non-reactive. The patients amylase and lipase continue to slowly trend downward. Patient denied any abdominal pain or discomfort during hospitalization. No further intervention was recommended by GI or general surgery. Patients TSH was elevated at 24.100. Per patients daughter, patient can only take name brand Synthroid, and not the generic. Daughter given paper script for Synthroid 150mcg daily. [facility] does not carry brand name Synthroid so patient received his own medication during hospitalization. The patient is to repeat his TSH in 4 weeks. Patient has a PEG tube and has been receiving tube feedings. Patient tolerates tube feedings well. The patient was evaluated by speech therapy during hospitalization. Patient underwent a bedside swallow eval and patient appeared to tolerate small amounts of applesauce. Patient underwent a modified barium swallow on 12/19/2017 and unfortunately he did not pass. The patient underwent a CT scan of the abdomen during hospitalization which showed an increase in size of his aortic aneurysm. Patient had a previous aneurysm resection with aortobiiliac bypass approximately 10 years ago. The patient underwent a CT angiogram of the abdomen and pelvis which revealed infrarenal abdominal aortic aneurysm measuring 6.47.97.0 cm. There was no definite endoleak visualized on the CT. Dr. Vazquez evaluated the patient and brought in Dr. Aaron for another evaluation. Dr. Aaron recommends endovascular repair possibly next week if patient continued to get stronger with therapy. The patient remains severly debilitated from his previous admission in which he had influenza. Patient became very debilitated during that hospitalization and has regained full strength back. He remains very weak and fatigued. 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 The patient was deemed stable for discharge to ECF per Dr. Ferris. 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, large pseudoaneurysm per vascular, endovascular leak unlikely per vascular Recent hospitalization secondary to acute influenza B Dysphasia with severe protein calorie malnutrition, status post PEG tube insertion Chronic diastolic congestive heart failure, ejection fraction 50-60% Acute metabolic encephalopathy, multifactorial, resolved Elevated troponins, trending downward from previous admission, secondary to oxygen supply and demand mismatch/type II RI from influenza B infection FSGS, patient follows up every 6 months at [facility], and is maintained on daily low-dose steroids Hyperlipidemia Mild hyponatremia, resolved Gait dysfunction Hypothyroidism with elevated TSH Anemia of chronic disease Severe debility Nurse practitioner note has been reviewed by physician. Signing provider agrees with the documented findings, assessment, and plan of care. Patient Condition at Discharge: Stable Plan - Discharge Summary Discharge Rx Participant: No New Discharge Prescriptions: New QUEtiapine [SEROquel] 25 mg PO HS tab Levothyroxine Sodium [Synthroid] 150 mcg PO DAILY #30 tablet Continue Ezetimibe [Zetia] 10 mg PEG/G-TUBE HS@2100 Simvastatin [Zocor] 40 mg PEG/G-TUBE HS@2100 Ipratropium-Albuterol Nebulize [Duoneb 0.5 mg-3 mg/3 ml Soln] 3 ml INHALATION RT-QID PRN ampul.neb PRN Reason: Shortness Of Breath Bisacodyl [Dulcolax] 10 mg RECTAL DAILY PRN PRN Reason: Constipation Lactose-Reduced Food [Ensure Plus] 474 ml PEG/G-TUBE BID@0600,1800 Lactose-Reduced Food [Ensure Plus] 355.5 ml PEG/G-TUBE DAILY@1200 Magnesium Hydroxide [Milk of Magnesia Concentrate] 7,200 mg PEG/G-TUBE DAILY PRN PRN Reason: Constipation Na Phos,M-B/Na Phos,Di-Ba [Fleet Adult] 133 ml RECTAL ONCE PRN PRN Reason: Constipation Saliva Stimulant Agents Comb.3 [Biotene Moisturizing Mouth] 1 spray MUCOUS MEM BID@0800,1700 Aspirin 81 mg PEG/G-TUBE HS@2100 guaiFENesin SYRUP 100MG/5ML [Robitussin] 200 mg PEG/G-TUBE Q6H PRN PRN Reason: Cough Metoprolol Tartrate [Lopressor] 12.5 mg PEG/G-TUBE BID@0800,1700 Nystatin 100,000 Unit/ml Susp [Mycostatin Oral Susp] 500,000 unit PO QID@08, 12,, Pantoprazole [Protonix] 40 mg PEG/G-TUBE DAILY@0600 predniSONE 6 mg PEG/G-TUBE HS@2099 Valsartan [Diovan] 80 mg PEG/G-TUBE HS@2100 Nitroglycerin Sl Tabs [Nitrostat] 0.4 mg PEG/G-TUBE Q5M PRN PRN Reason: Chest Pain Discontinued Levothyroxine Sodium [Synthroid] 137 mcg PEG/G-TUBE DAILY@0600 Fluconazole [Diflucan] 150 mg PEG/G-TUBE DAILY@0800 Discharge Medication List Ezetimibe [Zetia] 10 mg PEG/G-TUBE HS@209911/18/17 [History] Simvastatin [Zocor] 40 mg PEG/G-TUBE HS@209911/18/17 [History] Ipratropium-Albuterol Nebulize [Duoneb 0.5 mg-3 mg/3 ml Soln] 3 ml INHALATION RT -QID PRN ampul.neb 12/03/17 [Rx] Aspirin 81 mg PEG/G-TUBE HS@209912/10/17 [History] Bisacodyl [Dulcolax] 10 mg RECTAL DAILY PRN 12/10/17 [History] Lactose-Reduced Food [Ensure Plus] 355.5 ml PEG/G-TUBE DAILY@1200 12/10/17 [ History] Lactose-Reduced Food [Ensure Plus] 474 ml PEG/G-TUBE BID@0600,1800 12/10/17 [ History] Magnesium Hydroxide [Milk of Magnesia Concentrate] 7,200 mg PEG/G-TUBE DAILY PRN 12/10/17 [History] Metoprolol Tartrate [Lopressor] 12.5 mg PEG/G-TUBE BID@0800,1700 12/10/17 [ History] Na Phos,M-B/Na Phos,Di-Ba [Fleet Adult] 133 ml RECTAL ONCE PRN 12/10/17 [History ] Nitroglycerin Sl Tabs [Nitrostat] 0.4 mg PEG/G-TUBE Q5M PRN 12/10/17 [History] Nystatin 100,000 Unit/ml Susp [Mycostatin Oral Susp] 500,000 unit PO QID@,, ,12/10/17 [History] Pantoprazole [Protonix] 40 mg PEG/G-TUBE DAILY@0600 12/10/17 [History] Saliva Stimulant Agents Comb.3 [Biotene Moisturizing Mouth] 1 spray MUCOUS MEM BID@0800,1700 12/10/17 [History] Valsartan [Diovan] 80 mg PEG/G-TUBE HS@209912/10/17 [History] guaiFENesin SYRUP 100MG/5ML [Robitussin] 200 mg PEG/G-TUBE Q6H PRN 12/10/17 [ History] predniSONE 6 mg PEG/G-TUBE HS@209912/10/17 [History] QUEtiapine [SEROquel] 25 mg PO HS tab 12/17/17 [Rx] Levothyroxine Sodium [Synthroid] 150 mcg PO DAILY #30 tablet 12/18/17 [Rx] Follow up Appointment(s)/Referral(s): Humberto Ferris DO [Primary Care Provider] - 1 Week (1 week after DC from ECF) Amanda Boone MD [STAFF PHYSICIAN] - 2 Weeks Finesse Vazquez DO [Doctor of Osteopathic Medicine] - 1 Week Ambulatory/Diagnostic Orders: Miscellaneous Lab Order [LAB.AMB] Time Frame: 4 Weeks, Location: Determined By Patient Activity/Diet/Wound Care/Special Instructions: pt to follow up with the vascular clinic at [facility] [place] Acevedo as an outpatient - call . Per gab Wallace. When patient is discharged, will require 160cc water flush every 4 hours. Tube feeding formula is NEPRO, total volume 1080 ml/24 hrs; 160 ml water flush every 4 hours Activity as tolerated Discharge Disposition: TRANSFER TO SNF/ECF
[2017-12-19] MEDS: VALSARTAN 80 MG TAB PEG/G-TUBE SCH (19:46)
[2017-12-19] MEDS: predniSONE 1 MG TAB PEG/G-TUBE SCH (19:46)
[2017-12-19] MEDS: ZOCOR 40 MG PEG/G-TUBE SCH (19:46)
[2017-12-19] MEDS: EZETIMIBE 10 MG TAB PEG/G-TUBE SCH (19:47)
[2017-12-19] MEDS: QUEtiapine 25 MG TAB PO SCH (19:48)
[2017-12-19] MEDS: ASPIRIN 81 MG PEG/G-TUBE SCH (19:48)
[2017-12-20] MEDS: SYNTHROID 150 MCG PO SCH (05:22)
[2017-12-20] MEDS: FLUCONAZOLE 150 MG TAB PEG/G-TUBE SCH (08:16)
[2017-12-20] MEDS: METOPROLOL TARTRATE 12.5 MG TAB PEG/G-TUBE SCH ×2 (08:17→17:18)
[2017-12-20] MEDS: DRY MOUTH SPRAY 44.3 SPRAY/44.3 ML SPRAY MUCOUS MEM SCH ×2 (08:17→17:18)
[2017-12-20] MEDS: NYSTATIN 100,000 UNIT/ML SUSP 500,000 UNIT/5 ML CUP PO SCH ×4 (08:17→20:11)
[2017-12-20] MEDS: PANTOPRAZOLE 40 MG/10 ML VIAL IVP SCH (08:17)
--- NOTE | 2017-12-20 09:35 | P.PN ---
Progress Note - Text Progress Note Date: 12/20/17 Patient seen and examined at the bedside on rounds with Dr. Ferris. Patient was medically cleared for discharge 12/19/2017 to [facility]. Patients insurance has denied ECF placement. Patient is unsafe to return home. The patient remains severely debilitated from his previous admission in which he had influenza. Patient became very debilitated during that hospitalization and has not regained full strength back. He remains very weak and fatigued. The patient was previously discharged to [facility] after his hospitalization from influenza. The patient was receiving therapy and was making progress. Unfortunately, he was not at [facility] very long before he was re-admitted to the hospital for pancreatitis, which has set him back once again. Prior to hospitalizations, the patient was ambulatory and able to complete his daily ADLs. At this time, the patient is dependent on staff for every aspect of his care. 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 Will complete peer to peer review today with insurance company. Nurse practitioner note has been reviewed by physician. Signing provider agrees with the documented findings, assessment, and plan of care.
[2017-12-20] MEDS: predniSONE 1 MG TAB PEG/G-TUBE SCH (20:10)
[2017-12-20] MEDS: ASPIRIN 81 MG PEG/G-TUBE SCH (20:10)
[2017-12-20] MEDS: EZETIMIBE 10 MG TAB PEG/G-TUBE SCH (20:10)
[2017-12-20] MEDS: VALSARTAN 80 MG TAB PEG/G-TUBE SCH (20:10)
[2017-12-20] MEDS: QUEtiapine 25 MG TAB PO SCH (20:10)
[2017-12-20] MEDS: ZOCOR 40 MG PEG/G-TUBE SCH (20:11)
[2017-12-21] MEDS: SYNTHROID 150 MCG PO SCH (06:18)
[2017-12-21 08:05] VITALS: PULSE 102; RESP 18
[2017-12-21] MEDS: PANTOPRAZOLE 40 MG/10 ML VIAL IVP SCH (08:06)
[2017-12-21] MEDS: DRY MOUTH SPRAY 44.3 SPRAY/44.3 ML SPRAY MUCOUS MEM SCH (08:12)
[2017-12-21] MEDS: NYSTATIN 100,000 UNIT/ML SUSP 500,000 UNIT/5 ML CUP PO SCH ×4 (08:13→13:14)
[2017-12-21] MEDS: FLUCONAZOLE 150 MG TAB PEG/G-TUBE SCH (08:14)
[2017-12-21] MEDS: METOPROLOL TARTRATE 12.5 MG TAB PEG/G-TUBE SCH (08:14)
--- NOTE | 2017-12-21 08:29 | P.PN ---
Progress Note - Text Progress Note Date: 12/21/17 Patient seen and examined at the bedside on rounds with Dr. Ferris. Patient was medically cleared for discharge 12/19/2017 to [facility]. Discharge has been delayed secondary to insurance denying request for ECF placement. Peer to peer review completed yesterday and patient is now approved for ECF. Anticipate discharge today. Nurse practitioner note has been reviewed by physician. Signing provider agrees with the documented findings, assessment, and plan of care.
[2017-12-21] MEDS ORDERED: PANTOPRAZOLE 40 MG TABLET PO SCH (08:30)
[2017-12-21 09:21] VITALS: BP 124/65; TEMP 96.3
[2017-12-21 09:35] LABS: Basophils % (A) 1 %; Eosinophils # (A) 0.2 k/uL (0-0.7); Eosinophils % (A) 2 %; HCT 32.9 % (39.0-53.0); HGB 10.9 gm/dL (13.0-17.5); Lymphocytes # (A) 0.7 k/uL (1.0-4.8); Lymphocytes % (A) 10 %; MCH 32.3 pg (25.0-35.0); MCHC 33.1 g/dL (31.0-37.0); MCV 97.5 fL (80.0-100.0); Macrocytosis Slight; Mean Platelet Volume 7.1; Monocytes # (A) 0.5 k/uL (0-1.0); Monocytes % (A) 7 %; Neutrophils % (A) 79 %; Platelet Count 351 k/uL (150-450); RBC 3.38 m/uL (4.30-5.90); RDW 15.8 % (11.5-15.5); WBC 7.6 k/uL (3.8-10.6)
[2017-12-21 09:47] LABS: ALT 40 U/L (21-72); AST 40 U/L (17-59); Albumin 2.6 g/dL (3.5-5.0); Alkaline Phosphatase 77 U/L (38-126); Amylase 130 U/L (30-110); Anion Gap 4 mmol/L; Blood Urea Nitrogen 31 mg/dL (9-20); Calcium 8.4 mg/dL (8.4-10.2); Carbon Dioxide 34 mmol/L (22-30); Chloride 94 mmol/L (98-107); Glucose 101 mg/dL (74-99); Lipase 642 U/L (23-300); Potassium 4.3 mmol/L (3.5-5.1); Sodium 132 mmol/L (137-145); Total Bilirubin 0.2 mg/dL (0.2-1.3); Total Protein 5.3 g/dL (6.3-8.2)
[2017-12-21 16:54] LABS: Iron Saturation 14.91 (15.00-50.00)
== END 2017-12-21 14:15 | DRG 438 ==
LOC: EC 16:42 → 6SEL 22:06 → 5MS5E 12-11 19:30
PROVIDERS: ADMIT Family Medicine; ATTEND Family Medicine
DX: K85.90 Acute pancreatitis without necrosis or infection, unspecified (principal); G93.41 Metabolic encephalopathy; E43 Unspecified severe protein-calorie malnutrition; I50.33 Acute on chronic diastolic (congestive) heart failure; I13.0 Hypertensive heart and chronic kidney disease with heart failure and stage 1 through stage 4 chronic kidney disease, or unspecified chronic kidney disease; E87.1 Hypo-osmolality and hyponatremia; R13.10 Dysphagia, unspecified; I25.2 Old myocardial infarction; E03.9 Hypothyroidism, unspecified; E78.5 Hyperlipidemia, unspecified; I49.3 Ventricular premature depolarization; I71.4 Abdominal aortic aneurysm, without rupture; N18.1 Chronic kidney disease, stage 1; R26.9 Unspecified abnormalities of gait and mobility; R33.9 Retention of urine, unspecified; R74.8 Abnormal levels of other serum enzymes; R62.7 Adult failure to thrive; D63.1 Anemia in chronic kidney disease; R32 Unspecified urinary incontinence; Z79.52 Long term (current) use of systemic steroids; Z79.82 Long term (current) use of aspirin; Z79.899 Other long term (current) drug therapy; Z93.1 Gastrostomy status; Z91.041 Radiographic dye allergy status; Z88.8 Allergy status to other drugs, medicaments and biological substances
CPT/HCPCS: 36415; 51701; 71045; 71046; 74174; 74176; 74230; 76705; 80053; 80061; 80074; 81001; 81003; 82140; 82150; 82550; 82553; 82570; 83540; 83550; 83605; 83690; 83735; 84156; 84439; 84443; 84484; 85025; 85610; 85730; 87040; 93005; 96360; 96361; 99285

== ENCOUNTER 2017-12-22 10:50 | Observation (INO) | payer MEDICARE ==
[2017-12-22] MEDS ORDERED: SODIUM CHLORIDE 0.9% 1,000 ML IV STA (11:30)
--- NOTE | 2017-12-22 11:35 | ED ---
General Adult HPI - General Chief complaint: Shortness of Breath Stated complaint: nausea ; vomiting Time Seen by Provider: 12/22/17 11:00 Source: patient, RN notes reviewed Mode of arrival: EMS Limitations: no limitations - History of Present Illness Initial comments: This is a 77-year-old male who was recently released from the hospital after being admitted for dehydration and pancreatitis. Patient also recently had been diagnosed with influenza little over a month ago. Patient was at the intermediate this morning was feeling very lethargic and then according to the daughter she thinks he had a syncopal episode in the chair and was not responding at which point he vomited and ever since then has been coughing. States that he was never any problems coughing prior to vomiting and she is worried that he might have aspirated. Patient's pulse ox on the way in was 92% . Patient continues to cough during the interview. Patient denies any pain currently he just states he feels extremely tight. - Related Data Home Medications Medication Instructions Recorded Confirmed Simvastatin [Zocor] 40 mg PEG/G-TUBE HS@209911/18/17 12/22/17 Aspirin 81 mg PEG/G-TUBE HS@209912/10/17 12/22/17 Bisacodyl [Dulcolax] 10 mg RECTAL DAILY PRN 12/10/17 12/22/17 Magnesium Hydroxide [Milk of 7,200 mg PEG/G-TUBE DAILY PRN 12/10/17 12/22/17 Magnesia Concentrate] Na Phos,M-B/Na Phos,Di-Ba [Fleet 133 ml RECTAL ONCE PRN 12/10/17 12/22/17 Adult] Nitroglycerin Sl Tabs [Nitrostat] 0.4 mg PEG/G-TUBE Q5M PRN 12/10/17 12/22/17 Pantoprazole [Protonix] 40 mg PEG/G-TUBE DAILY@0600 12/10/17 12/22/17 Valsartan [Diovan] 80 mg PEG/G-TUBE HS@209912/10/17 12/22/17 guaiFENesin SYRUP 100MG/5ML 200 mg PEG/G-TUBE Q6H PRN 12/10/17 12/22/17 [Robitussin] Ezetimibe [Zetia] 10 mg PEG/G-TUBE HS@209912/22/17 12/22/17 Levothyroxine Sodium [Synthroid] 150 mcg PEG/G-TUBE DAILY@0600 12/22/17 12/22/17 Metoprolol Tartrate [Lopressor] 12.5 mg PEG/G-TUBE BID@0800,2100 12/22/17 QUEtiapine [SEROquel] 25 mg PEG/G-TUBE HS@2100 12/22/17 12/22/17 Saliva Stimulant Agents Comb.3 1 spray MUCOUS MEM BID@0800,1700 12/22/17 [Biotene Moisturizing Mouth] Previous Rx's Medication Instructions Recorded Ipratropium-Albuterol Nebulize 3 ml INHALATION RT-QID PRN 12/03/17 [Duoneb 0.5 mg-3 mg/3 ml Soln] ampul.neb Allergies Allergy/AdvReac Type Severity Reaction Status Date / Time clidinium Allergy Unknown Verified 12/22/17 12:21 clonidine Allergy Unknown Verified 12/22/17 12:21 atorvastatin [From Lipitor] AdvReac Itching Verified 12/22/17 12:21 Review of Systems ROS Statement: Those systems with pertinent positive or pertinent negative responses have been documented in the HPI. ROS Other: All systems not noted in ROS Statement are negative. Past Medical History Past Medical History: Hyperlipidemia, Renal Disease, Thyroid Disorder History of Any Multi-Drug Resistant Organisms: None Reported Past Surgical History: No Surgical Hx Reported, Tonsillectomy Additional Past Surgical History / Comment(s): Abdominal Aortic Aneursym Repair - fall Dr. Vazquez Past Anesthesia/Blood Transfusion Reactions: No Reported Reaction Past Psychological History: No Psychological Hx Reported Smoking Status: Never smoker Past Alcohol Use History: None Reported Past Drug Use History: None Reported - Past Family History Mother Family Medical History: Cancer General Exam - General Exam Comments Initial Comments: GENERAL: Patient is well-developed and well-nourished. Patient is nontoxic and well- hydrated and is in no acute distress. Patient is very fatigued and is coughing on a regular basis ENT: Neck is soft and supple. No significant lymphadenopathy is noted. Oropharynx is clear. Moist mucous membranes. Neck has full range of motion without eliciting any pain. EYES: The sclera were anicteric and conjunctiva were pink and moist. Extraocular movements were intact and pupils were equal round and reactive to light. Eyelids were unremarkable. PULMONARY: Unlabored respirations. Good breath sounds bilaterally. No audible rales rhonchi or wheezing was noted. CARDIOVASCULAR: There is a regular rate and rhythm without any murmurs gallops or rubs. ABDOMEN: Soft and nontender with normal bowel sounds. No palpable organomegaly was noted. There is no palpable pulsatile mass. SKIN: Skin is clear with no lesions or rashes and otherwise unremarkable. NEUROLOGIC: Patient is alert and oriented unable to assess he won't answer questions because of his fatigue. Cranial nerves II through XII are grossly intact. Motor and sensory are also intact. Normal speech, volume and content. Symmetrical smile. MUSCULOSKELETAL: Normal extremities with adequate strength and full range of motion. No lower extremity swelling or edema. No calf tenderness. LYMPHATICS: No significant lymphadenopathy is noted PSYCHIATRIC: Difficult to assess since patient is so tired Limitations: no limitations Course Vital Signs 12/22/17 12/22/17 12/22/17 10:59 11:57 12:35 Temperature 97 F L Pulse Rate 101 H 95 95 Respiratory 24 16 20 Rate Blood Pressure 103/71 91/62 100/54 O2 Sat by Pulse 92 L 100 97 Oximetry Medical Decision Making - Medical Decision Making EKG shows a sinus rhythm with occasional PVC at 100 bpm LA interval is 140 QRS is 120 QT interval 370 QTC is 487. Patient continues to cough the emergency department. Patient's chest x-ray shows no acute abnormality. Patient is about 92% on room air. I'm going to admit the patient start him on antibiotics for the possibility of aspiration as well as the fact that he passed out at the intermediate. I spoke with Dr. Araujo he agreed to admit the patient admitted the patient I wrote admitting orders - Lab Data Result diagrams: 12/22/17 11:12 12/22/17 11:12 Lab Results 12/22/17 12/22/17 12/22/17 Range/Units 11:12 11:12 11:12 WBC 8.7 (3.8-10.6) k/uL RBC 3.70 L (4.30-5.90) m/uL Hgb 12.0 L (13.0-17.5) gm/dL Hct 36.1 L (39.0-53.0) % MCV 97.6 (80.0-100.0) fL MCH 32.4 (25.0-35.0) pg MCHC 33.2 (31.0-37.0) g/dL RDW 16.1 H (11.5-15.5) % Plt Count 365 (150-450) k/uL Neutrophils % 90 % Lymphocytes % 4 % Monocytes % 3 % Eosinophils % 2 % Basophils % 0 % Neutrophils # 7.8 H (1.3-7.7) k/uL Lymphocytes # 0.3 L (1.0-4.8) k/uL Monocytes # 0.3 (0-1.0) k/uL Eosinophils # 0.1 (0-0.7) k/uL Basophils # 0.0 (0-0.2) k/uL Anisocytosis Slight Macrocytosis Slight PT (9.0-12.0) sec INR (<1.2) APTT (22.0-30.0) sec Sodium 133 L (137-145) mmol/L Potassium 4.6 (3.5-5.1) mmol/L Chloride 96 L (98-107) mmol/L Carbon Dioxide 27 (22-30) mmol/L Anion Gap 10 mmol/L BUN 35 H (9-20) mg/dL Creatinine 1.00 (0.66-1.25) mg/dL Est GFR (CKD-EPI)AfAm 84 (>60 ml/min/1.73 sqM) Est GFR (CKD-EPI)NonAf 72 (>60 ml/min/1.73 sqM) Glucose 117 H (74-99) mg/dL Calcium 8.8 (8.4-10.2) mg/dL Magnesium 2.1 (1.6-2.3) mg/dL Total Bilirubin 0.4 (0.2-1.3) mg/dL AST 52 (17-59) U/L ALT 53 (21-72) U/L Alkaline Phosphatase 76 (38-126) U/L Total Creatine Kinase 54 L (55-170) U/L CK-MB (CK-2) 2.7 H* (0.0-2.4) ng/mL CK-MB (CK-2) Rel Index 5.0 Troponin I 0.028 (0.000-0.034) ng/mL Total Protein 6.0 L (6.3-8.2) g/dL Albumin 3.1 L (3.5-5.0) g/dL 12/22/17 Range/Units 11:12 WBC (3.8-10.6) k/uL RBC (4.30-5.90) m/uL Hgb (13.0-17.5) gm/dL Hct (39.0-53.0) % MCV (80.0-100.0) fL MCH (25.0-35.0) pg MCHC (31.0-37.0) g/dL RDW (11.5-15.5) % Plt Count (150-450) k/uL Neutrophils % % Lymphocytes % % Monocytes % % Eosinophils % % Basophils % % Neutrophils # (1.3-7.7) k/uL Lymphocytes # (1.0-4.8) k/uL Monocytes # (0-1.0) k/uL Eosinophils # (0-0.7) k/uL Basophils # (0-0.2) k/uL Anisocytosis Macrocytosis PT 10.1 (9.0-12.0) sec INR 1.0 (<1.2) APTT 22.0 (22.0-30.0) sec Sodium (137-145) mmol/L Potassium (3.5-5.1) mmol/L Chloride (98-107) mmol/L Carbon Dioxide (22-30) mmol/L Anion Gap mmol/L BUN (9-20) mg/dL Creatinine (0.66-1.25) mg/dL Est GFR (CKD-EPI)AfAm (>60 ml/min/1.73 sqM) Est GFR (CKD-EPI)NonAf (>60 ml/min/1.73 sqM) Glucose (74-99) mg/dL Calcium (8.4-10.2) mg/dL Magnesium (1.6-2.3) mg/dL Total Bilirubin (0.2-1.3) mg/dL AST (17-59) U/L ALT (21-72) U/L Alkaline Phosphatase (38-126) U/L Total Creatine Kinase (55-170) U/L CK-MB (CK-2) (0.0-2.4) ng/mL CK-MB (CK-2) Rel Index Troponin I (0.000-0.034) ng/mL Total Protein (6.3-8.2) g/dL Albumin (3.5-5.0) g/dL Disposition Clinical Impression: Unresponsive episode, Aspiration pneumonia Disposition: ADMITTED IP TO THIS HOSP Referrals: Ned Smith MD [Medical Doctor] - 1-2 days Time of Disposition: 13:30
[2017-12-22 11:42] LABS: Anisocytosis Slight; Basophils % (A) 0 %; Eosinophils # (A) 0.1 k/uL (0-0.7); Eosinophils % (A) 2 %; HCT 36.1 % (39.0-53.0); Lymphocytes # (A) 0.3 k/uL (1.0-4.8); Lymphocytes % (A) 4 %; MCH 32.4 pg (25.0-35.0); MCHC 33.2 g/dL (31.0-37.0); MCV 97.6 fL (80.0-100.0); Macrocytosis Slight; Mean Platelet Volume 6.9; Monocytes # (A) 0.3 k/uL (0-1.0); Monocytes % (A) 3 %; Neutrophils # (A) 7.8 k/uL (1.3-7.7); Neutrophils % (A) 90 %; Platelet Count 365 k/uL (150-450); RDW 16.1 % (11.5-15.5); WBC 8.7 k/uL (3.8-10.6)
[2017-12-22 11:53] LABS: Albumin 3.1 g/dL (3.5-5.0); Calcium 8.8 mg/dL (8.4-10.2); Magnesium 2.1 mg/dL (1.6-2.3); Potassium 4.6 mmol/L (3.5-5.1); Total Bilirubin 0.4 mg/dL (0.2-1.3)
--- NOTE | 2017-12-22 11:55 | XR ---
EXAMINATION TYPE: XR chest 2V DATE OF EXAM: 12/22/2017 HISTORY: difficulty breathing. REFERENCE: Previous study dated 12/16/2017. 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 There is left lower lobe airspace disease. I suspect a small left effusion. Heart size is obscured. T here is some linear atelectasis or scarring in the right midlung. IMPRESSION: NO SIGNIFICANT INTERVAL CHANGE IN THE APPEARANCE OF THE CHEST.
[2017-12-22 11:58] LABS: Prothrombin Time 10.1 sec (9.0-12.0)
[2017-12-22 12:21] LABS: Troponin I 0.028 ng/mL (0.000-0.034)
[2017-12-22 12:22] LABS: Creatine Kinase MB 2.7 ng/mL (0.0-2.4)
[2017-12-22] MEDS ORDERED: PIPERACILLIN-TAZOBACTAM 3.375 GM in DEXTROSE/WATER 1 50ML.BAG IVPB STA (13:13)
[2017-12-22 13:29] LABS: Amylase 171 U/L (30-110); Lipase 647 U/L (23-300)
[2017-12-22] MEDS ORDERED: PNEUMONIA PROTOCOL UTILIZED 1 EACH MISC PO PRN (13:31)
[2017-12-22] MEDS ORDERED: ONDANSETRON 4 MG/2 ML VIAL IVP STA (13:42)
[2017-12-22] MEDS ORDERED: IPRATROPIUM-ALBUTEROL 3 ML NEB INHALATION PRN (18:47)
[2017-12-22] MEDS ORDERED: guaiFENesin SYRUP 100MG/5ML 200 MG/10 ML CUP PEG/G-TUBE PRN (18:47)
[2017-12-22] MEDS ORDERED: MAGNESIUM HYDROXIDE 2,400 MG/10 ML CUP PEG/G-TUBE PRN (18:47)
[2017-12-22] MEDS ORDERED: BISACODYL 10 MG SUPP RECTAL PRN (18:47)
[2017-12-22] MEDS ORDERED: NA PHOS,M-B/NA PHOS,DI-BA 133 ML ENEMA RECTAL PRN (18:47)
[2017-12-22] MEDS ORDERED: NITROGLYCERIN SL TABS 0.4 MG TAB SUBLINGUAL PRN (18:47)
--- NOTE | 2017-12-22 19:00 | P.HPIM ---
History of Present Illness 77-year-old pleasant gentleman was recently discharged to subacute intimidation came back after he was found unresponsive hypotensive probably be dehydrated patient was started on PEG tube feedings here patient was receiving continuous feeds and patient was started on bolus feeds and subacute rehabilitation. Patient desaturated there is a concern patient may have aspirated patient was not coughing before this event has started coughing. Patient unresponsiveness lasted for a few seconds patient was subsequently sent in here found to be have orthostatic hypotension. Patient takes telmisartan which is being held because of the hypotension. 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 patient doesn't have any fever and leukocytosis chest x-ray did not show any aspiration pneumonia pneumonitis. Review of Systems all other review of systems is negative except those mentioned above Past Medical History Past Medical History: Hyperlipidemia, Renal Disease, Thyroid Disorder Additional Past Medical History / Comment(s): 6.4 cm AAA, pancreatitis, flu B , dehydration History of Any Multi-Drug Resistant Organisms: None Reported Past Surgical History: Tonsillectomy Additional Past Surgical History / Comment(s): Abdominal Aortic Aneursym Repair - fall Dr. Vazquez Past Anesthesia/Blood Transfusion Reactions: No Reported Reaction Past Psychological History: No Psychological Hx Reported Smoking Status: Never smoker Past Alcohol Use History: None Reported Past Drug Use History: None Reported - Past Family History Mother Family Medical History: Cancer Medications and Allergies Home Medications Medication Instructions Recorded Confirmed Type Simvastatin [Zocor] 40 mg PEG/G-TUBE HS@209911/18/17 12/22/17 History Ipratropium-Albuterol Nebulize 3 ml INHALATION RT-QID PRN 12/03/17 12/22/17 Rx [Duoneb 0.5 mg-3 mg/3 ml Soln] ampul.neb Aspirin 81 mg PEG/G-TUBE HS@209912/10/17 12/22/17 History Bisacodyl [Dulcolax] 10 mg RECTAL DAILY PRN 12/10/17 12/22/17 History Magnesium Hydroxide [Milk of 7,200 mg PEG/G-TUBE DAILY PRN 12/10/17 12/22/17 History Magnesia Concentrate] Na Phos,M-B/Na Phos,Di-Ba [Fleet 133 ml RECTAL ONCE PRN 12/10/17 12/22/17 History Adult] Nitroglycerin Sl Tabs [Nitrostat] 0.4 mg PEG/G-TUBE Q5M PRN 12/10/17 12/22/17 History Pantoprazole [Protonix] 40 mg PEG/G-TUBE DAILY@0600 12/10/17 12/22/17 History Valsartan [Diovan] 80 mg PEG/G-TUBE HS@209912/10/17 12/22/17 History guaiFENesin SYRUP 100MG/5ML 200 mg PEG/G-TUBE Q6H PRN 12/10/17 12/22/17 History [Robitussin] Ezetimibe [Zetia] 10 mg PEG/G-TUBE HS@209912/22/17 12/22/17 History Levothyroxine Sodium [Synthroid] 150 mcg PEG/G-TUBE DAILY@0600 12/22/17 History Metoprolol Tartrate [Lopressor] 12.5 mg PEG/G-TUBE BID@0800,209912/22/17 History QUEtiapine [SEROquel] 25 mg PEG/G-TUBE HS@209912/22/17 12/22/17 History Saliva Stimulant Agents Comb.3 1 spray MUCOUS MEM BID@0800,1700 12/22/17 History [Biotene Moisturizing Mouth] Allergies Allergy/AdvReac Type Severity Reaction Status Date / Time clidinium Allergy Unknown Verified 12/22/17 12:21 clonidine Allergy Unknown Verified 12/22/17 12:21 atorvastatin [From Lipitor] AdvReac Itching Verified 12/22/17 12:21 Physical Exam Vitals: Vital Signs Temp Pulse Pulse Resp BP BP Pulse Ox 12/22/17 15:15 97.3 F L 98 18 93/62 93 L 12/22/17 14:15 98.0 F 95 16 103/62 97 12/22/17 12:35 95 20 100/54 97 12/22/17 11:57 95 16 91/62 100 12/22/17 10:59 97 F L 101 H 24 103/71 92 L Intake and Output 12/22/17 12/22/17 12/22/17 06:59 14:59 22:59 Other: # Voids 2 Weight 58.1 kg 58.1 kg PHYSICAL EXAMINATION: GENERAL: The patient is alert and oriented x2-3, not in any acute distress. Well developed, well nourished. fatigued HEENT: Pupils are round and equally reacting to light. EOMI. No scleral icterus. No conjunctival pallor. Normocephalic, atraumatic. No pharyngeal erythema. No thyromegaly. CARDIOVASCULAR: S1 and S2 present. No murmurs, rubs, or gallops. PULMONARY: Chest is clear to auscultation, no wheezing or crackles. ABDOMEN: Soft, nontender, nondistended, normoactive bowel sounds. No palpable organomegaly. PEG tube site area appears to be clean without any infection MUSCULOSKELETAL: No joint swelling or deformity. EXTREMITIES: No cyanosis, clubbing, or pedal edema. NEUROLOGICAL: Gross neurological examination did not reveal any focal deficits. SKIN: No rashes. Results CBC & Chem 7: 12/22/17 11:12 12/22/17 11:12 Labs: Abnormal Lab Results - Last 24 Hours (Table) 12/22/17 12/22/17 12/22/17 Range/Units 11:12 11:12 11:12 RBC 3.70 L (4.30-5.90) m/uL Hgb 12.0 L (13.0-17.5) gm/dL Hct 36.1 L (39.0-53.0) % RDW 16.1 H (11.5-15.5) % Neutrophils # 7.8 H (1.3-7.7) k/uL Lymphocytes # 0.3 L (1.0-4.8) k/uL Sodium 133 L (137-145) mmol/L Chloride 96 L (98-107) mmol/L BUN 35 H (9-20) mg/dL Glucose 117 H (74-99) mg/dL Total Creatine Kinase 54 L (55-170) U/L CK-MB (CK-2) 2.7 H* (0.0-2.4) ng/mL Total Protein 6.0 L (6.3-8.2) g/dL Albumin 3.1 L (3.5-5.0) g/dL Amylase (30-110) U/L Lipase (23-300) U/L 12/22/17 Range/Units 11:12 RBC (4.30-5.90) m/uL Hgb (13.0-17.5) gm/dL Hct (39.0-53.0) % RDW (11.5-15.5) % Neutrophils # (1.3-7.7) k/uL Lymphocytes # (1.0-4.8) k/uL Sodium (137-145) mmol/L Chloride (98-107) mmol/L BUN (9-20) mg/dL Glucose (74-99) mg/dL Total Creatine Kinase (55-170) U/L CK-MB (CK-2) (0.0-2.4) ng/mL Total Protein (6.3-8.2) g/dL Albumin (3.5-5.0) g/dL Amylase 171 H (30-110) U/L Lipase 647 H (23-300) U/L Thrombosis Risk Factor Assmnt - Choose All That Apply Other Risk Factors: Yes Each Risk Factor Represents 3 Points: Age 75 years or older Thrombosis Risk Factor Assessment Total Risk Factor Score: 3 Thrombosis Risk Factor Assessment Level: Moderate Risk Assessment and Plan Plan: 1 possible syncope: Secondary to intravascular depletion as mentioned above will check with our [employer] supervisor and increase free water through PEG tube. Patient was started on IV fluids up to 1 L gentle hydration. -Hypotension possibly secondary to intravascular volume depletion IV fluids as mentioned above -Possible aspiration without any pneumonitis or pneumonia: Antibodies will be discussed in your next and- -hyperlipidemia -Hypothyroidism - focal segmental glomera sclerosis for above-mentioned chronic medical problems patient will be resumed and continued on appropriate home medications.
[2017-12-22] MEDS: PIPERACILLIN-TAZOBACTAM 3.375 GM in DEXTROSE/WATER 1 50ML.BAG IVPB SCH (20:36)
[2017-12-22] MEDS: SODIUM CHLORIDE 0.9% 1,000 ML IV SCH (20:36)
[2017-12-22] MEDS: METOPROLOL TARTRATE 12.5 MG TAB PEG/G-TUBE SCH (22:41)
[2017-12-22] MEDS: EZETIMIBE 10 MG TAB PEG/G-TUBE SCH (22:41)
[2017-12-22] MEDS: ASPIRIN 81 MG PEG/G-TUBE SCH (22:41)
[2017-12-23] MEDS: QUEtiapine 25 MG TAB PEG/G-TUBE SCH ×2 (01:37→20:41)
[2017-12-23] MEDS: PIPERACILLIN-TAZOBACTAM 3.375 GM in DEXTROSE/WATER 1 50ML.BAG IVPB SCH ×3 (04:15→20:24)
[2017-12-23] MEDS: LEVOTHYROXINE 150 MCG PO SCH (05:58)
[2017-12-23] MEDS: PANTOPRAZOLE SODIUM 40 MG GRANULE PKT PEG/G-TUBE SCH (05:59)
[2017-12-23] MEDS ORDERED: LEVOTHYROXINE 75 MCG TAB PEG/G-TUBE SCH (06:00)
--- NOTE | 2017-12-23 07:07 | XR ---
EXAMINATION TYPE: XR chest 2V DATE OF EXAM: 12/23/2017 HISTORY: pneumonia. REFERENCE: Previous study dated 12/22/2017. FINDINGS: There is colonic interposition on the left. There is left basilar airspace disease. There i s some atelectatic change at the right lung base. Heart size is obscured. I cannot exclude a small le ft effusion. IMPRESSION: 1. CONTINUING BIBASILAR AIRSPACE DISEASE. 2. I COULD NOT EXCLUDE A SMALL, LEFT EFFUSION.
[2017-12-23] MEDS: METOPROLOL TARTRATE 12.5 MG TAB PEG/G-TUBE SCH ×2 (10:11→20:25)
[2017-12-23] MEDS: DRY MOUTH SPRAY 44.3 SPRAY/44.3 ML SPRAY MUCOUS MEM SCH ×2 (10:12→18:57)
[2017-12-23] MEDS: SODIUM CHLORIDE 0.9% 1,000 ML IV SCH (10:13)
[2017-12-23 14:34] LABS: Calcium 7.9 mg/dL (8.4-10.2); Potassium 4.5 mmol/L (3.5-5.1)
--- NOTE | 2017-12-23 14:39 | P.PN ---
Subjective 77-year-old gentleman was admitted with possibility of aspiration without any pneumonitis and intravascularly depletion. Patient is being started back on PEG tube feedings which she was unable to tolerate and was having nausea vomiting which improved now patient will be resumed on PEG tube feedings with increase in free water to PEG tube. Basic metabolic profile and CBC will be obtained today patient is not on any antibiotics at this point of time and is there is no significant evidence of bacterial pneumonitis from aspiration. IV fluids will be discontinued reviewed the chest x-ray patient I believe he is starting to retain fluid in the lungs. BUN improved and sodium is 134 blood pressure marginally improved Objective - Vital Signs Vital signs: Vital Signs Temp 98.4 F 12/23/17 07:00 Pulse 93 12/23/17 07:00 Resp 16 12/23/17 07:00 BP 97/63 12/23/17 07:00 Pulse Ox 97 12/23/17 07:00 Intake & Output 12/22/17 12/23/17 12/23/17 18:59 06:59 18:59 Output Total 225 Balance -225 Weight 58.1 kg Output: Urine 225 Other: # Voids 2 1 - Exam PHYSICAL EXAMINATION: GENERAL: The patient is alert and oriented x2-3, not in any acute distress. Well developed, well nourished. fatigued, much more responsive today HEENT: Pupils are round and equally reacting to light. EOMI. No scleral icterus. No conjunctival pallor. Normocephalic, atraumatic. No pharyngeal erythema. No thyromegaly. CARDIOVASCULAR: S1 and S2 present. No murmurs, rubs, or gallops. PULMONARY: Chest is clear to auscultation, no wheezing or crackles. ABDOMEN: Soft, nontender, nondistended, normoactive bowel sounds. No palpable organomegaly. PEG tube site area appears to be clean without any infection MUSCULOSKELETAL: No joint swelling or deformity. EXTREMITIES: No cyanosis, clubbing, or pedal edema. NEUROLOGICAL: Gross neurological examination did not reveal any focal deficits. SKIN: No rashes. 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 Patient received gentle hydration well this can you IV fluids with concerns of pulmonary edema -Hypotension possibly secondary to intravascular volume depletion -Possible aspiration without any pneumonitis or pneumonia: Not on any anti- medics at this point of time -hyperlipidemia -Hypothyroidism - focal segmental glomera sclerosis -Hyponatremia chronic and minimal improvement with IV fluids for above-mentioned chronic medical problems patient will be resumed and continued on appropriate home medications.
[2017-12-23] MEDS: ASPIRIN 81 MG PEG/G-TUBE SCH (20:26)
[2017-12-23] MEDS: EZETIMIBE 10 MG TAB PEG/G-TUBE SCH (20:26)
[2017-12-24] MEDS: PANTOPRAZOLE SODIUM 40 MG GRANULE PKT PEG/G-TUBE SCH (05:16)
[2017-12-24] MEDS: LEVOTHYROXINE 150 MCG PO SCH (05:18)
[2017-12-24] MEDS: PIPERACILLIN-TAZOBACTAM 3.375 GM in DEXTROSE/WATER 1 50ML.BAG IVPB SCH ×2 (05:22→11:40)
[2017-12-24] MEDS ORDERED: ACETAMINOPHEN TAB 325 MG TAB PEG/G-TUBE PRN (07:38)
[2017-12-24] MEDS: DRY MOUTH SPRAY 44.3 SPRAY/44.3 ML SPRAY MUCOUS MEM SCH ×2 (08:23→16:35)
[2017-12-24] MEDS: METOPROLOL TARTRATE 12.5 MG TAB PEG/G-TUBE SCH ×2 (08:23→20:45)
[2017-12-24 08:44] LABS: HCT 29.6 % (39.0-53.0); HGB 9.7 gm/dL (13.0-17.5); MCH 32.5 pg (25.0-35.0); MCHC 32.8 g/dL (31.0-37.0); Macrocytosis Slight; Mean Platelet Volume 6.9; Platelet Count 304 k/uL (150-450); RBC 2.99 m/uL (4.30-5.90)
[2017-12-24 09:20] LABS: Calcium 8.1 mg/dL (8.4-10.2); Potassium 4.2 mmol/L (3.5-5.1)
[2017-12-24 10:06] VITALS: BMI 19.9
--- NOTE | 2017-12-24 13:21 | P.PN ---
Subjective Progress Note Date: 12/24/17 Patient seen and examined at the bedside on rounds with Dr. Ferris. Patient is awake and alert. Patient denies any pain or discomfort. Patient denies shortness of breath. Patient denies chest pain. Tube feedings are infusing. Patient is tolerating well. Objective - Vital Signs Vital signs: Vital Signs Temp 97.0 F L 12/24/17 06:23 Pulse 87 12/24/17 06:23 Resp 20 12/24/17 06:23 BP 108/62 12/24/17 06:23 Pulse Ox 98 12/24/17 06:23 Intake & Output 12/23/17 12/24/17 12/24/17 18:59 06:59 18:59 Output Total 375 Balance -375 Weight 62.5 kg 63 kg 63 kg Output: Urine 375 Other: # Voids 1 1 # Bowel Movements 0 1 - Exam GENERAL: This is a 77-year-old male in no apparent distress at the time of examination. Pleasant and cooperative. HEENT: Head is atraumatic, normocephalic. Pupils are equal, round, and reactive to light. Sclerae anicteric. Conjunctivae are clear. Mucus membranes of the mouth are moist. Neck is supple. RESPIRATORY: Clear to ausculation. No wheezes, rales, or rhonchi. No use of accessory muscles. Patient maintaining oxygen saturation greater than 92%. No chest wall tenderness is noted on palpation or with deep breathing. CARDIOVASCULAR: Regular rate and rhythm. S1 and S2 noted. No systolic or diastolic murmur auscultated. No JVD noted. No S3 or S4 noted. GASTROINTESTINAL: PEG tube noted with tube feeding infusing. No distention noted. Abdomen soft and round. Normal active bowel sounds auscultated x 4 quadrants. No pain or tenderness noted upon palpation. INTEGUMENTARY: No cyanosis. No jaundice. No rashes noted. No cellulitis noted. EXTREMITIES: 2+ peripheral pulses. No evidence of peripheral edema. No calf tenderness noted. NEUROLOGIC: Cranial nerves II-XII intact. PSYCHIATRIC: Awake, alert, and oriented X 3. Appropriate affect. Intact judgement and insight. - Labs CBC & Chem 7: 12/24/17 07:45 12/24/17 07:45 Labs: Abnormal Lab Results - Last 24 Hours (Table) 12/23/17 12/24/1718 Range/Units 13:59 07:45 07:45 RBC 2.99 L (4.30-5.90) m/uL Hgb 9.7 L D (13.0-17.5) gm/dL Hct 29.6 L (39.0-53.0) % RDW 16.0 H (11.5-15.5) % Sodium 134 L 136 L (137-145) mmol/L BUN 25 H (9-20) mg/dL Glucose 68 L 100 H (74-99) mg/dL Calcium 7.9 L 8.1 L (8.4-10.2) mg/dL Microbiology - Last 24 Hours (Table) 12/22/17 14:13 Blood Culture - Preliminary Blood No Growth after 24 hours Assessment and Plan Plan: ASSESSMENT: Possible syncope, to be secondary to intravascular depletion Hypotension, present on admission, likely secondary to intravascular volume depletion, resolved Possible aspiration, x-ray does not show evidence of aspiration pneumonia Recent hospitalization secondary to acute pancreatitis Chronic diastolic congestive heart failure, ejection fraction 50-60% History of abdominal aortic aneurysm with large pseudoaneurysm, 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 Begin patient on Augmentin twice a day PT/OT consult Home meds as appropriate Monitor labs GI prophylaxis: Protonix 40 mg Daily DVT prophylaxis: Venodyne's to bilateral lower extremities Monitor vital signs and address as appropriate Further recommendations pending patient's course Anticipate discharge back to [facility] within the next 24-48 hours Nurse practitioner note has been reviewed by physician. Signing provider agrees with the documented findings, assessment, and plan of care.
[2017-12-24] MEDS: AMOXIC-POT CLAV 500-125 MG 1 EACH TAB PO SCH (20:44)
[2017-12-24] MEDS: ASPIRIN 81 MG PEG/G-TUBE SCH (20:45)
[2017-12-24] MEDS: QUEtiapine 25 MG TAB PEG/G-TUBE SCH (20:45)
[2017-12-24] MEDS: EZETIMIBE 10 MG TAB PEG/G-TUBE SCH (20:45)
[2017-12-25] MEDS: LEVOTHYROXINE 150 MCG PO SCH (06:36)
[2017-12-25] MEDS: PANTOPRAZOLE SODIUM 40 MG GRANULE PKT PEG/G-TUBE SCH (06:37)
[2017-12-25] MEDS: AMOXIC-POT CLAV 500-125 MG 1 EACH TAB PO SCH ×2 (08:05→20:56)
[2017-12-25] MEDS: DRY MOUTH SPRAY 44.3 SPRAY/44.3 ML SPRAY MUCOUS MEM SCH ×2 (08:05→18:03)
[2017-12-25] MEDS: METOPROLOL TARTRATE 12.5 MG TAB PEG/G-TUBE SCH ×2 (08:05→20:56)
[2017-12-25 08:51] LABS: Anion Gap 6 mmol/L; Blood Urea Nitrogen 14 mg/dL (9-20); Calcium 8.3 mg/dL (8.4-10.2); Carbon Dioxide 30 mmol/L (22-30); Chloride 98 mmol/L (98-107); Glucose 104 mg/dL (74-99); Potassium 4.2 mmol/L (3.5-5.1); Sodium 134 mmol/L (137-145)
[2017-12-25 08:55] LABS: Basophils % (A) 0 %; Eosinophils # (A) 0.3 k/uL (0-0.7); Eosinophils % (A) 4 %; HGB 10.5 gm/dL (13.0-17.5); Lymphocytes # (A) 0.6 k/uL (1.0-4.8); Lymphocytes % (A) 8 %; MCH 32.4 pg (25.0-35.0); MCHC 32.9 g/dL (31.0-37.0); MCV 98.4 fL (80.0-100.0); Macrocytosis Slight; Mean Platelet Volume 6.8; Monocytes # (A) 0.5 k/uL (0-1.0); Monocytes % (A) 7 %; Neutrophils # (A) 5.9 k/uL (1.3-7.7); Neutrophils % (A) 79 %; Platelet Count 309 k/uL (150-450); RBC 3.25 m/uL (4.30-5.90); RDW 15.8 % (11.5-15.5); WBC 7.5 k/uL (3.8-10.6)
--- NOTE | 2017-12-25 09:44 | P.PN ---
Subjective Progress Note Date: 12/25/17 12/24/2017 Patient seen and examined at the bedside on rounds with Dr. Ferris. Patient is awake and alert. Patient denies any pain or discomfort. Patient denies shortness of breath. Patient denies chest pain. Tube feedings are infusing. Patient is tolerating well. 12/25/2017 Patient seen and examined at the bedside on rounds with Dr. Ferris. Patient is awake and alert. Patient denies shortness of breath. Patient denies chest pain. Tube feedings are infusing at 50cc/hr which is goal with 165 flush q 4 hours. Patient is tolerating well. Hgb is 10.5. BUN 14. Anticipate discharge back to [facility] tomorrow. Objective - Vital Signs Vital signs: Vital Signs Temp 97.0 F L 12/25/17 06:57 Pulse 105 H 12/25/17 06:57 Resp 24 12/25/17 06:57 BP 147/87 12/25/17 06:57 Pulse Ox 95 12/25/17 06:57 Intake & Output 12/24/17 12/25/17 12/25/17 18:59 06:59 18:59 Intake Total 380 420 Output Total 325 Balance 55 420 Weight 63 kg 61.5 kg Intake: Tube Feeding 380 420 Output: Urine 325 Other: # Voids 1 1 # Bowel Movements 1 1 - Exam GENERAL: This is a 77-year-old male in no apparent distress at the time of examination. Pleasant and cooperative. HEENT: Head is atraumatic, normocephalic. Pupils are equal, round, and reactive to light. Sclerae anicteric. Conjunctivae are clear. Mucus membranes of the mouth are moist. Neck is supple. RESPIRATORY: Clear to ausculation. No wheezes, rales, or rhonchi. No use of accessory muscles. Patient maintaining oxygen saturation greater than 92%. No chest wall tenderness is noted on palpation or with deep breathing. CARDIOVASCULAR: Regular rate and rhythm. S1 and S2 noted. No systolic or diastolic murmur auscultated. No JVD noted. No S3 or S4 noted. GASTROINTESTINAL: PEG tube noted with tube feeding infusing. No distention noted. Abdomen soft and round. Normal active bowel sounds auscultated x 4 quadrants. No pain or tenderness noted upon palpation. INTEGUMENTARY: No cyanosis. No jaundice. No rashes noted. No cellulitis noted. EXTREMITIES: 2+ peripheral pulses. No evidence of peripheral edema. No calf tenderness noted. NEUROLOGIC: Cranial nerves II-XII intact. PSYCHIATRIC: Awake, alert, and oriented X 3. Appropriate affect. Intact judgement and insight. - Labs CBC & Chem 7: 12/25/17 08:13 12/25/17 08:13 Labs: Abnormal Lab Results - Last 24 Hours (Table) 12/25/17 12/25/17 Range/Units 08:13 08:13 RBC 3.25 L (4.30-5.90) m/uL Hgb 10.5 L (13.0-17.5) gm/dL Hct 32.0 L (39.0-53.0) % RDW 15.8 H (11.5-15.5) % Lymphocytes # 0.6 L (1.0-4.8) k/uL Sodium 134 L (137-145) mmol/L Glucose 104 H (74-99) mg/dL Calcium 8.3 L (8.4-10.2) mg/dL Microbiology - Last 24 Hours (Table) 12/22/17 14:13 Blood Culture - Preliminary Blood No Growth after 48 hours Assessment and Plan Plan: ASSESSMENT: Possible syncope, to be secondary to intravascular depletion, resolved Hypotension, present on admission, likely secondary to intravascular volume depletion, resolved Possible aspiration, x-ray does not show evidence of aspiration pneumonia Recent hospitalization secondary to acute pancreatitis Chronic diastolic congestive heart failure, ejection fraction 50-60% History of abdominal aortic aneurysm with large pseudoaneurysm, 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 Dysphagia with severe protein calorie malnutrition, S/P PEG tube insertion FSGS, patient follows up every 6 months [facility] and is maintained on daily low-dose steroids Hyperlipidemia Chronic hyponatremia Hypothyroidism Anemia of chronic disease Severe debility Gait dysfunction PLAN: Continue empiric antibiotics in the form of Augmentin PT/OT Home meds as appropriate Monitor labs GI prophylaxis: Protonix 40 mg Daily DVT prophylaxis: Venodyne's to bilateral lower extremities Monitor vital signs and address as appropriate Further recommendations pending patient's course Anticipate discharge back to [facility] tomorrow Nurse practitioner note has been reviewed by physician. Signing provider agrees with the documented findings, assessment, and plan of care.
[2017-12-25] MEDS: ASPIRIN 81 MG PEG/G-TUBE SCH (20:56)
[2017-12-25] MEDS: EZETIMIBE 10 MG TAB PEG/G-TUBE SCH (20:56)
[2017-12-25] MEDS: QUEtiapine 25 MG TAB PEG/G-TUBE SCH (20:56)
[2017-12-26] MEDS: PANTOPRAZOLE SODIUM 40 MG GRANULE PKT PEG/G-TUBE SCH (06:38)
[2017-12-26] MEDS: LEVOTHYROXINE 150 MCG PO SCH (06:38)
[2017-12-26] MEDS: METOPROLOL TARTRATE 12.5 MG TAB PEG/G-TUBE SCH (08:28)
[2017-12-26] MEDS: AMOXIC-POT CLAV 500-125 MG 1 EACH TAB PO SCH (08:28)
[2017-12-26] MEDS: DRY MOUTH SPRAY 44.3 SPRAY/44.3 ML SPRAY MUCOUS MEM SCH (08:28)
[2017-12-26 08:42] VITALS: BP 157/99; PULSE 111; RESP 16; TEMP 96.9
[2017-12-26 09:05] LABS: Basophils # (A) 0.1 k/uL (0-0.2); Basophils % (A) 1 %; Eosinophils # (A) 0.3 k/uL (0-0.7); Eosinophils % (A) 3 %; HCT 34.8 % (39.0-53.0); HGB 11.7 gm/dL (13.0-17.5); Lymphocytes # (A) 0.8 k/uL (1.0-4.8); Lymphocytes % (A) 9 %; MCH 32.6 pg (25.0-35.0); MCHC 33.5 g/dL (31.0-37.0); MCV 97.2 fL (80.0-100.0); Macrocytosis Slight; Monocytes # (A) 0.5 k/uL (0-1.0); Monocytes % (A) 6 %; Neutrophils % (A) 79 %; Platelet Count 332 k/uL (150-450); RBC 3.58 m/uL (4.30-5.90); RDW 15.8 % (11.5-15.5); WBC 8.8 k/uL (3.8-10.6)
[2017-12-26 09:34] LABS: Anion Gap 10 mmol/L; Blood Urea Nitrogen 12 mg/dL (9-20); Calcium 8.6 mg/dL (8.4-10.2); Carbon Dioxide 30 mmol/L (22-30); Chloride 96 mmol/L (98-107); Glucose 87 mg/dL (74-99); Potassium 4.6 mmol/L (3.5-5.1); Sodium 136 mmol/L (137-145)
--- NOTE | 2017-12-26 09:53 | XR ---
EXAMINATION TYPE: XR chest 2V DATE OF EXAM: 12/26/2017 COMPARISON: 12/23/2017 HISTORY: 77-year-old male with cough TECHNIQUE: AP and lateral views FINDINGS: Patient is obliqued towards the right and also rotated towards the right. Low lung volumes obscuring some of the heart margins. Interstitial densities persist with patchy peripheral and basilar opacitie s, relatively similar to prior. Left basilar density may be slightly improved. Small left pleural eff usion difficult to exclude on the lateral view. Colonic interposition below the right hemidiaphragm. IMPRESSION: 1. Peripheral and basilar interstitial and airspace infiltrates. There may be some improvement at the left base. Multifocal pneumonia including atypical pneumonias, interstitial pneumonitis, and eosinop hilic pneumonia are all in the differential. 2. Small left effusion suggested on the lateral view.
--- NOTE | 2017-12-26 11:16 | P.DS ---
Providers Date of admission: 12/22/17 13:31 Expected date of discharge: 12/26/17 Attending physician: Humberto Ferris Primary care physician: Humberto Ferris [facility] Course: 77-year-old male who was recently hospitalized secondary to acute pancreatitis and was discharged to [facility] for rehab. The patient was ambulating in the hallways and the patient apparently had a syncopal episode. The patient also had an episode of emesis and subsequent coughing. He was transferred to [facility] for further evaluation. There was question of possible aspiration pneumonia. Chest x-ray upon admission shows left lower lobe airspace disease with atelectasis or scarring in the right midlung. It did not show significant change from previous studies. The patient was placed on empiric antibiotics in the form of Zosyn, which has since been transitioned to Augmentin. The patient has had 2 repeat chest x-rays during hospitalization which do not show evidence of infiltrates or pneumonia. The patient is to continue on Augmentin for 7 days at the time of discharge per Dr. Ferris. The patient was found to be slightly hypotensive and intravascularly depleted. He was given IV fluids during hospitalization. His BUN was elevated upon admission and is now within normal limits. Dietary was consulted to evaluate tube feeding regimen as patient is NPO and has failed previous swallow studies. Patient's tube feeding was changed from Nepro to Jevity at 50 mL an hour. Free water flushes were increased to 165 mL every 4 hours. Dietitian met with patient's family and discussed regimen and family is agreeable. Physical therapy and occupational therapy were consulted during hospitalization. Recommendations are for subacute rehab. The patient was deemed stable for discharge back to [facility] per Dr. Ferris. 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 Signing provider agrees with the documented findings, assessment, and plan of care. Patient Condition at Discharge: Stable Plan - Discharge Summary Discharge Rx Participant: No New Discharge Prescriptions: New Acetaminophen Tab [Tylenol] 650 mg PEG/G-TUBE Q4HR PRN tab PRN Reason: Fever And/ Or Pain Amoxic-Pot Clav 500-125 mg [Augmentin 500-125 mg] 1 each PO BID #14 tab Continue Simvastatin [Zocor] 40 mg PEG/G-TUBE HS@2100 Ipratropium-Albuterol Nebulize [Duoneb 0.5 mg-3 mg/3 ml Soln] 3 ml INHALATION RT-QID PRN ampul.neb PRN Reason: Shortness Of Breath Bisacodyl [Dulcolax] 10 mg RECTAL DAILY PRN PRN Reason: Constipation Magnesium Hydroxide [Milk of Magnesia Concentrate] 7,200 mg PEG/G-TUBE DAILY PRN PRN Reason: Constipation Na Phos,M-B/Na Phos,Di-Ba [Fleet Adult] 133 ml RECTAL ONCE PRN PRN Reason: Constipation Aspirin 81 mg PEG/G-TUBE HS@2100 guaiFENesin SYRUP 100MG/5ML [Robitussin] 200 mg PEG/G-TUBE Q6H PRN PRN Reason: Cough Pantoprazole [Protonix] 40 mg PEG/G-TUBE DAILY@0600 Valsartan [Diovan] 80 mg PEG/G-TUBE HS@2100 Nitroglycerin Sl Tabs [Nitrostat] 0.4 mg PEG/G-TUBE Q5M PRN PRN Reason: Chest Pain Ezetimibe [Zetia] 10 mg PEG/G-TUBE HS@2100 Levothyroxine Sodium [Synthroid] 150 mcg PEG/G-TUBE DAILY@0600 Metoprolol Tartrate [Lopressor] 12.5 mg PEG/G-TUBE BID@0800,2100 QUEtiapine [SEROquel] 25 mg PEG/G-TUBE HS@2100 Saliva Stimulant Agents Comb.3 [Biotene Moisturizing Mouth] 1 spray MUCOUS MEM BID@0800,1700 Discharge Medication List Simvastatin [Zocor] 40 mg PEG/G-TUBE HS@2100 11/18/17 [History] Ipratropium-Albuterol Nebulize [Duoneb 0.5 mg-3 mg/3 ml Soln] 3 ml INHALATION RT -QID PRN ampul.neb 12/03/17 [Rx] Aspirin 81 mg PEG/G-TUBE HS@209912/10/17 [History] Bisacodyl [Dulcolax] 10 mg RECTAL DAILY PRN 12/10/17 [History] Magnesium Hydroxide [Milk of Magnesia Concentrate] 7,200 mg PEG/G-TUBE DAILY PRN 12/10/17 [History] Na Phos,M-B/Na Phos,Di-Ba [Fleet Adult] 133 ml RECTAL ONCE PRN 12/10/17 [History ] Nitroglycerin Sl Tabs [Nitrostat] 0.4 mg PEG/G-TUBE Q5M PRN 12/10/17 [History] Pantoprazole [Protonix] 40 mg PEG/G-TUBE DAILY@0600 12/10/17 [History] Valsartan [Diovan] 80 mg PEG/G-TUBE HS@209912/10/17 [History] guaiFENesin SYRUP 100MG/5ML [Robitussin] 200 mg PEG/G-TUBE Q6H PRN 12/10/17 [ History] Ezetimibe [Zetia] 10 mg PEG/G-TUBE HS@209912/22/17 [History] Levothyroxine Sodium [Synthroid] 150 mcg PEG/G-TUBE DAILY@0600 12/22/17 [History ] Metoprolol Tartrate [Lopressor] 12.5 mg PEG/G-TUBE BID@0800,209912/22/17 [ History] QUEtiapine [SEROquel] 25 mg PEG/G-TUBE HS@209912/22/17 [History] Saliva Stimulant Agents Comb.3 [Biotene Moisturizing Mouth] 1 spray MUCOUS MEM BID@0800,1700 12/22/17 [History] Acetaminophen Tab [Tylenol] 650 mg PEG/G-TUBE Q4HR PRN tab 12/26/17 [Rx] Amoxic-Pot Clav 500-125 mg [Augmentin 500-125 mg] 1 each PO BID #14 tab [Rx] Follow up Appointment(s)/Referral(s): Humberto Ferris DO [Primary Care Provider] - 1 Week (1 week after DC from [facility]) Ambulatory/Diagnostic Orders: Basic Metabolic Panel [LAB.AMB] Time Frame: 3 Days, Location: Determined By Patient Complete Blood Count w/diff [LAB.AMB] Time Frame: 3 Days, Location: Determined By Patient Activity/Diet/Wound Care/Special Instructions: Activity as tolerated Jevity tube feeding at 50cc/hr. 165cc flush q 4 hours Discharge Disposition: TRANSFER TO SNF/ECF
== END 2017-12-26 14:29 ==
LOC: EC 10:50 → 4MS4W 13:31 → INTOOBSV 13:31
PROVIDERS: ADMIT Family Medicine; ATTEND Family Medicine
DX: E86.9 Volume depletion, unspecified (principal); E87.1 Hypo-osmolality and hyponatremia; I95.1 Orthostatic hypotension; I50.32 Chronic diastolic (congestive) heart failure; N04.1 Nephrotic syndrome with focal and segmental glomerular lesions; E43 Unspecified severe protein-calorie malnutrition; Z68.1 Body mass index [BMI] 19.9 or less, adult; R05 Cough; D63.8 Anemia in other chronic diseases classified elsewhere; E78.5 Hyperlipidemia, unspecified; E03.9 Hypothyroidism, unspecified; I71.4 Abdominal aortic aneurysm, without rupture; R13.10 Dysphagia, unspecified; R53.81 Other malaise; R26.9 Unspecified abnormalities of gait and mobility; Z93.1 Gastrostomy status; Z87.19 Personal history of other diseases of the digestive system; Z79.82 Long term (current) use of aspirin; Z79.899 Other long term (current) drug therapy; Z88.8 Allergy status to other drugs, medicaments and biological substances; Z80.9 Family history of malignant neoplasm, unspecified
CPT/HCPCS: 96361 ×3; 96365 ×2; 96375 ×2; 99285 ×2; 96366 ×3; 36415; 94760; 93005; 97530; 97162; 97167; 80053; 80048 ×4; 82150; 82550; 82553; 83690; 83735; 84484; 85025 ×3; 85027; 85610; 85730; 87040; 71046 ×3; G0378 ×5; J2405; J2543 ×3

== ENCOUNTER 2018-01-09 13:04 | Inpatient (IN) | payer MEDICARE ==
[~2018-01-09 13:04] MED LIST: FUROSEMIDE 10 MG/ML 4 ML VIAL ONE
[2018-01-09] MEDS ORDERED: SODIUM CHLORIDE 0.9% 500 ML IV ONE (13:42)
--- NOTE | 2018-01-09 13:46 | ED ---
General Adult HPI - General Chief complaint: Recheck/Abnormal Lab/Rx Stated complaint: Low Sodium Levels Time Seen by Provider: 01/09/18 13:20 Source: EMS, RN notes reviewed Mode of arrival: EMS Limitations: no limitations - History of Present Illness Initial comments: This is a 77-year-old male who presents emergency department because some blood was drawn earlier and he was found to have a very low sodium of 119. Patient himselfat [facility] but he has no complaints. Patient denies chest pain difficult to breathing or shortness of breath. Patient denies abdominal pain patient denies any nausea vomiting diarrhea. Patient denies any fever chills per patient states she does not know why. Patient states he feels normal - Related Data Home Medications Medication Instructions Recorded Confirmed Simvastatin [Zocor] 40 mg PEG/G-TUBE HS@209911/18/17 01/09/18 Aspirin 81 mg PEG/G-TUBE HS@209912/10/17 01/09/18 Bisacodyl [Dulcolax] 10 mg RECTAL DAILY PRN 12/10/17 01/09/18 Magnesium Hydroxide [Milk of 7,200 mg PEG/G-TUBE DAILY PRN 12/10/17 01/09/18 Magnesia Concentrate] Na Phos,M-B/Na Phos,Di-Ba [Fleet 133 ml RECTAL DAILY PRN 12/10/17 01/09/18 Adult] Nitroglycerin Sl Tabs [Nitrostat] 0.4 mg PEG/G-TUBE Q5M PRN 12/10/17 01/09/18 Pantoprazole [Protonix] 40 mg PEG/G-TUBE DAILY@0612/10/17 01/09/18 Valsartan [Diovan] 80 mg PEG/G-TUBE HS@209912/10/17 01/09/18 guaiFENesin SYRUP 100MG/5ML 200 mg PEG/G-TUBE Q6H PRN 12/10/17 01/09/18 [Robitussin] Ezetimibe [Zetia] 10 mg PEG/G-TUBE HS@209912/22/17 01/09/18 Levothyroxine Sodium [Synthroid] 150 mcg PEG/G-TUBE DAILY@0600 12/22/17 01/09/18 Metoprolol Tartrate [Lopressor] 12.5 mg PEG/G-TUBE BID@0800,2100 12/22/17 Saliva Stimulant Agents Comb.3 1 spray MUCOUS MEM BID@0800,1700 12/22/17 [Biotene Moisturizing Mouth] ALPRAZolam [Xanax] 0.25 mg PEG/G-TUBE DAILY PRN 01/09/18 01/09/18 Aspirin EC [Ecotrin Low Dose] 81 mg PEG/G-TUBE DAILY@1700 01/09/18 01/09/18 Ferrous Sulfate [Feosol] 325 mg PEG/G-TUBE DAILY 01/09/18 01/09/18 Jovity 2.5 can PEG/G-TUBE DAILY@1800 01/09/18 01/09/18 L.acidoph,Paracasei, B.lactis 1 cap PEG/G-TUBE BID 01/09/18 01/09/18 [Probiotic] Nystatin 100,000 Unit/ml Susp 5 ml PO QID 01/09/18 01/09/18 [Mycostatin Oral Susp] Sodium Chloride [Saline Nasal 1 spray EA NOSTRIL BID 01/09/18 01/09/18 [place]] Previous Rx's Medication Instructions Recorded Ipratropium-Albuterol Nebulize 3 ml INHALATION RT-QID PRN 12/03/17 [Duoneb 0.5 mg-3 mg/3 ml Soln] ampul.neb Acetaminophen Tab [Tylenol] 650 mg PEG/G-TUBE Q4HR PRN tab 12/26/17 Allergies Allergy/AdvReac Type Severity Reaction Status Date / Time clidinium Allergy Unknown Verified 01/09/18 13:59 clonidine Allergy Unknown Verified 01/09/18 13:59 atorvastatin [From Lipitor] AdvReac Itching Verified 01/09/18 13:59 Review of Systems ROS Statement: Those systems with pertinent positive or pertinent negative responses have been documented in the HPI. ROS Other: All systems not noted in ROS Statement are negative. Past Medical History Past Medical History: Hyperlipidemia, Renal Disease, Thyroid Disorder Additional Past Medical History / Comment(s): 6.4 cm AAA, pancreatitis, flu B , dehydration History of Any Multi-Drug Resistant Organisms: None Reported Past Surgical History: Tonsillectomy Additional Past Surgical History / Comment(s): Abdominal Aortic Aneursym Repair - fall Dr. Vazquez Past Anesthesia/Blood Transfusion Reactions: No Reported Reaction Past Psychological History: No Psychological Hx Reported Smoking Status: Never smoker Past Alcohol Use History: None Reported Past Drug Use History: None Reported - Past Family History Mother Family Medical History: Cancer General Exam - General Exam Comments Initial Comments: GENERAL: Patient is well-developed and well-nourished. Patient is nontoxic and well- hydrated and is in no acute distress. ENT: Neck is soft and supple. No significant lymphadenopathy is noted. Oropharynx is clear. Moist mucous membranes. Neck has full range of motion without eliciting any pain. EYES: The sclera were anicteric and conjunctiva were pink and moist. Extraocular movements were intact and pupils were equal round and reactive to light. Eyelids were unremarkable. PULMONARY: Crackles right base CARDIOVASCULAR: There is a regular rate and rhythm without any murmurs gallops or rubs. ABDOMEN: Soft and nontender with normal bowel sounds. No palpable organomegaly was noted. There is no palpable pulsatile mass. SKIN: Skin is clear with no lesions or rashes and otherwise unremarkable. NEUROLOGIC: Patient is alert and oriented 2. Cranial nerves II through XII are grossly intact. Motor and sensory are also intact. Normal speech, volume and content. Symmetrical smile. LYMPHATICS: No significant lymphadenopathy is noted PSYCHIATRIC: Normal psychiatric evaluation. Limitations: no limitations Course Vital Signs 01/09/18 01/09/18 13:28 14:37 Pulse Rate 94 99 Respiratory 20 16 Rate Blood Pressure 136/66 136/77 O2 Sat by Pulse 94 L 95 Oximetry Medical Decision Making - Medical Decision Making EKG shows normal sinus rhythm at 90 bpm VT interval 142 QRS is 124 QTC is 380 QTC is 485. Patient has left bundle branch block. Patient is hyponatremic I gave the patient a 500 mL bolus. I spoke with Dr. Corea she agreed to admit the patient admitted the patient continue fluids. - Lab Data Result diagrams: 01/09/18 14:00 01/09/18 14:00 Lab Results 01/09/18 01/09/18 01/09/18 Range/Units 14:00 14:00 14:00 WBC 12.1 H (3.8-10.6) k/uL RBC 3.35 L (4.30-5.90) m/uL Hgb 10.5 L (13.0-17.5) gm/dL Hct 31.5 L (39.0-53.0) % MCV 93.9 D (80.0-100.0) fL MCH 31.4 (25.0-35.0) pg MCHC 33.4 (31.0-37.0) g/dL RDW 15.7 H (11.5-15.5) % Plt Count 526 H (150-450) k/uL Neutrophils % 81 % Lymphocytes % 6 % Monocytes % 7 % Eosinophils % 3 % Basophils % 0 % Neutrophils # 9.8 H (1.3-7.7) k/uL Lymphocytes # 0.8 L (1.0-4.8) k/uL Monocytes # 0.9 (0-1.0) k/uL Eosinophils # 0.4 (0-0.7) k/uL Basophils # 0.0 (0-0.2) k/uL PT (9.0-12.0) sec INR (<1.2) APTT (22.0-30.0) sec Sodium 117 L* (137-145) mmol/L Potassium 5.2 H (3.5-5.1) mmol/L Chloride 83 L (98-107) mmol/L Carbon Dioxide 29 (22-30) mmol/L Anion Gap 5 mmol/L BUN 18 (9-20) mg/dL Creatinine 0.72 (0.66-1.25) mg/dL Est GFR (CKD-EPI)AfAm >90 (>60 ml/min/1.73 sqM) Est GFR (CKD-EPI)NonAf 90 (>60 ml/min/1.73 sqM) Glucose 86 (74-99) mg/dL Calcium 8.4 (8.4-10.2) mg/dL Total Bilirubin 0.3 (0.2-1.3) mg/dL AST 35 (17-59) U/L ALT 35 (21-72) U/L Alkaline Phosphatase 82 (38-126) U/L Total Creatine Kinase 40 L (55-170) U/L CK-MB (CK-2) 1.9 (0.0-2.4) ng/mL CK-MB (CK-2) Rel Index 4.8 Troponin I 0.022 (0.000-0.034) ng/mL Total Protein 5.7 L (6.3-8.2) g/dL Albumin 2.8 L (3.5-5.0) g/dL Urine Color Urine Appearance (Clear) Urine pH (5.0-8.0) Ur Specific [place] (1.001-1.035) Urine Protein (Negative) Urine Glucose (UA) (Negative) Urine Ketones (Negative) Urine Blood (Negative) Urine Nitrite (Negative) Urine Bilirubin (Negative) Urine Urobilinogen (<2.0) mg/dL Ur Leukocyte Esterase (Negative) Urine RBC (0-5) /hpf Urine Bacteria (None) /hpf 01/09/18 01/09/18 Range/Units 14:00 14:25 WBC (3.8-10.6) k/uL RBC (4.30-5.90) m/uL Hgb (13.0-17.5) gm/dL Hct (39.0-53.0) % MCV (80.0-100.0) fL MCH (25.0-35.0) pg MCHC (31.0-37.0) g/dL RDW (11.5-15.5) % Plt Count (150-450) k/uL Neutrophils % % Lymphocytes % % Monocytes % % Eosinophils % % Basophils % % Neutrophils # (1.3-7.7) k/uL Lymphocytes # (1.0-4.8) k/uL Monocytes # (0-1.0) k/uL Eosinophils # (0-0.7) k/uL Basophils # (0-0.2) k/uL PT 9.8 (9.0-12.0) sec INR 1.0 (<1.2) APTT 26.3 (22.0-30.0) sec Sodium (137-145) mmol/L Potassium (3.5-5.1) mmol/L Chloride (98-107) mmol/L Carbon Dioxide (22-30) mmol/L Anion Gap mmol/L BUN (9-20) mg/dL Creatinine (0.66-1.25) mg/dL Est GFR (CKD-EPI)AfAm (>60 ml/min/1.73 sqM) Est GFR (CKD-EPI)NonAf (>60 ml/min/1.73 sqM) Glucose (74-99) mg/dL Calcium (8.4-10.2) mg/dL Total Bilirubin (0.2-1.3) mg/dL AST (17-59) U/L ALT (21-72) U/L Alkaline Phosphatase (38-126) U/L Total Creatine Kinase (55-170) U/L CK-MB (CK-2) (0.0-2.4) ng/mL CK-MB (CK-2) Rel Index Troponin I (0.000-0.034) ng/mL Total Protein (6.3-8.2) g/dL Albumin (3.5-5.0) g/dL Urine Color Light Yellow Urine Appearance Clear (Clear) Urine pH 8.0 (5.0-8.0) Ur Specific [place] 1.008 (1.001-1.035) Urine Protein 1+ H (Negative) Urine Glucose (UA) Negative (Negative) Urine Ketones Negative (Negative) Urine Blood Moderate H (Negative) Urine Nitrite Negative (Negative) Urine Bilirubin Negative (Negative) Urine Urobilinogen <2.0 (<2.0) mg/dL Ur Leukocyte Esterase Negative (Negative) Urine RBC 167 H (0-5) /hpf Urine Bacteria Rare H (None) /hpf Disposition Clinical Impression: Hyponatremia Disposition: ADMITTED IP TO THIS HOSP Referrals: Ned Smith MD [Primary Care Provider] - 1-2 days Time of Disposition: 15:49
[2018-01-09 14:21] LABS: Basophils % (A) 0 %; Eosinophils # (A) 0.4 k/uL (0-0.7); Eosinophils % (A) 3 %; HCT 31.5 % (39.0-53.0); HGB 10.5 gm/dL (13.0-17.5); Lymphocytes # (A) 0.8 k/uL (1.0-4.8); Lymphocytes % (A) 6 %; MCH 31.4 pg (25.0-35.0); MCHC 33.4 g/dL (31.0-37.0); Mean Platelet Volume 6.7; Monocytes # (A) 0.9 k/uL (0-1.0); Monocytes % (A) 7 %; Neutrophils # (A) 9.8 k/uL (1.3-7.7); Neutrophils % (A) 81 %; Platelet Count 526 k/uL (150-450); RBC 3.35 m/uL (4.30-5.90); RDW 15.7 % (11.5-15.5); WBC 12.1 k/uL (3.8-10.6)
[2018-01-09 14:24] LABS: MCV 93.9 fL (80.0-100.0)
[2018-01-09 14:28] LABS: Partial Thromboplastin Time 26.3 sec (22.0-30.0); Prothrombin Time 9.8 sec (9.0-12.0)
[2018-01-09 14:30] LABS: ALT 35 U/L (21-72); AST 35 U/L (17-59); Albumin 2.8 g/dL (3.5-5.0); Alkaline Phosphatase 82 U/L (38-126); Anion Gap 5 mmol/L; Blood Urea Nitrogen 18 mg/dL (9-20); Calcium 8.4 mg/dL (8.4-10.2); Carbon Dioxide 29 mmol/L (22-30); Chloride 83 mmol/L (98-107); Glucose 86 mg/dL (74-99); Potassium 5.2 mmol/L (3.5-5.1); Total Bilirubin 0.3 mg/dL (0.2-1.3); Total Protein 5.7 g/dL (6.3-8.2)
[2018-01-09 14:35] LABS: Sodium 117 mmol/L (137-145)
[2018-01-09 14:44] LABS: Appearance,Urine Clear (Clear); Bacteria,Urine Rare /hpf; Bilirubin,Urine Negative (Negative); Blood,Urine Moderate (Negative); Color,Urine Light Yellow; Glucose,Urine (UA) Negative (Negative); Ketones,Urine Negative (Negative); Leukocyte Esterase,Urine Negative (Negative); Nitrite,Urine Negative (Negative); Protein,Urine 1+ (Negative); RBC,Urine 167 /hpf (0-5); Specific Gravity,Urine 1.008 (1.001-1.035); Urobilinogen,Urine <2.0 mg/dL (<2.0)
[2018-01-09 14:53] LABS: Creatine Kinase MB 1.9 ng/mL (0.0-2.4); Troponin I 0.022 ng/mL (0.000-0.034)
[2018-01-09] MEDS ORDERED: SODIUM CHLORIDE 0.9% 1,000 ML IV ONE (15:50)
[2018-01-09] MEDS ORDERED: SODIUM CHLORIDE 0.9% 1,000 ML IV SCH (17:15)
[2018-01-09] MEDS ORDERED: NITROGLYCERIN SL TABS 0.4 MG TAB SUBLINGUAL PRN (17:48)
[2018-01-09] MEDS ORDERED: BISACODYL 10 MG SUPP RECTAL PRN (17:48)
[2018-01-09] MEDS ORDERED: NA PHOS,M-B/NA PHOS,DI-BA 133 ML ENEMA RECTAL PRN (17:48)
[2018-01-09] MEDS ORDERED: guaiFENesin SYRUP 100MG/5ML 200 MG/10 ML CUP PEG/G-TUBE PRN (17:48)
[2018-01-09] MEDS ORDERED: MAGNESIUM HYDROXIDE 2,400 MG/10 ML CUP PEG/G-TUBE PRN (17:48)
[2018-01-09] MEDS ORDERED: [UNRECOGNIZED DRUG - OTHER] PEG/G-TUBE SCH (18:00)
[2018-01-09 18:02] LABS: Anion Gap 7 mmol/L; Blood Urea Nitrogen 15 mg/dL (9-20); Calcium 8.1 mg/dL (8.4-10.2); Carbon Dioxide 28 mmol/L (22-30); Chloride 83 mmol/L (98-107); Glucose 87 mg/dL (74-99); Potassium 4.6 mmol/L (3.5-5.1)
[2018-01-09 18:05] LABS: Sodium 118 mmol/L (137-145)
[2018-01-09] MEDS: ACETAMINOPHEN TAB 325 MG TAB PEG/G-TUBE PRN ×2 (18:50→23:32)
[2018-01-09] MEDS: SODIUM CHLORIDE 0.9% 1,000 ML IV SCH (18:50)
[2018-01-09] MEDS: NYSTATIN 100,000 UNIT/ML SUSP 500,000 UNIT/5 ML CUP PO SCH ×2 (19:08→21:20)
[2018-01-09 19:43] LABS: T4, Free (Free Thyroxine) 1.24 ng/dL (0.78-2.19)
[2018-01-09] MEDS: LACTOBACILLUS ACIDOPH & BULGAR 1 EACH PACKET PEG/G-TUBE SCH (20:06)
[2018-01-09] MEDS: EZETIMIBE 10 MG TAB PEG/G-TUBE SCH (20:06)
[2018-01-09] MEDS: METOPROLOL TARTRATE 12.5 MG TAB PEG/G-TUBE SCH (20:06)
[2018-01-09] MEDS: SODIUM CHLORIDE 0.65% NASAL SPRAY 44 ML BTL NASAL SCH (20:28)
[2018-01-09 20:58] LABS: Glucose,Whole Blood 102 mg/dL (75-99)
[2018-01-09] MEDS: ZOCOR 40 MG PEG/G-TUBE SCH (21:20)
[2018-01-09] MEDS: ALPRAZolam 0.25 MG TAB PEG/G-TUBE PRN (21:22)
[2018-01-10 02:47] LABS: Basophils % (A) 0 %; Eosinophils # (A) 0.3 k/uL (0-0.7); Eosinophils % (A) 3 %; HCT 28.8 % (39.0-53.0); HGB 9.5 gm/dL (13.0-17.5); Lymphocytes # (A) 0.7 k/uL (1.0-4.8); Lymphocytes % (A) 8 %; MCH 31.4 pg (25.0-35.0); MCHC 32.9 g/dL (31.0-37.0); MCV 95.5 fL (80.0-100.0); Mean Platelet Volume 6.7; Monocytes # (A) 0.8 k/uL (0-1.0); Monocytes % (A) 8 %; Neutrophils # (A) 7.6 k/uL (1.3-7.7); Neutrophils % (A) 79 %; Platelet Count 476 k/uL (150-450); RBC 3.02 m/uL (4.30-5.90); RDW 15.8 % (11.5-15.5); WBC 9.7 k/uL (3.8-10.6)
[2018-01-10 02:59] LABS: ALT 30 U/L (21-72); AST 31 U/L (17-59); Albumin 2.5 g/dL (3.5-5.0); Alkaline Phosphatase 72 U/L (38-126); Anion Gap 8 mmol/L; Blood Urea Nitrogen 14 mg/dL (9-20); Calcium 8.2 mg/dL (8.4-10.2); Carbon Dioxide 25 mmol/L (22-30); Chloride 87 mmol/L (98-107); Glucose 77 mg/dL (74-99); Potassium 4.9 mmol/L (3.5-5.1); Total Bilirubin 0.6 mg/dL (0.2-1.3); Total Protein 5.2 g/dL (6.3-8.2)
[2018-01-10 03:01] LABS: Sodium 120 mmol/L (137-145)
[2018-01-10 04:16] LABS: Glucose,Whole Blood 81 mg/dL (75-99)
[2018-01-10] MEDS: ACETAMINOPHEN TAB 325 MG TAB PEG/G-TUBE PRN (04:35)
[2018-01-10] MEDS: PANTOPRAZOLE SODIUM 40 MG GRANULE PKT PEG/G-TUBE SCH (06:04)
[2018-01-10] MEDS: SYNTHROID 150 MCG PO SCH (06:04)
[2018-01-10] MEDS: SODIUM CHLORIDE 0.9% 1,000 ML IV SCH ×2 (06:56→21:59)
[2018-01-10] MEDS: IPRATROPIUM-ALBUTEROL 3 ML NEB INHALATION PRN (07:34)
--- NOTE | 2018-01-10 09:18 | P.CRDCN ---
History of Present Illness Consult date: 01/10/18 Chief complaint: The patient is asymptomatic History of present illness: This is a pleasant 77-year-old gentleman who is a frail for his age with a past medical history significant for hypertension and dyslipidemia who was told to go to the hospital because of abnormal blood work. The patient underwent recently a blood work by his primary care physician and that revealed hyponatremia and for that reason the patient was admitted to the hospital. He is asymptomatic and denies having any chest pain or discomfort, difficulty breathing, feeling of heart racing or fluttering, dizziness or lightheadedness, or syncope. We get involved in his care because of abnormal cardiac enzymes with a slightly elevated troponin. As a mentioned earlier the patient did not have any symptoms of chest pain or discomfort and more importantly he is very frail. On physical examination he does have very significant aortic stenosis murmur. I am going to obtain an echocardiogram was Doppler to assess the aortic valve and also to assess LV function. Beside that he is on aspirin which I am going to continue. Overall we'll consider a conservative medical approach at this point of time for the abnormal cardiac enzymes in view of the absence of any chest pain or chest discomfort. We'll follow-up on the echocardiogram as well. Past Medical History Past Medical History: Hyperlipidemia, Renal Disease, Thyroid Disorder Additional Past Medical History / Comment(s): 6.4 cm AAA, pancreatitis, flu B ,ddd , thrush, History of Any Multi-Drug Resistant Organisms: None Reported Past Surgical History: Tonsillectomy Additional Past Surgical History / Comment(s): Abdominal Aortic Aneursym Repair - Fall Dr. Vazquez, peg tube Past Anesthesia/Blood Transfusion Reactions: No Reported Reaction Smoking Status: Never smoker - Past Family History Mother Family Medical History: Cancer Medications and Allergies Home Medications Medication Instructions Recorded Confirmed Type Simvastatin [Zocor] 40 mg PEG/G-TUBE HS@2100 11/18/17 01/09/18 History Ipratropium-Albuterol Nebulize 3 ml INHALATION RT-QID PRN 12/03/17 01/09/18 Rx [Duoneb 0.5 mg-3 mg/3 ml Soln] ampul.neb Aspirin 81 mg PEG/G-TUBE HS@2100 12/10/17 01/09/18 History Bisacodyl [Dulcolax] 10 mg RECTAL DAILY PRN 12/10/17 01/09/18 History Magnesium Hydroxide [Milk of 7,200 mg PEG/G-TUBE DAILY PRN 12/10/17 01/09/18 History Magnesia Concentrate] Na Phos,M-B/Na Phos,Di-Ba [Fleet 133 ml RECTAL DAILY PRN 12/10/17 01/09/18 History Adult] Nitroglycerin Sl Tabs [Nitrostat] 0.4 mg PEG/G-TUBE Q5M PRN 12/10/17 01/09/18 History Pantoprazole [Protonix] 40 mg PEG/G-TUBE DAILY@0600 12/10/17 01/09/18 History Valsartan [Diovan] 80 mg PEG/G-TUBE HS@209912/10/17 01/09/18 History guaiFENesin SYRUP 100MG/5ML 200 mg PEG/G-TUBE Q6H PRN 12/10/17 01/09/18 History [Robitussin] Ezetimibe [Zetia] 10 mg PEG/G-TUBE HS@209912/22/17 01/09/18 History Levothyroxine Sodium [Synthroid] 150 mcg PEG/G-TUBE DAILY@0600 12/22/17 History Metoprolol Tartrate [Lopressor] 12.5 mg PEG/G-TUBE BID@0800,2100 12/22/17 History Saliva Stimulant Agents Comb.3 1 spray MUCOUS MEM BID@0800,1700 12/22/17 History [Biotene Moisturizing Mouth] Acetaminophen Tab [Tylenol] 650 mg PEG/G-TUBE Q4HR PRN tab 12/26/17 01/09/18 Rx ALPRAZolam [Xanax] 0.25 mg PEG/G-TUBE DAILY PRN 01/09/18 01/09/18 History Aspirin EC [Ecotrin Low Dose] 81 mg PEG/G-TUBE DAILY@1700 01/09/18 01/09/18 History Ferrous Sulfate [Feosol] 325 mg PEG/G-TUBE DAILY 01/09/18 01/09/18 History Jovity 2.5 can PEG/G-TUBE DAILY@1800 01/09/18 01/09/18 History L.acidoph,Paracasei, B.lactis 1 cap PEG/G-TUBE BID 01/09/18 01/09/18 History [Probiotic] Nystatin 100,000 Unit/ml Susp 5 ml PO QID 01/09/18 01/09/18 History [Mycostatin Oral Susp] Sodium Chloride [Saline Nasal 1 spray EA NOSTRIL BID 01/09/18 01/09/18 History [place]] Allergies Allergy/AdvReac Type Severity Reaction Status Date / Time clidinium Allergy Unknown Verified 01/09/18 13:59 clonidine Allergy Unknown Verified 01/09/18 13:59 atorvastatin [From Lipitor] AdvReac Itching Verified 01/09/18 13:59 quetiapine [From Seroquel] AdvReac Confusion Verified 01/09/18 17:48 Physical Exam Vitals: Vital Signs Temp Pulse Pulse Resp BP BP Pulse Ox 01/10/18 03:37 90 16 01/10/18 03:36 98.7 F 90 16 105/66 96 01/09/18 23:20 98.5 F 94 16 106/63 92 L 01/09/18 20:00 98.9 F 103 H 16 116/67 92 L 01/09/18 18:18 96.1 F L 107 H 124/71 94 L 01/09/18 16:26 96.7 F L 107 H 20 145/81 93 L 01/09/18 14:37 99 16 136/77 95 01/09/18 13:28 94 20 136/66 94 L Intake and Output 01/09/18 01/10/18 01/10/18 22:59 06:59 14:59 Intake Total 400 480 0 Output Total 300 Balance 100 480 0 Intake: Intake, IV Titration 300 450 Amount Sodium Chloride 0.9% 1, 300 450 000 ml @ 75 mls/hr IV . [id number] [facility] Rx#:[id number] Oral 0 0 Other 100 30 Output: Urine 300 Other: Voiding Method Urinal Urinal Incontinent Incontinent # Voids 1 Weight 61.5 kg - Constitutional General appearance: no acute distress - Respiratory Respiratory: bilateral: CTA - Cardiovascular Rhythm: regular Heart sounds: normal: S1 Abnormal Heart Sounds: systolic murmur Results 01/10/18 02:20 01/10/18 02:20 Cardiac Enzymes 01/09/18 01/09/18 01/09/18 Range/Units 14:00 14:00 20:19 AST 35 (17-59) U/L CK-MB (CK-2) 1.9 (0.0-2.4) ng/mL Troponin I 0.022 0.119 H* (0.000-0.034) ng/mL 01/10/18 01/10/18 Range/Units 02:20 02:20 AST 31 (17-59) U/L CK-MB (CK-2) (0.0-2.4) ng/mL Troponin I 0.370 H* (0.000-0.034) ng/mL Coagulation 01/09/18 Range/Units 14:00 PT 9.8 (9.0-12.0) sec APTT 26.3 (22.0-30.0) sec CBC 01/09/18 01/10/18 Range/Units 14:00 02:20 WBC 12.1 H 9.7 (3.8-10.6) k/uL RBC 3.35 L 3.02 L (4.30-5.90) m/uL Hgb 10.5 L 9.5 L (13.0-17.5) gm/dL Hct 31.5 L 28.8 L (39.0-53.0) % Plt Count 526 H 476 H (150-450) k/uL Comprehensive Metabolic Panel 01/09/18 01/09/18 01/10/18 Range/Units 14:00 17:37 02:20 Sodium 117 L* 118 L* 120 L* (137-145) mmol/L Potassium 5.2 H 4.6 4.9 (3.5-5.1) mmol/L Chloride 83 L 83 L 87 L (98-107) mmol/L Carbon Dioxide 29 28 25 (22-30) mmol/L BUN 18 15 14 (9-20) mg/dL Creatinine 0.72 0.69 0.70 (0.66-1.25) mg/dL Glucose 86 87 77 (74-99) mg/dL Calcium 8.4 8.1 L 8.2 L (8.4-10.2) mg/dL AST 35 31 (17-59) U/L ALT 35 30 (21-72) U/L Alkaline Phosphatase 82 72 (38-126) U/L Total Protein 5.7 L 5.2 L (6.3-8.2) g/dL Albumin 2.8 L 2.5 L (3.5-5.0) g/dL Current Medications Generic Name Dose Route Start Last Admin Trade Name Freq PRN Reason Stop Dose Admin Acetaminophen 650 mg 01/09/18 17:48 01/10/18 04:35 Tylenol Tab PEG/G-TUBE 650 mg Q4HR PRN Administration Fever and/ or mild Pain Albuterol/Ipratropium 3 ml 01/09/18 17:48 01/10/18 07:34 Duoneb 0.5 Mg-3 Mg/3 Ml Soln INHALATION 3 ml RT-QID PRN Administration Shortness Of Breath Alprazolam 0.25 mg 01/09/18 17:48 01/09/18 21:22 Xanax PEG/G-TUBE 0.25 mg DAILY PRN Administration Anxiety Bisacodyl 10 mg 01/09/18 17:48 Dulcolax RECTAL DAILY PRN Constipation Ezetimibe 10 mg 01/09/18 21:00 01/09/18 20:06 Zetia PEG/G-TUBE 10 mg HS@2100 [facility] Administration Ferrous Sulfate 300 mg 01/10/18 09:00 Feosol PEG/G-TUBE DAILY [facility] Guaifenesin 200 mg 01/09/18 17:48 Robitussin PEG/G-TUBE Q6H PRN Cough Sodium Chloride 1,000 mls @ 75 mls/hr 01/09/18 18:15 01/10/18 06:56 Saline 0.9% IV 75 mls/hr .[id number] [facility] Administration Lactobacillus Acidoph/Bulgaricus 1 each 01/09/18 21:00 01/09/18 20:06 Lactinex PEG/G-TUBE 1 each BID [facility] Administration Magnesium Hydroxide 2,400 mg 01/09/18 17:48 Milk Of Magnesia PEG/G-TUBE DAILY PRN Constipation Metoprolol Tartrate 12.5 mg 01/09/18 21:00 01/09/18 20:06 Lopressor PEG/G-TUBE 12.5 mg BID@0800,2100 [facility] Administration Nitroglycerin 0.4 mg 01/09/18 17:48 Nitrostat SUBLINGUAL Q5M PRN Chest Pain Synthroid ( 1 each 01/10/18 06:00 01/10/18 06:04 Levothyroxine) 150 PO 1 each Mcg Tab DAILY@0600 [facility] Administration Zocor (Simvastatin) 40 mg 01/09/18 21:00 01/09/18 21:20 40 Mg PEG/G-TUBE 40 mg HS@2100 [facility] Administration Nystatin 500,000 unit 01/09/18 18:00 01/09/18 21:20 Mycostatin Oral Susp PO 500,000 unit QID [facility] Administration Pantoprazole Sodium 40 mg 01/10/18 06:00 01/10/18 06:04 Protonix PEG/G-TUBE Not Given DAILY@0600 [facility] Saliva Substitute 1 spray 01/10/18 08:00 Mouthkote Solution MUCOUS MEM BID@0800,1700 [facility] Sodium Biphosphate/Sodium Phosphate 133 ml 01/09/18 17:48 Fleet Adult RECTAL DAILY PRN Constipation Sodium Chloride 1 spray 01/09/18 21:00 01/09/18 20:28 [place] NASAL 1 spray BID [facility] Administration Intake and Output 01/09/18 01/10/18 01/10/18 22:59 06:59 14:59 Intake Total 400 480 0 Output Total 300 Balance 100 480 0 Intake: Intake, IV Titration 300 450 Amount Sodium Chloride 0.9% 1, 300 450 000 ml @ 75 mls/hr IV . [id number] [facility] Rx#:[id number] Oral 0 0 Other 100 30 Output: Urine 300 Other: Voiding Method Urinal Urinal Incontinent Incontinent # Voids 1 Weight 61.5 kg 01/10/18 02:20 01/10/18 02:20 Assessment and Plan Assessment: Assessment #1 hyponatremia which is improving #2 heart murmur consistent with aortic stenosis #3 hypertension #4 dyslipidemia Plan #1 consider conservative medical approach at this point of time #2 I will obtain an echocardiogram was Doppler #3 follow-up with the patient. Thank you for allowing us participate in his care and we'll continue following up with him
[2018-01-10] MEDS: FERROUS SULFATE ORAL ELIXIR 300 MG/5 ML CUP PEG/G-TUBE SCH (10:44)
[2018-01-10] MEDS: METOPROLOL TARTRATE 12.5 MG TAB PEG/G-TUBE SCH ×2 (10:44→21:42)
[2018-01-10] MEDS: LACTOBACILLUS ACIDOPH & BULGAR 1 EACH PACKET PEG/G-TUBE SCH ×2 (10:44→21:42)
[2018-01-10] MEDS: NYSTATIN 100,000 UNIT/ML SUSP 500,000 UNIT/5 ML CUP PO SCH ×4 (10:45→21:00)
[2018-01-10] MEDS: SODIUM CHLORIDE 0.65% NASAL SPRAY 44 ML BTL NASAL SCH ×2 (10:45→21:41)
--- NOTE | 2018-01-10 11:21 | CONS ---
CONSULTATION REASON FOR CONSULT: Hyponatremia. 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. Renal function has been very stable during his last admissions as well and the GFR is well preserved with creatinine staying at about 0.7 to 0.6 mg/dL. Patient is maintained on tube feedings. He is currently at [facility] and was admitted with a serum sodium of 117 mEq/L. Currently, patient is maintained on saline. His sodium is up to 120 mEq/L. PAST MEDICAL HISTORY: Significant for FSGS being followed at [facility], maintained on very small dose of prednisone, hyperlipidemia, hypothyroidism, abdominal aortic aneurysm. PAST SURGICAL HISTORY: Abdominal aortic aneurysm repair, PEG tube placement. SOCIAL HISTORY: Negative for smoking, drug abuse or alcohol abuse. Patient resides at [facility]. MEDICATIONS PRIOR TO ADMISSION INCLUDED: Diovan, Zocor, Protonix, Nitrostat, Lopressor, Synthroid, probiotics, Jevity tube feeding, iron, Zetia, Dulcolax, aspirin, Tylenol, Xanax. PHYSICAL EXAMINATION: Patient is currently comfortable, awake. He is not in any acute distress. He is complaining of back pain. Blood pressure was 105/66. He is afebrile. Examination of the heart, S1, S2. Examination of the lungs, bilateral breath sounds are heard. Abdomen is soft, nontender. Feeding tube is present. Examination of the lower extremities shows no evidence of edema. SANDBLASTER STONE exam shows patient is moving all 4 extremities. LABS: Show sodium of 120, potassium 4.9, BUN 14, serum creatinine 0.7, and hemoglobin of 9.5 g/dL. TSH was 8. ASSESSMENT: 1. Hyponatremia appears to be hypovolemic. Currently maintained on normal saline, which we will continue. I will recheck another set of labs now to follow up on the sodium level. We need to decrease the free water down the feeding tube as outpatient. 2. Chronic kidney disease secondary to FSGS, maintained on small dose of prednisone with minimal proteinuria as outpatient. Being followed at [facility]. 3. Abdominal aortic aneurysm status post repair. 4. Hypothyroidism. TSH was elevated at 8, which is also probably contributing to the hyponatremia. 5. Aortic stenosis being followed by Cardiology. PLAN: Repeat sodium level. Continue with normal saline. Decrease free water down the feeding tube. Encourage increased protein intake. Continue with the prednisone that patient is on as outpatient. I do not see it on his current med list. MMODL / IJN: [id number] /
[2018-01-10 11:46] LABS: Glucose,Whole Blood 86 mg/dL (75-99)
--- NOTE | 2018-01-10 12:23 | ECHOF ---
Referral Reason:elevated trop MEASUREMENTS -------- HEIGHT: 175.3 cm WEIGHT: 61.2 kg BP: 136/81 IVSd: 1.4 cm (0.6 - 1.1) LVIDd: 3.2 cm (3.9 - 5.3) LVPWd: 1.2 cm (0.6 - 1.1) IVSs: 1.4 cm LVIDs: 2.4 cm LVPWs: 1.3 cm LAESV Index (A-L): 18.53 ml/m Ao Diam: 2.9 cm (2.0 - 3.7) AV Cusp: 0.7 cm (1.5 - 2.6) LA Diam: 3.9 cm (2.7 - 3.8) MV E Brandan: 1.40 m/s MV DecT: 245 ms MV A Brandan: 0.35 m/s MV E/A Ratio: 4.05 AV maxP.48 mmHg AV meanP.02 mmHg RAP: 5.00 mmHg RVSP: 23.12 mmHg FINDINGS -------- Sinus rhythm. This was a technically good study. The left ventricular size is normal. There is mild concentric left ventricular hypertrophy. There is severe global hypokinesis of LV . Overall left ventricular systolic function is severely impair ed with, an EF between 20 - 25 %. The right ventricle is normal in size and function. The left atrium is normal in size. The right atrium is normal in size. Aortic valve is trileaflet and is severely thickened. There is severe aortic stenosis present. Pe ak/mean gradient across the Aortic Valve is 50.48mmHg / 36.02mmHg. The mitral valve leaflets are moderately thickened. Moderate mitral annular calcification present. Mild mitral regurgitation is present. The peak and mean MV gradients are 9.35mmHg 2.85mmHg as me asured by doppler. Mild tricuspid regurgitation present. The right ventricular systolic pressure, as measured by Doppl er, is 23.12mmHg. Pulmonic valve appears structurally normal. The aortic root size is normal. There is a trivial pericardial effusion present. CONCLUSIONS -------- 1. Sinus rhythm. 2. This was a technically good study. 3. The left ventricular size is normal. 4. There is mild concentric left ventricular hypertrophy. 5. There is severe global hypokinesis of LV . 6. The right ventricle is normal in size and function. 7. The left atrium is normal in size. 8. The right atrium is normal in size. 9. Aortic valve is trileaflet and is severely thickened. 10. There is severe aortic stenosis present. 11. Peak/mean gradient across the Aortic Valve is 50.48mmHg / 36.02mmHg. 12. The mitral valve leaflets are moderately thickened. 13. Moderate mitral annular calcification present. 14. Mild mitral regurgitation is present. 15. The peak and mean MV gradients are 9.35mmHg 2.85mmHg as measured by doppler. 16. Mild tricuspid regurgitation present. 17. The right ventricular systolic pressure, as measured by Doppler, is 23.12mmHg. 18. Pulmonic valve appears structurally normal. 19. The aortic root size is normal. 20. There is a trivial pericardial effusion present. SUMMER INTERN: Jennifer Ng RDCS
[2018-01-10] MEDS: DRY MOUTH SPRAY 44.3 SPRAY/44.3 ML SPRAY MUCOUS MEM SCH ×2 (12:24→17:01)
[2018-01-10 14:02] LABS: Anion Gap 8 mmol/L; Blood Urea Nitrogen 14 mg/dL (9-20); Calcium 8.4 mg/dL (8.4-10.2); Carbon Dioxide 24 mmol/L (22-30); Chloride 86 mmol/L (98-107); Glucose 73 mg/dL (74-99); Potassium 4.8 mmol/L (3.5-5.1)
[2018-01-10 14:09] LABS: Sodium 118 mmol/L (137-145)
[2018-01-10] MEDS ORDERED: predniSONE 1 MG TAB PO ONE (15:00)
[2018-01-10] MEDS: LIDOCAINE 5% PATCH TOPICAL SCH (16:42)
[2018-01-10 16:51] LABS: Glucose,Whole Blood 151 mg/dL (75-99)
[2018-01-10] MEDS: SODIUM CHLORIDE TAB 1 GM TAB PO SCH ×2 (17:01→21:42)
--- NOTE | 2018-01-10 17:51 | P.HPIM ---
History of Present Illness H&P Date: 01/10/18 Chief Complaint: Hyponatremia 77-year-old male who was transferred to [facility] on 01/09/2018 from [facility] for hyponatremia. His sodium upon admission was 117. The patient has chronic hyponatremia and usually has a sodium around 130. During the patients previous admission, his BUN was elevated in the 30s and his free water flushes were increased to 165cc Q4 hours and his tube feeding formula was changed to Jevity which has more water content than Nepro per dietary. This may have attributed to the patients hyponatremia. The patient is somewhat lethargic. The majority of the history is taken from the patients and daughter who are at the bedside. Patients daughter states that he was doing well at [facility] and progressing with therapy. However, over the weekend the patient was found to be retaining urine. This has not been a problem for the patient in the past. He required straight cath x 2. The daughter states that she thought the patient was getting dehydrated. Daughter also states he was given two fluid boluses at [facility]. The patient was started on Seroquel during a previous hospitalization for insomnia by a covering provider for Dr. Ferris. This medication was continued and he was receiving it at [facility]. Daughter states she does not want the patient to receive this and she abruptly stopped the medication in the middle of last week. She states the patient is now taking Xanax for insomnia. Daughter states they have been giving patient ice chips while at [facility] despite patients NPO status. Family aware that patient has failed swallow evaluations and has silent aspiration on most recent MBS. Daughter states that patient has dry mouth and he needs water to keep his mouth moist. Explained to daughter patient may use green swabs and Biotene dry mouth spray, but patient can not have ice chips or drink water at this time. Family verbalized understanding. The patient has been hospitalized multiple times this year: 1. 11/18/2017 until 12/03/2017 for influenza B. The patient developed oral thrush in addition to poor oral care and was having difficulty swallowing. He underwent swallow evaluation which he did not pass. The patient had a PEG tube inserted. The patient had elevated troponins at that time which was thought to be secondary from influenza infection per cardiology. The patient was transferred to [facility] for subacute rehab. 2. 12/10/2017 until 12/21/2017 for acute non-alcholic pancreatitis. He underwent a repeat modified barium swallow and once again he did not pass. CT of the abdomen completed revealed 6.4x7.9x7.0 cm infrarenal abdominal aortic aneurysm. Vascular surgery evaluated the patient and patient is to undergo endovascular repair of large pseudoaneurysm after he completes subacute rehab to regain his strength. He was discharged back to [facility] for rehab. 3. 12/22/2017 until 12/26/2017 for possible aspiration pneumonia. CXR did not show evidence of infiltrates. Patient was found to be intravascularly depleted. His BUN was in the 30s. His tube feeding was changed to Jevity from Nepro which has more water per dietary. His free water flushes were also increased to 165cc Q4 hours per dietary. He was discharged back to [facility] for rehab. Echo: Severe global hypokinesis of left ventricle, EF 20-25%, severe aortic stenosis, mild mitral regurgitation, mild tricuspid regurgitation. The patients previous echo was completed on 11/19/2017 which revealed an EF of 55-60% and moderate aortic stenosis. Laboratory data: WBC 12.1. Hemoglobin 10.5. Platelet count 526. Sodium 117. Potassium 5.2. BUN 18. Creatinine 0.72. Glucose 86. Troponins: 0.022, 0.119, 0.370 TSH 8.100. TSH on 12/17/2017 was 24.00 and Synthroid was increased at time to 150mcg. The patient was admitted to the hospital under the care of Dr. Ferris. Consultations were placed to cardiology and nephrology. The patient was evaluated at the bedside on the selective care unit. Daughter and at the beside. Patient is more lethargic than he has been on previous admission. He is easily arousable to verbal stimuli. He denies shortness of breath. States he has intermittent cough. Denies sputum production. Denies nausea or vomiting. He complains of lower back pain. He also complains of a dry mouth. Review of Systems GENERAL: Patient denies fever. Denies chills. EYES: Denies blurred vision. Denies vision changes. Denies eye pain. EARS, NOSE, MOUTH, & THROAT: Denies headache. Denies sore throat. Denies ear pain. RESPIRATORY: Positive for intermittent cough. Denies shortness of breath. Denies sputum production. Denies hemoptysis. CARDIOVASCULAR: Denies chest pain or pressure. Denies palpitations. Denies arrhythmias. GASTROINTESTINAL: Denies abdominal pain. Denies diarrhea. Denies constipation. Denies nausea. Denies vomiting. Denies heartburn. Denies blood in the stool. GENITOURINARY: Denies urinary frequency. Denies burning. Denies dysuria. Denies cloudy urine. Denies blood in the urine. MUSCULOSKELETAL: Positive for low back pain. Denies myalgias. Denies joint swelling. Denies decreased range of motion beyond patients baseline. INTEGUMENTARY: Denies pruitis. Denies rash. PSYCHIATRIC: Denies suicidal or homicial ideations. ENDOCRINE: Denies weight change. Denies polydipsia. Denies polyuria. HEMATOLOGIC: Denies bleeding disorders. Past Medical History Past Medical History: Hyperlipidemia, Renal Disease, Thyroid Disorder Additional Past Medical History / Comment(s): 6.4 cm AAA, pancreatitis, flu B ,ddd , thrush, History of Any Multi-Drug Resistant Organisms: None Reported Past Surgical History: Tonsillectomy Additional Past Surgical History / Comment(s): Abdominal Aortic Aneursym Repair - fall Dr. Vazquez, peg tube Past Anesthesia/Blood Transfusion Reactions: No Reported Reaction Smoking Status: Never smoker - Past Family History Mother Family Medical History: Cancer Medications and Allergies Home Medications Medication Instructions Recorded Confirmed Type Simvastatin [Zocor] 40 mg PEG/G-TUBE HS@209911/18/17 01/09/18 History Ipratropium-Albuterol Nebulize 3 ml INHALATION RT-QID PRN 12/03/17 01/09/18 Rx [Duoneb 0.5 mg-3 mg/3 ml Soln] ampul.neb Aspirin 81 mg PEG/G-TUBE HS@209912/10/17 01/09/18 History Bisacodyl [Dulcolax] 10 mg RECTAL DAILY PRN 12/10/17 01/09/18 History Magnesium Hydroxide [Milk of 7,200 mg PEG/G-TUBE DAILY PRN 12/10/17 01/09/18 History Magnesia Concentrate] Na Phos,M-B/Na Phos,Di-Ba [Fleet 133 ml RECTAL DAILY PRN 12/10/17 01/09/18 History Adult] Nitroglycerin Sl Tabs [Nitrostat] 0.4 mg PEG/G-TUBE Q5M PRN 12/10/17 01/09/18 History Pantoprazole [Protonix] 40 mg PEG/G-TUBE DAILY@0600 12/10/17 01/09/18 History Valsartan [Diovan] 80 mg PEG/G-TUBE HS@209912/10/17 01/09/18 History guaiFENesin SYRUP 100MG/5ML 200 mg PEG/G-TUBE Q6H PRN 12/10/17 01/09/18 History [Robitussin] Ezetimibe [Zetia] 10 mg PEG/G-TUBE HS@209912/22/17 01/09/18 History Levothyroxine Sodium [Synthroid] 150 mcg PEG/G-TUBE DAILY@0600 12/22/17 History Metoprolol Tartrate [Lopressor] 12.5 mg PEG/G-TUBE BID@0800,2100 12/22/17 History Saliva Stimulant Agents Comb.3 1 spray MUCOUS MEM BID@0800,1700 12/22/17 History [Biotene Moisturizing Mouth] Acetaminophen Tab [Tylenol] 650 mg PEG/G-TUBE Q4HR PRN tab 12/26/17 01/09/18 Rx ALPRAZolam [Xanax] 0.25 mg PEG/G-TUBE DAILY PRN 01/09/18 01/09/18 History Aspirin EC [Ecotrin Low Dose] 81 mg PEG/G-TUBE DAILY@1700 01/09/18 01/09/18 History Ferrous Sulfate [Feosol] 325 mg PEG/G-TUBE DAILY 01/09/18 01/09/18 History Jovity 2.5 can PEG/G-TUBE DAILY@1800 01/09/18 01/09/18 History L.acidoph,Paracasei, B.lactis 1 cap PEG/G-TUBE BID 01/09/18 01/09/18 History [Probiotic] Nystatin 100,000 Unit/ml Susp 5 ml PO QID 01/09/18 01/09/18 History [Mycostatin Oral Susp] Sodium Chloride [Saline Nasal 1 spray EA NOSTRIL BID 01/09/18 01/09/18 History [place]] Allergies Allergy/AdvReac Type Severity Reaction Status Date / Time clidinium Allergy Unknown Verified 01/09/18 13:59 clonidine Allergy Unknown Verified 01/09/18 13:59 atorvastatin [From Lipitor] AdvReac Itching Verified 01/09/18 13:59 quetiapine [From Seroquel] AdvReac Confusion Verified 01/09/18 17:48 Physical Exam Vitals: Vital Signs Temp Pulse Pulse Resp BP BP Pulse Ox 01/10/18 08:00 96.4 F L 113 H 136/81 94 L 01/10/18 03:37 90 16 01/10/18 03:36 98.7 F 90 16 105/66 96 01/09/18 23:20 98.5 F 94 16 106/63 92 L 01/09/18 20:00 98.9 F 103 H 16 116/67 92 L 01/09/18 18:18 96.1 F L 107 H 124/71 94 L 01/09/18 16:26 96.7 F L 107 H 20 145/81 93 L Intake and Output 01/10/18 01/10/18 01/10/18 06:59 14:59 22:59 Intake Total 480 0 Balance 480 0 Intake: Intake, IV Titration 450 Amount Sodium Chloride 0.9% 1, 450 000 ml @ 75 mls/hr IV . [id number] [facility] Rx#:[id number] Oral 0 Other 30 Other: Voiding Method Urinal Urinal Incontinent Incontinent # Voids 1 Weight 61.5 kg 61.5 kg GENERAL: This is a 77-year-old male in no apparent distress at the time of examination. Pleasant and cooperative. HEENT: Head is atraumatic, normocephalic. Pupils are equal, round, and reactive to light. Sclerae anicteric. Conjunctivae are clear. Mucus membranes of the mouth are moist. Neck is supple. RESPIRATORY: Clear to ausculation. No wheezes, rales, or rhonchi. No use of accessory muscles. Patient maintaining oxygen saturation greater than 92%. No chest wall tenderness is noted on palpation or with deep breathing. CARDIOVASCULAR: Regular rate and rhythm. S1 and S2 noted. Systolic murmur auscultated. No JVD noted. No S3 or S4 noted. GASTROINTESTINAL: No distention noted. Abdomen soft and round. Normal active bowel sounds auscultated x 4 quadrants. No pain or tenderness noted upon palpation. INTEGUMENTARY: No cyanosis. No jaundice. No rashes noted. No cellulitis noted. EXTREMITIES: 2+ peripheral pulses. No evidence of peripheral edema. No calf tenderness noted. NEUROLOGIC: Cranial nerves II-XII intact. PSYCHIATRIC: Slightly lethargic. Easily arousable to verbal stimulu. Oriented X 2-3. Results CBC & Chem 7: 01/10/18 02:20 01/10/18 13:18 Labs: Abnormal Lab Results - Last 24 Hours (Table) 01/09/18 01/09/18 01/09/18 Range/Units 14:25 17:37 20:19 RBC (4.30-5.90) m/uL Hgb (13.0-17.5) gm/dL Hct (39.0-53.0) % RDW (11.5-15.5) % Plt Count (150-450) k/uL Lymphocytes # (1.0-4.8) k/uL Sodium 118 L* (137-145) mmol/L Chloride 83 L (98-107) mmol/L Creatinine (0.66-1.25) mg/dL Glucose (74-99) mg/dL POC Glucose (mg/dL) (75-99) mg/dL Osmolality 249 L* (280-301) mosm/kg Calcium 8.1 L (8.4-10.2) mg/dL Troponin I 0.119 H* (0.000-0.034) ng/mL Total Protein (6.3-8.2) g/dL Albumin (3.5-5.0) g/dL TSH 8.100 H (0.465-4.680) mIU/L Ur Random Sodium 103 H (30-90) mmol/L 01/09/18 01/10/18 01/10/18 Range/Units 20:57 02:20 02:20 RBC 3.02 L (4.30-5.90) m/uL Hgb 9.5 L (13.0-17.5) gm/dL Hct 28.8 L (39.0-53.0) % RDW 15.8 H (11.5-15.5) % Plt Count 476 H (150-450) k/uL Lymphocytes # 0.7 L (1.0-4.8) k/uL Sodium (137-145) mmol/L Chloride (98-107) mmol/L Creatinine (0.66-1.25) mg/dL Glucose (74-99) mg/dL POC Glucose (mg/dL) 102 H (75-99) mg/dL Osmolality (280-301) mosm/kg Calcium (8.4-10.2) mg/dL Troponin I 0.370 H* (0.000-0.034) ng/mL Total Protein (6.3-8.2) g/dL Albumin (3.5-5.0) g/dL TSH (0.465-4.680) mIU/L Ur Random Sodium (30-90) mmol/L 01/10/18 01/10/18 Range/Units 02:20 13:18 RBC (4.30-5.90) m/uL Hgb (13.0-17.5) gm/dL Hct (39.0-53.0) % RDW (11.5-15.5) % Plt Count (150-450) k/uL Lymphocytes # (1.0-4.8) k/uL Sodium 120 L* 118 L* (137-145) mmol/L Chloride 87 L 86 L (98-107) mmol/L Creatinine 0.63 L (0.66-1.25) mg/dL Glucose 73 L (74-99) mg/dL POC Glucose (mg/dL) (75-99) mg/dL Osmolality (280-301) mosm/kg Calcium 8.2 L (8.4-10.2) mg/dL Troponin I (0.000-0.034) ng/mL Total Protein 5.2 L (6.3-8.2) g/dL Albumin 2.5 L (3.5-5.0) g/dL TSH (0.465-4.680) mIU/L Ur Random Sodium (30-90) mmol/L Thrombosis Risk Factor Assmnt - Choose All That Apply Any of the Below Risk Factors Present?: Yes Other Risk Factors: Yes Each Risk Factor Represents 3 Points: Age 75 years or older Other congenital or acquired thrombophilia - If yes, enter type in comment: No Thrombosis Risk Factor Assessment Total Risk Factor Score: 3 Thrombosis Risk Factor Assessment Level: Moderate Risk Assessment and Plan Plan: ASSESSMENT: Severe hyponatremia, Na 117 on admission, patients free water flushes were increased last admission secondary to dehydration and elevated BUN to 165cc Q 4 hours and tube feeding was changed to Jevity from Nepro, which may be contributing to hyponatremia Chronic hyponatremia, patients sodium usually low 130s Mild metabolic encephalopathy, secondary to hyponatremia Elevated troponins, acute coronary syndrome ruled out per cardiology Chronic congestive heart failure, systolic, EF 20-25%, no evidence of acute exacerbation, echo from November 2017 revealed EF 55-60% Severe aortic stenosis History of abdominal aortic aneurysm with large pseudoaneurysm, 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 TSH was 24.100 in November 2017 and Synthroid was increased to 150mcg Recent hospitalization for dehydration, cough, and possible aspiration pneumonia which was ruled out (November 2017) Recent hospitalization for acute pancreatitis (November 2017) Recent hospitalization for Influenza B, dysphagia, and PEG tube insertion ( November-November 2017) Anemia of chronic disease, stable Severe debility and gait dysfunction Hypertension Hyperlipidemia PLAN: Cardiology on consult. Appreciate recommendations and input. Appreciate input from cardiology regarding significant decrease in EF from 55-60 % in 11/2017 to 20-25% now Nephrology on consult. Appreciate recommendations and input Free water flushes have been decreased to 30cc Q 4 hours in light of sodium levels Continue IV fluids at 75cc/hr Monitor for fluid overload and notify provider if patient develops respiratory distress Obtain chest xray in AM Continue NPO. Patient may use green swabs or dry mouth spray. No ice chips. If patients cognition improves, recommend repeat MBS during admission. Speech therapy on consult Continue current dose of synthroid as dose was just increased last month and TSH has improved Family does not want the patient taking Seroquel. He may continue on his xanax if needed for insomnia Lidoderm patch daily to lower back. Tylenol PRN as well for back pain. Obtain post void residual as patient recently required straight cath at [facility] Daughter states Diovan was held because of his sodium. May resume Diovan as it is unlikely causing his hyponatremia as ARBs typically do not cause hyponatremia. Monitor labs GI prophylaxis: Protonix 40 mg Daily DVT prophylaxis: Heparin 5000 units subcu every 8 hours Monitor vital signs and address as appropriate PT/OT consult Discharge planning: Family does not want patient to return to [facility]. Spoke with family regarding other ECFs. Family does not want patient to go to [facility]. Family requesting [facility] at the time of discharge Further recommendations pending patient's course Nurse practitioner note has been reviewed by physician. Signing provider agrees with the documented findings, assessment, and plan of care.
[2018-01-10 20:59] LABS: Glucose,Whole Blood 141 mg/dL (75-99)
[2018-01-10] MEDS ORDERED: VALSARTAN 80 MG TAB PEG/G-TUBE SCH (21:00)
[2018-01-10 21:37] LABS: Anion Gap 5 mmol/L; Blood Urea Nitrogen 15 mg/dL (9-20); Carbon Dioxide 25 mmol/L (22-30); Chloride 89 mmol/L (98-107); Glucose 130 mg/dL (74-99); Potassium 4.7 mmol/L (3.5-5.1)
[2018-01-10] MEDS: ZOCOR 40 MG PEG/G-TUBE SCH (21:41)
[2018-01-10] MEDS: ALPRAZolam 0.25 MG TAB PEG/G-TUBE PRN (21:41)
[2018-01-10] MEDS: ASPIRIN 81 MG PEG/G-TUBE SCH (21:43)
[2018-01-10] MEDS: EZETIMIBE 10 MG TAB PEG/G-TUBE SCH (21:44)
[2018-01-10 21:48] LABS: Sodium 119 mmol/L (137-145)
[2018-01-11] MEDS: HEPARIN SODIUM,PORCINE 5,000 UNIT/ML 1 ML VIAL SQ SCH ×4 (00:16→23:13)
[2018-01-11] MEDS: SYNTHROID 150 MCG PO SCH (05:15)
[2018-01-11] MEDS: PANTOPRAZOLE SODIUM 40 MG GRANULE PKT PEG/G-TUBE SCH (05:15)
[2018-01-11 05:59] LABS: Glucose,Whole Blood 126 mg/dL (75-99)
[2018-01-11 06:33] LABS: Basophils % (A) 0 %; Eosinophils # (A) 0.1 k/uL (0-0.7); Eosinophils % (A) 1 %; HCT 30.5 % (39.0-53.0); HGB 9.6 gm/dL (13.0-17.5); Hypochromasia Slight; Lymphocytes # (A) 0.8 k/uL (1.0-4.8); Lymphocytes % (A) 9 %; MCH 30.4 pg (25.0-35.0); MCHC 31.4 g/dL (31.0-37.0); Monocytes # (A) 0.7 k/uL (0-1.0); Monocytes % (A) 8 %; Neutrophils # (A) 6.8 k/uL (1.3-7.7); Neutrophils % (A) 80 %; Platelet Count 484 k/uL (150-450); RBC 3.14 m/uL (4.30-5.90); RDW 15.8 % (11.5-15.5); WBC 8.5 k/uL (3.8-10.6)
[2018-01-11 06:54] LABS: ALT 30 U/L (21-72); AST 29 U/L (17-59); Albumin 2.6 g/dL (3.5-5.0); Alkaline Phosphatase 79 U/L (38-126); Anion Gap 8 mmol/L; Blood Urea Nitrogen 15 mg/dL (9-20); Carbon Dioxide 26 mmol/L (22-30); Chloride 91 mmol/L (98-107); Glucose 106 mg/dL (74-99); Potassium 4.7 mmol/L (3.5-5.1); Sodium 125 mmol/L (137-145); Total Bilirubin 0.2 mg/dL (0.2-1.3); Total Protein 5.3 g/dL (6.3-8.2)
--- NOTE | 2018-01-11 08:20 | P.PN ---
Subjective Progress Note Date: 01/11/18 Principal diagnosis: Hyponatremia This is a pleasant 77-year-old gentleman who is a frail for his age with a past medical history significant for hypertension and dyslipidemia who was told to go to the hospital because of abnormal blood work. The patient underwent recently a blood work by his primary care physician and that revealed hyponatremia and for that reason the patient was admitted to the hospital. He is asymptomatic and denies having any chest pain or discomfort, difficulty breathing, feeling of heart racing or fluttering, dizziness or lightheadedness, or syncope. We get involved in his care because of abnormal cardiac enzymes with a slightly elevated troponin. As a mentioned earlier the patient did not have any symptoms of chest pain or discomfort and more importantly he is very frail. On physical examination he does have very significant aortic stenosis murmur. I'll follow-up with him today, he continues to be asymptomatic from the cardiac standpoint overview. The sodium is improving. He underwent an echocardiogram which revealed severe impaired LV function with EF of 20% with evidence of moderate to severe aortic stenosis and mild mitral stenosis. Beside that the blood pressure has been marginally low and he is on metoprolol as well as Valsartan. I will decrease the dose of Valsartan. Objective - Vital Signs Vital signs: Vital Signs Temp 98.0 F 01/11/18 03:59 Pulse 97 01/11/18 04:00 Resp 18 01/11/18 04:00 BP 111/67 01/11/18 03:59 Pulse Ox 93 L 01/11/18 03:59 Intake & Output 01/10/18 01/11/18 01/11/18 18:59 06:59 18:59 Intake Total 65 1770 Balance 65 1770 Weight 61.5 kg 62.5 kg Intake: Intake, IV Titration 400 Amount Sodium Chloride 0.9% 1, 400 000 ml @ 75 mls/hr IV . [id number] [facility] Rx#:[id number] Oral 0 0 Tube Feeding 65 1270 Other 100 Other: Voiding Method Urinal Urinal Incontinent Incontinent # Voids 1 - Constitutional General appearance: Present: no acute distress - Respiratory Respiratory: bilateral: rales - Cardiovascular Rhythm: regular Heart sounds: normal: S1, S2 Abnormal Heart Sounds: Present: systolic murmur - Labs CBC & Chem 7: 01/11/18 05:37 01/11/18 05:37 Labs: Abnormal Lab Results - Last 24 Hours (Table) 01/10/18 01/10/18 01/10/18 Range/Units 13:18 16:50 20:58 RBC (4.30-5.90) m/uL Hgb (13.0-17.5) gm/dL Hct (39.0-53.0) % RDW (11.5-15.5) % Plt Count (150-450) k/uL Lymphocytes # (1.0-4.8) k/uL Sodium 118 L* (137-145) mmol/L Chloride 86 L (98-107) mmol/L Creatinine 0.63 L (0.66-1.25) mg/dL Glucose 73 L (74-99) mg/dL POC Glucose (mg/dL) 151 H 141 H (75-99) mg/dL Calcium (8.4-10.2) mg/dL Total Protein (6.3-8.2) g/dL Albumin (3.5-5.0) g/dL 01/10/18 01/11/18 01/11/18 Range/Units 21:05 00:03 05:37 RBC 3.14 L (4.30-5.90) m/uL Hgb 9.6 L (13.0-17.5) gm/dL Hct 30.5 L (39.0-53.0) % RDW 15.8 H (11.5-15.5) % Plt Count 484 H (150-450) k/uL Lymphocytes # 0.8 L (1.0-4.8) k/uL Sodium 119 L* 122 L (137-145) mmol/L Chloride 89 L (98-107) mmol/L Creatinine 0.63 L (0.66-1.25) mg/dL Glucose 130 H (74-99) mg/dL POC Glucose (mg/dL) (75-99) mg/dL Calcium 8.0 L (8.4-10.2) mg/dL Total Protein (6.3-8.2) g/dL Albumin (3.5-5.0) g/dL 01/11/18 01/11/18 Range/Units 05:37 05:58 RBC (4.30-5.90) m/uL Hgb (13.0-17.5) gm/dL Hct (39.0-53.0) % RDW (11.5-15.5) % Plt Count (150-450) k/uL Lymphocytes # (1.0-4.8) k/uL Sodium 125 L (137-145) mmol/L Chloride 91 L (98-107) mmol/L Creatinine (0.66-1.25) mg/dL Glucose 106 H (74-99) mg/dL POC Glucose (mg/dL) 126 H (75-99) mg/dL Calcium 8.0 L (8.4-10.2) mg/dL Total Protein 5.3 L (6.3-8.2) g/dL Albumin 2.6 L (3.5-5.0) g/dL Assessment and Plan Assessment: Assessment #1 hyponatremia which is improving #2 moderate to severe aortic stenosis #3 severe cardiomyopathy and known if is ischemic or nonischemic #3 hypotension #4 dyslipidemia Plan #1 I would decrease the dose of Valsartan. #2 continue the current dose of metoprolol #3 DC the IV fluid. The patient does have some crackles in both lung demarco. #4 consider adding Aldactone probably as an outpatient #5 overall the patient is very frail for his age. I would consider a conservative medical approach at this point of time. Thank you for allowing us participate in his care and we'll continue following up with him
[2018-01-11] MEDS: SODIUM CHLORIDE 0.9% 1,000 ML IV SCH (08:34)
[2018-01-11] MEDS: DRY MOUTH SPRAY 44.3 SPRAY/44.3 ML SPRAY MUCOUS MEM SCH ×2 (08:44→16:19)
[2018-01-11] MEDS: METOPROLOL TARTRATE 12.5 MG TAB PEG/G-TUBE SCH ×2 (08:44→20:09)
[2018-01-11] MEDS: LIDOCAINE 5% PATCH TOPICAL SCH (08:45)
[2018-01-11] MEDS: LACTOBACILLUS ACIDOPH & BULGAR 1 EACH PACKET PEG/G-TUBE SCH ×2 (08:45→20:09)
[2018-01-11] MEDS: FERROUS SULFATE ORAL ELIXIR 300 MG/5 ML CUP PEG/G-TUBE SCH (08:45)
[2018-01-11] MEDS: SODIUM CHLORIDE TAB 1 GM TAB PO SCH ×2 (08:46→20:09)
[2018-01-11] MEDS: SODIUM CHLORIDE 0.65% NASAL SPRAY 44 ML BTL NASAL SCH ×2 (08:46→20:10)
[2018-01-11] MEDS: NYSTATIN 100,000 UNIT/ML SUSP 500,000 UNIT/5 ML CUP PO SCH ×4 (08:46→20:08)
--- NOTE | 2018-01-11 08:58 | XR ---
EXAMINATION TYPE: XR chest 1V DATE OF EXAM: 01/11/2018 COMPARISON: Prior chest x-ray 12/26/2017 HISTORY: Cough and congestion TECHNIQUE: Single frontal view of the chest is obtained. FINDINGS: Patient is rotated and there are overlying cardiac leads. Right hemidiaphragm remains elev ated. No evident pneumothorax or pleural effusion. Heart size is stable and thought to be enlarged. I nterstitium and central vascularity are prominent. IMPRESSION: Correlate for possible congestive heart failure, pneumonia not excluded. Follow-up is re commended.
[2018-01-11] MEDS ORDERED: predniSONE 1 MG TAB PEG/G-TUBE SCH (09:00)
--- NOTE | 2018-01-11 09:25 | P.PN ---
Subjective Progress Note Date: 01/11/18 77-year-old male who was transferred to [facility] on 01/09/2018 from [facility] for hyponatremia. His sodium upon admission was 117. The patient has chronic hyponatremia and usually has a sodium around 130. During the patients previous admission, his BUN was elevated in the 30s and his free water flushes were increased to 165cc Q4 hours and his tube feeding formula was changed to Jevity which has more water content than Nepro per dietary. This may have attributed to the patients hyponatremia. The patient is somewhat lethargic. The majority of the history is taken from the patients and daughter who are at the bedside. Patients daughter states that he was doing well at [facility] and progressing with therapy. However, over the weekend the patient was found to be retaining urine. This has not been a problem for the patient in the past. He required straight cath x 2. The daughter states that she thought the patient was getting dehydrated. Daughter also states he was given two fluid boluses at [facility]. The patient was started on Seroquel during a previous hospitalization for insomnia by a covering provider for Dr. Ferris. This medication was continued and he was receiving it at [facility]. Daughter states she does not want the patient to receive this and she abruptly stopped the medication in the middle of last week. She states the patient is now taking Xanax for insomnia. Daughter states they have been giving patient ice chips while at [facility] despite patients NPO status. Family aware that patient has failed swallow evaluations and has silent aspiration on most recent MBS. Daughter states that patient has dry mouth and he needs water to keep his mouth moist. Explained to daughter patient may use green swabs and Biotene dry mouth spray, but patient can not have ice chips or drink water at this time. Family verbalized understanding. The patient has been hospitalized multiple times this year: 1. 11/18/2017 until 12/03/2017 for influenza B. The patient developed oral thrush in addition to poor oral care and was having difficulty swallowing. He underwent swallow evaluation which he did not pass. The patient had a PEG tube inserted. The patient had elevated troponins at that time which was thought to be secondary from influenza infection per cardiology. The patient was transferred to [facility] for subacute rehab. 2. 12/10/2017 until 12/21/2017 for acute non-alcholic pancreatitis. He underwent a repeat modified barium swallow and once again he did not pass. CT of the abdomen completed revealed 6.4x7.9x7.0 cm infrarenal abdominal aortic aneurysm. Vascular surgery evaluated the patient and patient is to undergo endovascular repair of large pseudoaneurysm after he completes subacute rehab to regain his strength. He was discharged back to [facility] for rehab. 3. 12/22/2017 until 12/26/2017 for possible aspiration pneumonia. CXR did not show evidence of infiltrates. Patient was found to be intravascularly depleted. His BUN was in the 30s. His tube feeding was changed to Jevity from Nepro which has more water per dietary. His free water flushes were also increased to 165cc Q4 hours per dietary. He was discharged back to [facility] for rehab. Echo: Severe global hypokinesis of left ventricle, EF 20-25%, severe aortic stenosis, mild mitral regurgitation, mild tricuspid regurgitation. The patients previous echo was completed on 11/19/2017 which revealed an EF of 55-60% and moderate aortic stenosis. Laboratory data: WBC 12.1. Hemoglobin 10.5. Platelet count 526. Sodium 117. Potassium 5.2. BUN 18. Creatinine 0.72. Glucose 86. Troponins: 0.022, 0.119, 0.370 TSH 8.100. TSH on 12/17/2017 was 24.00 and Synthroid was increased at time to 150mcg. The patient was admitted to the hospital under the care of Dr. Ferris. Consultations were placed to cardiology and nephrology. 01/10/2018 The patient was evaluated at the bedside on the selective care unit. Daughter and at the beside. Patient is more lethargic than he has been on previous admission. He is easily arousable to verbal stimuli. He denies shortness of breath. States he has intermittent cough. Denies sputum production. Denies nausea or vomiting. He complains of lower back pain. He also complains of a dry mouth. 01/11/2018 The patient was seen and evaluated at the bedside on rounds with Dr. Ferris. No family present. Patient is a little more alert this morning. He appears slightly confused. Sodium this morning is 125. He remains on NS at 75cc/hr and was started on 2gram NA tab BID per nephrology. Cardiology evaluated the patient and recommends aldactone. The patient was previously on Aldactone but it was discontinued due to the patients chronic hyponatremia. Blood pressure borderline hypotensive with a reading of 95/56 overnight. Diovan has been decreased to 40mg per cardiology. Chest x-ray this AM: correlate for possible congestive heart failure, pneumonia not excluded. Tube feeding infusing. Patient tolerating well. Free water flushes have been decreased from 165cc Q4 hours to 30cc Q4 secondary to hyponatremia. Objective - Vital Signs Vital signs: Vital Signs Temp 98.0 F 01/11/18 03:59 Pulse 97 01/11/18 04:00 Resp 18 01/11/18 04:00 BP 111/67 01/11/18 03:59 Pulse Ox 93 L 01/11/18 03:59 Intake & Output 01/10/18 01/11/18 01/11/18 18:59 06:59 18:59 Intake Total 65 1770 Balance 65 1770 Weight 61.5 kg 62.5 kg Intake: Intake, IV Titration 400 Amount Sodium Chloride 0.9% 1, 400 000 ml @ 75 mls/hr IV . [id number] [facility] Rx#:[id number] Oral 0 0 Tube Feeding 65 1270 Other 100 Other: Voiding Method Urinal Urinal Incontinent Incontinent # Voids 1 - Exam GENERAL: This is a 77-year-old male in no apparent distress at the time of examination. HEENT: Head is atraumatic, normocephalic. Pupils are equal, round, and reactive to light. Sclerae anicteric. Conjunctivae are clear. Mucus membranes of the mouth are moist. Neck is supple. RESPIRATORY: Diminished. Rales present to bilateral bases. No use of accessory muscles. Patient maintaining oxygen saturation greater than 92%. No chest wall tenderness is noted on palpation or with deep breathing. CARDIOVASCULAR: Regular rate and rhythm. S1 and S2 noted. Systolic murmur auscultated. No JVD noted. No S3 or S4 noted. GASTROINTESTINAL: No distention noted. Abdomen soft and round. Normal active bowel sounds auscultated x 4 quadrants. No pain or tenderness noted upon palpation. INTEGUMENTARY: No cyanosis. No jaundice. No rashes noted. No cellulitis noted. EXTREMITIES: 2+ peripheral pulses. No evidence of peripheral edema. No calf tenderness noted. NEUROLOGIC: Cranial nerves II-XII intact. PSYCHIATRIC: Slightly lethargic. Easily arousable to verbal stimulu. Oriented X 2-3. - Labs CBC & Chem 7: 01/11/18 05:37 01/11/18 12:06 Labs: Abnormal Lab Results - Last 24 Hours (Table) 01/10/18 01/10/18 01/10/18 Range/Units 16:50 20:58 RBC (4.30-5.90) m/uL Hgb (13.0-17.5) gm/dL Hct (39.0-53.0) % RDW (11.5-15.5) % Plt Count (150-450) k/uL Lymphocytes # (1.0-4.8) k/uL Sodium 118 L* (137-145) mmol/L Chloride 86 L (98-107) mmol/L Creatinine 0.63 L (0.66-1.25) mg/dL Glucose 73 L (74-99) mg/dL POC Glucose (mg/dL) 151 H 141 H (75-99) mg/dL Calcium (8.4-10.2) mg/dL Total Protein (6.3-8.2) g/dL Albumin (3.5-5.0) g/dL 01/10/18 01/11/18 01/11/18 Range/Units 21:05 00:03 05:37 RBC 3.14 L (4.30-5.90) m/uL Hgb 9.6 L (13.0-17.5) gm/dL Hct 30.5 L (39.0-53.0) % RDW 15.8 H (11.5-15.5) % Plt Count 484 H (150-450) k/uL Lymphocytes # 0.8 L (1.0-4.8) k/uL Sodium 119 L* 122 L (137-145) mmol/L Chloride 89 L (98-107) mmol/L Creatinine 0.63 L (0.66-1.25) mg/dL Glucose 130 H (74-99) mg/dL POC Glucose (mg/dL) (75-99) mg/dL Calcium 8.0 L (8.4-10.2) mg/dL Total Protein (6.3-8.2) g/dL Albumin (3.5-5.0) g/dL 01/11/18 01/11/18 Range/Units 05:37 05:58 RBC (4.30-5.90) m/uL Hgb (13.0-17.5) gm/dL Hct (39.0-53.0) % RDW (11.5-15.5) % Plt Count (150-450) k/uL Lymphocytes # (1.0-4.8) k/uL Sodium 125 L (137-145) mmol/L Chloride 91 L (98-107) mmol/L Creatinine (0.66-1.25) mg/dL Glucose 106 H (74-99) mg/dL POC Glucose (mg/dL) 126 H (75-99) mg/dL Calcium 8.0 L (8.4-10.2) mg/dL Total Protein 5.3 L (6.3-8.2) g/dL Albumin 2.6 L (3.5-5.0) g/dL Assessment and Plan Plan: ASSESSMENT: Severe hyponatremia, Na 117 on admission, patients free water flushes were increased last admission secondary to dehydration and elevated BUN to 165cc Q 4 hours and tube feeding was changed to Jevity from Nepro, which may be contributing to hyponatremia Chronic hyponatremia, patients sodium usually low 130s Mild metabolic encephalopathy, secondary to hyponatremia Elevated troponins, acute coronary syndrome ruled out per cardiology Severe cardiomyopathy with EF 20-25%, echo from November 2017 revealed EF 55-60% Severe aortic stenosis History of abdominal aortic aneurysm with large pseudoaneurysm, 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 TSH was 24.100 in November 2017 and Synthroid was increased to 150mcg Recent hospitalization for dehydration, cough, and possible aspiration pneumonia which was ruled out (November 2017) Recent hospitalization for acute pancreatitis (November 2017) Recent hospitalization for Influenza B, dysphagia, and PEG tube insertion ( November-November 2017) Anemia of chronic disease, stable Severe debility and gait dysfunction Hypertension Hyperlipidemia Borderline hypotension, Diovan has been decreased per cardiology PLAN: Cardiology on consult. Appreciate recommendations and input. Appreciate input from cardiology regarding significant decrease in EF from 55-60 % in 11/2017 to 20-25% now Cardiology recommends aldactone. Patient was previously on aldactone and was discontinued secondary to chronic hyponatremia Nephrology on consult. Appreciate recommendations and input Continue Na tabs per nephrology Free water flushes have been decreased to 30cc Q 4 hours in light of sodium levels Decrease IVF fluids to 40cc/hr Monitor for fluid overload and notify provider if patient develops respiratory distress Consult pulmonary secondary to chest xray this AM Continue NPO. Patient may use green swabs or dry mouth spray. No ice chips. If patients cognition improves, recommend repeat MBS during admission. Speech therapy on consult Continue current dose of synthroid as dose was just increased last month and TSH has improved Family does not want the patient taking Seroquel. He may continue on his xanax if needed for insomnia Lidoderm patch daily to lower back. Tylenol PRN as well for back pain. Obtain post void residual as patient recently required straight cath at ECF Daughter states Diovan was held because of his sodium. May resume Diovan as it is unlikely causing his hyponatremia as ARBs typically do not cause hyponatremia. Dose was decreased to 40mg per cardiology for borderline hypotension Monitor labs GI prophylaxis: Protonix 40 mg Daily DVT prophylaxis: Heparin 5000 units subcu every 8 hours Monitor vital signs and address as appropriate PT/OT consult Discharge planning: Family does not want patient to return to [facility]. Spoke with family regarding other ECFs. Family does not want patient to go to [facility]. Family requesting [facility] at the time of discharge Further recommendations pending patient's course Nurse practitioner note has been reviewed by physician. Signing provider agrees with the documented findings, assessment, and plan of care.
[2018-01-11 12:36] LABS: Anion Gap 10 mmol/L; Blood Urea Nitrogen 15 mg/dL (9-20); Calcium 8.1 mg/dL (8.4-10.2); Carbon Dioxide 25 mmol/L (22-30); Chloride 91 mmol/L (98-107); Glucose 98 mg/dL (74-99); Potassium 4.3 mmol/L (3.5-5.1); Sodium 126 mmol/L (137-145)
--- NOTE | 2018-01-11 12:54 | P.CNPUL ---
History of Present Illness Consult date: 01/11/18 Requesting physician: Humberto Ferris Reason for consult: abnormal CXR/CT Chief complaint: Hyponatremia History of present illness: This is a very pleasant 77-year-old gentleman who follows with Dr. Ferris as his primary care physician and has a history of hyperlipidemia, infrarenal abdominal aortic aneurysm measuring greater than 6 cm, hypothyroidism. He has a history of recent admissions for influenza B, nonalcoholic pancreatitis, aspiration pneumonias. He subsequently required PEG tube insertion due to the aspiration. He has been residing in [facility]. Follow-up blood work revealed significant hyponatremia at 119 and was recommended readmission on 08/2018. The patient himself had no significant complaints at that time. An echocardiogram revealed severely impaired left ventricular systolic function of 20-25% with global hypokinesia. He also has moderate to severe aortic stenosis. White count 8.5. Hemoglobin 9.6. Creatinine 0.70. Sodium improved to 125. He is being followed by both nephrology and cardiology. We're consulted today regarding abnormal chest x-ray revealing congestive heart failure was some underlying interstitial lung disease. The patient is seen on the selective care unit resting quite comfortably in bed. He is awake and alert in no acute distress. He denies any worsening shortness of breath, cough or congestion. He is maintaining good O2 saturations in the 90s on room air. He does have noted Velcro crackles in the posterior bases. His daughter who is at the bedside states he has been told about pulmonary fibrosis in the past at the [facility]. He is afebrile. Hemodynamically stable. He is still weak however. Review of Systems 14 point review of system was conducted. All negative other than as mentioned in the HPI. Past Medical History Past Medical History: Hyperlipidemia, Renal Disease, Thyroid Disorder Additional Past Medical History / Comment(s): 6.4 cm AAA, pancreatitis, flu B 2/ ,ddd , thrush, History of Any Multi-Drug Resistant Organisms: None Reported Past Surgical History: Tonsillectomy Additional Past Surgical History / Comment(s): Abdominal Aortic Aneursym Repair - fall Dr. Vazquez, peg tube Past Anesthesia/Blood Transfusion Reactions: No Reported Reaction Smoking Status: Never smoker - Past Family History Mother Family Medical History: Cancer Medications and Allergies Home Medications Medication Instructions Recorded Confirmed Type Simvastatin [Zocor] 40 mg PEG/G-TUBE HS@209911/18/17 01/09/18 History Ipratropium-Albuterol Nebulize 3 ml INHALATION RT-QID PRN 12/03/17 01/09/18 Rx [Duoneb 0.5 mg-3 mg/3 ml Soln] ampul.neb Aspirin 81 mg PEG/G-TUBE HS@209912/10/17 01/09/18 History Bisacodyl [Dulcolax] 10 mg RECTAL DAILY PRN 12/10/17 01/09/18 History Magnesium Hydroxide [Milk of 7,200 mg PEG/G-TUBE DAILY PRN 12/10/17 01/09/18 History Magnesia Concentrate] Na Phos,M-B/Na Phos,Di-Ba [Fleet 133 ml RECTAL DAILY PRN 12/10/17 01/09/18 History Adult] Nitroglycerin Sl Tabs [Nitrostat] 0.4 mg PEG/G-TUBE Q5M PRN 12/10/17 01/09/18 History Pantoprazole [Protonix] 40 mg PEG/G-TUBE DAILY@0600 12/10/17 01/09/18 History Valsartan [Diovan] 80 mg PEG/G-TUBE HS@209912/10/17 01/09/18 History guaiFENesin SYRUP 100MG/5ML 200 mg PEG/G-TUBE Q6H PRN 12/10/17 01/09/18 History [Robitussin] Ezetimibe [Zetia] 10 mg PEG/G-TUBE HS@209912/22/17 01/09/18 History Levothyroxine Sodium [Synthroid] 150 mcg PEG/G-TUBE DAILY@0600 12/22/17 History Metoprolol Tartrate [Lopressor] 12.5 mg PEG/G-TUBE BID@0800,209912/22/17 History Saliva Stimulant Agents Comb.3 1 spray MUCOUS MEM BID@0800,1700 12/22/17 History [Biotene Moisturizing Mouth] Acetaminophen Tab [Tylenol] 650 mg PEG/G-TUBE Q4HR PRN tab 12/26/17 01/09/18 Rx ALPRAZolam [Xanax] 0.25 mg PEG/G-TUBE DAILY PRN 01/09/18 01/09/18 History Aspirin EC [Ecotrin Low Dose] 81 mg PEG/G-TUBE DAILY@1700 01/09/18 01/09/18 History Ferrous Sulfate [Feosol] 325 mg PEG/G-TUBE DAILY 01/09/18 01/09/18 History Jovity 2.5 can PEG/G-TUBE DAILY@1800 01/09/18 01/09/18 History L.acidoph,Paracasei, B.lactis 1 cap PEG/G-TUBE BID 01/09/18 01/09/18 History [Probiotic] Nystatin 100,000 Unit/ml Susp 5 ml PO QID 01/09/18 01/09/18 History [Mycostatin Oral Susp] Sodium Chloride [Saline Nasal 1 spray EA NOSTRIL BID 01/09/18 01/09/18 History [place]] Allergies Allergy/AdvReac Type Severity Reaction Status Date / Time clidinium Allergy Unknown Verified 01/09/18 13:59 clonidine Allergy Unknown Verified 01/09/18 13:59 atorvastatin [From Lipitor] AdvReac Itching Verified 01/09/18 13:59 quetiapine [From Seroquel] AdvReac Confusion Verified 01/09/18 17:48 Physical Exam Vitals: Vital Signs Temp Pulse Resp BP Pulse Ox 01/11/18 08:00 97.3 F L 105 H 18 124/72 93 L 01/11/18 04:00 97 18 01/11/18 03:59 98.0 F 97 18 111/67 93 L 01/11/18 00:00 98.8 F 95 18 95/56 92 L 01/10/18 20:00 97.9 F 103 H 20 101/66 95 01/10/18 15:41 98.6 F 109 H 18 105/63 92 L Intake and Output 01/10/18 01/11/18 01/11/18 22:59 06:59 14:59 Intake Total 1770 65 Balance 1770 65 Intake: Intake, IV Titration 400 Amount Sodium Chloride 0.9% 1, 400 000 ml @ 75 mls/hr IV . [id number] [facility] Rx#:[id number] Oral 0 Tube Feeding 1270 65 Other 100 Other: Voiding Method Urinal Urinal Urinal Incontinent Incontinent Incontinent # Voids 1 1 Weight 62.5 kg GENERAL EXAM: Alert, fairly comfortable in no apparent distress. HEAD: Normocephalic. EYES: Normal reaction of pupils, equal size. NOSE: Clear with pink turbinates. THROAT: No erythema or exudates. NECK: No masses, no JVD. CHEST: No chest wall deformity. LUNGS: Equal air entry with Velcro crackles in the bilateral posterior bases. CVS: S1 and S2 normal with an audible murmur, regular rhythm. ABDOMEN: No hepatosplenomegaly, normal bowel sounds, no guarding or rigidity. SPINE: No scoliosis or deformity SKIN: No rashes CENTRAL NERVOUS SYSTEM: No focal deficits, tone is normal in all 4 extremities. EXTREMITIES: There is trace peripheral edema. No clubbing, no cyanosis. Peripheral pulses are intact. Results - Laboratory Findings CBC and BMP: 01/11/18 05:37 01/11/18 05:37 PT/INR, D-dimer PT 9.8 sec (9.0-12.0) 01/09/18 14:00 INR 1.0 (<1.2) 01/09/18 14:00 Abnormal lab findings: Abnormal Labs 01/09/18 01/09/18 01/09/18 14:00 14:00 14:00 WBC 12.1 H RBC 3.35 L Hgb 10.5 L Hct 31.5 L RDW 15.7 H Plt Count 526 H Neutrophils # 9.8 H Lymphocytes # 0.8 L Sodium 117 L* Potassium 5.2 H Chloride 83 L Creatinine Glucose POC Glucose (mg/dL) Osmolality Calcium Total Creatine Kinase 40 L Troponin I Total Protein 5.7 L Albumin 2.8 L TSH Urine Protein Urine Blood Urine RBC Urine Bacteria Ur Random Sodium 01/09/18 01/09/18 01/09/18 14:25 14:25 17:37 WBC RBC Hgb Hct RDW Plt Count Neutrophils # Lymphocytes # Sodium 118 L* Potassium Chloride 83 L Creatinine Glucose POC Glucose (mg/dL) Osmolality 249 L* Calcium 8.1 L Total Creatine Kinase Troponin I Total Protein Albumin TSH 8.100 H Urine Protein 1+ H Urine Blood Moderate H Urine RBC 167 H Urine Bacteria Rare H Ur Random Sodium 103 H 01/09/18 01/09/18 01/10/18 20:19 20:57 02:20 WBC RBC Hgb Hct RDW Plt Count Neutrophils # Lymphocytes # Sodium Potassium Chloride Creatinine Glucose POC Glucose (mg/dL) 102 H Osmolality Calcium Total Creatine Kinase Troponin I 0.119 H* 0.370 H* Total Protein Albumin TSH Urine Protein Urine Blood Urine RBC Urine Bacteria Ur Random Sodium 01/10/18 01/10/18 01/10/18 02:20 02:20 13:18 WBC RBC 3.02 L Hgb 9.5 L Hct 28.8 L RDW 15.8 H Plt Count 476 H Neutrophils # Lymphocytes # 0.7 L Sodium 120 L* 118 L* Potassium Chloride 87 L 86 L Creatinine 0.63 L Glucose 73 L POC Glucose (mg/dL) Osmolality Calcium 8.2 L Total Creatine Kinase Troponin I Total Protein 5.2 L Albumin 2.5 L TSH Urine Protein Urine Blood Urine RBC Urine Bacteria Ur Random Sodium 01/10/18 01/10/18 01/10/18 16:50 20:58 21:05 WBC RBC Hgb Hct RDW Plt Count Neutrophils # Lymphocytes # Sodium 119 L* Potassium Chloride 89 L Creatinine 0.63 L Glucose 130 H POC Glucose (mg/dL) 151 H 141 H Osmolality Calcium 8.0 L Total Creatine Kinase Troponin I Total Protein Albumin TSH Urine Protein Urine Blood Urine RBC Urine Bacteria Ur Random Sodium 01/11/18 01/11/18 01/11/18 00:03 05:37 05:37 WBC RBC 3.14 L Hgb 9.6 L Hct 30.5 L RDW 15.8 H Plt Count 484 H Neutrophils # Lymphocytes # 0.8 L Sodium 122 L 125 L Potassium Chloride 91 L Creatinine Glucose 106 H POC Glucose (mg/dL) Osmolality Calcium 8.0 L Total Creatine Kinase Troponin I Total Protein 5.3 L Albumin 2.6 L TSH Urine Protein Urine Blood Urine RBC Urine Bacteria Ur Random Sodium 01/11/18 05:58 WBC RBC Hgb Hct RDW Plt Count Neutrophils # Lymphocytes # Sodium Potassium Chloride Creatinine Glucose POC Glucose (mg/dL) 126 H Osmolality Calcium Total Creatine Kinase Troponin I Total Protein Albumin TSH Urine Protein Urine Blood Urine RBC Urine Bacteria Ur Random Sodium - Diagnostic Findings Chest x-ray: image reviewed Assessment and Plan Assessment: Impression: #1 Hyponatremia suspect hypovolemic with initial sodium 119, currently 125. 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 #4 Severe cardiomyopathy with ejection fraction 20-25% with severe global hypokinesia, unclear if it's ischemic or nonischemic. #5 Moderate to severe aortic stenosis. #6 Hypothyroidism. #7 Abdominal aortic aneurysm status post repair with intraluminal aortoiliac Endograft in 2006. Now with infrarenal abdominal aortic aneurysm measuring 8.4 x 7.9 x 7.0 cm. #8 Hyperlipidemia. #9 Recent admission for influenza B infection Plan: The patient was seen and evaluated by Dr. Barrios. The patient's chest x-ray and labs were reviewed. There is a component of pulmonary fibrosis and most likely secondary to FSGS. He is currently maintaining good O2 saturations in the 90s on room air. He denies any significant pulmonary complaints. We will continue to follow and make further recommendations based on his clinical status. I, the cosigning physician, performed a history & physical examination of the patient. Lungs sounds with velcro crackles in the bilateral posterior bases. Maintaining good O2 saturations in the 90s on room air. I discussed the assessment and plan of care with my nurse practitioner, Karina Bonilla. I attest to the above note as dictated by her. Time with Patient: Greater than 30
--- NOTE | 2018-01-11 15:25 | PN ---
PROGRESS NOTE Patient is seen for followup for hyponatremia. He also has underlying CKD with biopsy- proven FSGS. Patient was admitted to the hospital with mental status changes and hyponatremia with serum sodium of 117 mEq/L. Patient is maintained on tube feeding as outpatient and it looks like free water was increased at the [place] [facility] prior to admission. His sodium decreased to 117 and patient also had mental status changes. He was also volume depleted. Initially patient was started on normal saline and his serum sodium improved to 120 mEq/L. Urine sodium was 103 and urine osmolality was 363, which is on the high side. Patient has been maintained on normal saline and yesterday after the sodium dropped to 119 and 118 from 120, I added sodium chloride tabs and now the sodium level has been increasing. Patient is tolerating his tube feedings. He is not maintained on any free water. His mentation has also improved as well. Patient has underlying CKD secondary to FSGS, being followed at [facility]. Maintained on a small dose of prednisone at 6 mg daily. His GFR is well preserved. PHYSICAL EXAMINATION: Today, blood pressure is 117/65, heart rate 99 per minute, patient is afebrile. Examination of the heart, S1, S2. Examination of the lungs, bilateral breath sounds are heard. Abdomen is soft, nontender. Examination of the lower extremities shows no evidence of edema. [employer] exam is grossly intact. LABS: Show sodium 126, potassium 4.3, BUN 15, serum creatinine 0.64, hemoglobin 9.6 g/dL, albumin is 2.6. ASSESSMENT: 1. Hyponatremia, initially hypovolemic and improved with normal saline following correction of hypovolemia, The sodium level started to drop and patient was started on sodium chloride tablets. His urine osmolality was elevated, suggesting some degree of underlying SIADH. Currently, patient is responding well to sodium chloride tabs. We will continue the tube feedings and minimize free water down the feeding tube. I will also discontinue the saline. At this time, I will hold off on the tolvaptan. 2. Chronic kidney disease secondary to FSGS, being followed at [facility], maintained on 6 mg of prednisone with preserved GFR. 3. History of abdominal aortic aneurysm, status post repair. 4. History of recent influenza B in November of 2017. 5. Severe cardiomyopathy with ejection fraction 20% to 25% from echocardiogram in November of this year. 6. Generalized debility and chronic dysphagia and inability to swallow with aspiration and maintained on PEG tube feedings. 7. Hypothyroidism with a recent TSH of 24, currently down to 8. PLAN: Continue to correct the hypothyroidism and continue minimum free water down the feeding tube. I will continue with the sodium chloride tabs and discontinue the saline. Continue with the prednisone as well and repeat the sodium in 6 hours. MMODL / IJN: [id number] /
[2018-01-11 18:40] LABS: Anion Gap 8 mmol/L; Blood Urea Nitrogen 15 mg/dL (9-20); Calcium 8.3 mg/dL (8.4-10.2); Carbon Dioxide 27 mmol/L (22-30); Chloride 92 mmol/L (98-107); Glucose 103 mg/dL (74-99); Potassium 4.5 mmol/L (3.5-5.1); Sodium 127 mmol/L (137-145)
[2018-01-11] MEDS: predniSONE 1 MG TAB PEG/G-TUBE SCH (20:09)
[2018-01-11] MEDS: ALPRAZolam 0.25 MG TAB PEG/G-TUBE PRN (20:09)
[2018-01-11] MEDS: EZETIMIBE 10 MG TAB PEG/G-TUBE SCH (20:09)
[2018-01-11] MEDS: ASPIRIN 81 MG PEG/G-TUBE SCH (20:10)
[2018-01-11] MEDS: VALSARTAN 40 MG TAB PEG/G-TUBE SCH (20:10)
[2018-01-11] MEDS: ZOCOR 40 MG PEG/G-TUBE SCH (20:11)
[2018-01-12] MEDS: SYNTHROID 150 MCG PO SCH (05:05)
[2018-01-12] MEDS: PANTOPRAZOLE SODIUM 40 MG GRANULE PKT PEG/G-TUBE SCH (05:06)
[2018-01-12 06:35] LABS: Anisocytosis Slight; Basophils % (A) 0 %; Eosinophils # (A) 0.1 k/uL (0-0.7); Eosinophils % (A) 1 %; HCT 30.7 % (39.0-53.0); Hypochromasia Slight; Lymphocytes # (A) 0.9 k/uL (1.0-4.8); Lymphocytes % (A) 8 %; MCH 31.5 pg (25.0-35.0); MCHC 32.5 g/dL (31.0-37.0); MCV 97.2 fL (80.0-100.0); Macrocytosis Slight; Mean Platelet Volume 6.9; Monocytes # (A) 0.9 k/uL (0-1.0); Monocytes % (A) 8 %; Neutrophils # (A) 8.9 k/uL (1.3-7.7); Neutrophils % (A) 81 %; Platelet Count 537 k/uL (150-450); RBC 3.16 m/uL (4.30-5.90)
[2018-01-12 06:47] LABS: ALT 30 U/L (21-72); AST 32 U/L (17-59); Albumin 2.8 g/dL (3.5-5.0); Alkaline Phosphatase 74 U/L (38-126); Anion Gap 9 mmol/L; Blood Urea Nitrogen 17 mg/dL (9-20); Calcium 8.5 mg/dL (8.4-10.2); Carbon Dioxide 27 mmol/L (22-30); Chloride 91 mmol/L (98-107); Glucose 117 mg/dL (74-99); Sodium 127 mmol/L (137-145); Total Bilirubin 0.3 mg/dL (0.2-1.3); Total Protein 5.7 g/dL (6.3-8.2)
[2018-01-12] MEDS: IPRATROPIUM-ALBUTEROL 3 ML NEB INHALATION PRN (08:21)
[2018-01-12] MEDS: FERROUS SULFATE ORAL ELIXIR 300 MG/5 ML CUP PEG/G-TUBE SCH (08:50)
[2018-01-12] MEDS: METOPROLOL TARTRATE 12.5 MG TAB PEG/G-TUBE SCH ×2 (08:50→20:47)
[2018-01-12] MEDS: SODIUM CHLORIDE TAB 1 GM TAB PO SCH ×2 (08:50→20:48)
[2018-01-12] MEDS: HEPARIN SODIUM,PORCINE 5,000 UNIT/ML 1 ML VIAL SQ SCH ×2 (08:50→17:27)
[2018-01-12] MEDS: LIDOCAINE 5% PATCH TOPICAL SCH (08:50)
[2018-01-12] MEDS: LACTOBACILLUS ACIDOPH & BULGAR 1 EACH PACKET PEG/G-TUBE SCH ×2 (08:50→20:47)
[2018-01-12] MEDS: NYSTATIN 100,000 UNIT/ML SUSP 500,000 UNIT/5 ML CUP PO SCH ×4 (08:51→21:35)
[2018-01-12] MEDS: SODIUM CHLORIDE 0.65% NASAL SPRAY 44 ML BTL NASAL SCH ×2 (09:08→21:01)
[2018-01-12] MEDS: DRY MOUTH SPRAY 44.3 SPRAY/44.3 ML SPRAY MUCOUS MEM SCH ×2 (09:08→17:27)
--- NOTE | 2018-01-12 10:00 | P.PN ---
Subjective Progress Note Date: 01/12/18 This 77-year-old male is seen with hyponatremia which is deemed to be from multifactorial causes including SIADH, hypothyroidism with TSH was 24 in November month ago but most recent TSH is down to 8 maintained on Synthroid and additionally is maintained on 2 g salt tablets twice a day. Additionally he is known with a biopsy-proven FSGS and on steroids. He has a creatinine of 0.6. He is on prednisone 6 mg a day. He is on PEG feeding and has not been able to swallow. Denies any fever chills cough shortness of breath. There was some concern for congestive heart failure based on chest x-ray. He is on room air currently. He is somewhat frail and bedridden and has difficulty sitting up. He is awake alert seems to be oriented 3 and able to recall that he was in the correction before coming here. Objective - Vital Signs Vital signs: Vital Signs Temp 98.6 F 01/12/18 08:00 Pulse 104 H 01/12/18 08:27 Resp 20 01/12/18 08:00 BP 113/76 01/12/18 08:00 Pulse Ox 93 L 01/12/18 08:00 Intake & Output 01/11/18 01/12/18 01/12/18 18:59 06:59 18:59 Intake Total 950 2140 Balance 950 2140 Weight 63 kg Intake: Intake, IV Titration 150 Amount Sodium Chloride 0.9% 1, 150 000 ml @ 40 mls/hr IV . Q24H [facility] Rx#:[id number] Oral 0 0 Tube Feeding 770 2080 Other 30 60 Other: Voiding Method Urinal Urinal Incontinent Incontinent # Voids 2 1 # Bowel Movements 1 Frail looking male not in distress. On room air. HEENT exam no JVP. Neck is supple no facial asymmetry Lungs are clear with an occasional fine crackles at bases not clear but cough. Air entry is less than optimal. Heart sounds are unremarkable no murmur rub gallop Abdomen soft nontender PEG feeding. Extremity exam was no edema Neuro logically awake alert oriented but generalized weakness which is somewhat profound. - Labs CBC & Chem 7: 01/12/18 06:06 01/12/18 06:06 Labs: Abnormal Lab Results - Last 24 Hours (Table) 01/11/18 01/11/18 01/12/18 Range/Units 12:06 17:51 06:06 WBC 11.0 H (3.8-10.6) k/uL RBC 3.16 L (4.30-5.90) m/uL Hgb 10.0 L (13.0-17.5) gm/dL Hct 30.7 L (39.0-53.0) % RDW 16.0 H (11.5-15.5) % Plt Count 537 H (150-450) k/uL Neutrophils # 8.9 H (1.3-7.7) k/uL Lymphocytes # 0.9 L (1.0-4.8) k/uL Sodium 126 L 127 L (137-145) mmol/L Chloride 91 L 92 L (98-107) mmol/L Creatinine 0.64 L (0.66-1.25) mg/dL Glucose 103 H (74-99) mg/dL Calcium 8.1 L 8.3 L (8.4-10.2) mg/dL Total Protein (6.3-8.2) g/dL Albumin (3.5-5.0) g/dL 01/12/18 Range/Units 06:06 WBC (3.8-10.6) k/uL RBC (4.30-5.90) m/uL Hgb (13.0-17.5) gm/dL Hct (39.0-53.0) % RDW (11.5-15.5) % Plt Count (150-450) k/uL Neutrophils # (1.3-7.7) k/uL Lymphocytes # (1.0-4.8) k/uL Sodium 127 L (137-145) mmol/L Chloride 91 L (98-107) mmol/L Creatinine (0.66-1.25) mg/dL Glucose 117 H (74-99) mg/dL Calcium (8.4-10.2) mg/dL Total Protein 5.7 L (6.3-8.2) g/dL Albumin 2.8 L (3.5-5.0) g/dL Assessment and Plan Assessment: Impression. 1. Hyponatremia secondary to combination of hypothyroidism and SIADH. Currently maintained on 2 g salt tablets twice a day. 2. FSGS biopsy-proven on 6 mg prednisone with normal renal function creatinine is 0.7 albumin is 2.8, urine protein is 1+ in remission. 3. 6 cm infrarenal abdominal aortic aneurysm. 4. Anemia. 5. Chronic lung disease., Memory fibrosis. 6. Severe aortic stenosis. Recommendation. Maintain current medications watch for CHF. His chest x-ray seems to be worsening over the last few years. We will check orthostatic changes. With high protein intake and water restriction we may be able to take him off of the salt tablets
--- NOTE | 2018-01-12 14:10 | P.PN ---
Subjective 77-year-old admitted secondary to hyponatremia which is improving hyponatremia secondary to SIADH and the hyperthyroidism. Patient is bit lethargic. Patient is nothing by mouth is having PEG tube feedings no overnight events. Constitutional: Denied any fatigue denied any fever. Cardio vascular: denied any chest pain, palpitations Gastrointestinal denied any nausea vomiting Pulmonary: Denied any shortness of breath cough Neurologic denied any new focal deficits Objective - Vital Signs Vital signs: Vital Signs Temp 98.4 F 01/12/18 11:37 Pulse 103 H 01/12/18 11:37 Resp 24 01/12/18 11:37 BP 120/68 01/12/18 11:37 Pulse Ox 92 L 01/12/18 11:37 Intake & Output 01/11/18 01/12/18 01/12/18 18:59 06:59 18:59 Intake Total 950 2140 Balance 950 2140 Weight 63 kg Intake: Intake, IV Titration 150 Amount Sodium Chloride 0.9% 1, 150 000 ml @ 40 mls/hr IV . Q24H [facility] Rx#:[id number] Oral 0 0 Tube Feeding 770 2080 Other 30 60 Other: Voiding Method Urinal Urinal Incontinent Incontinent # Voids 2 1 # Bowel Movements 1 - Exam PHYSICAL EXAMINATION: GENERAL: The patient is alert and bit drowsy and lethargic, not in any acute distress. Well developed, well nourished. HEENT: Pupils are round and equally reacting to light. EOMI. No scleral icterus. No conjunctival pallor. Normocephalic, atraumatic. No pharyngeal erythema. No thyromegaly. CARDIOVASCULAR: S1 and S2 present. No murmurs, rubs, or gallops. PULMONARY: Chest is clear to auscultation, no wheezing or crackles. ABDOMEN: Soft, nontender, nondistended, normoactive bowel sounds. No palpable organomegaly. PEG tube in place PEG tube site is clean without any infection. MUSCULOSKELETAL: No joint swelling or deformity. EXTREMITIES: No cyanosis, clubbing, or pedal edema. NEUROLOGICAL: Gross neurological examination did not reveal any focal deficits. SKIN: No rashes. - Labs CBC & Chem 7: 01/12/18 06:06 01/12/18 06:06 Labs: Abnormal Lab Results - Last 24 Hours (Table) 01/11/18 01/12/18 01/12/18 Range/Units 17:51 06:06 06:06 WBC 11.0 H (3.8-10.6) k/uL RBC 3.16 L (4.30-5.90) m/uL Hgb 10.0 L (13.0-17.5) gm/dL Hct 30.7 L (39.0-53.0) % RDW 16.0 H (11.5-15.5) % Plt Count 537 H (150-450) k/uL Neutrophils # 8.9 H (1.3-7.7) k/uL Lymphocytes # 0.9 L (1.0-4.8) k/uL Sodium 127 L 127 L (137-145) mmol/L Chloride 92 L 91 L (98-107) mmol/L Glucose 103 H 117 H (74-99) mg/dL Calcium 8.3 L (8.4-10.2) mg/dL Total Protein 5.7 L (6.3-8.2) g/dL Albumin 2.8 L (3.5-5.0) g/dL Assessment and Plan Plan: -Hyponatremia: Improving presently 128 sodium patient has SIADH along with hypothyroidism contributing to that -Dysphagia chronic patient is on PEG tube feedings. -Metabolic encephalopathy secondary to hyponatremia which improved -Severe aortic stenosis -Focal segmental sclerosis with good kidney function is on low-dose of steroids for that -Anemia of chronic disease -Hypertension -Hyperlipidemia
--- NOTE | 2018-01-12 14:28 | P.PN ---
Subjective Progress Note Date: 01/12/18 Principal diagnosis: Hyponatremia. This is a very pleasant 77-year-old gentleman who follows with Dr. Ferris as his primary care physician and has a history of hyperlipidemia, infrarenal abdominal aortic aneurysm measuring greater than 6 cm, hypothyroidism. He has a history of recent admissions for influenza B, nonalcoholic pancreatitis, aspiration pneumonias. He subsequently required PEG tube insertion due to the aspiration. He has been residing in [facility]. Follow-up blood work revealed significant hyponatremia at 119 and was recommended readmission on 08/2018. The patient himself had no significant complaints at that time. An echocardiogram revealed severely impaired left ventricular systolic function of 20-25% with global hypokinesia. He also has moderate to severe aortic stenosis. White count 8.5. Hemoglobin 9.6. Creatinine 0.70. Sodium improved to 125. He is being followed by both nephrology and cardiology. We're consulted today regarding abnormal chest x-ray revealing congestive heart failure was some underlying interstitial lung disease. The patient is seen on the selective care unit resting quite comfortably in bed. He is awake and alert in no acute distress. He denies any worsening shortness of breath, cough or congestion. He is maintaining good O2 saturations in the 90s on room air. He does have noted Velcro crackles in the posterior bases. His daughter who is at the bedside states he has been told about pulmonary fibrosis in the past at the [facility]. He is afebrile. Hemodynamically stable. He is still weak however. The patient is seen again today 01/12/2018 in follow-up on the selective care unit. He remains awake and alert in no acute distress. He is still quite fatigued and weak however. Somewhat slow to respond. His current sodium is 127. White count 11.0. Hemoglobin 10.0. Creatinine 0.70. He is currently afebrile. Hemodynamically stable. Maintaining O2 saturations in the 90s on room air. He denies any worsening shortness of breath, cough or congestion. Objective - Vital Signs Vital signs: Vital Signs Temp 98.4 F 01/12/18 11:37 Pulse 103 H 01/12/18 11:37 Resp 24 01/12/18 11:37 BP 120/68 01/12/18 11:37 Pulse Ox 92 L 01/12/18 11:37 Intake & Output 01/11/18 01/12/18 01/12/18 18:59 06:59 18:59 Intake Total 950 2140 Balance 950 2140 Weight 63 kg Intake: Intake, IV Titration 150 Amount Sodium Chloride 0.9% 1, 150 000 ml @ 40 mls/hr IV . Q24H [facility] Rx#:[id number] Oral 0 0 Tube Feeding 770 2080 Other 30 60 Other: Voiding Method Urinal Urinal Incontinent Incontinent # Voids 2 1 # Bowel Movements 1 - Exam GENERAL EXAM: Alert, fairly comfortable in no apparent distress. HEAD: Normocephalic. EYES: Normal reaction of pupils, equal size. NOSE: Clear with pink turbinates. THROAT: No erythema or exudates. NECK: No masses, no JVD. CHEST: No chest wall deformity. LUNGS: Equal air entry with Velcro crackles in the bilateral posterior bases. CVS: S1 and S2 normal with an audible murmur, regular rhythm. ABDOMEN: No hepatosplenomegaly, normal bowel sounds, no guarding or rigidity. SPINE: No scoliosis or deformity SKIN: No rashes CENTRAL NERVOUS SYSTEM: No focal deficits, tone is normal in all 4 extremities. EXTREMITIES: There is trace peripheral edema. No clubbing, no cyanosis. Peripheral pulses are intact. - Labs CBC & Chem 7: 01/12/18 06:06 01/12/18 06:06 Labs: Abnormal Lab Results - Last 24 Hours (Table) 01/11/18 01/12/18 01/12/18 Range/Units 17:51 06:06 06:06 WBC 11.0 H (3.8-10.6) k/uL RBC 3.16 L (4.30-5.90) m/uL Hgb 10.0 L (13.0-17.5) gm/dL Hct 30.7 L (39.0-53.0) % RDW 16.0 H (11.5-15.5) % Plt Count 537 H (150-450) k/uL Neutrophils # 8.9 H (1.3-7.7) k/uL Lymphocytes # 0.9 L (1.0-4.8) k/uL Sodium 127 L 127 L (137-145) mmol/L Chloride 92 L 91 L (98-107) mmol/L Glucose 103 H 117 H (74-99) mg/dL Calcium 8.3 L (8.4-10.2) mg/dL Total Protein 5.7 L (6.3-8.2) g/dL Albumin 2.8 L (3.5-5.0) g/dL Assessment and Plan Assessment: Impression: #1 Hyponatremia suspect hypovolemic with initial sodium 119, currently 127. 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 #4 Severe cardiomyopathy with ejection fraction 20-25% with severe global hypokinesia, unclear if it's ischemic or nonischemic. #5 Moderate to severe aortic stenosis. #6 Hypothyroidism. #7 Abdominal aortic aneurysm status post repair with intraluminal aortoiliac Endograft in 2006. Now with infrarenal abdominal aortic aneurysm measuring 8.4 x 7.9 x 7.0 cm. #8 Hyperlipidemia. #9 Recent admission for influenza B infection Plan: The patient was seen and evaluated by Dr. Barrios. He is currently maintaining good O2 saturations in the 90s on room air. He denies any significant pulmonary complaints. Continue bronchodilators. Continue to monitor the sodium. Continue salt tablets and steroids. We will continue to follow and make further recommendations based on his clinical status. I, the cosigning physician, performed a history & physical examination of the patient. Lungs sounds with velcro crackles in the bilateral posterior bases. Maintaining good O2 saturations in the 90s on room air. I discussed the assessment and plan of care with my nurse practitioner, Karina Bonilla. I attest to the above note as dictated by her.
--- NOTE | 2018-01-12 15:01 | P.PN ---
Subjective Progress Note Date: 01/12/18 This is a pleasant 77-year-old gentleman who is a frail for his age with a past medical history significant for hypertension and dyslipidemia who was told to go to the hospital because of abnormal blood work. The patient underwent recently a blood work by his primary care physician and that revealed hyponatremia and for that reason the patient was admitted to the hospital. He is asymptomatic and denies having any chest pain or discomfort, difficulty breathing, feeling of heart racing or fluttering, dizziness or lightheadedness, or syncope. We get involved in his care because of abnormal cardiac enzymes with a slightly elevated troponin. As a mentioned earlier the patient did not have any symptoms of chest pain or discomfort and more importantly he is very frail. On physical examination he does have very significant aortic stenosis murmur. I am going to obtain an echocardiogram was Doppler to assess the aortic valve and also to assess LV function. Beside that he is on aspirin which I am going to continue. Overall we'll consider a conservative medical approach at this point of time for the abnormal cardiac enzymes in view of the absence of any chest pain or chest discomfort. We'll follow-up on the echocardiogram as well. 01/12/2018 Echocardiogram with Doppler study was performed which revealed severe global hypokinesia of the LV. Severe aortic stenosis. He was seen and examined this morning, at bedside. Continues to feel extremely weak. Blood pressure 113 /70 heart rate in the 90s, sodium today 127 potassium 5.0. Objective - Vital Signs Vital signs: Vital Signs Temp 98.4 F 01/12/18 11:37 Pulse 103 H 01/12/18 11:37 Resp 24 01/12/18 11:37 BP 120/68 01/12/18 11:37 Pulse Ox 92 L 01/12/18 11:37 Intake & Output 01/11/18 01/12/18 01/12/18 18:59 06:59 18:59 Intake Total 950 2140 480 Balance 950 2140 480 Weight 63 kg Intake: Intake, IV Titration 150 Amount Sodium Chloride 0.9% 1, 150 000 ml @ 40 mls/hr IV . Q24H [facility] Rx#:[id number] Oral 0 0 Tube Feeding 770 2080 480 Other 30 60 Other: Voiding Method Urinal Urinal Incontinent Incontinent # Voids 2 1 # Bowel Movements 1 - Exam PHYSICAL EXAMINATION: HEENT: Head is atraumatic, normocephalic. Pupils equal, round. Neck is supple. There is no elevated jugular venous pressure. HEART EXAMINATION: Heart S1, S2 normal. No murmur or gallop heard. CHEST EXAMINATION: Lungs are clear to auscultation and precussion. No chest wall tenderness is noted on palpation or with deep breathing. ABDOMEN: Soft, nontender. Bowel sounds are heard. No organomegaly noted. EXTREMITIES: 2+ peripheral pulses with trace evidence of peripheral edema and no calf tenderness noted. NEUROLOGIC patient is awake, alert and oriented -2. . - Labs CBC & Chem 7: 01/12/18 06:06 01/12/18 06:06 Labs: Abnormal Lab Results - Last 24 Hours (Table) 01/11/18 01/12/18 01/12/18 Range/Units 17:51 06:06 06:06 WBC 11.0 H (3.8-10.6) k/uL RBC 3.16 L (4.30-5.90) m/uL Hgb 10.0 L (13.0-17.5) gm/dL Hct 30.7 L (39.0-53.0) % RDW 16.0 H (11.5-15.5) % Plt Count 537 H (150-450) k/uL Neutrophils # 8.9 H (1.3-7.7) k/uL Lymphocytes # 0.9 L (1.0-4.8) k/uL Sodium 127 L 127 L (137-145) mmol/L Chloride 92 L 91 L (98-107) mmol/L Glucose 103 H 117 H (74-99) mg/dL Calcium 8.3 L (8.4-10.2) mg/dL Total Protein 5.7 L (6.3-8.2) g/dL Albumin 2.8 L (3.5-5.0) g/dL Assessment and Plan Plan: Assessment #1 hyponatremia which is improving #2 heart murmur consistent with aortic stenosis #3 hypertension #4 dyslipidemia Plan From cardiology's perspective, we will continue conservative current medical therapy. We will follow this patient with you now on an as-needed basis only, please don't hesitate to call with any questions. A follow-up appointment will be made in the office post discharge. DNP note has been reviewed, I agree with a documented findings and plan of care. Patient was seen and examined.
--- NOTE | 2018-01-12 18:50 | XR ---
EXAMINATION TYPE: XR chest 2V DATE OF EXAM: 01/12/2018 COMPARISON: Prior chest 01/11/2018 HISTORY: Congestive heart failure, cough and congestion TECHNIQUE: Frontal and lateral views of the chest are obtained. FINDINGS: Patient is rotated. Heart size is likely stable. Interstitium and central vascularity are prominent. No evident pneumothorax. 5 basilar airspace disease suspected. There is elevation of the r ight hemidiaphragm. IMPRESSION: Findings are compatible with congestive heart failure. Follow-up recommended. Pneumonia not excluded.
[2018-01-12] MEDS: ASPIRIN 81 MG PEG/G-TUBE SCH (20:46)
[2018-01-12] MEDS: predniSONE 1 MG TAB PEG/G-TUBE SCH (20:47)
[2018-01-12] MEDS: EZETIMIBE 10 MG TAB PEG/G-TUBE SCH (20:47)
[2018-01-12] MEDS: ZOCOR 40 MG PEG/G-TUBE SCH (20:48)
[2018-01-12] MEDS: VALSARTAN 40 MG TAB PEG/G-TUBE SCH (20:48)
[2018-01-12] MEDS: ALPRAZolam 0.25 MG TAB PEG/G-TUBE PRN (21:03)
[2018-01-13] MEDS: HEPARIN SODIUM,PORCINE 5,000 UNIT/ML 1 ML VIAL SQ SCH ×2 (00:19→08:15)
[2018-01-13] MEDS: ACETAMINOPHEN TAB 325 MG TAB PEG/G-TUBE PRN (02:07)
[2018-01-13] MEDS: SYNTHROID 150 MCG PO SCH (05:17)
[2018-01-13] MEDS: PANTOPRAZOLE SODIUM 40 MG GRANULE PKT PEG/G-TUBE SCH (05:18)
[2018-01-13 07:09] LABS: Glucose,Whole Blood 156 mg/dL (75-99)
[2018-01-13] MEDS: IPRATROPIUM-ALBUTEROL 3 ML NEB INHALATION PRN (07:12)
[2018-01-13] MEDS ORDERED: FUROSEMIDE 10 MG/ML 4 ML VIAL ONE (07:20)
[2018-01-13 07:24] LABS: Basophils # (A) 0.1 k/uL (0-0.2); Basophils % (A) 0 %; Eosinophils # (A) 0.1 k/uL (0-0.7); Eosinophils % (A) 0 %; HCT 32.9 % (39.0-53.0); HGB 10.6 gm/dL (13.0-17.5); Hypochromasia Slight; Lymphocytes # (A) 0.6 k/uL (1.0-4.8); Lymphocytes % (A) 4 %; MCH 31.2 pg (25.0-35.0); MCHC 32.2 g/dL (31.0-37.0); MCV 96.8 fL (80.0-100.0); Mean Platelet Volume 7.2; Monocytes # (A) 1.1 k/uL (0-1.0); Monocytes % (A) 7 %; Neutrophils # (A) 14.2 k/uL (1.3-7.7); Neutrophils % (A) 87 %; Platelet Count 563 k/uL (150-450); RDW 15.8 % (11.5-15.5); WBC 16.4 k/uL (3.8-10.6)
[2018-01-13 07:30] LABS: ALT 28 U/L (21-72); AST 30 U/L (17-59); Albumin 2.8 g/dL (3.5-5.0); Alkaline Phosphatase 79 U/L (38-126); Anion Gap 10 mmol/L; Blood Urea Nitrogen 20 mg/dL (9-20); Calcium 8.7 mg/dL (8.4-10.2); Carbon Dioxide 25 mmol/L (22-30); Chloride 93 mmol/L (98-107); Glucose 145 mg/dL (74-99); Potassium 4.8 mmol/L (3.5-5.1); Sodium 128 mmol/L (137-145); Total Bilirubin 0.3 mg/dL (0.2-1.3)
--- NOTE | 2018-01-13 07:55 | XR ---
EXAMINATION TYPE: XR chest 1V portable DATE OF EXAM: 01/13/2018 HISTORY: SOB. REFERENCE: Previous study dated 01/12/2018. FINDINGS: There is left basilar airspace disease. There is mild vascular congestion. Heart size upper limits of normal. I could not exclude a small left effusion. IMPRESSION: 1. CONTINUING LEFT BASILAR AIRSPACE DISEASE. 2. CARDIOMEGALY AND VASCULAR CONGESTION.
[2018-01-13] MEDS: LIDOCAINE 5% PATCH TOPICAL SCH (08:14)
[2018-01-13] MEDS: SODIUM CHLORIDE TAB 1 GM TAB PO SCH (08:14)
[2018-01-13] MEDS: NYSTATIN 100,000 UNIT/ML SUSP 500,000 UNIT/5 ML CUP PO SCH ×2 (08:15→11:19)
[2018-01-13] MEDS: LACTOBACILLUS ACIDOPH & BULGAR 1 EACH PACKET PEG/G-TUBE SCH (08:15)
[2018-01-13] MEDS: FERROUS SULFATE ORAL ELIXIR 300 MG/5 ML CUP PEG/G-TUBE SCH (08:15)
[2018-01-13] MEDS: METOPROLOL TARTRATE 12.5 MG TAB PEG/G-TUBE SCH (08:15)
[2018-01-13] MEDS: SODIUM CHLORIDE 0.65% NASAL SPRAY 44 ML BTL NASAL SCH (08:16)
[2018-01-13] MEDS: DRY MOUTH SPRAY 44.3 SPRAY/44.3 ML SPRAY MUCOUS MEM SCH (08:16)
[2018-01-13] MEDS ORDERED: TOLVAPTAN 15 MG 1/2 TABLET PO ONE (09:15)
--- NOTE | 2018-01-13 09:30 | P.PN ---
Subjective Progress Note Date: 01/13/18 This 77-year-old male is seen with hyponatremia which is deemed to be from multifactorial causes including SIADH, hypothyroidism with TSH was 24 in November month ago but most recent TSH is down to 8 maintained on Synthroid and additionally is maintained on 2 g salt tablets twice a day. Additionally he is known with a biopsy-proven FSGS and on steroids. He has a creatinine of 0.6. He is on prednisone 6 mg a day. He is on PEG feeding and has not been able to swallow. This morning he is very sleepy and unable to be woken up from sleep. He received sedation overnight. He seems to be breathing somewhat rapidly. He was given Lasix 1 dose, his urine output is not measured as he is incontinent. His blood pressure is somewhat low in the 90s, he is on metoprolol 12.5 mg twice a day as well as valsartan 40 mg. There was some concern for congestive heart failure based on chest x-ray, compared over the last 3 days. He is to be nothing by mouth also is in the 8000 range. Objective - Vital Signs Vital signs: Vital Signs Temp 97.6 F 01/13/18 07:56 Pulse 124 H 01/13/18 07:56 Resp 32 H 01/13/18 07:56 BP 94/53 01/13/18 07:56 Pulse Ox 90 L 01/13/18 07:56 Intake & Output 01/12/18 01/13/18 01/13/18 18:59 06:59 18:59 Intake Total 480 720 60 Balance 480 720 60 Weight 62.5 kg Intake: Tube Feeding 480 720 60 Other: Voiding Method Urinal Incontinent # Voids 1 1 On examination his obtunded. No facial asymmetry neck is supple Lungs are clear with fair air entry somewhat cachectic. Heart sounds are unremarkable for any murmur rub gallop Abdomen soft nontender Extremity exam was no edema Neurologically obtunded - Labs CBC & Chem 7: 01/13/18 07:08 01/13/18 07:08 Labs: Abnormal Lab Results - Last 24 Hours (Table) 01/13/18 01/13/18 01/13/18 Range/Units 07:07 07:08 07:08 WBC 16.4 H (3.8-10.6) k/uL RBC 3.40 L (4.30-5.90) m/uL Hgb 10.6 L (13.0-17.5) gm/dL Hct 32.9 L (39.0-53.0) % RDW 15.8 H (11.5-15.5) % Plt Count 563 H (150-450) k/uL Neutrophils # 14.2 H (1.3-7.7) k/uL Lymphocytes # 0.6 L (1.0-4.8) k/uL Monocytes # 1.1 H (0-1.0) k/uL Sodium 128 L (137-145) mmol/L Chloride 93 L (98-107) mmol/L Creatinine 0.60 L (0.66-1.25) mg/dL Glucose 145 H (74-99) mg/dL POC Glucose (mg/dL) 156 H (75-99) mg/dL Total Protein 6.0 L (6.3-8.2) g/dL Albumin 2.8 L (3.5-5.0) g/dL Assessment and Plan Assessment: Impression. 1. Hyponatremia secondary to combination of hypothyroidism and SIADH. Currently maintained on 2 g salt tablets twice a day. Is on 60 mL of Jevity feeding via PEG 2. FSGS biopsy-proven on 6 mg prednisone with normal renal function creatinine is 0.7 albumin is 2.8, urine protein is 1+ in remission. 3. 6 cm infrarenal abdominal aortic aneurysm. 4. Anemia. 5. Chronic lung disease., Memory fibrosis. 6. Severe aortic stenosis. 7. Congestive heart failure. 8. Obtundation possibly related to the sedation, made worse by low blood pressure possibly. 9. Hypotension, secondary to medications, Recommendation. We will give him 1 dose of [place] 15 milligrams to induce a water diuresis improve his sodium and as well as improve his congestive heart failure. 2. We will stop his salt tablets. 3. Hold valsartan for blood pressure less than 110 4. Maintain high protein intake to improve water diuresis through osmotic diuresis 5. Maintain close watch on labs
--- NOTE | 2018-01-13 10:11 | PN ---
PROGRESS NOTE DATE OF SERVICE: 01/13/2018 HISTORY: Mr. Weaver is a 77-year-old male who presented with progression of weakness, change in mental status. He had evidence of severe hyponatremia. He had an echocardiogram that revealed a severely impaired left ventricular systolic function with severe aortic stenosis. He is quite somnolent this morning. Hemodynamically, he is stable. He has a PEG tube. He continues to be, at this time, on aspirin, Zetia 10 mg daily, metoprolol tartrate 12.5 mg daily, prednisone, Samsca, Diovan. PHYSICAL EXAMINATION: Blood pressure 94/50 with a heart rate in the 90s and low 100s. The lungs with no wheezes. Heart S1, S2 with systolic murmur heard at the base. No diastolic murmur. Abdomen is soft. Positive bowel sounds. Extremities no significant edema. LAB DATA: Revealed a sodium up to 128, hemoglobin of 10.6, BUN and creatinine of 20 and 0.6. IMPRESSION: 1. Hyponatremia, improving. 2. Severe cardiomyopathy with severe aortic stenosis. 3. History of infrarenal abdominal aortic aneurysm. 4. History of pulmonary fibrosis. 5. Hyperlipidemia. RECOMMENDATIONS: From the cardiac standpoint, we will continue on the present supportive care. Unfortunately, the prognosis is quite guarded. The patient is not a candidate for any intervention from the cardiac standpoint. We will see him on as needed basis. Please feel free to call us for any questions. MMLAURAL / IJN: [id number] /
[2018-01-13 11:15] VITALS: BP 90/57; PULSE 109; RESP 28; TEMP 98.1
[2018-01-13 11:50] LABS: Glucose,Whole Blood 141 mg/dL (75-99)
[2018-01-13] MEDS ORDERED: MORPHINE ORAL SOLN 10 MG/5 ML CUP PO PRN (11:56)
[2018-01-13] MEDS ORDERED: LORazepam 2 MG/ML INJ IV PRN (11:58)
--- NOTE | 2018-01-13 12:10 | P.PN ---
Subjective Progress Note Date: 01/13/18 Principal diagnosis: Impending respiratory failure Progress note dated 01/13/2018 77-year-old male with a history of hypovolemic hyponatremia. The patient's sodium has increased. Apparently yesterday he was moved down to the fifth floor but apparently early this morning came back up because of rapid heartbeat mental status changes some respiratory distress and hypotension. The patient was recently made hospice by the daughter Prabha. I think that's a right decision. The patient also has a history of focal and segmental glomerulosclerosis, pulmonary fibrosis, severe cardiomyopathy with ejection fraction at 20-25% moderate to severe aortic stenosis hypothyroidism abdominal aortic aneurysm status post endoluminal aortoiliac endograft hyperlipidemia and recent admission for influenza B infection. The patient is doing very poorly. The patient's very lethargic and somnolent. The patient did not have any evaluation for his mental status changes with a very mild may have had a stroke. He's slouched over. Does not respond to verbal stimuli. Again, recently he was made hospice by his daughter Prabha. Again I think that's appropriate. Objective - Vital Signs Vital signs: Vital Signs Temp 98.1 F 01/13/18 11:12 Pulse 109 H 01/13/18 11:12 Resp 28 H 01/13/18 11:12 BP 90/57 01/13/18 11:12 Pulse Ox 94 L 01/13/18 11:12 Intake & Output 01/12/18 01/13/18 01/13/18 18:59 06:59 18:59 Intake Total 480 720 270 Balance 480 720 270 Weight 62.5 kg Intake: Tube Feeding 480 720 240 Other 30 Other: Voiding Method Urinal Incontinent Incontinent # Voids 1 1 # Bowel Movements 1 - Exam Unresponsive, nasal O2 in place. HEENT examination is grossly unremarkable. Mucous membranes are moist. Neck supple. Full range of motion. No adenopathy thyromegaly or neck vein distention. Cardiovascular examination reveals regular rhythm rate. S1-S2 normal. No S3 or S4. A soft systolic murmur is noted. Lungs reveal bibasilar coarse Velcro crackles. Breath sounds are diminished. Abdomen soft bowel sounds are heard. No masses or tenderness. Extremities are intact. No cyanosis clubbing or edema. Skin is without rash or lesion. Neurologic examination could not be adequately assessed. - Labs CBC & Chem 7: 01/13/18 07:08 01/13/18 07:08 Labs: Abnormal Lab Results - Last 24 Hours (Table) 01/13/18 01/13/18 01/13/18 Range/Units 07:07 07:08 07:08 WBC 16.4 H (3.8-10.6) k/uL RBC 3.40 L (4.30-5.90) m/uL Hgb 10.6 L (13.0-17.5) gm/dL Hct 32.9 L (39.0-53.0) % RDW 15.8 H (11.5-15.5) % Plt Count 563 H (150-450) k/uL Neutrophils # 14.2 H (1.3-7.7) k/uL Lymphocytes # 0.6 L (1.0-4.8) k/uL Monocytes # 1.1 H (0-1.0) k/uL Sodium 128 L (137-145) mmol/L Chloride 93 L (98-107) mmol/L Creatinine 0.60 L (0.66-1.25) mg/dL Glucose 145 H (74-99) mg/dL POC Glucose (mg/dL) 156 H (75-99) mg/dL Total Protein 6.0 L (6.3-8.2) g/dL Albumin 2.8 L (3.5-5.0) g/dL 01/13/18 Range/Units 11:47 WBC (3.8-10.6) k/uL RBC (4.30-5.90) m/uL Hgb (13.0-17.5) gm/dL Hct (39.0-53.0) % RDW (11.5-15.5) % Plt Count (150-450) k/uL Neutrophils # (1.3-7.7) k/uL Lymphocytes # (1.0-4.8) k/uL Monocytes # (0-1.0) k/uL Sodium (137-145) mmol/L Chloride (98-107) mmol/L Creatinine (0.66-1.25) mg/dL Glucose (74-99) mg/dL POC Glucose (mg/dL) 141 H (75-99) mg/dL Total Protein (6.3-8.2) g/dL Albumin (3.5-5.0) g/dL Assessment and Plan Assessment: Assessment Hypovolemic hyponatremia, improved Focal and segmental glomerulosclerosis Pulmonary fibrosis Severe cardiomyopathy with an ejection fraction of 20-25% with global hypokinesia Moderate to severe aortic stenosis Hypothyroidism Abdominal aortic aneurysm, status post repair with an intraluminal aortoiliac endograft 2017 Hyperlipidemia Recent admission for influenza B infection Plan: Plan dated 01/13/2018 The patient was moved down to the floor yesterday and then moved back up to the sixth floor early this morning. An 18 was called. The patient was apparently tachycardic hypertensive and had mental status changes. The patient apparently received some Lasix and had a chest x-ray done. Fortunately, the daughter Prabha, has made the patient a hospice patient. I think that's very appropriate at this time. No additional recommendations are made. We'll review the labs and x-rays. Additional recommendations and suggestions are forthcoming. Time with Patient: Less than 30
--- NOTE | 2018-01-13 14:16 | P.PN ---
Subjective 77-year-old admitted secondary to hyponatremia which is improving hyponatremia secondary to SIADH and the hyperthyroidism. Patient is bit lethargic. Patient is nothing by mouth is having PEG tube feedings no overnight events. 01/13/2018 Patient's sodium did improve but patient overall clinical condition has worsened patient became less responsive, heart rate went up again patient has multiple chronic medical problems patient functionality is extremely poor with extremely poor Karnofsky score patient is mostly bedbound for last few months and staying at the group home with a PEG tube in place. Patient does have history of pulmonary fibrosis severe cardiomyopathy ejection fraction of 20-25% severe aortic stenosis, focal segmental sclerosis. Current symptoms during his overall poor functionality, after discussion with the daughter patient was made hospice acidosis consulted and reviewed all the medications with the daughter all the medications were discontinued except for comfort medications and PEG tube will be discontinued as well Objective - Vital Signs Vital signs: Vital Signs Temp 98.1 F 01/13/18 11:12 Pulse 109 H 01/13/18 11:12 Resp 28 H 01/13/18 11:12 BP 90/57 01/13/18 11:12 Pulse Ox 94 L 01/13/18 11:12 Intake & Output 01/12/18 01/13/18 01/13/18 18:59 06:59 18:59 Intake Total 480 720 270 Balance 480 720 270 Weight 62.5 kg Intake: Tube Feeding 480 720 240 Other 30 Other: Voiding Method Urinal Incontinent Incontinent # Voids 1 1 # Bowel Movements 1 - Exam PHYSICAL EXAMINATION: GENERAL: Arousable drowsy sleepy. HEENT: Pupils are round and equally reacting to light. EOMI. No scleral icterus. No conjunctival pallor. Normocephalic, atraumatic. No pharyngeal erythema. No thyromegaly. CARDIOVASCULAR: S1 and S2 present. No murmurs, rubs, or gallops. Tachycardic PULMONARY: Chest is clear to auscultation, no wheezing or crackles. ABDOMEN: Soft, nontender, nondistended, normoactive bowel sounds. No palpable organomegaly. PEG tube in place PEG tube site is clean without any infection. MUSCULOSKELETAL: No joint swelling or deformity. EXTREMITIES: No cyanosis, clubbing, or pedal edema. NEUROLOGICAL: Gross neurological examination did not reveal any focal deficits. SKIN: No rashes. - Labs CBC & Chem 7: 01/13/18 07:08 01/13/18 07:08 Labs: Abnormal Lab Results - Last 24 Hours (Table) 01/13/18 01/13/18 01/13/18 Range/Units 07:07 07:08 07:08 WBC 16.4 H (3.8-10.6) k/uL RBC 3.40 L (4.30-5.90) m/uL Hgb 10.6 L (13.0-17.5) gm/dL Hct 32.9 L (39.0-53.0) % RDW 15.8 H (11.5-15.5) % Plt Count 563 H (150-450) k/uL Neutrophils # 14.2 H (1.3-7.7) k/uL Lymphocytes # 0.6 L (1.0-4.8) k/uL Monocytes # 1.1 H (0-1.0) k/uL Sodium 128 L (137-145) mmol/L Chloride 93 L (98-107) mmol/L Creatinine 0.60 L (0.66-1.25) mg/dL Glucose 145 H (74-99) mg/dL POC Glucose (mg/dL) 156 H (75-99) mg/dL Total Protein 6.0 L (6.3-8.2) g/dL Albumin 2.8 L (3.5-5.0) g/dL 01/13/18 Range/Units 11:47 WBC (3.8-10.6) k/uL RBC (4.30-5.90) m/uL Hgb (13.0-17.5) gm/dL Hct (39.0-53.0) % RDW (11.5-15.5) % Plt Count (150-450) k/uL Neutrophils # (1.3-7.7) k/uL Lymphocytes # (1.0-4.8) k/uL Monocytes # (0-1.0) k/uL Sodium (137-145) mmol/L Chloride (98-107) mmol/L Creatinine (0.66-1.25) mg/dL Glucose (74-99) mg/dL POC Glucose (mg/dL) 141 H (75-99) mg/dL Total Protein (6.3-8.2) g/dL Albumin (3.5-5.0) g/dL Assessment and Plan Plan: -Hyponatremia: Improving presently 128 sodium patient has SIADH along with hypothyroidism contributing to that -Dysphagia chronic patient is on PEG tube feedings. -Metabolic encephalopathy secondary to hyponatremia which improved -Severe aortic stenosis -Focal segmental sclerosis -Anemia of chronic disease -Hypertension -Hyperlipidemia Plan Patient was made comfort care and hospice was consulted
[2018-01-13] MEDS ORDERED: ALPRAZolam 0.25 MG TAB PEG/G-TUBE SCH (16:00)
== END 2018-01-13 14:08 | disposition hospice, inpatient (51) | DRG 643 ==
LOC: EC 13:04 → 6SEL 15:50 → 5MS5E 01-12 16:32 → 6SEL 01-13 07:29
PROVIDERS: ADMIT Family Medicine; ATTEND Family Medicine
DX: E22.2 Syndrome of inappropriate secretion of antidiuretic hormone (principal); E43 Unspecified severe protein-calorie malnutrition; G93.41 Metabolic encephalopathy; E87.2 Acidosis; I13.0 Hypertensive heart and chronic kidney disease with heart failure and stage 1 through stage 4 chronic kidney disease, or unspecified chronic kidney disease; I42.9 Cardiomyopathy, unspecified; I50.22 Chronic systolic (congestive) heart failure; J84.10 Pulmonary fibrosis, unspecified; I08.3 Combined rheumatic disorders of mitral, aortic and tricuspid valves; R13.10 Dysphagia, unspecified; N04.1 Nephrotic syndrome with focal and segmental glomerular lesions; Z43.1 Encounter for attention to gastrostomy; E86.0 Dehydration; D63.8 Anemia in other chronic diseases classified elsewhere; E86.1 Hypovolemia; E05.90 Thyrotoxicosis, unspecified without thyrotoxic crisis or storm; E78.5 Hyperlipidemia, unspecified; G47.00 Insomnia, unspecified; I44.7 Left bundle-branch block, unspecified; I71.4 Abdominal aortic aneurysm, without rupture; N18.9 Chronic kidney disease, unspecified; Z79.52 Long term (current) use of systemic steroids; Z79.82 Long term (current) use of aspirin; Z79.899 Other long term (current) drug therapy; Z80.9 Family history of malignant neoplasm, unspecified; Z88.8 Allergy status to other drugs, medicaments and biological substances; Z79.890 Hormone replacement therapy; R54 Age-related physical debility; R77.8 Other specified abnormalities of plasma proteins; Z51.5 Encounter for palliative care; I95.2 Hypotension due to drugs; T46.5X5A Adverse effect of other antihypertensive drugs, initial encounter; Z68.20 Body mass index [BMI] 20.0-20.9, adult; Z74.01 Bed confinement status
CPT/HCPCS: 36415; 71045; 71046; 80048; 80053; 81001; 82550; 82553; 83880; 83930; 83935; 84100; 84295; 84300; 84439; 84443; 84484; 85025; 85610; 85730; 93005; 93306; 94640; 96360; 99284

== ENCOUNTER 2018-01-13 14:23 | Inpatient (IN) | payer MEDICAID ==
[2018-01-13] MEDS ORDERED: ONDANSETRON 4 MG/2 ML VIAL IVP PRN (14:27)
[2018-01-13] MEDS ORDERED: ATROPINE OPHTH SOLN 1% 5ML BTL SUBLINGUAL PRN (14:27)
[2018-01-13] MEDS ORDERED: BISACODYL 10 MG SUPP RECTAL PRN (14:29)
[2018-01-13] MEDS ORDERED: ALPRAZolam 0.25 MG TAB PO PRN (14:29)
[2018-01-13] MEDS ORDERED: ACETAMINOPHEN ORAL SUSP 160 MG/5 ML CUP PO PRN (14:29)
[2018-01-13] MEDS ORDERED: SCOPOLAMINE 1.5MG/72HR PATCH TRANSDERM SCH (14:30)
[2018-01-13] MEDS ORDERED: MORPHINE SULFATE (100 MG/2 ML) 100 MG in SODIUM CHLORIDE 0.9% 100 ML IV SCH (14:30)
[2018-01-13 23:46] VITALS: BP 81/53; PULSE 125; RESP 9
== END 2018-01-14 00:56 | disposition expired | DRG 951 ==
LOC: 6SEL 14:23
PROVIDERS: ADMIT Internal Medicine; ATTEND Internal Medicine
DX: Z51.5 Encounter for palliative care (principal); G93.41 Metabolic encephalopathy; E43 Unspecified severe protein-calorie malnutrition; E87.1 Hypo-osmolality and hyponatremia; I50.22 Chronic systolic (congestive) heart failure; E86.0 Dehydration; Z88.8 Allergy status to other drugs, medicaments and biological substances; Z79.890 Hormone replacement therapy; Z79.52 Long term (current) use of systemic steroids; Z79.899 Other long term (current) drug therapy; N26.9 Renal sclerosis, unspecified; Z80.9 Family history of malignant neoplasm, unspecified; I11.0 Hypertensive heart disease with heart failure; I35.0 Nonrheumatic aortic (valve) stenosis; R13.10 Dysphagia, unspecified; D63.8 Anemia in other chronic diseases classified elsewhere; Z66 Do not resuscitate; Z93.1 Gastrostomy status; R33.9 Retention of urine, unspecified; G47.00 Insomnia, unspecified; E78.5 Hyperlipidemia, unspecified; E03.9 Hypothyroidism, unspecified; I71.4 Abdominal aortic aneurysm, without rupture; R74.8 Abnormal levels of other serum enzymes; Z68.20 Body mass index [BMI] 20.0-20.9, adult
CPT/HCPCS: 94760